=== PATIENT | female | born 1945 | race Two or more races ===

== ENCOUNTER 2020-06-19 13:45 | Outpatient (REF) | payer MEDICARE, SELFPAY | END 2020-06-19 13:46 | disposition home or self-care (01) | LOC: HO.LAB 13:45 | PROVIDERS: Visit Provider Internal Medicine | DX: Z20.828 Contact with and (suspected) exposure to other viral communicable diseases (principal) | CPT/HCPCS: 87635 ==

== ENCOUNTER → 2020-07-15 11:20 | Outpatient (BNVA) | payer MEDICARE, SELFPAY | PROVIDERS: PCP Internal Medicine; Visit Provider Internal Medicine Pulmonary Disease | DX: J45.991 Cough variant asthma (principal); R94.2 Abnormal results of pulmonary function studies; K21.9 Gastro-esophageal reflux disease without esophagitis; G47.33 Obstructive sleep apnea (adult) (pediatric); Z79.899 Other long term (current) drug therapy; Z99.89 Dependence on other enabling machines and devices | CPT/HCPCS: 99212 ==

== ENCOUNTER → 2020-08-07 12:52 | Outpatient (REF) | payer MEDICARE, SELFPAY ==
--- NOTE | 2020-08-07 13:00 | CA_ITS ---
Transthoracic Echocardiogram Patient (Last, First, Middle): Juany James M Gender: Female Date of : 1945 Age: 74 Procedure Date: 08/07/2020 Procedure Type: Transthoracic Echocardiogram Location: OP Height: 157.48 cm Weight: 68.04 kg BSA: 1.69 m2 Heart Rate: bpm BP: 132 / 58 mmHg Pricing Director: [facility] MD: José Miguel Hernandez MD Symptoms: I38 VALVULAR I27.20 PULMONARY HTN Study Quality: Good ECG Rhythm: Sinus Conclusions: - The visually estimated ejection fraction is between 60-65%. There is no evidence of regional wall motion abnormalities. - There is mild mitral valve regurgitation. - There is mild to moderate tricuspid valve regurgitation. - Mild to moderate pulmonary hypertension is present. Findings Left Ventricle Normal left ventricular cavity size. The left ventricular systolic function is normal. The visually estimated ejection fraction is between 60-65%. There is no evidence of regional wall motion abnormalities. E/E prime ratio is >15, consistent with elevated filling pressures. Evidence suggests grade I (mild) diastolic dysfunction. There is mild septal asymmetric hypertrophy. Right Ventricle Normal right ventricular cavity size and systolic function. Atria The left atrium is mildly dilated. The right atrium is normal in size. Aortic Valve There is a normal trileaflet aortic valve. There is no aortic valve stenosis. There is no aortic valve regurgitation. Mitral Valve There is mild anterior and posterior mitral leaflet thickening. There is mild mitral valve regurgitation. There is no mitral valve stenosis. Pulmonic Valve The pulmonic valve was not well visualized. Tricuspid Valve Normal tricuspid valve structure. There is mild to moderate tricuspid valve regurgitation. The right ventricular systolic pressure is 47 mmHg. Mild to moderate pulmonary hypertension is present. Great Vessels The asc aorta is normal in size. Venous The inferior vena cava is normal in size and collapses greater than 50% with inspiration. Pericardium/Pleural There is no evidence of pericardial effusion. Prior Study Comparison No significant change compared to prior study dated: 04/15/2019. Measurements 2D Linear Measurements RVIDd: 2.47 RVIDd Index: 1.46 IVSd: 1.19 0.6-0.9/0.6-1.0 cm LVIDd: 4.15 3.9-5.3/4.2-5.9 cm LVIDd Index: 2.46 2.4-3.2/2.2-3.1 cm/m2 LVIDs: 2.67 2.0-3.6 cm LVPWd: 1.05 0.7-1.1 cm Ao Root: 2.40 2.1-3.5 cm LA Diam: 4.20 2.7-3.8/3.0-4.0 cm LAIDs Index: 2.49 1.5-2.3 cm/m2 LV Mass: 197.02 67-162/88-224 g LV Mass Index: 116.58 43-95/49-115 g/m2 LVOT Diam: 1.70 3.0+(-)1.3 cm 2D Systolic Function EF 4C: 72.80 >55% EF 2C: 60.40 >55% EF BiP: 66.40 >55% Mitral Valve MV Pk E: 1.14 MV PK A: 1.41 MV Decel Time: 280.00 E/A: 0.80 E'Lateral: 6.20 E'Medial: 5.22 E/E' Med: 21.80 E/E' Lat: 18.40 MR Alias Sadi: 0.35 MR RAD: 0.70 Aortic Valve AoV Pk Sadi: 1.75 AoV Mn Sadi: 1.20 AoV VTI: 0.37 AoV Pk Grad: 12.00 Aov Mn Grad: 7.00 KENNY Cont.VTI: 2.17 LVOT LVOT Pk Sadi: 1.42 LVOT Mn Sadi: 0.99 LVOT VTI: 0.35 LVOT Pk Grad: 8.00 LVOT Mn Grad: 4.00 LVOT Diam: 1.70 LVOT Area: 2.27 Diastolic Function MV Pk E: 1.14 MV Pk A: 1.41 E/A: 0.80 E'Medial: 5.22 E/E' Med: 21.80 E' Laterial: 6.20 E/E' Lat: 18.40 Tricuspid Valve TR Pk Sadi: 3.31 TR Pk Grad: 44.00 RA Press: 3.00 RVSP: 47.00 Great Vessels Aorta Ao Root-2D: 2.40 2.0-3.7 cm Ao Asc: 2.50 2.1-3.4 cm Updated in Other Vendor System with Status of Final José Miguel Hernandez MD electronically signed on 08/09/2020 2:27:44 PM with status of Final
== END ==
LOC: HO.CARD 12:52
PROVIDERS: Visit Provider Internal Medicine
DX: I38 Endocarditis, valve unspecified (principal); I27.20 Pulmonary hypertension, unspecified; I10 Essential (primary) hypertension
CPT/HCPCS: 93306

== ENCOUNTER → 2020-08-17 12:51 | Outpatient (BNVA) | payer MEDICARE, SELFPAY | PROVIDERS: Visit Provider Internal Medicine | DX: I38 Endocarditis, valve unspecified (principal); I27.20 Pulmonary hypertension, unspecified; R06.02 Shortness of breath | CPT/HCPCS: 93005; 99212 ==

== ENCOUNTER 2020-08-19 09:12 | Outpatient (REF) | payer MEDICARE, SELFPAY ==
[2020-08-19 10:19] LABS: Anion Gap 12 (12-20); Blood Urea Nitrogen 17 mg/dL (9-16); Calcium 9.5 mg/dL (8.4-10.2); Carbon Dioxide 32 mmol/L (22-29); Chloride 100 mmol/L (96-108); Estimated Glomerular Filt Rate > 60; Glucose Random 185 mg/dL (60-115); Potassium 4.5 mmol/l (3.3-5.1); Sodium 139 mmol/L (135-145)
== END 2020-08-19 09:13 | disposition home or self-care (01) ==
LOC: HO.LAB 09:12
PROVIDERS: PCP Internal Medicine; Visit Provider Internal Medicine Pulmonary Disease
DX: R94.2 Abnormal results of pulmonary function studies (principal); E78.00 Pure hypercholesterolemia, unspecified
CPT/HCPCS: 80048

== ENCOUNTER 2020-08-24 11:09 | Outpatient (REF) | payer MEDICARE, SELFPAY ==
--- NOTE | 2020-08-24 11:11 | CT_ITS ---
EXAMINATION: CT CHEST WITH CONTRAST CLINICAL INFORMATION: Abnormal pulmonary function tests. COMPARISON: None. TECHNIQUE: Multidetector volumetric CT imaging of the chest was obtained after the administration of 50 mL of Omnipaque 350 intravenous contrast without immediate adverse reactions. Axial MIP volume rendering provided. Sagittal and coronal reformatted images were obtained. This CT examination was performed using dose optimization techniques as appropriate, variously including the following: *Automated exposure control *Adjustment of mA and/or kV according to patient size (this includes techniques or standardized protocols for targeted exams where dose is matched to indication/reason for exam; i.e. extremities or head) *Use of iterative reconstruction technique DLP: 106 mGy-cm FINDINGS: PARTS BACK COUNTER MAN: Unremarkable. LUNGS: The lungs are well expanded with plate-like atelectasis left lung base and minimal dependent atelectasis right upper lobe adjacent to the major fissure. There is a 2 mm calcified nodule right lower lobe subpleural location, adjacent to the major fissure axial image 79/9, focal atelectasis in the subpleural location right middle lobe axial image 66/9 and a 1 mm calcified nodule left lower lobe posterior segment image 139/9. MEDIASTINUM: The thyroid lobes asymmetrical but not enlarged. Central trachea and bronchi are normal caliber. Heart size and the great vessels are normal caliber. There is no pericardial effusion seen. There are coronary artery calcifications present. PLEURA: There is no pleural effusion. No pleural mass or thickening. AXILLA: There are small shotty lymph nodes seen in the axilla. The chest wall appears unremarkable. UPPER ABDOMEN: The liver is diffusely attenuated. Visualized spleen, pancreas and bilateral adrenal glands are unremarkable. The gallbladder has been removed surgically. OSSEOUS STRUCTURES: No lytic or sclerotic process seen. CT/CT chest w con IMPRESSION: Calcified small pulmonary nodules, likely granulomas. There are focal atelectatic changes. No pulmonary mass, consolidation or ground-glass density seen. No abnormal mediastinal or axillary lymph nodes.
[2020-08-24] MEDS: iohexoL 350 MG/ML 100 ML INFUS..BTL 65 ML IV (11:58)
== END 2020-08-24 11:10 | disposition home or self-care (01) ==
LOC: HO.CT 11:09
PROVIDERS: PCP Internal Medicine; Visit Provider Internal Medicine Pulmonary Disease
DX: R94.2 Abnormal results of pulmonary function studies (principal)
CPT/HCPCS: 71260; Q9967

== ENCOUNTER 2020-09-14 16:12 | Emergency (ER) | payer MEDICARE, SELFPAY ==
[2020-09-14 17:31] VITALS: BP 140/86; PULSE 55; RESP 18; TEMP 36.9; O2SAT 97
[2020-09-14 17:47] VITALS: BP 140/87; PULSE 55; RESP 18; TEMP 36.6; O2SAT 97; BMI 24.0
--- NOTE | 2020-09-14 17:50 | XR_ITS ---
EXAMINATION: PORTABLE CHEST 1 VIEW CLINICAL INFORMATION: SOB . COMPARISON: 04/28/2020. TECHNIQUE: Portable frontal view of the chest was obtained. FINDINGS: The lungs are well expanded. Mild chronic appearing reticular markings but no superimposed focal infiltrate, effusion, edema, or pneumothorax. Cardiac and mediastinal silhouettes are within normal limits for technique. No acute bony abnormality seen. XR/XR chest 1V IMPRESSION: No evidence of acute disease.
[2020-09-14 21:04] LABS: Influenza A PCR NEGATIVE (Negative); Influenza B PCR NEGATIVE (Negative); Resp Syncy Virus RNA Qual PCR NEGATIVE (Negative); SARS COV2 PCR INHOUSE NEGATIVE (Negative)
--- NOTE | 2020-09-14 21:14 | ED.URI ---
HPI - URI/Sore Throat General Chief Complaint: Upper Respiratory Symptoms Stated Complaint: Difficulty breathing Time Seen by Provider: 09/14/20 17:49 History of Present Illness HPI Narrative: Patient presents to ED for dry cough for the past 3 days. Denies any swelling of lower extremities, chest pain, calf pain, shortness of breath. He states body aches and chills. She states subjective fever Related Data Home Medications Medication Instructions Recorded Confirmed acetaminophen 500 mg tablet 500 mg PO Q6H PRN 06/05/20 08/17/20 albuterol sulfate 2.5 mg INHALATION Q4-6H PRN 06/05/20 08/17/20 aspirin 81 mg tablet,delayed 81 mg PO DAILY 06/05/20 08/17/20 release benazepril 10 mg tablet 10 mg PO DAILY 06/05/20 08/17/20 fluticasone 250 mcg-salmeterol 50 1 inh INHALATION BID 06/05/20 08/17/20 mcg/dose blistr powdr for inhalation ibuprofen 600 mg tablet 600 mg PO TID 06/05/20 08/17/20 lidocaine 5 % topical ointment 1 applic TOPICAL TID 06/05/20 08/17/20 metformin 1,000 mg tablet 1,000 mg PO BID 06/05/20 08/17/20 metoprolol succinate 25 mg 25 mg PO DAILY 06/05/20 08/17/20 tablet,extended release 24 hr montelukast 10 mg tablet 10 mg PO DAILY 06/05/20 08/17/20 multivitamin 1 tab PO DAILY 06/05/20 08/17/20 oxycodone-acetaminophen 5 mg-325 1 tab PO Q8H PRN 06/05/20 08/17/20 mg tablet sitagliptin 100 mg tablet 100 mg PO DAILY 06/05/20 08/17/20 sumatriptan succinate 50 mg tablet 50 mg PO Q2-4H PRN 06/05/20 08/17/20 trazodone 50 mg tablet 50 mg PO BEDTIME PRN 06/05/20 08/17/20 Previous Rx's Medication Instructions Recorded atorvastatin 20 mg tablet 20 mg PO BEDTIME #90 tab 06/05/20 atorvastatin 10 mg tablet 10 mg PO BEDTIME 90 Days #90 tab 06/24/20 amlodipine 5 mg tablet 5 mg PO DAILY #90 tab 07/09/20 pantoprazole 40 mg tablet,delayed 40 mg PO BID #180 tab 07/10/20 release tizanidine 4 mg tablet 4 mg PO BID PRN #45 tab 08/17/20 albuterol sulfate 2 puff INHALATION QID PRN #18 g 09/14/20 azithromycin See Rx Instructions .ROUTE 09/14/20 .COMPLEX #6 tab benzonatate [Tessalon Perles] 100 mg PO TID PRN #15 cap 09/14/20 Allergies Allergy/AdvReac Type Severity Reaction Status Date / Time metformin Allergy Unknown 1000 mg Verified 09/14/20 17:47 cause diarrhea Review of Systems Review of Systems: Yes all other systems are reviewed and are negative Constitutional: Constitutional: Reports as per HPI, Reports no additional constitutional complaints, Reports body ache(s) and Reports chills Eyes: Eyes: Reports as per HPI and Reports no additional eye complaints ENT: Reports system reviewed and no additional complaints, except as documented and Reports as per HPI Cardiovascular: Cardiovascular: Reports as per HPI and Reports no additional cardiovascular complaints Respiratory: Respiratory: Reports cough Gastrointestinal: Gastrointestinal: Reports as per HPI and Reports no additional gastrointestinal complaints Musculoskeletal: Musculoskeletal: Reports no additional musculoskeletal complaints and Reports as per HPI Neurologic: Reports system reviewed and no additional complaints, except as documented and Reports as per HPI Psychiatric: Psychiatric: Reports no additional psychiatric complaints and Reports as per HPI [facility] Past Medical History Medical History Asthma Behcets syndrome Diverticulitis GERD (gastroesophageal reflux disease) Hypercholesterolemia Hypertension Mitral valve regurgitation Overweight (BMI 25.0-29.9) Pulmonary hypertension Tubular adenoma of colon Type 2 diabetes mellitus with hyperglycemia Valvular heart disease Surgical History Back pain with history of spinal surgery History of bilateral cataract extraction History of bladder surgery History of breast biopsy History of cholecystectomy History of hand surgery History of shoulder surgery History of total abdominal hysterectomy Family History Family History (Updated 09/03/20 @ 09:26 by DANAIL Nguyen) Father Medical history unknown Mother Diabetes CVD (cardiovascular disease) Daughter Colon cancer Social History Social History (Updated 08/17/20 @ 12:59 by DANIAL Fierro) Smoking Status: Never smoker Advance Directives: No Advance Directives Information Provided: No Physical Exam Vital Signs: Vital Signs: Last Vital Signs Temp 97.8 F 09/14/20 17:47 Pulse 55 09/14/20 17:47 Resp 18 09/14/20 17:47 BP 140/87 H 09/14/20 17:47 Pulse Ox 97 09/14/20 17:47 Body Mass Index 24.0 Const: General: cooperative, healthy appearing, comfortable, no acute distress, well developed, alert, awake and Physically active Orientation/consciousness: patient oriented x3 HENMT: Head: Yes normal to inspection, Yes No palpable skull fracture present, Yes normocephalic and Yes atraumatic Eyes: General: appearance normal, both eyes and all related structures Neck: Neck: Yes normal visual inspection, Yes full ROM, Yes no lymphadenopathy, Yes no meningeal signs, Yes trachea midline, Yes supple and No tender Chest: Chest palpation & inspection: normal inspection of the chest and normal palpation of entire chest wall Resp: Effort & Inspection: normal respiratory effort and able to speak in complete sentences Auscultation: clear to auscultation bilaterally Cardio: Jugular venous distension: no JVD Heart sounds: S1 normal heart sound present and S2 normal heart sound present GI: Inspection: Yes normal to inspection Palpation (GI): Soft to palpation, not firm, nontender, no guarding and not rigid : General: No CVA tenderness and Yes no CVA tenderness Back/Spine/Pelvis: Back: no CVA tenderness, No CVA tenderness and No back tenderness Skin: General skin exam: no rashes or lesions noted and elasticity normal Neuro: General: patient oriented x3, no meningeal signs and CN's II-XI intact bilaterally Cranial nerves: Yes CN's II-XII intact bilaterally Extrem: Other: Lower extremities negative for any swelling, pitting edema, or calf tenderness. General: Yes normal to inspection and Yes full ROM Psych: Appearance: grossly normal, well kempt and not disheveled Course Course Course Narrative: Patient will have chest x-ray and COVID swab sent. Reevaluation(s) Reevaluation #1: X-ray negative for any pneumonia. COVID swab came back negative. Patient informed although her COVID swab came back negative she only has had symptoms for the past 3 days and this could be a false negative. Patient informed to continue quarantine if symptoms worsen. Time: 21:20 MDM - URI/Sore Throat MDM Narrative Medical decision making narrative: Viral syndrome. Bronchitis Lab Data Labs: Lab Results 09/14/20 Range/Units 20:00 Coronavirus (PCR) NEGATIVE (Negative) Influenza Type A (PCR) NEGATIVE (Negative) Influenza Type B (PCR) NEGATIVE (Negative) RSV RNA Qual (PCR) NEGATIVE (Negative) Discharge Plan Discharge Clinical Impression: URI (upper respiratory infection), Bronchitis Patient Disposition: Home, Self-Care Instructions: Upper Respiratory Infection (ED), Acute Bronchitis (ED) Additional Instructions: Return to the ED for swelling of lower extremities, calf pain, coughing up blood, weakness, fever, chills, inability tolerate solid food/liquid, or any other concerning symptoms. A COVID swab came back negative, but if you continue to have symptoms or they worsen recommend quarantine. Prescriptions: New benzonatate [Tessalon Perles] 100 mg capsule 100 mg PO TID PRN (Reason: cough) Qty: 15 RF: 0 albuterol sulfate 90 mcg/actuation HFA aerosol inhaler 2 puff inhalation QID PRN (Reason: bronchitis) Qty: 18 RF: 0 azithromycin 250 mg tablet See Rx Instructions .ROUTE .COMPLEX Qty: 6 RF: 0 No Action atorvastatin 10 mg tablet 10 mg PO BEDTIME 90 Days Qty: 90 RF: 0 amlodipine 5 mg tablet 5 mg PO DAILY Qty: 90 RF: 3 pantoprazole 40 mg tablet,delayed release (DR/EC) 40 mg PO BID Qty: 180 RF: 1 tizanidine 4 mg tablet 4 mg PO BID PRN (Reason: muscle spasticity) Qty: 45 RF: 2 multivitamin Tablet 1 tab PO DAILY RF: 0 acetaminophen [Tylenol Extra Strength] 500 mg tablet 500 mg PO Q6H PRNRF: 0 ibuprofen [IBU] 600 mg tablet 600 mg PO TID RF: 0 lidocaine 5 % ointment 1 applic topical TID RF: 0 albuterol sulfate 2.5 mg /3 mL (0.083 %) solution for nebulization 2.5 mg inhalation Q4-6H PRNRF: 0 metformin 1,000 mg tablet 1,000 mg PO BID RF: 0 trazodone 50 mg tablet 50 mg PO BEDTIME PRNRF: 0 metoprolol succinate 25 mg tablet extended release 24 hr 25 mg PO DAILY RF: 0 benazepril 10 mg tablet 10 mg PO DAILY RF: 0 aspirin [Adult Aspirin Regimen] 81 mg tablet,delayed release (DR/EC) 81 mg PO DAILY RF: 0 oxycodone-acetaminophen [Percocet] 5-325 mg tablet 1 tab PO Q8H PRNRF: 0 fluticasone propion-salmeterol [Advair Diskus] 250-50 mcg/dose blister with device 1 inh inhalation BID RF: 0 Januvia 100 mg tablet 100 mg PO DAILY RF: 0 montelukast 10 mg tablet 10 mg PO DAILY RF: 0 sumatriptan succinate [Imitrex] 50 mg tablet 50 mg PO Q2-4H PRNRF: 0 atorvastatin 20 mg tablet 20 mg PO BEDTIME Qty: 90 RF: 2 Interventions: ED Discharge Assessment Last Done: 09/14/20 21:46 Discharge Date/Time: 09/14/20 21:48
== END 2020-09-14 21:48 | disposition home or self-care (01) ==
PROVIDERS: Physician Assistant; Emergency Provider Emergency Medicine
DX: J06.9 Acute upper respiratory infection, unspecified (principal); J20.9 Acute bronchitis, unspecified; Z20.822 Contact with and (suspected) exposure to COVID-19; I10 Essential (primary) hypertension; E11.9 Type 2 diabetes mellitus without complications
CPT/HCPCS: 0241U; 36415; 71045; 99283

== ENCOUNTER 2020-09-25 14:23 | Outpatient (REF) | payer MEDICARE, SELFPAY ==
--- NOTE | 2020-09-25 14:26 | XR_ITS ---
EXAMINATION: XR CHEST CLINICAL INFORMATION: Cough. COMPARISON: None TECHNIQUE: 2 views of the chest were obtained. FINDINGS: No significant abnormality is noted involving the heart, lungs, mediastinum, bony thorax or soft tissues. XR/XR chest 2V IMPRESSION: Unremarkable chest examination.
== END 2020-09-25 14:24 | disposition home or self-care (01) ==
LOC: HO.HMGCX 14:23
PROVIDERS: PCP Internal Medicine; Visit Provider Internal Medicine
DX: R05 Cough (principal); Z20.822 Contact with and (suspected) exposure to COVID-19
CPT/HCPCS: 71046

== ENCOUNTER 2020-10-22 14:16 | Outpatient (REF) | payer MEDICARE, SELFPAY ==
--- NOTE | ~2020-10-22 | MM_ITS ---
EXAMINATION: MM DIAGNOSTIC DIGITAL BREAST TOMOSYNTHESIS, BILATERAL US DIAGNOSTIC ULTRASOUND BREAST, BILATERAL CLINICAL INFORMATION: Due for yearly. Follow-up probable benign architectural change upper outer left breast. The lifetime risk of breast cancer based on the Tyrer-Cuzick Model is 4%. COMPARISON: Mammography: 04/20/2020, 10/21/2019, 10/15/2019 (BI-RADS 0), 10/08/2018, 09/11/2017, 09/02/2016; targeted left breast ultrasound 10/21/2019 TECHNIQUE: Digital breast tomosynthesis is performed in both the craniocaudal and mediolateral oblique views along with computer-aided detection (CAD). Synthesized 2D images are generated from the tomosynthesis. Additional views are obtained: Spot left MLO, left ML, spot right CC, spot right MLO. Ultrasound right breast is targeted to the posterior upper quadrant. Additional imaging right axilla performed. Grayscale imaging and color Doppler are performed without and with harmonics. Ultrasound left breast is targeted to the mid upper outer quadrant. Additional imaging left axilla performed. Grayscale imaging and color Doppler are performed without and with harmonics. FINDINGS: Mammography: The breasts are heterogeneously dense, which may obscure small masses (ACR BI-RADS breast composition Category c). The right breast is focal irregular asymmetric density posterior 12:00 position representing change from prior studies. The remainder of the right breast shows no mass or architectural abnormality. There are scattered calcifications again seen. The left breast has some radiating lines upper outer quadrant similar to prior studies. There is questionable nodularity on tomography near this area. The remainder of the left breast shows no significant changes. There are scattered benign round calcifications again noted. Ultrasound: Targeted ultrasound right breast demonstrates irregular hypoechoic mass 12:00 position 7 cm from nipple measuring approximately 0.7 x 0.6 cm. There is some scattered posterior shadowing. This corresponds to finding on mammography and is suspicious. Ultrasound-guided core biopsy is recommended. Additional imaging right axilla shows no lymphadenopathy. Targeted ultrasound left breast demonstrates a hypoechoic nodule 2:00 position 6 cm from nipple measuring approximately 0.6 x 0.5 x 0.4 cm. Margins appear subtle irregular. There is no increased or decreased through transmission of sound. Ultrasound-guided core sampling is recommended. Additional imaging left axilla shows no lymphadenopathy. Results are discussed with the patient at time of visit. [facility] to follow up with PCP in morning and assist with patient scheduling and management. MM/MM tomosynthesis diagnostic BI IMPRESSION: 1. Right: New irregular mass posterior 12:00 position under 1 cm. 2. Left: Architectural findings stable. New hypoechoic mass under 1 cm on ultrasound. ASSESSMENT: BI-RADS 4: Suspicious RECOMMENDATION: Bilateral ultrasound-guided breast biopsy. This patient's information was entered into a reminder system with a target due date for their next mammogram.
== END 2020-10-22 14:17 | disposition home or self-care (01) ==
LOC: HO.MAMMO 14:16
PROVIDERS: PCP Internal Medicine; Visit Provider Internal Medicine
DX: N63.21 Unspecified lump in the left breast, upper outer quadrant (principal); R92.8 Other abnormal and inconclusive findings on diagnostic imaging of breast
CPT/HCPCS: 76642; 77062; 77066

== ENCOUNTER → 2020-10-26 08:12 | Outpatient (BNVA) | payer MEDICARE, SELFPAY | PROVIDERS: PCP Internal Medicine; Visit Provider Surgery | DX: N63.0 Unspecified lump in unspecified breast (principal) | CPT/HCPCS: Q3014 ==

== ENCOUNTER 2020-10-28 07:52 | Outpatient (REF) | payer MEDICARE, SELFPAY ==
--- NOTE | ~2020-10-28 | US_ITS ---
EXAMINATION: ULTRASOUND GUIDED CORE BIOPSY BREAST (TWO SITES), BILATERAL POST PROCEDURE DIGITAL MAMMOGRAM, BILATERAL CLINICAL INFORMATION: New irregular mass posterior 12:00 right breast under 1 cm. Hypoechoic lesion under 1 cm upper outer left breast on ultrasound. COMPARISON: Bilateral mammography and targeted breast ultrasound 10/22/2020. FINDINGS: Hospital provided housing relocation assisted for consent and throughout the procedure. Proper informed consent is obtained from the patient after discussion of the procedure, potential risks and complications, and alternatives. Patient was given an opportunity for questions. The patient appeared to understand. The patient consented to the procedure and signed the consent form. RIGHT BREAST: LOCATION: Posterior 12:00. GUIDANCE: Ultrasound-guided; aseptic technique. LESION: Irregular hypoechoic mass with posterior shadowing under 1 cm. APPROACH: Medial lateral. ANESTHESIA: 15 mL 1% lidocaine. DERMATOTOMY: Single skin michael dermatotomy performed. NEEDLE: 14-gauge Achieve core biopsy device with 13.5-gauge co-axial guide needle. CORES: 5. CLIP: HydroMARK; shape: butterfly. LEFT BREAST: New anesthesia and biopsy supplies are used. LOCATION: Upper outer quadrant mid depth. GUIDANCE: Ultrasound-guided; aseptic technique. LESION: Vague hypoechoic lesion under 1 cm. APPROACH: Lateral medial. ANESTHESIA: 15 mL 1% lidocaine. DERMATOTOMY: A skin michael dermatotomy is performed to allow for the second site of biopsy. NEEDLE: 14-gauge Achieve core biopsy device with 13.5-gauge co-axial guide needle. CORES: 5. CLIP: HydroMARK; shape: open coil. POST PROCEDURE DIGITAL MAMMOGRAM: The post biopsy mammogram is performed in separate room using separate digital mammography equipment from the biopsy procedure. Bilateral CC and bilateral ML views are obtained. The breasts are heterogeneously dense, which may obscure small masses (breast composition category: c). The bilateral clip markers are in position. No gross hematoma. The patient tolerated the procedure well. No immediate complications. Home instructions reviewed with the patient. Final pathology results are pending. US/US breast ndl core biopsy RT IMPRESSION: 1. Status post ultrasound-guided core biopsy right breast with placement of HydroMARK clip (butterfly shape). 2. Status post ultrasound-guided core biopsy left breast with placement of HydroMARK clip (open coil shape). 3. Pathology pending. An addendum report will be issued.
--- NOTE | ~2020-10-28 | US_ITS ---
EXAMINATION: ULTRASOUND GUIDED CORE BIOPSY BREAST (TWO SITES), BILATERAL POST PROCEDURE DIGITAL MAMMOGRAM, BILATERAL CLINICAL INFORMATION: New irregular mass posterior 12:00 right breast under 1 cm. Hypoechoic lesion under 1 cm upper outer left breast on ultrasound. COMPARISON: Bilateral mammography and targeted breast ultrasound 10/22/2020. FINDINGS: Hospital provided marketing researcher assisted for consent and throughout the procedure. Proper informed consent is obtained from the patient after discussion of the procedure, potential risks and complications, and alternatives. Patient was given an opportunity for questions. The patient appeared to understand. The patient consented to the procedure and signed the consent form. RIGHT BREAST: LOCATION: Posterior 12:00. GUIDANCE: Ultrasound-guided; aseptic technique. LESION: Irregular hypoechoic mass with posterior shadowing under 1 cm. APPROACH: Medial lateral. ANESTHESIA: 15 mL 1% lidocaine. DERMATOTOMY: Single skin michael dermatotomy performed. NEEDLE: 14-gauge Achieve core biopsy device with 13.5-gauge co-axial guide needle. CORES: 5. CLIP: HydroMARK; shape: butterfly. LEFT BREAST: New anesthesia and biopsy supplies are used. LOCATION: Upper outer quadrant mid depth. GUIDANCE: Ultrasound-guided; aseptic technique. LESION: Vague hypoechoic lesion under 1 cm. APPROACH: Lateral medial. ANESTHESIA: 15 mL 1% lidocaine. DERMATOTOMY: A skin michael dermatotomy is performed to allow for the second site of biopsy. NEEDLE: 14-gauge Achieve core biopsy device with 13.5-gauge co-axial guide needle. CORES: 5. CLIP: HydroMARK; shape: open coil. POST PROCEDURE DIGITAL MAMMOGRAM: The post biopsy mammogram is performed in separate room using separate digital mammography equipment from the biopsy procedure. Bilateral CC and bilateral ML views are obtained. The breasts are heterogeneously dense, which may obscure small masses (breast composition category: c). The bilateral clip markers are in position. No gross hematoma. The patient tolerated the procedure well. No immediate complications. Home instructions reviewed with the patient. Final pathology results are pending. US/US breast ndl core biopsy LT IMPRESSION: 1. Status post ultrasound-guided core biopsy right breast with placement of HydroMARK clip (butterfly shape). 2. Status post ultrasound-guided core biopsy left breast with placement of HydroMARK clip (open coil shape). 3. Pathology pending. An addendum report will be issued.
== END 2020-10-28 07:53 | disposition home or self-care (01) ==
LOC: HO.MAMMO 07:52
PROVIDERS: Visit Provider Surgery
DX: C50.811 Malignant neoplasm of overlapping sites of right female breast (principal); Z17.0 Estrogen receptor positive status [ER+]; N63.21 Unspecified lump in the left breast, upper outer quadrant
CPT/HCPCS: 19083; 77066; 88305; 88341; 88342; 88360

== ENCOUNTER → 2020-11-02 10:57 | Outpatient (BNVA) | payer MEDICARE, SELFPAY | PROVIDERS: PCP Internal Medicine; Visit Provider Surgery | DX: C50.911 Malignant neoplasm of unspecified site of right female breast (principal) | CPT/HCPCS: 99212 ==

== ENCOUNTER 2020-11-10 08:22 | Day surgery (SDC) | payer MEDICARE, SELFPAY ==
--- NOTE | 2020-11-09 09:08 | P.CONAN_ITS ---
Documented by User: Jannette Layney 11/09/20 09:19 HPI - Anesthesia Eval Consult details Narrative: 74yo F for Right breast lumpectomy, needle loc, sentinal node PMFSH Active Problems Active Problems: All Active Problems (Updated 11/02/20 @ 11:22 by Randy Moise MD) Invasive ductal carcinoma of right breast (Acute) Breast mass (Acute) Migraine (Acute) Cough (Acute) Shortness of breath (Acute) Pulmonary hypertension (Acute) Valvular heart disease (Acute) Restrictive pattern present on pulmonary function testing (Acute) RUDDY on CPAP (Acute) Cough variant asthma (Acute) Hypercholesterolemia (Acute) Viral illness (Acute) GERD (gastroesophageal reflux disease) (Acute) Asthma (Acute) Hypertension (Acute) Type 2 diabetes mellitus with hyperglycemia (Acute) Overweight (BMI 25.0-29.9) (Acute) Past Medical History Medical History Asthma Behcets syndrome Diverticulitis GERD (gastroesophageal reflux disease) Hypercholesterolemia Hypertension Invasive ductal carcinoma of right breast Mitral valve regurgitation Overweight (BMI 25.0-29.9) Pulmonary hypertension Tubular adenoma of colon Type 2 diabetes mellitus with hyperglycemia Valvular heart disease Family History Family History Father Medical history unknown Mother Diabetes CVD (cardiovascular disease) Daughter Colon cancer Surgical History Surgical History Back pain with history of spinal surgery History of bilateral cataract extraction History of bladder surgery History of breast biopsy History of cholecystectomy History of hand surgery History of shoulder surgery History of total abdominal hysterectomy Social History Social History Smoking Status: Never smoker Use of substances other than those prescribed or required for medical reasons: No Have you been hit, kicked, punched, or otherwise hurt by someone within the past year? If so, by whom?: No Advance Directives: No Advance Directives Information Provided: No Meds Allergies Allergy/AdvReac Type Severity Reaction Status Date / Time metformin Allergy Unknown 1000 mg Verified 10/26/20 08:26 cause diarrhea Home Medications Medication Instructions Recorded Confirmed Last Taken Type acetaminophen 500 mg tablet 500 mg PO Q6H PRN 06/05/20 11/02/20 Unknown History albuterol sulfate 2.5 mg INHALATION Q4-6H PRN 06/05/20 11/02/20 Unknown History aspirin 81 mg tablet,delayed 81 mg PO DAILY 06/05/20 11/02/20 11/07/20 History release benazepril 10 mg tablet 10 mg PO DAILY 06/05/20 11/02/20 Unknown History fluticasone 250 mcg-salmeterol 50 1 inh INHALATION BID 06/05/20 11/02/20 Unknown History mcg/dose blistr powdr for inhalation ibuprofen 600 mg tablet 600 mg PO TID 06/05/20 11/02/20 Unknown History lidocaine 5 % topical ointment 1 applic TOPICAL TID 06/05/20 11/02/20 Unknown History metformin 1,000 mg tablet 1,000 mg PO BID 06/05/20 11/02/20 Unknown History multivitamin 1 tab PO DAILY 06/05/20 11/02/20 Unknown History oxycodone-acetaminophen 5 mg-325 1 tab PO Q8H PRN 06/05/20 11/02/20 Unknown History mg tablet sitagliptin 100 mg tablet 100 mg PO DAILY 06/05/20 11/02/20 Unknown History trazodone 50 mg tablet 50 mg PO BEDTIME PRN 06/05/20 11/02/20 Unknown History Exam Exam Date and Time: November 09, 2020 0908 Pertinent Lab Results Pertinent Lab Results: Laboratory Tests 05/27/20 08/19/20 10:10 09:30 WBC 5.3 Hgb 13.1 Hct 39.9 Plt Count 304 Sodium 139 Potassium 4.5 Chloride 100 Carbon Dioxide 32 H BUN 17 H Creatinine 0.84 Narrative Narrative: EKG 07/2020 sinus bradycardia, 58/Min, nonspecific ST-T changes, left atrial enlargement Echo 07/2020 Conclusions: - The visually estimated ejection fraction is between 60-65%. There is no evidence of regional wall motion abnormalities. - There is mild mitral valve regurgitation. - There is mild to moderate tricuspid valve regurgitation. - Mild to moderate pulmonary hypertension is present. Per cardiac note, no h/o ischemic heart disease. Assessment and Plan Assessment Anesthesia Assessment: Chart Reviewed Documented by User: Mai Cohen 11/10/20 12:13 [facility] Past Medical History Medical History Asthma Behcets syndrome Diverticulitis GERD (gastroesophageal reflux disease) Hypercholesterolemia Hypertension Invasive ductal carcinoma of right breast Mitral valve regurgitation Overweight (BMI 25.0-29.9) Pulmonary hypertension Tubular adenoma of colon Type 2 diabetes mellitus with hyperglycemia Valvular heart disease Family History Family History Father Medical history unknown Mother Diabetes CVD (cardiovascular disease) Daughter Colon cancer Surgical History Surgical History Back pain with history of spinal surgery History of bilateral cataract extraction History of bladder surgery History of breast biopsy History of cholecystectomy History of hand surgery History of shoulder surgery History of total abdominal hysterectomy Social History Social History Smoking Status: Never smoker Use of substances other than those prescribed or required for medical reasons: No Have you been hit, kicked, punched, or otherwise hurt by someone within the past year? If so, by whom?: No Advance Directives: No Advance Directives Information Provided: No Meds Allergies Allergy/AdvReac Type Severity Reaction Status Date / Time metformin Allergy Unknown 1000 mg Verified 10/26/20 08:26 cause diarrhea Home Medications Medication Instructions Recorded Confirmed Last Taken Type acetaminophen 500 mg tablet 500 mg PO Q6H PRN 06/05/20 11/02/20 Unknown History albuterol sulfate 2.5 mg INHALATION Q4-6H PRN 06/05/20 11/02/20 Unknown History aspirin 81 mg tablet,delayed 81 mg PO DAILY 06/05/20 11/02/20 11/07/20 History release benazepril 10 mg tablet 10 mg PO DAILY 06/05/20 11/02/20 Unknown History fluticasone 250 mcg-salmeterol 50 1 inh INHALATION BID 06/05/20 11/02/20 Unknown History mcg/dose blistr powdr for inhalation ibuprofen 600 mg tablet 600 mg PO TID 06/05/20 11/02/20 Unknown History lidocaine 5 % topical ointment 1 applic TOPICAL TID 10/09/20 03/08/21 Unknown History metformin 1,000 mg tablet 1,000 mg PO BID 06/05/20 11/02/20 Unknown History multivitamin 1 tab PO DAILY 06/05/20 11/02/20 Unknown History oxycodone-acetaminophen 5 mg-325 1 tab PO Q8H PRN 06/05/20 11/02/20 Unknown History mg tablet sitagliptin 100 mg tablet 100 mg PO DAILY 06/05/20 11/02/20 Unknown History trazodone 50 mg tablet 50 mg PO BEDTIME PRN 06/05/20 11/02/20 Unknown History Exam Airway Mallampati Class: II TM Dist: >3cm Neck ROM: Full Assessment and Plan Assessment Anesthesia Assessment: Anesthesia Plan Discussed and Chart Reviewed Final Anesthetic Review NPO: Yes ASA Class: III Final Preanesthetic Review: No Changes in Pt Med Stat, Meds/Allgs Chart Reviewed, Consent Obtained/Reviewed and Anes Risks/Benef Reviewed Patient Risk: Intermediate Procedure Risk: Low Assessment/Block/Sedation in SS: Assess/Block/Sedation-SS Anesthetic Plan Anesthetic Plan: GA Disposition: Standard PACU
[2020-11-10] VITALS (11 sets, daily range): BP systolic 133–169; BP diastolic 62–72; PULSE 52–68; RESP 16–18; TEMP 36.4–36.6; O2SAT 92–100; BMI 28.9
--- NOTE | ~2020-11-10 | NM_ITS ---
EXAMINATION: NM LYMPH SCINTIGRAPHY CLINICAL INFORMATION: Malignant neoplasm of right breast. COMPARISON: None TECHNIQUE: Following explaining right breast sentinel node procedure, benefits and risk, a written consent was obtained by Dr. Bello. 4% lidocaine cream was applied on the right breast 30 to 45 minutes prior to the procedure. The cream was then cleaned, the right breast areolar area and around was cleaned in an aseptic manner. 0.5 mCi of 99m-technetium divided in 4 equal doses was injected in 4 quadrants around the right breast areola and imaging obtained 30 minutes later. Patient tolerated procedure extremely well. FINDINGS: On right breast lymphoscintigraphy, there is isotope activity seen around the right breast areola. A solitary sentinel node is seen in anterior axilla. NM/NM sentinel node w imaging IMPRESSION: Solitary sentinel node visualized in the anterior axilla on right breast lymphoscintigraphy.
--- NOTE | ~2020-11-10 | MM_ITS ---
EXAMINATION: MM MAMMOGRAM GUIDED NEEDLE LOCALIZATION BREAST, RIGHT MM NEEDLE LOCALIZATION SPECIMEN FROM THE RIGHT BREAST CLINICAL INFORMATION: Recent diagnosis invasive ductal cancer with focal lobular features posterior 12:30 right breast. COMPARISON: Mammography 10/22/2020, 10/28/2020, ultrasound right breast 10/22/2020, ultrasound-guided right breast biopsy 10/28/2020. TECHNIQUE NEEDLE LOC: Proper informed consent is obtained from the patient after discussion of the procedure, potential risks and complications, and alternatives including declining the procedure today. Patient was given an opportunity for questions. The patient appeared to understand. The patient consented to the procedure and signed the consent form. GUIDANCE: Digital mammography. APPROACH: Cranio-caudal. TARGET: Biopsy clip marker posterior 12:30 o'clock right breast. ANESTHESIA: lidocaine 1%: 8 mL. LOCALIZATION MARKER: [place] [employer]. 7.5 cm length. The skin is prepped and local anesthesia administered. The needle is positioned and position assessed with mammography. The wire is hooked into position. [place] needle protector placed. The patient tolerated the procedure well and had no immediate complication. Following the procedure, 4% lidocaine ointment was administered to the right areola and covered with Tegaderm in anticipation of nuclear lymphoscintigraphy injection for sentinel lymph node mapping. Results discussed with Dr. Moise following the procedure. TECHNIQUE SPECIMEN RADIOGRAPH: The excised specimen is in 2 pieces. A total of 6 views are obtained. FINDINGS SPECIMEN RADIOGRAPH: The larger specimen contains the intact distal localization wire and needle, both extending beyond field of view. The index lesion is seen adjacent to the localization wire within the specimen. The clip marker is identified on the film outside and 3-4 cm away from the tissue. The smaller specimen is unremarkable. Results were called to Dr. Randy Moise in the operating room at the time of imaging. MM/MM needle loc RT IMPRESSION: 1. Status post right breast needle localization with wire hooked into position. 2. Post operative specimen radiograph obtained.
[2020-11-10 08:35] LABS: Glucose, Whole Blood 190 mg/dL (60-115)
[2020-11-10] MEDS: Lidocaine 4 % Cream KIT 1 APPL TOPICAL (08:51)
[2020-11-10] MEDS: Lactated Ringers 1,000 ML 50 ML IV (08:51)
--- NOTE | 2020-11-10 09:47 | PC.NURSE ---
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
--- NOTE | 2020-11-10 09:48 | PC.NURSE ---
[facility] here to apple picker pt nad voided prior
--- NOTE | 2020-11-10 11:30 | MHC.SHP ---
Pre-Procedural Eval Section B Chief Complaint: Invasive ductal carcinoma of right breast Allergies: Allergies Allergy/AdvReac Type Severity Reaction Status Date / Time metformin Allergy Unknown 1000 mg Verified 10/26/20 08:26 cause diarrhea Plan I have reviewed the history and physical and performed a pertinent physical examination on my patient. No changes have occurred unless specified.
--- NOTE | 2020-11-10 14:51 | PM.OP ---
Brief Operative Note Date of Service: 11/10/20 <Linda Crespo PA-C - Last Filed: 11/10/20 14:54> Pre-op diagnosis: invasive carcinoma of right breast <RAJ Kelsey Last Filed: 11/10/20 14:54> Post-op diagnosis: same <RAJ Kelsey Last Filed: 11/10/20 14:54> Procedure: right breast lumpectomy with needle localization, right axillary sentinely lymph node biopsy <RAJ Kelsey Last Filed: 11/10/20 14:54> Surgeon: MILLA FINN MD <RAJ Kelsey Last Filed: 11/10/20 14:54> Anesthesia: GLMA <RAJ Kelsey Last Filed: 11/10/20 14:54> Rewinder Operator Helper: Linda Crespo <RAJ Kelsey Last Filed: 11/10/20 14:54> Estimated blood loss (mL): 20 <RAJ Kelsey Last Filed: 11/10/20 14:54> Pathology: other (right breast lumpectomy, right axillary sentinel lymph node, axillary lymph nodes) <RAJ Kelsey Last Filed: 11/10/20 14:54> Condition: stable <RAJ Kelsey Last Filed: 11/10/20 14:54> Disposition: PACU <RAJ Kelsey Last Filed: 11/10/20 14:54>
[2020-11-10] MEDS: fentaNYL citrate/PF 100 MCG/2 ML VIAL 25 MCG IVPUSH ×2 (15:24→15:30)
[2020-11-10] MEDS: Acetaminophen 325 MG TABLET 650 MG PO (15:37)
--- NOTE | 2020-11-10 15:41 | P.OP_ITS ---
Operative Note Operative Note Date of Service: 11/10/20 Narrative: Preop diagnosis: Invasive ductal carcinoma, right breast Postop diagnosis: Invasive ductal carcinoma, right breast Procedure: Lumpectomy, with needle localization, right breast, with sentinel node biopsy Surgeon: Randy Moise MD supply chain assistant: PARDEEP Crespo The patient is a 74 year female recently diagnosed to have invasive ductal carcinoma right breast, ER/VA positive, HER2 negative. This was at the 12 o'clock position on the right breast. She is scheduled today for lumpectomy and needle localization. She underwent needle localization earlier this morning and I had discussed the images with Dr. Bello. She underwent scintigraphy for sentinel node biopsy as well after the needle localization. The patient and her family understood the technique of the planned procedure and aware of the risks, benefits and alternatives. After she had needle localization and sentinel node mapping, the patient was brought to the operating room and placed supine on table under general anesthesia via laryngeal mask airway. The right arm was abducted and positioned away from the axilla for optimal exposure. A surgical time-out was done. The patient received cefazolin 2 g IV preoperatively. The localizing needle was seen at the 12 o'clock position of the breast and was going into the pressed in an almost perpendicular direction. I infiltrated the planned line of incision using lidocaine 1%. I made an incision on the skin transversely tangential to the needle entry point using a blade 15. This carried down through the full- thickness skin and subcutaneous fat using electrocautery. We continued to dissect down until breast tissue was seen. I then proceeded to use the curved Hdz to divide this tissue surrounding the needle. We carefully followed the needle with periodic palpation and visualization to make sure that we were not getting too close to the periphery of the needle itself. I proceeded to continue dissection using Hdz scissors deep to the end of the localizing needl e. We periodically had to cauterize oozing areas as well as we continued to dissect around the circumference of the needle. I made sure that we were taking adequate tissue so that there would be good margins around the periphery of the non-visible lesion. We continued to dissect circumferentially all the way down to the deeper periphery of the wire until we were able to completely deliver this specimen. During delivery, I had noted that the clip was close to the lateral aspect of the specimen so I removed more of margins on the lateral and inferior aspect of the excision site. This was sent as a specimen as well. I then proceeded to observe and examined the excision site. I cauterized oozing areas. The copies irrigated this. I then placed a moist gauze and covered this with Tegaderm. We then proceeded to do the sentinel biopsy. I had changed gloves at this point and we used fresh instruments. Review of the scintigraphy images showed that there was 1 very small lymph node very close to the breast itself towards the tail. I used the Gamma probe and scanned this over the axilla especially towards the apex. The counts on the nipple area itself on the injection site was relatively low in the 40s. I did not not elicit any signal in the apex itself so we carefully scanned more towards the tail and this was where the higher counts on the probe was elicited. I therefore made a transverse incision on the skin in this area after infiltrating with lidocaine. This incision made using blade 15. I carried down this incision through the full-thickness of the skin and part of subcutaneous layer using electrocautery. I then proceeded to periodically use the probe to guide us as to the direction of the dissection. The higher counts appeared to be away from the axilla and was going more towards the tail of the breast. I proceeded to re-scan the entire axilla from the apex to the tail and I really did not appear to be any significant elevated counts towards the apex of the axilla itself. Most of the elevated counts where directed closer to the inferior part of the base of the axillary triangle I proceeded to therefore continue to bluntly dissect this area using Metzenbaum scissors. I was able to visualize small lymph nodes which were excised with the scissors. I removed 3 lymph nodes, likely level 1, that were within this area but this did not really show any significant counts on the Gamma probe. I therefore continued to scan the entire area where there was elevated signal with a probe. We continued to carefully dissect and examined the tissue in this area. We were already deep close to the chest wall itself but I did not really elicit any significant signal. There was only 1 point where we had of a count of 14 and on this area of the axilla and I was able to see 1 enlarged lymph node which I excised using Metzenbaum scissors. This area corresponded the visible lymph node on scintigraphy. I cauterized the excision area for hemostasis. I therefore sent this as the sentinel node. I continued to scan for any other elevated counts on the Gamma probe and we spent an extended period of time for any other additional lymph nodes that may have elevated counts. The only elevated counts that we could elicit were towards the nipple area where the injection site was. I therefore observed for hemostasis and cauterized oozing areas. Once hemostasis was ensured, I proceeded to then irrigate copiously. I had received a phone call during procedure about the re-ray and the radiologist stated that the clip as well as the lesion were within the specimen. Towards the end of the case, the pathologist had also called and informed me that the lesion appeared to be grossly within the specimen although the margins appeared close laterally. This was same area where I had removed more margins earlier as the clip was noted to be close laterally on examination. After the above discussions with both the pathologist as well as the radiol ogist, we proceeded to close both incisions. We reapposed the deep subcutaneous tissue with Dexon 3-0 interrupted sutures. Skin closure achieved in all incisions using Dexon 4-0 subcuticular sutures. Steri-Strips and dressings were applied. All incisions were infiltrated with Marcaine 0.5% for postop analgesia. The procedure was then completed. The patient tolerated well with no complication noted. Initial fine counts of sponges and instruments were correct. Estimated blood loss about 30 cc. The patient extubated without difficulty and transferred to recovery with stable vital signs. Please note as well that I had discussed the procedure with the patient's family after the patient was transferred to the recovery room. Breast [place] Node Biopsy Substrate(s) used for sentinel node biopsy in the non-neoadjuvant setting: Radiotracer All significantly radioactive nodes were removed, if radionuclide was used as the substrate for localization: Yes All palpably suspicious nodes were removed, if present: Yes If clips were placed in pathology-involved nodes, those nodes were identified and removed: N/A General Surg. - Synoptic Notes Breast [place] Node Biopsy Substrate(s) used for sentinel node biopsy in the non-neoadjuvant setting: Radiotracer All significantly radioactive nodes were removed, if radionuclide was used as the substrate for localization: Yes All palpably suspicious nodes were removed, if present: Yes If clips were placed in pathology-involved nodes, those nodes were identified and removed: N/A
[2020-11-10] MEDS: oxyCODONE HCl Immed Release 5 MG TABLET PO (15:57)
--- NOTE | 2020-11-10 16:09 | PC.NURSE ---
1600 MONITORS AND IVF DCD ASST OOB CH STEADY ASST W CLOTHING CHANGE, CIRCULAR COLD PACK TO R BREAST PT WEARING BRA, TO BE DISCH FROM PACU
--- NOTE | 2020-11-10 16:13 | HO.POSTANES ---
Post Anesthesia Evaluation Post Anesthesia Evaluation Vital Signs: Vital Signs Temp Pulse Resp BP Pulse Ox 11/10/20 15:52 61 16 166/69 H 97 11/10/20 15:40 53 16 164/72 H 100 11/10/20 15:30 64 16 155/64 H 92 11/10/20 15:25 16 168/66 H 97 11/10/20 15:24 16 11/10/20 15:20 59 16 169/65 H 97 11/10/20 15:10 65 16 150/62 H 100 11/10/20 15:05 60 16 144/65 H 100 11/10/20 15:00 68 16 154/68 H 100 11/10/20 14:55 97.5 F 59 16 152/71 H 100 11/10/20 08:33 98 F 52 18 133/63 99 Anesthesia: General Mental Status: Awake Pain Control: Satisfactory Nausea/Vomiting: None Hydration: Adequate Anesthesia-Related Issues: No Anes. Related Issues
== END 2020-11-10 16:16 | disposition home or self-care (01) ==
PROVIDERS: PCP Internal Medicine; Visit Provider Surgery
PROC: (CPT 19301; principal; 2020-11-10 12:30)
PROC: (CPT 19301; 2020-11-10 12:30)
PROC: (CPT 19301; 2020-11-10 12:30)
DX: C50.911 Malignant neoplasm of unspecified site of right female breast (principal); Z17.0 Estrogen receptor positive status [ER+]; J45.909 Unspecified asthma, uncomplicated; M35.2 Behcet's disease; I10 Essential (primary) hypertension; I05.9 Rheumatic mitral valve disease, unspecified; I27.20 Pulmonary hypertension, unspecified; E11.65 Type 2 diabetes mellitus with hyperglycemia; Z79.84 Long term (current) use of oral hypoglycemic drugs; Z79.51 Long term (current) use of inhaled steroids; Z79.899 Other long term (current) drug therapy
CPT/HCPCS: 19301; 38525; 19281; 78195; 82947; 88307; 88329; 88342; A4648; A9520; J0690; J1100; J2250; J2405; J3010

== ENCOUNTER → 2020-11-23 11:08 | Outpatient (BNVA) | payer MEDICARE, SELFPAY | PROVIDERS: PCP Internal Medicine; Visit Provider Surgery | DX: C50.911 Malignant neoplasm of unspecified site of right female breast (principal) | CPT/HCPCS: 99212 ==

== ENCOUNTER 2020-12-01 13:54 | Outpatient (REF) | payer MEDICARE, SELFPAY ==
--- NOTE | ~2020-12-01 | MM_ITS ---
EXAMINATION: BONE DENSITOMETRY CLINICAL INDICATION: Osteopenia. COMPARISON: Previous BD dated 03/30/2017 and baseline BD dated 12/18/2008. TECHNIQUE: Using a [employer] DXA System (software version: 13.1) manufactured by [employer], dual-energy x-ray absorptiometry was performed of the lumbar spine and left hip. The images are of good technical quality. Summary results are attached. FINDINGS: AP SPINE L1-L4: Current: BMD 1.202 g/cm2, Z-score 1.7, T-score 0.2, normal, 3.0% decrease from previous, 0.3% increase from baseline (<5% change is not significant). Prior: BMD 1.239 g/cm2. Baseline: BMD 1.199 g/cm2. LEFT FEMUR, NECK: Current: BMD 0.904 g/cm2, Z-score 0.8, T-score -1.0, normal. Prior: BMD 0.920 g/cm2. Baseline: BMD 0.933 g/cm2. LEFT FEMUR, TOTAL: Current: BMD 0.962 g/cm2, Z-score 1.2, T-score -0.4, normal, 1.5% increase from previous, 1.6% increase from baseline (<5% change is not significant). Prior: BMD 0.948 g/cm2. Baseline: BMD 0.947 g/cm2. IDENTIFIED RISK FACTORS: Early menopause, height loss, hysterectomy, secondary osteoporosis. HISTORY OF FRACTURE: None listed. MEDICATIONS: Multivitamin. MM/XR DEXA axial skeleton IMPRESSION: 1. DIAGNOSIS: Normal bone density based on the lowest T-score value of -1.0 in the femoral neck applying World Health Organization criteria. 2. 10-YEAR FRACTURE RISK PREDICTION, FRAX: Major osteoporotic fracture (clinical spine, forearm, hip or shoulder) 5.2%. Hip fracture 0.7%. 3. Treatment Recommendations: NOF guidelines recommend consideration for treatment in postmenopausal women and men age 50 and older presenting with the following: -A hip or vertebral (clinical or morphometric) fracture. -T-score less than or equal to -2.5 at the femoral neck or spine after appropriate evaluation to exclude secondary causes. -Low bone mass at the hip or spine and a 10-year fracture probability by FRAX of greater than or equal to 3% for hip fracture or greater than or equal to 20% for major osteoporotic fracture based on the [place] adapted WHO algorithm. 4. Other Recommendations: All treatment decisions require clinical judgment and consideration of individual patient factors, including patient preferences, comorbidities, previous drug use, risk factors not captured in the FRAX model (e.g. frailty, falls, vitamin D deficiency, increased bone turnover, interval significant decline in bone density) and possible under or overestimation of fracture risk by FRAX. FUTURE SCAN RECOMMENDATION: People with diagnosed cases of osteoporosis or at high risk for fracture should have regular bone mineral density tests. For patients eligible for Medicare, routine testing is allowed once every 2 years. The testing frequency can be increased to one year for patients who have rapidly progressing disease, those who are receiving or discontinuing medical therapy to restore bone mass, or have additional risk factors.
== END 2020-12-01 13:55 | disposition home or self-care (01) ==
LOC: HO.MAMMO 13:54
PROVIDERS: PCP Internal Medicine; Visit Provider Internal Medicine Medical Oncology
DX: Z13.820 Encounter for screening for osteoporosis (principal); M85.80 Other specified disorders of bone density and structure, unspecified site; Z78.0 Asymptomatic menopausal state; Z90.710 Acquired absence of both cervix and uterus
CPT/HCPCS: 77080

== ENCOUNTER → 2020-12-03 12:50 | Outpatient (BNVA) | payer MEDICARE, SELFPAY | PROVIDERS: PCP Internal Medicine; Visit Provider Internal Medicine Pulmonary Disease | DX: J45.909 Unspecified asthma, uncomplicated (principal); G47.33 Obstructive sleep apnea (adult) (pediatric); Z99.89 Dependence on other enabling machines and devices | CPT/HCPCS: 99212 ==

== ENCOUNTER → 2020-12-24 10:20 | Outpatient (BNVA) | payer MEDICARE, SELFPAY | PROVIDERS: PCP Internal Medicine; Visit Provider Surgery | DX: L76.32 Postprocedural hematoma of skin and subcutaneous tissue following other procedure (principal); Z85.3 Personal history of malignant neoplasm of breast | CPT/HCPCS: 99212 ==

== ENCOUNTER → 2021-02-16 12:50 | Outpatient (BNVA) | payer MEDICARE, SELFPAY | PROVIDERS: PCP Internal Medicine; Referring Provider Internal Medicine; Visit Provider Internal Medicine | DX: I38 Endocarditis, valve unspecified (principal); I27.20 Pulmonary hypertension, unspecified; R06.02 Shortness of breath | CPT/HCPCS: 99212 ==

== ENCOUNTER → 2021-03-25 10:17 | Outpatient (BNVA) | payer OTHER, SELFPAY | PROVIDERS: PCP Internal Medicine; Referring Provider Internal Medicine; Visit Provider Surgery | DX: Z48.3 Aftercare following surgery for neoplasm (principal); C50.911 Malignant neoplasm of unspecified site of right female breast | CPT/HCPCS: 99212 ==

== ENCOUNTER → 2021-04-07 11:03 | Outpatient (BNVA) | payer OTHER, SELFPAY | PROVIDERS: PCP Internal Medicine; Visit Provider Internal Medicine Pulmonary Disease | DX: J45.20 Mild intermittent asthma, uncomplicated (principal); G47.33 Obstructive sleep apnea (adult) (pediatric) | CPT/HCPCS: 99212 ==

== ENCOUNTER 2021-04-14 07:48 | Outpatient (REF) | payer MEDICARE, SELFPAY ==
[2021-04-14 08:27] LABS: MANUAL DIFF FLAG NO
[2021-04-14 08:43] LABS: Basophils Percent Auto 0.5 % (0-2); Eosinophils Absolute Auto 0.3 X10*3/uL (0.0-0.4); Hematocrit 40.8 % (37-47); Hemoglobin 13.2 g/dl (12.0-16.0); Imm Gran Abs Auto 0.02 X10*3/uL (0.00-0.03); Imm Gran Pct Auto 0.3 % (0.0-0.4); Lymphocytes Absolute Auto 2.7 X10*3/uL (1.2-4.9); Lymphocytes Percent Auto 40.8 % (20-40); Mean Corpuscular HGB Conc 32.4 g/dl (31.0-35.0); Mean Corpuscular Hemoglobin 28.7 pg (27.0-33.0); Mean Corpuscular Volume 88.7 fL (80-98); Mean Platelet Volume 9.8 fL (9.4-12.3); Monocytes Absolute Auto 0.6 X10*3/uL (0.1-1.2); Monocytes Percent Auto 9.5 % (2-11); Neutrophils Absolute Auto 2.9 X10*3/uL (2.0-8.3); Neutrophils Percent Auto 43.9 % (45-73); Platelet Count 312 X10*3/uL (160-400); Red Cell Distribution Width 13.9 % (11.0-16.0); White Blood Count 6.6 X10*3/uL (4.8-10.8)
[2021-04-14 08:55] LABS: Alanine Aminotransferase 23 U/L (0-31); Albumin Level 4.4 g/dL (3.5-5.0); Alkaline Phosphatase 96 U/L (39-117); Anion Gap 15 (12-20); Aspartate Amino Transferase 20 U/L (5-31); Bilirubin Total 0.3 mg/dL (0.0-1.0); Blood Urea Nitrogen 21 mg/dL (9-16); Carbon Dioxide 27 mmol/L (22-29); Chloride 104 mmol/L (96-108); Cholesterol 170 mg/dL; Estimated Glomerular Filt Rate 58; Glucose Random 170 mg/dL (60-115); HDL Cholesterol 34 mg/dL; LDL Cholesterol Calculated 87 mg/dl; Potassium 4.7 mmol/L (3.3-5.1); Sodium 141 mmol/L (135-145); Total Protein 7.3 g/dL (6.5-8.0); Triglycerides 247 mg/dL
[2021-04-14 09:18] LABS: Free T4 (Free Thyroxine) 1.06 ng/dL (0.71-1.85); Thyroid Stimulating Hormone 4.58 uIU/mL (0.32-4.0); Vitamin D 25-OH Total 43.9 ng/mL (>30)
[2021-04-14 09:48] LABS: Folate > 20.0 ng/mL (> or = 4.0); Vitamin B12 803 pg/mL (200-900)
[2021-04-14 13:56] LABS: Creatinine Urine 70.91 mg/dL; Microalbum/Creatinine Ratio Ur 12.6 ug/mg cr
== END 2021-04-14 07:49 | disposition home or self-care (01) ==
LOC: HO.LAB 07:48
PROVIDERS: PCP Internal Medicine; Visit Provider Internal Medicine
DX: E11.65 Type 2 diabetes mellitus with hyperglycemia (principal); E78.00 Pure hypercholesterolemia, unspecified
CPT/HCPCS: 36415; 80053; 80061; 82043; 82306; 82607; 82746; 84439; 84443; 85025

== ENCOUNTER 2021-06-18 07:18 | Outpatient (REF) | payer MEDICARE, SELFPAY ==
[2021-06-18 08:32] LABS: Alanine Aminotransferase 16 U/L (0-31); Albumin Level 4.4 g/dL (3.5-5.0); Alkaline Phosphatase 89 U/L (39-117); Anion Gap 12 (12-20); Aspartate Amino Transferase 17 U/L (5-31); Bilirubin Total 0.4 mg/dL (0.0-1.0); Blood Urea Nitrogen 20 mg/dL (9-16); Calcium 10.4 mg/dL (8.4-10.2); Carbon Dioxide 29 mmol/L (22-29); Chloride 105 mmol/L (96-108); Cholesterol 239 mg/dL; Estimated Glomerular Filt Rate > 60; Glucose Random 169 mg/dL (60-115); HDL Cholesterol 37 mg/dL; LDL Cholesterol Calculated 143 mg/dl; Sodium 141 mmol/L (135-145); Total Protein 7.3 g/dL (6.5-8.0); Triglycerides 295 mg/dL
[2021-06-18 09:31] LABS: SARS COV2 IgG Positive (Negative)
[2021-06-18 09:43] LABS: Free T4 (Free Thyroxine) 0.95 ng/dL (0.71-1.85)
[2021-06-18 16:00] LABS: Creatinine Urine 89.91 mg/dL
== END 2021-06-18 07:19 | disposition home or self-care (01) ==
LOC: HO.LAB 07:18
PROVIDERS: PCP Internal Medicine; Visit Provider Internal Medicine
DX: Z20.822 Contact with and (suspected) exposure to COVID-19 (principal); B34.9 Viral infection, unspecified; E78.00 Pure hypercholesterolemia, unspecified; R79.89 Other specified abnormal findings of blood chemistry; E11.65 Type 2 diabetes mellitus with hyperglycemia
CPT/HCPCS: 36415; 80053; 80061; 84439; 84443; 86769

== ENCOUNTER 2021-06-19 19:33 | Emergency (ER) | payer MEDICARE, SELFPAY ==
--- NOTE | ~2021-06-19 | XR_ITS ---
EXAMINATION: XR CHEST CLINICAL INFORMATION: Cough COMPARISON: 09/25/2020 TECHNIQUE: Frontal view of the chest was obtained. FINDINGS: Normal symmetric lung volumes. No parenchymal consolidation. No pleural effusion. No pneumothorax. Cardiomediastinal silhouette and pulmonary vascularity are within normal limits. Aorta is atherosclerotic. No acute osseous abnormalities. XR/XR chest 1V IMPRESSION: Unremarkable examination.
[2021-06-19 19:35] VITALS: BP 151/84; PULSE 56; RESP 20; TEMP 36.3; O2SAT 96; BMI 27.2
--- NOTE | 2021-06-19 19:53 | PC.NURSE ---
Covid and strep swabs obtained and sent.
[2021-06-19 20:01] LABS: IDNOW Serial# 08D9AD1C; Strep A Nucleic Acid Negative (Negative)
--- NOTE | 2021-06-19 20:03 | ED_ITS ---
HPI - General Adult General Chief complaint: Upper Respiratory Symptoms Stated complaint: Flu like Time Seen by Provider: 06/19/21 19:41 Source: patient Mode of arrival: ambulatory Limitations: no limitations History of Present Illness HPI narrative: 75-year-old female who presents emergency department for evaluation of sore throat, cough, shortness of breath and headache. Patient states her symptoms started this morning. She states that it started with a sore throat, described as a constant, sharp pain in the back of her throat which is [id number] in intensity which is worse with swallowing. She states she has had a cough which is occasionally productive. She has been feeling hot cold and she feels fatigued. She is also complaining of body aches. She states that 3:00 p.m. she developed shaking chills therefore she came to the emergency department for evaluation. The patient has not had any known COVID-19 exposures. She received the 2 shot [place] COVID 19 vaccination with her 2nd dose being in January of 2021. Related Data Home Medications Medication Instructions Recorded Confirmed acetaminophen 500 mg tablet 500 mg PO Q6H PRN 06/05/20 04/20/21 (Tylenol Extra Strength) albuterol sulfate 2.5 mg INHALATION Q4-6H PRN 06/05/20 04/20/21 aspirin 81 mg tablet,delayed 81 mg PO DAILY 06/05/20 04/20/21 release (Adult Aspirin Regimen) fluticasone 250 mcg-salmeterol 50 1 inh INHALATION BID 06/05/20 04/20/21 mcg/dose blistr powdr for inhalation (Advair Diskus) ibuprofen 600 mg tablet (IBU) 600 mg PO TID 06/05/20 04/20/21 multivitamin 1 tab PO DAILY 06/05/20 04/20/21 trazodone 50 mg tablet 50 mg PO BEDTIME PRN 06/05/20 04/20/21 anastrozole 1 mg tablet 1 mg PO DAILY 12/24/20 04/20/21 Previous Rx's Medication Instructions Recorded amlodipine 5 mg tablet 5 mg PO DAILY #90 tab 07/09/20 albuterol sulfate 90 mcg/actuation 2 puff INHALATION QID PRN #18 g 09/14/20 aerosol inhaler blood sugar diagnostic (FreeStyle 1 strip MISCELLANEOUS TID #300 12/20/20 Lite Strips) strip pantoprazole 40 mg tablet,delayed 40 mg PO BID #180 tab 01/11/21 release sitagliptin 100 mg tablet (Januvia) 100 mg PO DAILY 90 Days #90 tab 02/11/21 atorvastatin 20 mg tablet 20 mg PO BEDTIME #90 tab 02/25/21 clotrimazole-betamethasone 1 1 appl TOPICAL BID 14 Days #45 g 02/25/21 %-0.05 % topical cream tizanidine 4 mg tablet 4 mg PO BID PRN 10 Days #20 tab 03/12/21 lancets 28 gauge (FreeStyle #100 ea 03/25/21 Lancets) montelukast 10 mg tablet 10 mg PO DAILY #90 tab 04/01/21 empagliflozin 25 mg tablet 25 mg PO DAILY 90 Days #90 tab 04/20/21 metoprolol succinate 25 mg 25 mg PO DAILY #90 tab 04/21/21 tablet,extended release 24 hr sumatriptan succinate 50 mg tablet 50 mg PO .QD prn #10 tab 05/07/21 Allergies Allergy/AdvReac Type Severity Reaction Status Date / Time metformin Allergy Unknown 1000 mg Verified 06/19/21 19:39 cause diarrhea Review of Systems Review of Systems: Yes all other systems are reviewed and are negative PMFSH Past Medical History Medical History Asthma Behcets syndrome Diverticulitis GERD (gastroesophageal reflux disease) Hypercholesterolemia Hypertension Invasive ductal carcinoma of right breast Mitral valve regurgitation Overweight (BMI 25.0-29.9) Pulmonary hypertension Tubular adenoma of colon Type 2 diabetes mellitus with hyperglycemia Valvular heart disease Surgical History Back pain with history of spinal surgery History of bilateral cataract extraction History of bladder surgery History of breast biopsy History of cholecystectomy History of hand surgery History of shoulder surgery History of total abdominal hysterectomy Family History Family History Father Medical history unknown Mother Diabetes CVD (cardiovascular disease) Daughter Colon cancer Social History Social History Housing: Apartment Alcohol intake: former Patient Tobacco Use Status: Former Tobacco user e-Cigarette/Vaping Use: Never Used Second Hand Smoke Exposure: No Advance Directives: No Advance Directives Information Provided: No service: No Current occupational status: retired Physical Exam Vital Signs: Vital Signs: Last Vital Signs Temp 98.8 F 06/19/21 20:29 Pulse 70 06/19/21 20:29 Resp 16 06/19/21 20:29 BP 162/53 H 06/19/21 20:29 Pulse Ox 96 06/19/21 19:35 Body Mass Index 27.2 Const: General: cooperative and no acute distress Orientation/consciousness: oriented to person and oriented to place Limitations: no limitations HENMT: Head: Yes normal to inspection, Yes normocephalic and Yes atraumatic Ears: external ears normal General nose exam: Normal external nose present Face and sinus: Yes normal facial exam Mouth: Normal oral and palatal mucosa present Throat: Yes posterior oropharynx normal Eyes: General: appearance normal, both eyes and all related structures Pupils: Equal, round and reactive pupils present Neck: Neck: Yes normal visual inspection, Yes no lymphadenopathy, Yes trachea midline and Yes supple Chest: Chest palpation & inspection: normal inspection of the chest and normal palpation of entire chest wall Resp: Effort & Inspection: normal respiratory effort and able to speak in complete sentences Auscultation: clear to auscultation bilaterally Cardio: Rate: regular rate Rhythm: regular rhythm Heart sounds: S1 normal heart sound present, S2 normal heart sound present and no murmurs GI: Inspection: Yes normal to inspection Palpation (GI): Soft to palpation, nontender and no guarding Auscultation: normal bowel sounds : General: Yes no CVA tenderness Back/Spine/Pelvis: Back: no CVA tenderness Skin: General skin exam: no rashes or lesions noted Neuro: General: oriented to person and oriented to place Cranial nerves: Yes CN's II-XII intact bilaterally and Yes Equal, round and reactive pupils present Cognition (Neuro): normal cognition Motor exam (neuro): 5/5 motor strength present throughout Extrem: General: Yes normal to inspection Psych: Appearance: grossly normal Speech and movement: Normal speech and movement present Affect: normal affect Attitude: cooperative Thought process: Normal thought process present Thought content: Normal thought content present Course Course Course Narrative: 75-year-old female who presents emergency department for evaluation of viral-like illness which began today. She did have shaking chills at around 3:00 p.m. and has not developed headache and body aches. Patient has been vaccinated for COVID-19 with her 2nd vaccination received January of 2021. Vital signs revealed an elevated blood pressure of 151/84 otherwise was unremarkable. Physical examination was unremarkable. Given her age, COVID conditions and symptoms, I ordered a COVID-19 test and a chest x-ray 2142: The patient's chest x-ray was unremarkable. COVID-19 test is negative. The patient has only been sick for 1 day and this could possibly be a false negative, I did discuss this with the patient. Patient will be treated for viral syndrome with Tylenol and ibuprofen for fever and chills. She was given verbal and printed instructions. She was advised to get retested for COVID in 4 days. Medical Decision Making Lab Data Labs: Lab Results 06/19/21 06/19/21 Range/Units 19:41 19:41 COVID-19 (SUZIE) Negative (Negative) COVID-19 Clin Com See Note S. pyogenes GrpA NEETU Negative (Negative) Discharge Plan Discharge Clinical Impression: Viral illness Additional Instructions: Based on your symptoms and history, you were tested for COVID-19. Your RESULT IS NEGATIVE at this time. Sometimes, if we test due to early, a negative COVID test can be a falsely negative. Most people, if they have a COVID-19 infection, will have a positive test between did a for and 14. Therefore you should get retested in 4 days, if your negative then you most likely do not have COVID-19. Based on your evaluation today, it is okay to send you home. Please plan for self quarantine for up to 14 days. Do not expose yourself to others. You may not go to work. Please continue to wear a mask, follow cold instructions and wash your hands frequently. You may take Tylenol 325 mg pills, 2 pills every 4 hours as needed for pain or fever. You may also take ibuprofen(Motrin/Advil) 200 mg pills, 3 pills every 6 hours as needed for pain or fever. Patient seen in the emergency department should be excused from work for 10 days or 3 days without any symptoms have gone away completely OR at least 10 days have passed since symptoms first appeared or since last exposure to COVID-19 positive patient CDC Guidelines for home isolation: - Stay away from others - WEAR A MASK if you are sick AND STAY HOME - Cover your mouth and nose with a tissue when you cough or sneeze. Dispose of tissues in a lined trash can and wash your hands immediately with soap and water for at least 20 seconds. If soap and water are not available, clean hands with alcohol-based hand store receiving specialist that contains at least 60% alcohol. - Clean your hands often with soap and water for at least 20 seconds - Avoid touching your eyes, nose and mouth with unwashed hands - Do not share dishes, drinking glasses, cups, eating utensils, towels, or bedding with other people in your home. After using these items, wash them thoroughly with soap and water or put in the pipe organ installer. - Clean high-touch surfaces in your isolation area ( sick room and bathroom) every day; let a caregiver clean and disinfect high-touch surfaces in other are as of the home. Clean the area or item with soap and water or another detergent if it is dirty. Then, use a household disinfectant. - Limit contact with pets and animals: If you must care for a pet, wash your hands before and after interacting with them). Please return to the emergency department if he develops symptoms that are consistent with pneumonia. These include chest pain that is worse with breathing, shortness of breath at rest and severe shortness of breath with walking around. Also return to emergency department if you think your symptoms are getting worse in any way otherwise follow-up with your provider for re- evaluation. Prescriptions: No Action amlodipine 5 mg tablet 5 mg PO DAILY Qty: 90 RF: 3 blood sugar diagnostic [FreeStyle Lite Strips] Strip 1 strip miscellaneous TID Qty: 300 RF: 3 pantoprazole 40 mg tablet,delayed release (DR/EC) 40 mg PO BID Qty: 180 RF: 1 Januvia 100 mg tablet 100 mg PO DAILY 90 Days Qty: 90 RF: 2 atorvastatin 20 mg tablet 20 mg PO BEDTIME Qty: 90 RF: 3 tizanidine 4 mg tablet 4 mg PO BID PRN (Reason: muscle spasticity) 10 Days Qty: 20 RF: 0 (DME) lancets [FreeStyle Lancets] 28 gauge misc See Rx Instructions .Route Qty: 100 RF: 12 montelukast 10 mg tablet 10 mg PO DAILY Qty: 90 RF: 2 metoprolol succinate 25 mg tablet extended release 24 hr 25 mg PO DAILY Qty: 90 RF: 3 sumatriptan succinate 50 mg tablet 50 mg PO .QD prn Qty: 10 RF: 11 albuterol sulfate 90 mcg/actuation HFA aerosol inhaler 2 puff inhalation QID PRN (Reason: bronchitis) Qty: 18 RF: 0 clotrimazole-betamethasone 1-0.05 % cream 1 appl topical BID 14 Days Qty: 45 RF: 1 multivitamin Tablet 1 tab PO DAILY RF: 0 acetaminophen [Tylenol Extra Strength] 500 mg tablet 500 mg PO Q6H PRN (Reason: Pain) RF: 0 ibuprofen [IBU] 600 mg tablet 600 mg PO TID RF: 0 albuterol sulfate 2.5 mg /3 mL (0.083 %) solution for nebulization 2.5 mg inhalation Q4-6H PRN (Reason: Wheezing) RF: 0 trazodone 50 mg tablet 50 mg PO BEDTIME PRN (Reason: Sleep) RF: 0 aspirin [Adult Aspirin Regimen] 81 mg tablet,delayed release (DR/EC) 81 mg PO DAILY RF: 0 fluticasone propion-salmeterol [Advair Diskus] 250-50 mcg/dose blister with device 1 inh inhalation BID RF: 0 Jardiance 25 mg tablet 25 mg PO DAILY 90 Days Qty: 90 RF: 3 anastrozole 1 mg tablet 1 mg PO DAILY RF: 0
[2021-06-19 20:12] LABS: COVID-19 Test Negative (Negative); IDNOW Serial# 9DD0AD1C
[2021-06-19 20:29] VITALS: BP 162/53; PULSE 70; RESP 16; TEMP 37.1
== END 2021-06-19 22:00 | disposition home or self-care (01) ==
PROVIDERS: Emergency Provider Emergency Medicine Emergency Medical Services; PCP Internal Medicine
DX: B34.9 Viral infection, unspecified (principal); R06.02 Shortness of breath; R53.83 Other fatigue; Z20.822 Contact with and (suspected) exposure to COVID-19; Z79.899 Other long term (current) drug therapy; Z87.891 Personal history of nicotine dependence
CPT/HCPCS: 36415; 71045; 87635; 87651; 99283; 99284

== ENCOUNTER 2021-06-23 12:17 | Emergency (ER) | payer MEDICARE, SELFPAY ==
--- NOTE | ~2021-06-23 | CT_ITS ---
EXAMINATION: CT CHEST WITHOUT CONTRAST CLINICAL INFORMATION: Shortness of breath and cough. COMPARISON: CT of the chest done on 08/24/2020. TECHNIQUE: Multidetector volumetric CT imaging of the chest was done. Axial MIP volume rendering provided. Sagittal and coronal reformatted images were obtained. This CT examination was performed using dose optimization techniques as appropriate, variously including the following: *Automated exposure control *Adjustment of mA and/or kV according to patient size (this includes techniques or standardized protocols for targeted exams where dose is matched to indication/reason for exam; i.e. extremities or head) *Use of iterative reconstruction technique DLP: 191.0 mGy-cm FINDINGS: LEAD PRODUCER: Unremarkable. LUNGS: Stable biapical pleuroparenchymal opacities are noted, consistent with presumed pleuroparenchymal scar. Stable subpleural focal airspace disease including groundglass airspace opacity in within the right middle lobe immediately adjacent to the right minor fissure (35:6). Stable subpleural calcified nodules also noted within the right middle lobe (178:8). Another sub-5 mm noncalcified nodule is noted within the right middle lobe centrally (215:10), retrospectively was present and is unchanged. A tiny 1 mm [place]-fissural nodule is noted adjacent to the right minor fissure (254:10), unchanged. Pleural-based sub-5 mm nodule within the lingular segment anterolaterally (269:10) appear unchanged. Linear pleural parenchymal opacities at both lower lobes appears similar to prior study. There is evidence of underlying bronchiectatic changes seen predominantly at both lower lobes, unchanged. The tracheobronchial tree is patent. MEDIASTINUM: No evidence of any pathologically enlarged mediastinal or hilar lymphadenopathy present, unchanged. Atherosclerotic of the aorta and coronary artery calcifications are noted, unchanged. Overall no significant change. PLEURA: There is no pleural effusion. No pleural mass or thickening. AXILLA: No lymphadenopathy. UPPER ABDOMEN: Remarkable for surgically absent gallbladder and trace pneumobilia, unchanged. No evidence of any adrenal mass.. OSSEOUS STRUCTURES: Unremarkable. CT/CT chest wo con IMPRESSION: 1. No CT evidence of any acute intrathoracic pathology present on this nonenhanced study. 2. Compared to prior study dated 08/24/2020, overall, no significant interval change is present. Reidentified are multiple indeterminate bilateral pleural-based as well as lung parenchymal sub-5 mm nodule as well as presumed pleuroparenchymal scar at both lower lobes and bronchiectatic changes predominantly at both lower lobes. 3. Surgically absent gallbladder and trace pneumobilia within the visualized upper abdomen, unchanged.
--- NOTE | ~2021-06-23 | XR_ITS ---
EXAMINATION: XR CHEST CLINICAL INFORMATION: Cough and shortness of breath. COMPARISON: Chest done on 06/19/2021. TECHNIQUE: 2 views of the chest were obtained. FINDINGS: No significant abnormality is noted involving the heart, lungs, mediastinum, bony thorax or soft tissues. XR/XR chest 2V IMPRESSION: Unremarkable examination. No significant change since 06/19/2021.
[2021-06-23 12:38] VITALS: BP 147/75; PULSE 53; RESP 18; TEMP 36.8; O2SAT 96; BMI 27.2
--- NOTE | 2021-06-23 13:48 | ED.SOB ---
HPI - SOB/Dyspnea General Chief Complaint: Dyspnea Stated Complaint: diff breathing, cough Time Seen by Provider: 06/23/21 13:42 Source: patient Mode of arrival: ambulatory Limitations: no limitations History of Present Illness HPI Narrative: 75-year-old female with a past medical history of asthma, GERD, high cholesterol, hypertension, right-sided breast cancer status post lumpectomy, diabetes type 2 here with complaints of cough, body ache, shortness of breath for about 5-6 days. No fevers, chills, chest pain, leg swelling or pain. No abdominal pain, vomiting, diarrhea. Using albuterol MDI at home but ran out of nebulizer albuterol for machine. Seen here 06/19 and had chest X-ray and a COVID screen which were negative. She was recommended to retest for COVID in several days or persistent symptoms. The patient has not had any known COVID-19 exposures.? She received the 2 shot [employer] COVID 19 vaccination with her 2nd dose being in January of 2021. Related Data Home Medications Medication Instructions Recorded Confirmed acetaminophen 500 mg tablet 500 mg PO Q6H PRN 06/05/20 04/20/21 (Tylenol Extra Strength) albuterol sulfate 2.5 mg INHALATION Q4-6H PRN 06/05/20 04/20/21 aspirin 81 mg tablet,delayed 81 mg PO DAILY 06/05/20 04/20/21 release (Adult Aspirin Regimen) fluticasone 250 mcg-salmeterol 50 1 inh INHALATION BID 06/05/20 04/20/21 mcg/dose blistr powdr for inhalation (Advair Diskus) ibuprofen 600 mg tablet (IBU) 600 mg PO TID 06/05/20 04/20/21 multivitamin 1 tab PO DAILY 06/05/20 04/20/21 trazodone 50 mg tablet 50 mg PO BEDTIME PRN 06/05/20 04/20/21 anastrozole 1 mg tablet 1 mg PO DAILY 12/24/20 04/20/21 Previous Rx's Medication Instructions Recorded amlodipine 5 mg tablet 5 mg PO DAILY #90 tab 07/09/20 albuterol sulfate 90 mcg/actuation 2 puff INHALATION QID PRN #18 g 09/14/20 aerosol inhaler blood sugar diagnostic (FreeStyle 1 strip MISCELLANEOUS TID #300 04/25/21 Lite Strips) strip pantoprazole 40 mg tablet,delayed 40 mg PO BID #180 tab 01/11/21 release sitagliptin 100 mg tablet (Januvia) 100 mg PO DAILY 90 Days #90 tab 02/11/21 atorvastatin 20 mg tablet 20 mg PO BEDTIME #90 tab 02/25/21 clotrimazole-betamethasone 1 1 appl TOPICAL BID 14 Days #45 g 02/25/21 %-0.05 % topical cream tizanidine 4 mg tablet 4 mg PO BID PRN 10 Days #20 tab 03/12/21 lancets 28 gauge (FreeStyle #100 ea 03/25/21 Lancets) montelukast 10 mg tablet 10 mg PO DAILY #90 tab 04/01/21 empagliflozin 25 mg tablet 25 mg PO DAILY 90 Days #90 tab 04/20/21 metoprolol succinate 25 mg 25 mg PO DAILY #90 tab 04/21/21 tablet,extended release 24 hr sumatriptan succinate 50 mg tablet 50 mg PO .QD prn #10 tab 05/07/21 albuterol sulfate 2.5 mg INHALATION Q4H PRN #75 ml 06/23/21 azithromycin 250 mg tablet See Rx Instructions .ROUTE 06/23/21 .COMPLEX #6 tab prednisone 20 mg tablet 40 mg PO DAILY #8 tab 06/23/21 Allergies Allergy/AdvReac Type Severity Reaction Status Date / Time metformin Allergy Unknown 1000 mg Verified 06/23/21 12:38 cause diarrhea Review of Systems Review of Systems: Yes all other systems are reviewed and are negative Constitutional: Constitutional: Reports no additional constitutional complaints, Reports body ache(s), Denies chills, Denies fever(s), Denies headache(s) and Denies weakness Eyes: Eyes: Reports no additional eye complaints and Denies change in vision ENT: Reports system reviewed and no additional complaints, except as documented, Denies dizziness, Denies headache(s), Denies nasal congestion, Denies nasal discharge and Denies neck pain Cardiovascular: Cardiovascular: Reports no additional cardiovascular complaints, Denies chest pain, Denies leg edema and Reports dyspnea Respiratory: Respiratory: Reports no additional respiratory complaints, Reports cough and Reports dyspnea Gastrointestinal: Gastrointestinal: Reports no additional gastrointestinal complaints, Denies abdominal pain, Denies diarrhea, Denies nausea and Denies vomiting Genitourinary: Genitourinary: Reports no additional female genitourinary complaints and Denies urinary incontinence Musculoskeletal: Musculoskeletal: Reports no additional musculoskeletal complaints, Denies back pain, Denies arthralgias, Denies joint swelling, Denies neck pain, Denies numbness and Denies tingling Integumentary/Breasts: Skin/Breast: Reports system reviewed and no additional complaints, except as docu and Denies rash Neurologic: Reports system reviewed and no additional complaints, except as documented, Denies Abnormal speech present, Denies dizziness, Denies headache(s), Denies numbness, Denies tingling and Denies weakness [facility] Past Medical History Attestation statement: The following information was validated with the patient. Source: old records reviewed and nursing notes reviewed Medical History Asthma Behcets syndrome Diverticulitis GERD (gastroesophageal reflux disease) Hypercholesterolemia Hypertension Invasive ductal carcinoma of right breast Mitral valve regurgitation Overweight (BMI 25.0-29.9) Pulmonary hypertension Tubular adenoma of colon Type 2 diabetes mellitus with hyperglycemia Valvular heart disease Surgical History Back pain with history of spinal surgery History of bilateral cataract extraction History of bladder surgery History of breast biopsy History of cholecystectomy History of hand surgery History of shoulder surgery History of total abdominal hysterectomy Family History Family History Father Medical history unknown Mother Diabetes CVD (cardiovascular disease) Daughter Colon cancer Social History Social History Housing: Apartment Alcohol intake: former Patient Tobacco Use Status: Former Tobacco user e-Cigarette/Vaping Use: Never Used Second Hand Smoke Exposure: No Advance Directives: No service: No Current occupational status: retired Physical Exam Vital Signs: Vital Signs: Last Vital Signs Temp 97.2 F 06/23/21 16:00 Pulse 54 06/23/21 16:00 Resp 13 06/23/21 16:00 BP 165/65 H 06/23/21 16:00 Pulse Ox 93 06/23/21 16:00 Body Mass Index 27.2 Const: General: cooperative, healthy appearing, comfortable and no acute distress Orientation/consciousness: patient oriented x3 Limitations: no limitations HENMT: Head: Yes normal to inspection Ears: hearing grossly normal bilaterally General nose exam: Normal external nose present Face and sinus: Yes normal facial exam Mouth: Normal oral and palatal mucosa present Throat: Yes posterior oropharynx normal Eyes: General: appearance normal, both eyes and all related structures Pupils: Equal, round and reactive pupils present Neck: Neck: Yes normal visual inspection Chest: Chest palpation & inspection: normal inspection of the chest Resp: Other: +tachypnea with rate 22-24 Inspiratory and expiratory wheezing, coarse breath sounds bilaterally. Cardio: Rate: regular rate Rhythm: regular rhythm Peripheral pulses: Peripheral pulses 2+ throughout GI: Inspection: Yes normal to inspection Palpation (GI): Soft to palpation and nontender Auscultation: normal bowel sounds Back/Spine/Pelvis: Thoracic/Lumbar Spine: thoracic and lumbar spine normal to inspection Skin: General skin exam: no rashes or lesions noted Neuro: General: patient oriented x3, no focal motor deficits and normal sensation to monofilament Cranial nerves: Yes Equal, round and reactive pupils present Cognition (Neuro): normal cognition Speech: No Abnormal speech present Gait exam (Neuro): Normal gait present Motor exam (neuro): 5/5 motor strength present throughout Extrem: General: Yes normal to inspection, Yes no pedal edema and Yes no calf tenderness Course Course Course Narrative: 75-year-old female here with complaints of cough, shortness of breath and body aches for 5 days. On arrival the patient has inspiratory and expiratory wheezing throughout, coarse breath sounds, mild tachypnea. Will check CXR, labs, EKG, COVID screen. WIll give duoneb, solumedrol and IV magnesium. 1530-initial chest x-ray negative. With reports of body aches, shortness of breath and coarse breath sounds will check CT chest to rule out occult pneumonia 1640-CT chest shows no acute finding. Labs are unremarkable. COVID screen is negative. Patient is feeling improved. She was able to ambulate in the emergency department with oxygen saturation greater than 95% on room air. Will discharge home with course of antibiotics and prednisone. Will refill albuterol nebulizer solution. Reviewed worrisome signs and symptoms such as worsening shortness of breath, chest pain, fever and when to return to the emergency department. Comfortable discharge home. MDM - SOB/Dyspnea MDM Narrative Medical decision making narrative: Asthma exacerbation, viral syndrome, pneumonia Less likely PE with negative D-dimer, no clinical findings concerning for DVT Less likely pneumonia with negative chest x-ray and CT chest Medical Records Attestation: I reviewed the patient's medical records. Lab Data Attestation: I reviewed the patient's lab results. Result diagrams: 06/23/21 14:24 06/23/21 14:24 Labs: Lab Results 06/23/21 06/23/21 06/23/21 Range/Units 13:21 14:24 14:24 WBC 6.3 (4.8-10.8) X10*3/uL RBC 5.63 H D (4.20-5.50) X10*6/uL Hgb 15.9 D (12.0-16.0) g/dl Hct 48.6 H (37-47) % MCV 86.3 (80-98) fL MCH 28.2 (27.0-33.0) pg MCHC 32.7 (31.0-35.0) g/dl RDW 13.9 (11.0-16.0) % Plt Count 316 (160-400) X10*3/uL MPV 9.3 L (9.4-12.3) fL Immature Gran % (Auto) 0.6 H (0.0-0.4) % Neut % (Auto) 50.9 (45-73) % Lymph % (Auto) 31.4 (20-40) % [place] % (Auto) 9.5 (2-11) % Eos % (Auto) 7.3 H (0-4) % Baso % (Auto) 0.3 (0-2) % Lymph # (Auto) 2.0 (1.2-4.9) X10*3/uL [place] # (Auto) 0.6 (0.1-1.2) X10*3/uL Eos # (Auto) 0.5 H (0.0-0.4) X10*3/uL Baso # (Auto) 0.0 (0.0-0.2) X10*3/uL Abs Immat Gran (auto) 0.04 H (0.00-0.03) X10*3/uL Absolute Neuts (auto) 3.2 (2.0-8.3) X10*3/uL Absolute Nucleated RBC 0.000 (0.0-0.012) X10*3/uL Nucleated RBC % (auto) 0.0 (0.0-0.2) /100WBC PT (9.9-13.0) SEC INR (0.9-1.1) D-Dimer NG/ML Sodium 139 (135-145) mmol/L Potassium 4.5 (3.3-5.1) mmol/L Chloride 101 (96-108) mmol/L Carbon Dioxide 27 (22-29) mmol/L Anion Gap 16 (12-20) BUN 21 H (9-16) mg/dL Creatinine 0.91 (0.5-1.4) mg/dL Estim Creat Clear Calc 48.9 Estimated GFR > 60 Random Glucose 150 H (60-115) mg/dL Lactic Acid (0.5-2.0) mmol/L Calcium 10.6 H (8.4-10.2) mg/dL Magnesium 2.2 (1.6-2.6) mg/dL Total Bilirubin 0.5 (0.0-1.0) mg/dL Direct Bilirubin 0.2 (0.0-0.5) mg/dL AST 23 (5-31) U/L ALT 35 H (0-31) U/L Alkaline Phosphatase 129 H D (39-117) U/L B-Natriuretic Peptide (<100) pg/mL Total Protein 8.8 H D (6.5-8.0) g/dL Albumin 5.1 H (3.5-5.0) g/dL Coronavirus (PCR) NEGATIVE (Negative) Influenza Type A (PCR) NEGATIVE (Negative) Influenza Type B (PCR) NEGATIVE (Negative) RSV RNA Qual (PCR) NEGATIVE (Negative) 06/23/21 06/23/21 06/23/21 Range/Units 14:24 14:24 14:24 WBC (4.8-10.8) X10*3/uL RBC (4.20-5.50) X10*6/uL Hgb (12.0-16.0) g/dl Hct (37-47) % MCV (80-98) fL MCH (27.0-33.0) pg MCHC (31.0-35.0) g/dl RDW (11.0-16.0) % Plt Count (160-400) X10*3/uL MPV (9.4-12.3) fL Immature Gran % (Auto) (0.0-0.4) % Neut % (Auto) (45-73) % Lymph % (Auto) (20-40) % [place] % (Auto) (2-11) % Eos % (Auto) (0-4) % Baso % (Auto) (0-2) % Lymph # (Auto) (1.2-4.9) X10*3/uL [place] # (Auto) (0.1-1.2) X10*3/uL Eos # (Auto) (0.0-0.4) X10*3/uL Baso # (Auto) (0.0-0.2) X10*3/uL Abs Immat Gran (auto) (0.00-0.03) X10*3/uL Absolute Neuts (auto) (2.0-8.3) X10*3/uL Absolute Nucleated RBC (0.0-0.012) X10*3/uL Nucleated RBC % (auto) (0.0-0.2) /100WBC PT 11.7 (9.9-13.0) SEC INR 1.0 (0.9-1.1) D-Dimer 225 NG/ML Sodium (135-145) mmol/L Potassium (3.3-5.1) mmol/L Chloride (96-108) mmol/L Carbon Dioxide (22-29) mmol/L Anion Gap (12-20) BUN (9-16) mg/dL Creatinine (0.5-1.4) mg/dL Estim Creat Clear Calc Estimated GFR Random Glucose (60-115) mg/dL Lactic Acid 1.2 (0.5-2.0) mmol/L Calcium (8.4-10.2) mg/dL Magnesium (1.6-2.6) mg/dL Total Bilirubin (0.0-1.0) mg/dL Direct Bilirubin (0.0-0.5) mg/dL AST (5-31) U/L ALT (0-31) U/L Alkaline Phosphatase (39-117) U/L B-Natriuretic Peptide 43 (<100) pg/mL Total Protein (6.5-8.0) g/dL Albumin (3.5-5.0) g/dL Coronavirus (PCR) (Negative) Influenza Type A (PCR) (Negative) Influenza Type B (PCR) (Negative) RSV RNA Qual (PCR) (Negative) Imaging Data Chest x-ray: Attestation: I personally reviewed and interpreted this imaging study as follows: Radiologist's impression: [address] [address] XRay Report Signed Patient: Juany James MR#: [id number] : 1945 Acct:[id number] Age/Sex: 75 / F ADM Date: 06/23/21 Loc: .ED Attending Dr: Ordering Physician: Monica Malone NP Date of Service: 06/23/21 Procedure(s): XR chest 2V Accession Number(s): [id number] cc: Monica Malone NP~ EXAMINATION: XR CHEST CLINICAL INFORMATION: Cough and shortness of breath. COMPARISON: Chest done on 06/19/2021. TECHNIQUE: 2 views of the chest were obtained. FINDINGS: No significant abnormality is noted involving the heart, lungs, mediastinum, bony thorax or soft tissues. XR/XR chest 2V IMPRESSION: Unremarkable examination. No significant change since 06/19/2021. CT scan - chest: Attestation: I personally reviewed and interpreted this imaging study as follows: Radiologist's impression: 1. No CT evidence of any acute intrathoracic pathology present on this nonenhanced study. 2. Compared to prior study dated 08/24/2020, overall, no significant interval change is present. Reidentified are multiple indeterminate bilateral pleural-based as well as lung parenchymal sub-5 mm nodule as well as presumed pleuroparenchymal scar at both lower lobes and bronchiectatic changes predominantly at both lower lobes. 3. Surgically absent gallbladder and trace pneumobilia within the visualized upper abdomen, unchanged. ECG Data Attestation: I personally reviewed and interpreted this ECG as follows: ECG interpretation date: 06/23/21 ECG interpretation time: 14:31 Interpretation: Sinus bradycardia with a rate of 56, normal OR, normal QRS, normal QT Discharge Plan Discharge Clinical Impression: Asthma with exacerbation, Bronchitis Instructions: Asthma (ED), Acute Bronchitis (ED) Additional Instructions: Covid screen negative Increase fluids, rest Motrin or tylenol for pain or fever Prescriptions: New azithromycin 250 mg tablet See Rx Instructions .ROUTE .COMPLEX Qty: 6 RF: 0 prednisone 20 mg tablet 40 mg PO DAILY Qty: 8 RF: 0 albuterol sulfate 2.5 mg /3 mL (0.083 %) solution for nebulization 2.5 mg inhalation Q4H PRN (Reason: shortness of breath or wheezing) Qty: 75 RF: 0 No Action amlodipine 5 mg tablet 5 mg PO DAILY Qty: 90 RF: 3 blood sugar diagnostic [FreeStyle Lite Strips] Strip 1 strip miscellaneous TID Qty: 300 RF: 3 pantoprazole 40 mg tablet,delayed release (DR/EC) 40 mg PO BID Qty: 180 RF: 1 Januvia 100 mg tablet 100 mg PO DAILY 90 Days Qty: 90 RF: 2 atorvastatin 20 mg tablet 20 mg PO BEDTIME Qty: 90 RF: 3 tizanidine 4 mg tablet 4 mg PO BID PRN (Reason: muscle spasticity) 10 Days Qty: 20 RF: 0 (DME) lancets [FreeStyle Lancets] 28 gauge misc See Rx Instructions .Route Qty: 100 RF: 12 montelukast 10 mg tablet 10 mg PO DAILY Qty: 90 RF: 2 metoprolol succinate 25 mg tablet extended release 24 hr 25 mg PO DAILY Qty: 90 RF: 3 sumatriptan succinate 50 mg tablet 50 mg PO .QD prn Qty: 10 RF: 11 albuterol sulfate 90 mcg/actuation HFA aerosol inhaler 2 puff inhalation QID PRN (Reason: bronchitis) Qty: 18 RF: 0 clotrimazole-betamethasone 1-0.05 % cream 1 appl topical BID 14 Days Qty: 45 RF: 1 multivitamin Tablet 1 tab PO DAILY RF: 0 acetaminophen [Tylenol Extra Strength] 500 mg tablet 500 mg PO Q6H PRN (Reason: Pain) RF: 0 ibuprofen [IBU] 600 mg tablet 600 mg PO TID RF: 0 albuterol sulfate 2.5 mg /3 mL (0.083 %) solution for nebulization 2.5 mg inhalation Q4-6H PRN (Reason: Wheezing) RF: 0 trazodone 50 mg tablet 50 mg PO BEDTIME PRN (Reason: Sleep) RF: 0 aspirin [Adult Aspirin Regimen] 81 mg tablet,delayed release (DR/EC) 81 mg PO DAILY RF: 0 fluticasone propion-salmeterol [Advair Diskus] 250-50 mcg/dose blister with device 1 inh inhalation BID RF: 0 Jardiance 25 mg tablet 25 mg PO DAILY 90 Days Qty: 90 RF: 3 anastrozole 1 mg tablet 1 mg PO DAILY RF: 0 Referrals: Po,Aleksandr Kennedy MD [Primary Care Provider] - 2 days
--- NOTE | 2021-06-23 13:55 | ECG_ITS ---
Test Reason : DYSPENA Blood Pressure : / mmHG Vent. Rate : 056 BPM Atrial Rate : 056 BPM P-R Int : 148 ms QRS Dur : 086 ms QT Int : 424 ms P-R-T Axes : 047 -18 009 degrees QTc Int : 409 ms Sinus bradycardia Otherwise normal ECG No significant changes seen Referred By: Monica Malone Electronically Signed By:ERICH ORNELAS MD
[2021-06-23 14:17] VITALS: PULSE 53; O2SAT 96
[2021-06-23] MEDS: Albuterol/Iprat 2.5/0.5MG 3 ML AMPUL.NEB INHALE (14:17)
[2021-06-23 14:30] LABS: MANUAL DIFF FLAG NO
[2021-06-23 14:31] LABS: Basophils Percent Auto 0.3 % (0-2); Eosinophils Absolute Auto 0.5 X10*3/uL (0.0-0.4); Eosinophils Percent Auto 7.3 % (0-4); Hematocrit 48.6 % (37-47); Hemoglobin 15.9 g/dl (12.0-16.0); Imm Gran Abs Auto 0.04 X10*3/uL (0.00-0.03); Imm Gran Pct Auto 0.6 % (0.0-0.4); Lymphocytes Percent Auto 31.4 % (20-40); Mean Corpuscular HGB Conc 32.7 g/dl (31.0-35.0); Mean Corpuscular Hemoglobin 28.2 pg (27.0-33.0); Mean Corpuscular Volume 86.3 fL (80-98); Mean Platelet Volume 9.3 fL (9.4-12.3); Monocytes Absolute Auto 0.6 X10*3/uL (0.1-1.2); Monocytes Percent Auto 9.5 % (2-11); Neutrophils Absolute Auto 3.2 X10*3/uL (2.0-8.3); Neutrophils Percent Auto 50.9 % (45-73); Platelet Count 316 X10*3/uL (160-400); Red Blood Count 5.63 X10*6/uL (4.20-5.50); Red Cell Distribution Width 13.9 % (11.0-16.0); White Blood Count 6.3 X10*3/uL (4.8-10.8)
[2021-06-23 14:36] LABS: Prothrombin Time 11.7 SEC (9.9-13.0)
[2021-06-23 14:41] LABS: Influenza A PCR NEGATIVE (Negative); Influenza B PCR NEGATIVE (Negative); Resp Syncy Virus RNA Qual PCR NEGATIVE (Negative); SARS COV2 PCR INHOUSE NEGATIVE (Negative)
[2021-06-23] MEDS: methylPREDNISolone Sod Succ 125 MG/2 ML VIAL IVPUSH (14:53)
[2021-06-23 14:54] LABS: Lactic Acid 1.2 mmol/L (0.5-2.0)
[2021-06-23 14:57] LABS: B Type Natriuretic Peptide 43 pg/mL (<100)
[2021-06-23 15:00] LABS: Alanine Aminotransferase 35 U/L (0-31); Albumin Level 5.1 g/dL (3.5-5.0); Alkaline Phosphatase 129 U/L (39-117); Anion Gap 16 (12-20); Aspartate Amino Transferase 23 U/L (5-31); Bilirubin Direct 0.2 mg/dL (0.0-0.5); Bilirubin Total 0.5 mg/dL (0.0-1.0); Blood Urea Nitrogen 21 mg/dL (9-16); Calcium 10.6 mg/dL (8.4-10.2); Carbon Dioxide 27 mmol/L (22-29); Chloride 101 mmol/L (96-108); Creatinine Clr Calc Pharmacy 48.9; Estimated Glomerular Filt Rate > 60; Glucose Random 150 mg/dL (60-115); Magnesium 2.2 mg/dL (1.6-2.6); Potassium 4.5 mmol/L (3.3-5.1); Sodium 139 mmol/L (135-145); Total Protein 8.8 g/dL (6.5-8.0)
[2021-06-23] MEDS: Magnesium Sulfate/H2O 2 GM/50 ML PIGGYBACK IV (15:04)
[2021-06-23 15:21] LABS: D Dimer 225 NG/ML
[2021-06-23 16:00] VITALS: BP 165/65; PULSE 54; RESP 13; TEMP 36.2; O2SAT 93
== END 2021-06-23 17:09 | disposition home or self-care (01) ==
PROVIDERS: Nurse Practitioner Family; Emergency Provider Emergency Medicine; PCP Internal Medicine
DX: J45.901 Unspecified asthma with (acute) exacerbation (principal); I10 Essential (primary) hypertension; E11.9 Type 2 diabetes mellitus without complications; Z20.822 Contact with and (suspected) exposure to COVID-19
CPT/HCPCS: 0241U; 36415; 71046; 71250; 80048; 80076; 83605; 83735; 83880; 85025; 85379; 85610; 87040; 93005; 94640; 96365; 96366; 96375; 99284; J2930; J3475

== ENCOUNTER 2021-10-08 12:38 | Outpatient (REF) | payer MEDICARE, SELFPAY ==
--- NOTE | ~2021-10-08 | CT_ITS ---
EXAMINATION: CT HEAD WITHOUT CONTRAST CLINICAL INFORMATION: Visual examinations COMPARISON: Previous head CT May 2019 TECHNIQUE: Contiguous axial imaging was performed from the skull base to vertex without intravenous administration of contrast. This CT examination was performed using dose optimization techniques as appropriate, variously including the following: *Automated exposure control *Adjustment of mA and/or kV according to patient size (this includes techniques or standardized protocols for targeted exams where dose is matched to indication/reason for exam; i.e. extremities or head) *Use of iterative reconstruction technique DLP: 649 mGy-cm FINDINGS: There is no evidence of an extra-axial collection. There is no evidence of intra or extra-axial hemorrhage. There may be an old left basal ganglia lacunar infarct that appears unchanged. [place]-white matter differentiation is normal. No mass, mass effect or acute infarct is seen. Review of bone windows is normal. Visualized paranasal sinuses, mastoid air cells and middle ears are clear. CT/CT head/brain wo con IMPRESSION: No acute findings.
== END 2021-10-08 12:39 | disposition home or self-care (01) ==
LOC: HO.CT 12:38
PROVIDERS: Visit Provider Nurse Practitioner Family
DX: G47.00 Insomnia, unspecified (principal); R44.1 Visual hallucinations
CPT/HCPCS: 70450

== ENCOUNTER → 2021-11-08 10:48 | Outpatient (BNVA) | payer MEDICARE, SELFPAY | PROVIDERS: PCP Internal Medicine; Visit Provider Internal Medicine Pulmonary Disease | DX: J45.991 Cough variant asthma (principal); G47.33 Obstructive sleep apnea (adult) (pediatric) | CPT/HCPCS: 99212 ==

== ENCOUNTER 2021-12-08 13:50 | Outpatient (REF) | payer OTHER, SELFPAY ==
--- NOTE | ~2021-12-08 | MM_ITS ---
EXAMINATION: MM DIAGNOSTIC DIGITAL BREAST TOMOSYNTHESIS, BILATERAL CLINICAL INFORMATION: Right lumpectomy 11/10/2020 for invasive ductal cancer with focal lobular features. Benign left breast biopsy 10/28/2020 (benign breast tissue with adenosis and fibrocystic changes). COMPARISON: Mammography: 11/10/2020, 10/28/2020, 10/22/2020, 04/20/2020, 10/15/2019 TECHNIQUE: Digital breast tomosynthesis is performed in both the craniocaudal and mediolateral oblique views along with computer-aided detection (CAD). Synthesized 2D images are generated from the tomosynthesis. Additional views are provided: Right MLO, magnification right CC, magnification right ML x2. FINDINGS: The breasts are heterogeneously dense, which may obscure small masses (ACR BI-RADS breast composition Category c). There are post therapy changes posterior upper right breast with mild scarring. Left breast has biopsy clip marker mid upper outer quadrant. There is no significant mass or interval architectural changes or abnormal calcifications. Again, there are scattered bilateral benign round and coarse calcifications. Results are provided to the patient at time of visit by the technologist. MM/MM tomosynthesis diagnostic BI IMPRESSION: -No mammographic evidence of malignancy. -Post therapy changes right breast. ASSESSMENT: BI-RADS 2: Benign RECOMMENDATION: Annual bilateral mammography. This patient's information was entered into a reminder system with a target due date for their next mammogram.
== END 2021-12-08 13:51 | disposition home or self-care (01) ==
LOC: HO.MAMMO 13:50
PROVIDERS: PCP Internal Medicine; Visit Provider Internal Medicine Medical Oncology
DX: Z85.3 Personal history of malignant neoplasm of breast (principal)
CPT/HCPCS: 77062; 77066

== ENCOUNTER 2021-12-30 08:53 | Outpatient (REF) | payer OTHER, SELFPAY ==
[2021-12-30 11:12] LABS: Free T4 (Free Thyroxine) 0.98 ng/dL (0.71-1.85); Thyroid Stimulating Hormone 2.91 uIU/mL (0.32-4.0)
== END 2021-12-30 08:54 | disposition home or self-care (01) ==
LOC: HO.LAB 08:53
PROVIDERS: PCP Internal Medicine; Visit Provider Nurse Practitioner Family
DX: R79.89 Other specified abnormal findings of blood chemistry (principal)
CPT/HCPCS: 36415; 84439; 84443

== ENCOUNTER 2022-01-19 10:55 | Outpatient (REF) | payer OTHER, SELFPAY ==
--- NOTE | ~2022-01-19 | XR_ITS ---
EXAMINATION: XR KNEE, LEFT CLINICAL INFORMATION: Pain. COMPARISON: None TECHNIQUE: 2 views of of the left knee. FINDINGS: Spurring at the insertion of the quadriceps on the patella. There is also bony spurring at the insertion of the infrapatellar tendon on the tibia. The medial and lateral joint spaces are fairly well preserved. No acute bony erosion. No effusion. XR/XR knee LT 2V IMPRESSION: Mild degenerative change noted above.
== END 2022-01-19 10:56 | disposition home or self-care (01) ==
LOC: HO.XRAY 10:55
PROVIDERS: PCP Internal Medicine; Visit Provider Internal Medicine
DX: M25.562 Pain in left knee (principal)
CPT/HCPCS: 73560

== ENCOUNTER 2022-01-23 16:21 | Emergency (ER) | payer OTHER, SELFPAY ==
--- NOTE | ~2022-01-23 | XR_ITS ---
EXAMINATION: XR LUMBOSACRAL SPINE CLINICAL INFORMATION: Back pain COMPARISON: 10/22/2018 TECHNIQUE: AP and lateral views of the lumbar spine with an additional coned down lateral spot view of the lumbosacral junction. FINDINGS: 5 non-rib bearing lumbar type vertebral bodies are seen. Normal sagittal alignment. Mild loss of disc height at L5-S1. Vertebral body heights are maintained without evidence of fracture. Cholecystectomy clips. Mild convex right lumbar scoliosis. Lower lumbar facet arthropathy. XR/XR lumbar spine 2-3V IMPRESSION: Degenerative changes but no acute osseous abnormality.
[2022-01-23 16:57] VITALS: BP 178/60; PULSE 54; RESP 18; TEMP 36.7; O2SAT 98; BMI 27.1
--- NOTE | 2022-01-23 18:19 | ED.BACK ---
HPI - Back Pain/Injury General Chief Complaint: Back Pain/Injury Stated Complaint: Low Back Pain No Injury Time Seen by Provider: 01/23/22 16:43 Source: patient Mode of arrival: ambulatory Limitations: no limitations History of Present Illness HPI Narrative: 76 yo female with history of RUDDY, DM2, GERD, HLD, asthma, pulmonary HTN, chronic back pain s/p surgery several years ago who presents to the ER with acute on chronic right sided lower back pain that radiates to her right buttock, hip and down her right leg. No recent injury or trauma that she can recall. She states she is having trouble sleeping due to the pain. She denies any bowel or bladder incontinence. She has been taking Tylenol with minimal relief. She has no urinary symptoms, fever, chills or weakness. MD elicited complaint: back pain Pertinent past history: prior back pain and back surgery Onset (ago): day(s) (3-4) Timing: constant Severity: severe Similar Symptoms Previously: Yes Quality: sharp, aching and spasming Location: right lower back Radiation: buttocks and right upper leg Exacerbating factors: movement and walking Relieving factors: immobilization and sitting upright Context: unknown Associated symptoms: numbness and difficulty walking Treatments prior to arrival: acetaminophen Work related injury: No Related Data Home Medications Medication Instructions Recorded Confirmed acetaminophen 500 mg tablet 500 mg PO Q6H PRN 06/05/20 01/03/22 (Tylenol Extra Strength) albuterol sulfate 2.5 mg INHALATION Q4-6H PRN 06/05/20 01/03/22 aspirin 81 mg tablet,delayed 81 mg PO DAILY 06/05/20 01/03/22 release (Adult Aspirin Regimen) ibuprofen 600 mg tablet (IBU) 600 mg PO TID 06/05/20 01/03/22 multivitamin 1 tab PO DAILY 06/05/20 01/03/22 anastrozole 1 mg tablet 1 mg PO DAILY 12/24/20 01/03/22 sumatriptan succinate 50 mg tablet 50 mg PO .QD prn PRN 08/06/21 01/03/22 Previous Rx's Medication Instructions Recorded albuterol sulfate 90 mcg/actuation 2 puff INHALATION QID PRN #18 g 09/14/20 aerosol inhaler blood sugar diagnostic (FreeStyle 1 strip MISCELLANEOUS TID #300 12/20/20 Lite Strips) strip atorvastatin 20 mg tablet 20 mg PO BEDTIME #90 tab 02/25/21 lancets 28 gauge (FreeStyle #100 ea 03/25/21 Lancets) empagliflozin 25 mg tablet 25 mg PO DAILY 90 Days #90 tab 04/20/21 metoprolol succinate 25 mg 25 mg PO DAILY #90 tab 04/21/21 tablet,extended release 24 hr amlodipine 5 mg tablet 5 mg PO DAILY #90 tab 07/07/21 tizanidine 4 mg tablet 4 mg PO BID PRN 10 Days #20 tab 07/07/21 sitagliptin 100 mg tablet (Januvia) 100 mg PO DAILY 90 Days #90 tab 11/08/21 hydroxyzine HCl 10 mg tablet 10 mg PO BEDTIME PRN #180 tab 12/20/21 pantoprazole 40 mg tablet,delayed 40 mg PO BID 90 Days #180 tab 12/27/21 release diclofenac sodium 1 % topical gel 4 g TOPICAL QID #100 g 01/03/22 (Voltaren Arthritis Pain) oxycodone 5 mg tablet 5 mg PO Q8H PRN #6 tab 01/23/22 prednisone 20 mg tablet 40 mg PO DAILY #10 tab 01/23/22 Allergies Allergy/AdvReac Type Severity Reaction Status Date / Time metformin Allergy Unknown 1000 mg Verified 01/23/22 16:57 cause diarrhea Review of Systems Review of Systems: Constitutional: No Fever, No Chills Cardiovascular: No Chest Pain, No SOB, No Orthopnea, No Edema Respiratory: No Cough, No Sputum, No Wheezing, No dyspnea Gastrointestinal: No Nausea, No Vomiting, No Diarrhea, No abdominal Pain Genitourinary: No Dysuria, No Urinary Frequency, No Hematuria Musculoskeletal: No joint pain, + Myalgias, +Back pain Skin: No Skin Lesions, No rash Neuro: No Weakness, + Numbness, No Dizziness, No Headache Heme/Lymph: No Bruising, No Lymphadenopathy Endocrine: No Polyuria, No Polydipsia PMFSH Past Medical History Medical History (Updated 01/23/22 @ 18:34 by PARDEEP Bolton) Behcets syndrome Diverticulitis GERD (gastroesophageal reflux disease) Hypercholesterolemia Hypertension Invasive ductal carcinoma of right breast Mitral valve regurgitation RUDDY (obstructive sleep apnea) Overweight (BMI 25.0-29.9) Pulmonary hypertension TSH elevation Tubular adenoma of colon Type 2 diabetes mellitus with hyperglycemia Valvular heart disease Surgical History Back pain with history of spinal surgery History of bilateral cataract extraction History of bladder surgery History of breast biopsy History of cholecystectomy History of hand surgery History of shoulder surgery History of total abdominal hysterectomy Family History Family History Father Medical history unknown Mother Diabetes CVD (cardiovascular disease) Daughter Colon cancer Social History Social History Housing: Apartment Alcohol intake: former Patient Tobacco Use Status: Former Tobacco user e-Cigarette/Vaping Use: Never Used Second Hand Smoke Exposure: No Advance Directives: No Advance Directives Information Provided: No service: No Current occupational status: retired Cognitive needs: No Hearing needs: No Vision needs: Yes (reading glasses) Physical Exam Vital Signs: Vital Signs: Last Vital Signs Temp 98.1 F 01/23/22 16:57 Pulse 54 01/23/22 16:57 Resp 18 01/23/22 16:57 BP 178/60 H 01/23/22 16:57 Pulse Ox 98 01/23/22 16:57 BMI result Body Mass Index 27.1 Appearance: Alert. Oriented X3. No acute distress. HEENT: normal inspection CVS: Normal heart rate and rhythm. Pulses normal. Respiratory: No respiratory distress. Skin: Skin warm and dry. Normal skin color. Normal skin turgor. No rashes. Back: soft tissue tenderness of the upper, middle and lower lumbar areas on the right with +SI joint tenderness on the right. +Straight leg raise test at 45 degreess Extremities: normal inspection x4, no LE edema Neuro: Oriented X 3. No motor deficit. No sensory deficit. Steady gait Course Course Course Narrative: 76 y/o female presenting with acute on chronic LBP. No red flag symptoms of low back pain. XR with degenerative changes. UA without infection. Will plan to start 5 day course of prednisone for radiculopathy and short course of PRN oxycodone which she has taken before for this type of pain. Encouraged to follow up wtih her PCP this week. Patient agrees with plan and is stable for d/c home. MDM - Back Pain/Injury Lab Data Labs: Lab Results 01/23/22 Range/Units 18:24 Urine Color YELLOW Urine Appearance CLEAR Urine pH 5.5 (5.0-8.0) Ur Specific [place] 1.020 (1.005-1.025) Urine Protein NEG (NEG-TRACE) MG/DL Urine Glucose (UA) 500 H (NEG) MG/DL Urine Ketones NEG (NEG) MG/DL Urine Blood NEG (NEG) Urine Nitrite NEG (NEG) Ur Leukocyte Esterase NEG (NEG) Discharge Plan Discharge Clinical Impression: Lumbar radiculopathy Patient Disposition: Home, Self-Care Instructions: Lumbar Radiculopathy (ED), Lower Back Exercises (ED) Additional Instructions: Your x-ray today showed degenerative changes of the spine but no acute abnormality. No bending, lifting or twisting. Use ice several times per day for 20 minutes at a time for the next 48 hours and then change to heat. Take medications as prescribed to help with pain and discomfort. Follow up with your Primary Care Doctor this week. If your pain worsens, if you develop new numbness, tingling, weakness, loss of function or incontinence call 911 or come back to the ER right away for evaluation. Prescriptions: New prednisone 20 mg tablet 40 mg PO DAILY Qty: 10 0RF oxycodone 5 mg tablet 5 mg PO Q8H PRN (Reason: severe pain (scale score 7-10)) Qty: 6 0RF No Action blood sugar diagnostic [FreeStyle Lite Strips] Strip 1 strip miscellaneous TID Qty: 300 3RF atorvastatin 20 mg tablet 20 mg PO BEDTIME Qty: 90 3RF (DME) lancets [FreeStyle Lancets] 28 gauge misc See Rx Instructions .Route Qty: 100 12RF Rx Instructions: As directed three times daily metoprolol succinate 25 mg tablet extended release 24 hr 25 mg PO DAILY Qty: 90 3RF amlodipine 5 mg tablet 5 mg PO DAILY Qty: 90 3RF tizanidine 4 mg tablet 4 mg PO BID PRN (Reason: muscle spasticity) 10 Days Qty: 20 5RF Januvia 100 mg tablet 100 mg PO DAILY 90 Days Qty: 90 2RF hydroxyzine HCl 10 mg tablet 10 mg PO BEDTIME PRN (Reason: insomnia) Qty: 180 2RF Rx Instructions: please take 1-2 tablets at night for sleep as needed pantoprazole 40 mg tablet,delayed release (DR/EC) 40 mg PO BID 90 Days Qty: 180 2RF albuterol sulfate 90 mcg/actuation HFA aerosol inhaler 2 puff inhalation QID PRN (Reason: bronchitis) Qty: 18 0RF sumatriptan succinate 50 mg tablet 50 mg PO .QD prn PRN (Reason: Migraine Headache) 0RF multivitamin Tablet 1 tab PO DAILY 0RF acetaminophen [Tylenol Extra Strength] 500 mg tablet 500 mg PO Q6H PRN (Reason: Pain) 0RF ibuprofen [IBU] 600 mg tablet 600 mg PO TID 0RF albuterol sulfate 2.5 mg /3 mL (0.083 %) solution for nebulization 2.5 mg inhalation Q4-6H PRN (Reason: Wheezing) 0RF aspirin [Adult Aspirin Regimen] 81 mg tablet,delayed release (DR/EC) 81 mg PO DAILY 0RF Jardiance 25 mg tablet 25 mg PO DAILY 90 Days Qty: 90 3RF diclofenac sodium [Voltaren Arthritis Pain] 1 % gel 4 g topical QID Qty: 100 1RF Rx Instructions: apply to single knee, ankle, foot; for foot includes sole/toes/top of foot anastrozole 1 mg tablet 1 mg PO DAILY 0RF
[2022-01-23 18:37] LABS: Appearance Urine CLEAR; Color Urine YELLOW; Glucose Urine UA 500 MG/DL (NEG); Leukocyte Esterase Urine NEG (NEG); Nitrite Urine NEG (NEG); PH 5.5 (5.0-8.0); Urine Blood NEG (NEG); Urine Ketones NEG (NEG); Urine Protein NEG (NEG-TRACE)
[2022-01-23] MEDS: oxyCODONE HCl Immed Release 5 MG TABLET PO (18:39)
[2022-01-23] MEDS: predniSONE 10 MG TABLET 50 MG PO (18:39)
== END 2022-01-23 18:55 | disposition home or self-care (01) ==
PROVIDERS: Physician Assistant Medical; Emergency Provider Emergency Medicine Emergency Medical Services; PCP Internal Medicine
DX: M54.16 Radiculopathy, lumbar region (principal); M54.50 Low back pain, unspecified; M79.604 Pain in right leg; Z79.899 Other long term (current) drug therapy; Z87.891 Personal history of nicotine dependence
CPT/HCPCS: 72100; 81003; 99283

== ENCOUNTER 2022-02-01 12:22 | Outpatient (REF) | payer OTHER, SELFPAY ==
--- NOTE | ~2022-02-01 | XR_ITS ---
EXAMINATION: XR HIP, RIGHT CLINICAL INFORMATION: Right hip trochanteric bursitis COMPARISON: Previous x-ray June 2016 TECHNIQUE: Two views of the right hip. FINDINGS: Bones and soft tissues are normal. No fracture. Alignment is anatomic. Hip joint space is maintained. XR/XR hip RT min 2V IMPRESSION: Normal right hip.
== END 2022-02-01 12:23 | disposition home or self-care (01) ==
LOC: HO.XRAY 12:22
PROVIDERS: PCP Internal Medicine; Visit Provider Internal Medicine
DX: M70.61 Trochanteric bursitis, right hip (principal)
CPT/HCPCS: 73502

== ENCOUNTER → 2022-02-09 10:27 | Outpatient (REF) | payer OTHER, SELFPAY ==
--- NOTE | 2022-02-09 10:30 | CA_ITS ---
Transthoracic Echocardiogram Patient (Last, First, Middle): Juany James M Gender: Female Date of : 1945 Age: 76 Procedure Date: 02/09/2022 Procedure Type: Transthoracic Echocardiogram Location: OP Height: 157.48 cm Weight: 66.68 kg BSA: 1.68 m2 Heart Rate: bpm BP: 128 / 70 mmHg Leathersmith: Referring MD: José Miguel Hernandez MD Laborer Landscape: Quincy Hicks MD Symptoms: I27.20 - Pulmonary hypertension, unspecified Study Quality: Fair ECG Rhythm: Sinus Conclusions: - 1. Normal LV systolic function with impaired relaxation filling pattern 2. Normal cardiac valvular Doppler 3. Normal RV systolic pressure 4. small amount of pericardial effusion more prominent near the LV Findings Left Ventricle Normal left ventricular size, thickness, and systolic function. The visually estimated ejection fraction is between 60-65%. Spectral Doppler is indicative of an impaired relaxation filling pattern. E/E prime ratio is between 8 and 15 consistent with indeterminate filling pressures. Right Ventricle Normal right ventricular cavity size and systolic function. Atria Both atria are normal in size. There is no evidence of interatrial shunt. Aortic Valve Normal aortic valve structure and function. There is no aortic valve stenosis. There is no aortic valve regurgitation. Mitral Valve There is mild anterior and posterior mitral leaflet thickening. There is mild mitral annular calcification. There is trace mitral valve regurgitation. There is no mitral valve stenosis. Pulmonic Valve The pulmonic valve was not well visualized. Tricuspid Valve Likely normal tricuspid valve structure and function. There is mild tricuspid valve regurgitation. The right ventricular systolic pressure is normal. The right ventricular systolic pressure is 27 mmHg. Normal right atrial pressure. There is no evidence of pulmonary hypertension. Great Vessels All visible segments of the aorta are normal in size. The pulmonary artery was not well visualized. Venous The inferior vena cava is normal in size and collapses greater than 50% with inspiration. Pericardium/Pleural There is a small loculated pericardial effusion overlying the left ventricle. Prior Study Comparison Changes noted compared to prior study. RV systolic pressure is normal on this study Measurements 2D Linear Measurements IVSd: 1.23 0.6-0.9/0.6-1.0 cm LVIDd: 3.84 3.9-5.3/4.2-5.9 cm LVIDd Index: 2.29 2.4-3.2/2.2-3.1 cm/m2 LVIDs: 2.62 2.0-3.6 cm LVPWd: 1.29 0.7-1.1 cm Ao Root: 2.90 2.1-3.5 cm LA Diam: 3.80 2.7-3.8/3.0-4.0 cm LAIDs Index: 2.26 1.5-2.3 cm/m2 LV Mass: 208.66 67-162/88-224 g LV Mass Index: 124.20 43-95/49-115 g/m2 LVOT Diam: 2.00 3.0+(-)1.3 cm Mitral Valve MV VTI: 0.47 MV Pk Sadi: 1.21 MV Mn Sadi: 0.64 MV Pk Grad: 6.00 MV Mn Grad: 2.00 MV Pk E: 0.81 MV PK A: 1.16 MV Decel Time: 247.00 E/A: 0.70 E'Lateral: 6.64 E'Medial: 4.24 E/E' Med: 19.20 E/E' Lat: 12.30 PHT: 72.00 MVA PHT: 3.06 MVA Continuity: 1.99 Decel Coos: 3.30 Aortic Valve AoV Pk Sadi: 1.60 AoV Mn Sadi: 0.96 AoV VTI: 0.38 AoV Pk Grad: 10.00 Aov Mn Grad: 5.00 KENNY Cont.VTI: 2.50 LVOT LVOT Pk Sadi: 1.17 LVOT Mn Sadi: 0.84 LVOT VTI: 0.30 LVOT Pk Grad: 5.00 LVOT Mn Grad: 3.00 LVOT Diam: 2.00 LVOT Area: 3.14 Diastolic Function MV Pk E: 0.81 MV Pk A: 1.16 E/A: 0.70 E'Medial: 4.24 E/E' Med: 19.20 E' Laterial: 6.64 E/E' Lat: 12.30 Tricuspid Valve TR Pk Sadi: 2.46 TR Pk Grad: 24.00 RA Press: 3.00 RVSP: 27.00 Great Vessels Aorta Ao Root-2D: 2.90 2.0-3.7 cm Ao Asc: 3.10 2.1-3.4 cm Pulmonary Valve PV Pk Sadi: 0.95 Peak PV Grad: 4.00 Updated in Other Vendor System with Status of Final Quincy Hicks MD electronically signed on 02/10/2022 8:41:51 AM with status of Final
== END ==
LOC: HO.CARD 10:27
PROVIDERS: Visit Provider Internal Medicine
DX: I27.20 Pulmonary hypertension, unspecified (principal)
CPT/HCPCS: 93306

== ENCOUNTER → 2022-02-21 12:59 | Outpatient (BNVA) | payer OTHER, SELFPAY | PROVIDERS: PCP Internal Medicine; Referring Provider Internal Medicine; Visit Provider Internal Medicine | DX: I38 Endocarditis, valve unspecified (principal); I27.20 Pulmonary hypertension, unspecified; I10 Essential (primary) hypertension; E11.8 Type 2 diabetes mellitus with unspecified complications; E78.5 Hyperlipidemia, unspecified | CPT/HCPCS: 93005; 99212 ==

== ENCOUNTER 2022-04-21 09:21 | Outpatient (REF) | payer OTHER, SELFPAY ==
[2022-04-21 10:54] LABS: Alanine Aminotransferase 13 U/L (0-31); Albumin Level 4.2 g/dL (3.5-5.0); Alkaline Phosphatase 88 U/L (39-117); Anion Gap 16 (12-20); Aspartate Amino Transferase 16 U/L (5-31); Bilirubin Total 0.7 mg/dL (0.0-1.0); Blood Urea Nitrogen 17 mg/dL (9-16); Calcium 10.2 mg/dL (8.4-10.2); Carbon Dioxide 27 mmol/L (22-29); Chloride 102 mmol/L (96-108); Cholesterol 243 mg/dL; Estimated Glomerular Filt Rate > 60; Glucose Random 138 mg/dL (60-115); HDL Cholesterol 41 mg/dL; LDL Cholesterol Calculated 152 mg/dl; Potassium 4.8 mmol/L (3.3-5.1); Sodium 140 mmol/L (135-145); Total Protein 7.1 g/dL (6.5-8.0); Triglycerides 253 mg/dL
== END 2022-04-21 09:22 | disposition home or self-care (01) ==
LOC: HO.LAB 09:21
PROVIDERS: PCP Internal Medicine; Visit Provider Internal Medicine
DX: E78.00 Pure hypercholesterolemia, unspecified (principal)
CPT/HCPCS: 36415; 80053; 80061

== ENCOUNTER 2022-05-12 12:38 | Outpatient (REF) | payer OTHER, SELFPAY ==
--- NOTE | ~2022-05-12 | XR_ITS ---
EXAMINATION: XR PELVIS CLINICAL INFORMATION: Pain in hip. COMPARISON: X-ray of the right hip January 2022, x-ray of the sacroiliac joints October 2017. TECHNIQUE: AP view of the pelvis. FINDINGS: The bones, joints and soft tissues in the pelvis are normal. No fracture or bone lesion. Mild spondylosis of the partially visualized lumbosacral spine with degenerative disc changes present at the L3-4 level. XR/XR pelvis 1-2V IMPRESSION: Normal pelvis.
== END 2022-05-12 12:39 | disposition home or self-care (01) ==
LOC: HO.HOSX 12:38
PROVIDERS: Visit Provider Physician Assistant
DX: M70.61 Trochanteric bursitis, right hip (principal)
CPT/HCPCS: 72170; 99202

== ENCOUNTER → 2022-05-18 10:54 | Outpatient (BNVA) | payer OTHER, SELFPAY | PROVIDERS: PCP Internal Medicine; Visit Provider Internal Medicine Pulmonary Disease | DX: J45.991 Cough variant asthma (principal); G47.33 Obstructive sleep apnea (adult) (pediatric); Z79.899 Other long term (current) drug therapy | CPT/HCPCS: 99212 ==

== ENCOUNTER → 2022-09-23 15:18 | Outpatient (BNVA) | payer OTHER, SELFPAY | PROVIDERS: PCP Internal Medicine; Visit Provider Internal Medicine | DX: K52.9 Noninfective gastroenteritis and colitis, unspecified (principal); K57.30 Diverticulosis of large intestine without perforation or abscess without bleeding; Z86.010 Personal history of colon polyps | CPT/HCPCS: 99202 ==

== ENCOUNTER 2022-10-09 11:54 | Emergency (ER) | payer OTHER, SELFPAY ==
[2022-10-09 11:57] VITALS: BP 154/94; PULSE 64; RESP 18; TEMP 36.8; O2SAT 98; BMI 26.6
[2022-10-09 12:18] LABS: IDNOW Serial# 6674DD1D; Strep A Nucleic Acid Negative (Negative)
[2022-10-09 12:50] LABS: Influenza A PCR NEGATIVE (Negative); Influenza B PCR NEGATIVE (Negative); Resp Syncy Virus RNA Qual PCR NEGATIVE (Negative); SARS COV2 PCR INHOUSE NEGATIVE (Negative)
[2022-10-09] MEDS: methylPREDNISolone Sod Succ 125 MG/2 ML VIAL 60 MG IM (13:00)
--- NOTE | 2022-10-09 13:16 | ED.URI ---
HPI - URI/Sore Throat General Chief Complaint: General Medical Stated Complaint: Sore throat Time Seen by Provider: 10/09/22 12:06 Source: patient Mode of arrival: ambulatory Limitations: no limitations History of Present Illness HPI Narrative: 76-year-old female who is Guamanian-speaking presenting to the ER with complaints of a sore throat with her uvula that is swollen with a productive cough with subjective fevers and nausea for the past few days worse today. Denies any measured fevers, dizziness, headaches, neck pain/stiffness, trouble swallowing or breathing, chest pain or shortness of breath, dyspnea exertion, orthopnea, palpitations, paresthesias, vomiting, abdominal pain, back pain, dysuria, hematuria, recent travel or sick contacts or any other symptoms complaints or concerns at this time. MD elicited complaint: fever, cough, sore throat, rhinorrhea and nasal congestion Onset (ago): day(s) (2-3 days worse today) Consistency: constant and progressively worsening Severity: mild Description of mucous: clear, watery and yellow Able to tolerate fluids by mouth: Yes Exacerbating factors: swallowing Relieving factors: nothing Context: sick contacts Associated symptoms: fever, chills, myalgias, rhinorrhea, nasal congestion, sore throat and cough Treatments prior to arrival: none Related Data Home Medications Medication Instructions Recorded Confirmed acetaminophen 500 mg tablet 500 mg PO Q6H PRN Pain 06/05/20 09/12/22 (Tylenol Extra Strength) albuterol sulfate 2.5 mg/3 mL 2.5 mg inhalation Q4-6H PRN 06/05/20 09/12/22 (0.083 %) solution for nebulization Wheezing multivitamin 1 tab PO DAILY 06/05/20 09/12/22 anastrozole 1 mg tablet 1 mg PO DAILY 12/24/20 09/12/22 lancets 30 gauge (Pure Comfort #100 ea 09/23/22 Safety Lancets) Previous Rx's Medication Instructions Recorded lancets 28 gauge (FreeStyle #100 ea 03/25/21 Lancets) tizanidine 4 mg tablet 4 mg PO BID PRN muscle spasticity 07/07/21 10 days #20 tabs atorvastatin 20 mg tablet 20 mg PO BEDTIME #90 tabs 02/21/22 diclofenac sodium 1 % topical gel 4 g topical QID #100 grams 03/01/22 (Voltaren Arthritis Pain) blood sugar diagnostic (FreeStyle 1 strip miscellaneous TID for 03/08/22 Lite Strips) diabetes mellitus #300 strips metoprolol succinate 25 mg 25 mg PO DAILY #90 tabs 04/12/22 tablet,extended release 24 hr empagliflozin 25 mg tablet 25 mg PO DAILY #90 tabs 05/04/22 (Jardiance) amlodipine 5 mg tablet 5 mg PO DAILY #90 tabs 06/21/22 hydroxyzine HCl 10 mg tablet 10 mg PO BEDTIME PRN insomnia #180 07/24/22 tabs sitagliptin phosphate 100 mg 100 mg PO DAILY 90 days #90 tabs 08/02/22 tablet (Januvia) sumatriptan succinate 50 mg tablet 50 mg PO .QD prn PRN Migraine 09/04/22 Headache #10 tabs pantoprazole 40 mg tablet,delayed 40 mg PO BID 90 days #180 tabs 09/15/22 release peg 3350-electrolytes 236 240 ml PO Q10M PRN colonoscopy 09/23/22 gram-22.74 gram-6.74 gram-5.86 #4,000 mL gram solution (Golytely) albuterol sulfate 90 mcg/actuation 2 puff inhalation QID PRN 09/29/22 aerosol inhaler bronchitis #18 grams meloxicam 15 mg tablet 15 mg PO DAILY #90 tabs 10/03/22 acetaminophen 500 mg tablet 1,000 mg PO QID PRN fever or pain 10/09/22 (Tylenol Extra Strength) #14 tabs amoxicillin 875 mg-potassium 1 tab PO BID 7 days #14 tabs 10/09/22 clavulanate 125 mg tablet prednisone 10 mg tablet 10 mg PO DAILY 10/09/22 Inflammation/swelling uvula 3 days #3 tabs Allergies Allergy/AdvReac Type Severity Reaction Status Date / Time metformin Allergy Unknown 1000 mg Verified 09/23/22 15:40 cause diarrhea Review of Systems Review of Systems: Constitutional : No Weight loss, No Fever, No Chills, No Night Sweats, No Fatigue, No Malaise ENT/Mouth : + sore throat/rhinorrhea/nasal congestion, No Hearing loss, No Ear Pain, No Sinus Pain, No Hoarseness, No Swallowing Difficulty Eyes: No Eye Pain, No Swelling, No Redness, No Foreign Body, No Discharge, No Vision Changes Cardiovascular : No Chest Pain, No SOB, No Dyspnea on Exertion, No Orthopnea, No Edema, No Palpitations Respiratory : + Cough, + Sputum, No Wheezing, No Smoke Exposure, No Dyspnea Gastrointestinal : No Nausea, No Vomiting, No Diarrhea, No Constipation, No abdominal Pain, No Hematochezia, No Melena Genitourinary : no irregular bleeding, No Dysuria, No Urinary Frequency, No Hematuria, No Urinary Incontinence, No Urgency, No Flank Pain, No Urinary Flow Changes, No Hesitancy Musculoskeletal : No joint pain, + Myalgias, No Joint Swelling Skin : No Skin Lesions, No rash Neuro : No Weakness, No Numbness, No Paresthesias, No Loss of Consciousness, No Dizziness, No Headache Psych : No Anxiety/Panic, No Depression, No SI/HI/AH/VH, No Social Issues, Heme/Lymph: No Bruising, No Bleeding,No Lymphadenopathy Endocrine : No Polyuria, No Polydipsia, No Temperature Intolerance Yes all other systems are reviewed and are negative PMFSH Past Medical History Attestation statement: The following information was validated with the patient. Source: old records reviewed and nursing notes reviewed Medical History Behcets syndrome Diverticulitis GERD (gastroesophageal reflux disease) Hypercholesterolemia Hypertension Invasive ductal carcinoma of right breast Mitral valve regurgitation RUDDY (obstructive sleep apnea) Overweight (BMI 25.0-29.9) Pulmonary hypertension TSH elevation Tubular adenoma of colon Type 2 diabetes mellitus with hyperglycemia Valvular heart disease Surgical History Back pain with history of spinal surgery History of bilateral cataract extraction History of bladder surgery History of breast biopsy History of cholecystectomy History of hand surgery History of shoulder surgery History of total abdominal hysterectomy Hx of colonoscopy Family History Family History Father Medical history unknown Mother Diabetes CVD (cardiovascular disease) Daughter Colon cancer Social History Social History Household Members: Spouse Housing: Apartment Are you a primary women's health care nurse practitioner to a significant other at home: No Do you presently have visiting nurse or 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 home services: 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 Blood pressure 154/94. Pulse normal. Respiration normal. Oxygen normal. Temperature normal. Appearance: Alert. Oriented X3. No acute distress. Head: Normal external exam. Normocephalic. Atraumatic. Eyes: PERRLA. EOMI. Conjunctiva and sclera normal. Eyelids normal. ENT: EAC normal. TM's Normal. Pharynx erythematous along with uvula and uvula is edematous. Scattered exudate noted. Moist mucous membranes. No lesions/ulcerations or masses noted on the tongue. Normal voice. No trismus noted. No drooling noted. No muffled voice noted. Neck: Normal inspection. Neck supple. FROM. No adenopathy. Thyroid Normal. No meningeal signs. CVS: Normal heart rate and rhythm. Heart sound normal. Pulses normal throughout. No murmurs/rales/gallops. Respiratory: No respiratory distress. Painless inspiration. Breath sounds normal. No wheezes/rales/rhonchi noted. Chest nontender. No accessory muscle usage noted or decreased air movement noted. Abdomen: Soft and nontender. Back: Full range of motion noted. Nontender. Skin: Skin warm and dry. Normal skin color. Normal skin turgor. No rashes/lesions/lacerations noted. Extremities: Extremities exhibit normal range of motion and nontender. Neuro: Oriented X 3. No motor deficit. No sensory deficit. Reflexes normal. Normal steady gait. No focal neuro deficits noted. CN's II-XII intact bilaterally? Vascular: + radial pulses. Normal cap refill. No cyanosis noted to upper extremity nails Course Course Course Narrative: On exam patient has posterior erythema her pharynx and her uvula is edematous. There is scattered exudate noted. Patient tolerating secretions well. No trismus/drooling/stridor. Not consistent angioedema. Not consistent with peritonsillar/pharyngeal/dental abscess. Not c/w with ludwigs angina. Lungs clear to auscultation. She is negative for COVID/RSV/flu and strep. Although will treat for possible bacterial pharyngitis. Patient given 60 mg of IM Solu-Medrol while here in the ER reports she feels a little bit better. Will DC home antibiotics an of 3 days of additional prednisone along with Tylenol and instructions return if any new or worsening symptoms to follow up with primary care provider. Patient understands agrees with this plan. Medications Administered Discontinued Medications Generic Name Dose Route Start Last Admin Trade Name Freq PRN Reason Stop Dose Admin Methylprednisolone Sodium Succinate 60 mg 10/09/22 12:06 10/09/22 13:00 Methylprednisolone Sod Succ 125 Mg/2 Ml Vial IM 10/09/22 12:07 60 mg ONCE ONE Administration Medical Decision Making Lab Data MDM Lab Attestation statement: I reviewed the patient's lab results. Labs: Lab Results 10/09/22 10/09/22 Range/Units 12:05 12:05 Influenza Type A (PCR) NEGATIVE (Negative) Influenza Type B (PCR) NEGATIVE (Negative) RSV RNA Qual (PCR) NEGATIVE (Negative) SARS-CoV-2 RNA (RT-PCR) NEGATIVE (Negative) S. pyogenes GrpA NEETU Negative (Negative) Prescription Management I considered prescription management with: Antibiotic (And steroid) Discharge Plan Discharge Clinical Impression: Pharyngitis Patient Disposition: Home, Self-Care Instructions: Pharyngitis (ED) Prescriptions: New amoxicillin-pot clavulanate 875-125 mg tablet 1 tab PO BID 7 Days Qty: 14 0RF prednisone 10 mg tablet 10 mg PO DAILY 3 Days Qty: 3 0RF acetaminophen [Tylenol Extra Strength] 500 mg tablet 1,000 mg PO QID PRN (Reason: fever or pain) Qty: 14 0RF No Action (DME) lancets [FreeStyle Lancets] 28 gauge misc See Rx Instructions .Route Qty: 100 12RF Rx Instructions: As directed three times daily tizanidine 4 mg tablet 4 mg PO BID PRN (Reason: muscle spasticity) 10 Days Qty: 20 5RF atorvastatin 20 mg tablet 20 mg PO BEDTIME Qty: 90 3RF diclofenac sodium [Voltaren Arthritis Pain] 1 % gel 4 g topical QID Qty: 100 3RF Rx Instructions: apply to single knee, ankle, foot; for foot includes sole/toes/top of foot FreeStyle Lite Strips Strip 1 strip miscellaneous TID Qty: 300 3RF metoprolol succinate 25 mg tablet extended release 24 hr 25 mg PO DAILY Qty: 90 3RF Jardiance 25 mg tablet 25 mg PO DAILY Qty: 90 3RF amlodipine 5 mg tablet 5 mg PO DAILY Qty: 90 3RF hydroxyzine HCl 10 mg tablet 10 mg PO BEDTIME PRN (Reason: insomnia) Qty: 180 2RF Rx Instructions: please take 1-2 tablets at night for sleep as needed Januvia 100 mg tablet 100 mg PO DAILY 90 Days Qty: 90 2RF sumatriptan succinate 50 mg tablet 50 mg PO .QD prn PRN (Reason: Migraine Headache) Qty: 10 3RF pantoprazole 40 mg tablet,delayed release (DR/EC) 40 mg PO BID 90 Days Qty: 180 2RF albuterol sulfate 90 mcg/actuation HFA aerosol inhaler 2 puff inhalation QID PRN (Reason: bronchitis) Qty: 18 0RF meloxicam 15 mg tablet 15 mg PO DAILY Qty: 90 2RF multivitamin Tablet 1 tab PO DAILY acetaminophen [Tylenol Extra Strength] 500 mg tablet 500 mg PO Q6H PRN (Reason: Pain) albuterol sulfate 2.5 mg /3 mL (0.083 %) solution for nebulization 2.5 mg inhalation Q4-6H PRN (Reason: Wheezing) anastrozole 1 mg tablet 1 mg PO DAILY (DME) lancets [Pure Comfort Safety Lancets] 30 gauge misc See Rx Instructions .ROUTE .MEDSUPPLY Qty: 100 Rx Instructions: As directed peg 3350-electrolytes [Golytely] 236-22.74-6.74 -5.86 gram recon soln 240 ml PO Q10M PRN (Reason: colonoscopy) Qty: 4000 0RF Rx Instructions: as per split prep instructions, until fecal effluent is clear Referrals: Po,Aleksandr Kennedy MD [Primary Care Provider] - 2 days Print Language: Guamanian
== END 2022-10-09 13:40 | disposition home or self-care (01) ==
PROVIDERS: Physician Assistant Medical; Emergency Provider Emergency Medicine Emergency Medical Services; PCP Internal Medicine
DX: J02.9 Acute pharyngitis, unspecified (principal); R05.9 Cough, unspecified; M79.10 Myalgia, unspecified site; Z20.822 Contact with and (suspected) exposure to COVID-19; Z20.828 Contact with and (suspected) exposure to other viral communicable diseases; Z79.899 Other long term (current) drug therapy; Z87.891 Personal history of nicotine dependence
CPT/HCPCS: 0241U; 36415; 87651; 96372; 99283; 99284; J2930

== ENCOUNTER 2022-11-01 09:13 | Day surgery (SDC) | payer OTHER, SELFPAY ==
--- NOTE | 2022-10-31 13:46 | HO.ANESPROP2 ---
Documented by User: Jannette Dave NP 10/31/22 13:50 HPI - Anesthesia Eval Consult details Narrative: 76yo F for Colonoscopy PMFSH Active Problems Active Problems: All Active Problems (Updated 10/27/22 @ 14:48 by Alesha Kolb RN) Viral illness (Acute) Cough variant asthma (Acute) Restrictive pattern present on pulmonary function testing (Acute) Shortness of breath (Acute) Cough (Acute) Migraine (Acute) Breast mass (Acute) Fungal dermatitis (Acute) TSH elevation (Acute) Insomnia (Acute) Visual hallucinations (Acute) Obstructive sleep apnea (adult) (pediatric) (Acute) Left knee pain (Acute) Lumbar degenerative disc disease (Acute) Trochanteric bursitis of right hip (Acute) Type 2 diabetes mellitus with unspecified complications (Acute) Essential hypertension (Acute) Other and unspecified hyperlipidemia (Acute) Acute gastroenteritis (Acute) Colitis (Acute) Personal history of colonic polyps (Acute) Diverticulosis (Acute) Rash (Acute) Invasive ductal carcinoma of right breast (Acute) Pulmonary hypertension (Acute) Valvular heart disease (Acute) Hypercholesterolemia (Acute) GERD (gastroesophageal reflux disease) (Acute) Hypertension (Acute) Type 2 diabetes mellitus with hyperglycemia (Acute) Overweight (BMI 25.0-29.9) (Acute) Past Medical History Medical History Asthma Behcets syndrome Bursitis Diverticulitis GERD (gastroesophageal reflux disease) Hypercholesterolemia Hypertension Invasive ductal carcinoma of right breast Mitral valve regurgitation On beta jesus at home RUDDY (obstructive sleep apnea) Overweight (BMI 25.0-29.9) Pulmonary hypertension TSH elevation Tubular adenoma of colon Type 2 diabetes mellitus with hyperglycemia Valvular heart disease Family History Family History Father Medical history unknown Mother Diabetes CVD (cardiovascular disease) Daughter Colon cancer Surgical History Surgical History Back pain with history of spinal surgery History of bilateral cataract extraction History of bladder surgery History of breast biopsy History of cholecystectomy History of hand surgery History of lumpectomy of right breast History of shoulder surgery History of total abdominal hysterectomy Hx of colonoscopy Social History Social History Household Members: Spouse Housing: Apartment Are you a primary healthcare marketer to a significant other at home: No Do you presently have 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[employer]) Alcohol intake: former Patient Tobacco Use Status: Former Tobacco user Quit Date: >30 yrs ago e-Cigarette/Vaping Use: Never Used Second Hand Smoke Exposure: No Use of substances other than those prescribed or required for medical reasons: No Are you DNR?: No Advance Directives: No Advance Directives Information Provided: Yes service: No Current occupational status: retired Cognitive needs: No Hearing needs: No Vision needs: Yes (reading glasses) Meds Allergies Allergy/AdvReac Type Severity Reaction Status Date / Time metformin Allergy Unknown 1000 mg Verified 11/01/22 10:19 cause diarrhea Home Medications Medication Instructions Recorded Confirmed Last Taken Type acetaminophen 500 mg tablet 500 mg PO Q6H PRN Pain 06/05/20 11/01/22 Unknown History (Tylenol Extra Strength) albuterol sulfate 2.5 mg/3 mL 2.5 mg inhalation Q4-6H PRN 06/05/20 11/01/22 Unknown History (0.083 %) solution for nebulization Wheezing multivitamin 1 tab PO DAILY 06/05/20 11/01/22 Unknown History anastrozole 1 mg tablet 1 mg PO DAILY 12/24/20 11/01/22 Unknown History lancets 30 gauge (Pure Comfort #100 ea 09/23/22 11/01/22 Unknown History Safety Lancets) Exam Exam Date and Time: October 31, 2022 1346 Pertinent Lab Results Pertinent Lab Results: Laboratory Tests 08/08/22 08/08/22 10:55 10:55 WBC 6.6 Hgb 14.2 Hct 43.4 Plt Count 252 Sodium 138 Potassium 4.6 Chloride 101 Carbon Dioxide 29 BUN 20 H Creatinine 0.79 Narrative Narrative: ECHO 2021 Conclusions: - 1.? Normal LV systolic function with impaired relaxation ? ? ? filling pattern? 2.? Normal cardiac valvular Doppler? 3.? Normal RV systolic pressure? 4.? small amount of pericardial effusion more prominent near the LV ? EKG 2021 sinus rhythm at 62/Min; low-voltage complexes; nonspecific ST-T changes; normal [place]/QTc Assessment and Plan Assessment Anesthesia Assessment: Chart Reviewed Documented by User: Denise Wagner MD 11/01/22 10:54 [facility] Active Problems Active Problems: All Active Problems (Updated 10/27/22 @ 14:48 by Alesha Kolb RN) Viral illness (Acute) Cough variant asthma (Acute) Restrictive pattern present on pulmonary function testing (Acute) Shortness of breath (Acute) Cough (Acute) Migraine (Acute) Breast mass (Acute) Fungal dermatitis (Acute) TSH elevation (Acute) Insomnia (Acute) Visual hallucinations (Acute) Obstructive sleep apnea (adult) (pediatric) (Acute) Left knee pain (Acute) Lumbar degenerative disc disease (Acute) Trochanteric bursitis of right hip (Acute) Type 2 diabetes mellitus with unspecified complications (Acute) Essential hypertension (Acute) Other and unspecified hyperlipidemia (Acute) Acute gastroenteritis (Acute) Colitis (Acute) Personal history of colonic polyps (Acute) Diverticulosis (Acute)a Rash (Acute) Invasive ductal carcinoma of right breast (Acute) Pulmonary hypertension (Acute) Valvular heart disease (Acute) Hypercholesterolemia (Acute) GERD (gastroesophageal reflux disease) (Acute) Hypertension (Acute) Type 2 diabetes mellitus with hyperglycemia (Acute) Overweight (BMI 25.0-29.9) (Acute) Past Medical History Medical History Asthma Behcets syndrome Bursitis Diverticulitis GERD (gastroesophageal reflux disease) Hypercholesterolemia Hypertension Invasive ductal carcinoma of right breast Mitral valve regurgitation On beta jesus at home RUDDY (obstructive sleep apnea) Overweight (BMI 25.0-29.9) Pulmonary hypertension TSH elevation Tubular adenoma of colon Type 2 diabetes mellitus with hyperglycemia Valvular heart disease Family History Family History Father Medical history unknown Mother Diabetes CVD (cardiovascular disease) Daughter Colon cancer Surgical History Surgical History Back pain with history of spinal surgery History of bilateral cataract extraction History of bladder surgery History of breast biopsy History of cholecystectomy History of hand surgery History of lumpectomy of right breast History of shoulder surgery History of total abdominal hysterectomy Hx of colonoscopy History of Problems with Anesthesia: No Social History Social History Household Members: Spouse Housing: Apartment Are you a primary healthcare marketer to a significant other at home: No Do you presently have 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) Alcohol intake: former Patient Tobacco Use Status: Former Tobacco user Quit Date: >30 yrs ago e-Cigarette/Vaping Use: Never Used Second Hand Smoke Exposure: No Use of substances other than those prescribed or required for medical reasons: No Are you DNR?: No Advance Directives: No Advance Directives Information Provided: Yes service: No Current occupational status: retired Cognitive needs: No Hearing needs: No Vision needs: Yes (reading glasses) Meds Allergies Allergy/AdvReac Type Severity Reaction Status Date / Time metformin Allergy Unknown 1000 mg Verified 11/01/22 10:19 cause diarrhea Home Medications Medication Instructions Recorded Confirmed Last Taken Type acetaminophen 500 mg tablet 500 mg PO Q6H PRN Pain 06/05/20 11/01/22 Unknown History (Tylenol Extra Strength) albuterol sulfate 2.5 mg/3 mL 2.5 mg inhalation Q4-6H PRN 06/05/20 11/01/22 Unknown History (0.083 %) solution for nebulization Wheezing multivitamin 1 tab PO DAILY 06/05/20 11/01/22 Unknown History anastrozole 1 mg tablet 1 mg PO DAILY 12/24/20 11/01/22 Unknown History lancets 30 gauge (Pure Comfort #100 ea 09/23/22 11/01/22 Unknown History Safety Lancets) Exam Airway Mallampati Class: II TM Dist: >3cm Neck ROM: Full Partial: Upper Loose/Missing/Broken Teeth: Yes and Upper Heart: RRR Lungs: CTA Assessment and Plan Assessment Anesthesia Assessment: Anesthesia Plan Discussed Final Anesthetic Review History of Problems with Anesthesia: No NPO: Yes ASA Class: III Final Preanesthetic Review: Meds/Allgs Chart Reviewed, Consent Obtained/Reviewed and Anes Risks/Benef Reviewed Patient Risk: Intermediate Procedure Risk: Low Anesthetic Plan Anesthetic Plan: MAC: Disposition: Standard PACU
[2022-11-01 09:54] VITALS: BMI 26.3
[2022-11-01 10:09] LABS: Glucose, Whole Blood 155 mg/dL (60-115)
[2022-11-01 10:16] VITALS: BP 167/60; PULSE 61; RESP 16; TEMP 36.3; O2SAT 97
[2022-11-01] MEDS: Lactated Ringers 1,000 ML 100 ML IVCONT (10:17)
--- NOTE | 2022-11-01 10:42 | MHC.SHP ---
Pre-Procedural Eval Section A Date of Service: 11/01/22 Section B Chief Complaint: Hx of colitis Details of Present Illness: Medical History Behcets syndrome Diverticulitis GERD (gastroesophageal reflux disease) Hypercholesterolemia Hypertension Invasive ductal carcinoma of right breast Mitral valve regurgitation RUDDY (obstructive sleep apnea) Overweight (BMI 25.0-29.9) Pulmonary hypertension TSH elevation Tubular adenoma of colon Type 2 diabetes mellitus with hyperglycemia Valvular heart disease Surgical History Back pain with history of spinal surgery History of bilateral cataract extraction History of bladder surgery History of breast biopsy History of cholecystectomy History of hand surgery History of shoulder surgery History of total abdominal hysterectomy Hx of colonoscopy Relevant Family History (Specify if Yes): No Relevant Social History: None Present Medications: see Short Stay Collaborative assessment Allergies: Allergies Allergy/AdvReac Type Severity Reaction Status Date / Time metformin Allergy Unknown 1000 mg Verified 11/01/22 10:19 cause diarrhea Review of Systems Review of Systems Comment: Ten point ROS negative Exam Exam Comment: Gen appear: No acute distress HEENT: no icterus Chest: No overt resp distress Abd: soft, nontender, nondistended Psych: Stable affect, answering questions appropriately Neuro: A/Ox3 noted to move all extremities spontaneously Ext: no peripheral edema Plan Diagnosis/Plan: Unchanged I have reviewed the history and physical and performed a pertinent physical examination on my patient. No changes have occurred unless specified. Time Spent With Patient Time: Total time managing care of this patient today ____ minutes.
--- NOTE | 2022-11-01 11:36 | P.OP_ITS ---
Operative Note Operative Note Date of Service: 11/01/22 Narrative: Procedure: Colonoscopy Indication: Colitis Endoscopist: Harleen Kim MD Anesthesia Provider: Dr Denise Wagner Anesthesia type: MAC Instrument: Olympus [id number]-[id number] Consent: Indication, risks vs benefits, and alternatives were discussed with the patient who gave written informed consent to proceed. EKG, pulse, pulse oximetry and blood pressure were monitored throughout the procedure. Please see anesthesia flowsheet. Procedure: The patient was brought to the procedure room and placed in the left lateral decubitus position. IV medications were administered by the anesthesia provider in attendance. A digital rectal exam was performed which was abnormal due to finding of hemorrhoids. The colonoscope was then inserted through the anus and advanced through the colon to the cecum at 80 cm. Mucosa was carefully examined under high definition white light as the instrument was slowly withdrawn in a retrograde panoramic fashion. Retroflexion was performed in rectum. The procedure was somewhat difficult due to looping and required pressure and repositioning. Right after reaching cecum, there was equipment malfunction and the screen went black. We lost positioning and a diminutive cecal polyp during this time. There were no immediate obvious complications. The quality of the prep was BBPS: 2+2+3 = adequate Withdrawal time 15 minutes. Limitations: No limitations. Findings: Mucosa: Normal to cecum. Protruding lesions: * 1 sessile polyp of size 1-2 mm in cecum. Cold forceps polypectomy was attempted. The polyp could not be removed or retrieved as above. * 1 sessile polyp of size 4 mm in sigmoid colon. Cold snare polypectomy was performed. The polyp was completely removed and retrieved. * Medium internal hemorrhoids without stigmata of recent bleeding. Excavated lesions: * Moderate to severe diverticulosis of whole colon L>R. Impression: 1. Normal colon mucosa 2. Total of 1 polyp removed from sigmoid colon. 3. Internal hemorrhoids 4. Diverticulosis Recommendations: - Follow path results. - Repeat colonoscopy in 5-7 years if still in good health.
[2022-11-01 12:40] VITALS: BP 142/50; PULSE 69; RESP 20; TEMP 36.3; O2SAT 97
[2022-11-01 12:55] VITALS: BP 148/65; PULSE 69; RESP 16; O2SAT 97
[2022-11-01 13:10] VITALS: BP 169/68; PULSE 53; RESP 16; TEMP 36.3; O2SAT 98
== END 2022-11-01 13:58 | disposition home or self-care (01) ==
PROVIDERS: PCP Internal Medicine; Visit Provider Internal Medicine
PROC: 0DJD8ZZ Inspection of Lower Intestinal Tract, Via Natural or Artificial Opening Endoscopic (ICD-10-PCS; CPT 45378; principal; 2022-11-01 11:10)
DX: Z12.11 Encounter for screening for malignant neoplasm of colon (principal); K52.9 Noninfective gastroenteritis and colitis, unspecified; E11.9 Type 2 diabetes mellitus without complications; I10 Essential (primary) hypertension; K64.8 Other hemorrhoids
CPT/HCPCS: 45385; 82947; 88305

== ENCOUNTER → 2022-11-15 13:50 | Outpatient (BNVA) | payer OTHER, SELFPAY | PROVIDERS: PCP Internal Medicine; Visit Provider Internal Medicine | DX: K52.9 Noninfective gastroenteritis and colitis, unspecified (principal); K57.90 Diverticulosis of intestine, part unspecified, without perforation or abscess without bleeding; Z86.010 Personal history of colon polyps | CPT/HCPCS: 99212 ==

== ENCOUNTER → 2022-11-24 10:49 | Outpatient (BNVA) | payer OTHER, SELFPAY | PROVIDERS: PCP Internal Medicine; Visit Provider Internal Medicine Pulmonary Disease | DX: J45.991 Cough variant asthma (principal) | CPT/HCPCS: 99212 ==

== ENCOUNTER 2022-12-14 12:43 | Outpatient (REF) | payer OTHER, SELFPAY ==
--- NOTE | ~2022-12-14 | MM_ITS ---
EXAMINATION: BONE DENSITOMETRY CLINICAL INDICATION: Screening for osteoporosis. COMPARISON: Previous BD dated 12/01/2020 and baseline BD dated 12/18/2008. TECHNIQUE: Using a Bebo, dual-energy x-ray absorptiometry was performed of the lumbar spine and left hip. The images are of good technical quality. Summary results are attached. FINDINGS: AP SPINE L1-L4: Current: BMD 1.180 g/cm2, Z-score 1.6, T-score 0.0, normal, 1.8% decrease from previous, 1.6% decrease from baseline (<5% change is not significant). Prior: BMD 1.202 g/cm2. Baseline: BMD 1.199 g/cm2. LEFT FEMUR, NECK: Current: BMD 0.862 g/cm2, Z-score 0.6, T-score -1.3, osteopenia. Prior: BMD 0.904 g/cm2. Baseline: BMD 0.933 g/cm2. LEFT FEMUR, TOTAL: Current: BMD 0.929 g/cm2, Z-score 1.0, T-score -0.6, normal, 3.4% decrease from previous, 1.9% decrease from baseline (<5% change is not significant). Prior: BMD 0.962 g/cm2. Baseline: BMD 0.947 g/cm2. IDENTIFIED RISK FACTORS: Early menopause, height loss, secondary osteoporosis, hysterectomy. HISTORY OF FRACTURE: None listed. MEDICATIONS: Multivitamin. MM/XR DEXA axial skeleton IMPRESSION: 1. DIAGNOSIS: Osteopenia based on the lowest T-score value of -1.3 in the femoral neck applying World Health Organization criteria. 2. 10-YEAR FRACTURE RISK PREDICTION, FRAX: Major osteoporotic fracture (clinical spine, forearm, hip or shoulder) 6.1%. Hip fracture 1.1%. 3. Treatment Recommendations: NOF guidelines recommend consideration for treatment in postmenopausal women and men age 50 and older presenting with the following: -A hip or vertebral (clinical or morphometric) fracture. -T-score less than or equal to -2.5 at the femoral neck or spine after appropriate evaluation to exclude secondary causes. -Low bone mass at the hip or spine and a 10-year fracture probability by FRAX of greater than or equal to 3% for hip fracture or greater than or equal to 20% for major osteoporotic fracture based on the [place] adapted WHO algorithm. 4. Other Recommendations: All treatment decisions require clinical judgment and consideration of individual patient factors, including patient preferences, comorbidities, previous drug use, risk factors not captured in the FRAX model (e.g. frailty, falls, vitamin D deficiency, increased bone turnover, interval significant decline in bone density) and possible under or overestimation of fracture risk by FRAX. Additional medical evaluation for secondary cause of low bone mineral density may be appropriate. FUTURE SCAN RECOMMENDATION: People with diagnosed cases of osteoporosis or at high risk for fracture should have regular bone mineral density tests. For patients eligible for Medicare, routine testing is allowed once every 2 years. The testing frequency can be increased to one year for patients who have rapidly progressing disease, those who are receiving or discontinuing medical therapy to restore bone mass, or have additional risk factors.
--- NOTE | ~2022-12-14 | MM_ITS ---
EXAMINATION: MM DIAGNOSTIC DIGITAL BREAST TOMOSYNTHESIS, BILATERAL CLINICAL INFORMATION: Breast cancer with one year follow up right breast. Previous left breast surgery 10/28/2020 which was benign. COMPARISON: Mammography: 12/08/2021 and studies dating back to 05/26/2014. TECHNIQUE: Digital breast tomosynthesis is performed in both the craniocaudal and mediolateral oblique views along with computer-aided detection (CAD). Synthesized 2D images are generated from the tomosynthesis. Additional spot magnification views of the right breast in craniocaudal and 90 degree mediolateral views performed as well as spot compression views of the left breast in craniocaudal and mediolateral oblique projections as well as left breast 90 degree mediolateral view. FINDINGS: The breasts are heterogeneously dense, which may obscure small masses (ACR BI-RADS breast composition Category c). There is multiplicity and bilaterality of calcifications which are essentially stable. Calcifications adjacent to the biopsy site appear stable. No new abnormal dominant mass or more suspicious grouping of calcifications is identified within the right breast. Within the left breast anteriorly there is a region of density which may be post-surgical in nature and appears stable going back to study of 2020. Biopsy clip; however, is seen deeper in the upper outer aspect of the left breast. Spot compression views of the more anterior inferior region demonstrates this to efface to a large degree to have a similar appearance to previous studies. The 90 degree mediolateral view demonstrates region of distortion adjacent to the biopsy clip, likely post biopsy/surgery. 6 month follow up study is recommended. Results are provided to the patient at time of visit by the technologist. MM/MM tomosynthesis diagnostic BI IMPRESSION: 1. Stable appearance of the right breast. 2. Left breast findings as described above for which 6 month follow up study is recommended. ASSESSMENT: BI-RADS 3: Probably Benign RECOMMENDATION: Diagnostic mammography in 6 months. This patient's information was entered into a reminder system with a target due date for their next mammogram.
== END 2022-12-14 12:44 | disposition home or self-care (01) ==
LOC: HO.MAMMO 12:43
PROVIDERS: PCP Internal Medicine; Visit Provider Nurse Practitioner Family
DX: Z13.820 Encounter for screening for osteoporosis (principal); Z85.3 Personal history of malignant neoplasm of breast; Z78.0 Asymptomatic menopausal state
CPT/HCPCS: 77062; 77066; 77080

== ENCOUNTER 2022-12-22 11:48 | Outpatient (REF) | payer OTHER, SELFPAY ==
[2022-12-22 13:20] LABS: Alanine Aminotransferase 15 U/L (0-31); Albumin Level 4.4 g/dL (3.5-5.0); Alkaline Phosphatase 98 U/L (39-117); Anion Gap 15 (12-20); Aspartate Amino Transferase 18 U/L (5-31); Bilirubin Total 0.6 mg/dL (0.0-1.0); Blood Urea Nitrogen 21 mg/dL (9-16); Calcium 10.3 mg/dL (8.4-10.2); Carbon Dioxide 30 mmol/L (22-29); Chloride 101 mmol/L (96-108); Cholesterol 276 mg/dL; Estimated Glomerular Filt Rate > 60; Glucose Random 212 mg/dL (60-115); HDL Cholesterol 41 mg/dL; LDL Cholesterol Calculated 181 mg/dl; Sodium 141 mmol/L (135-145); Total Protein 7.4 g/dL (6.5-8.0); Triglycerides 270 mg/dL
== END 2022-12-22 11:49 | disposition home or self-care (01) ==
LOC: HO.LAB 11:48
PROVIDERS: PCP Internal Medicine; Visit Provider Internal Medicine
DX: E78.00 Pure hypercholesterolemia, unspecified (principal)
CPT/HCPCS: 36415; 80053; 80061

== ENCOUNTER 2023-01-17 14:43 | Emergency (ER) | payer OTHER, SELFPAY ==
--- NOTE | ~2023-01-17 | XR_ITS ---
EXAMINATION: XR KNEE, RIGHT CLINICAL INFORMATION: Pain and swelling COMPARISON: None available. TECHNIQUE: Four views of the right knee. FINDINGS: No evidence of acute fracture or dislocation. No effusion Alignment is anatomic. Joint spaces are well maintained. Quadriceps tendon insertional spurring. Tibial tubercle bony hypertrophy. No abnormal soft tissue calcification. XR/XR knee RT 3V IMPRESSION: No radiographic evidence of acute osseous abnormality.
[2023-01-17 15:26] VITALS: BP 152/86; PULSE 50; RESP 18; TEMP 36.8; O2SAT 97; BMI 27.1
--- NOTE | 2023-01-17 15:28 | ED_ITS ---
HPI - Extremity Injury (Lower) General Chief Complaint: Extremity Injury, Lower Stated Complaint: R leg pain Time Seen by Provider: 01/17/23 17:08 Source: patient Mode of arrival: ambulatory Limitations: no limitations History of Present Illness HPI Narrative: Patient comes to the emergency room complaining of right-sided knee pain. Patient denies any injury, states the bit swollen. Patient has been taking over -the-counter medications without relief. Patient denies fever or chills. Patient has been able to bear weight but hurts doing so. Related Data Home Medications Medication Instructions Recorded Confirmed albuterol sulfate 2.5 mg/3 mL 2.5 mg inhalation Q4-6H PRN 06/05/20 11/21/22 (0.083 %) solution for nebulization Wheezing multivitamin 1 tab PO DAILY 06/05/20 11/21/22 lancets 30 gauge (Pure Comfort #100 ea 09/23/22 11/21/22 Safety Lancets) Previous Rx's Medication Instructions Recorded lancets 28 gauge (FreeStyle #100 ea 03/25/21 Lancets) tizanidine 4 mg tablet 4 mg PO BID PRN muscle spasticity 07/07/21 10 days #20 tabs atorvastatin 20 mg tablet 20 mg PO BEDTIME #90 tabs 02/21/22 blood sugar diagnostic (FreeStyle 1 strip miscellaneous TID for 03/08/22 Lite Strips) diabetes mellitus #300 strips metoprolol succinate 25 mg 25 mg PO DAILY #90 tabs 04/12/22 tablet,extended release 24 hr empagliflozin 25 mg tablet 25 mg PO DAILY #90 tabs 05/04/22 (Jardiance) amlodipine 5 mg tablet 5 mg PO DAILY #90 tabs 06/21/22 hydroxyzine HCl 10 mg tablet 10 mg PO BEDTIME PRN insomnia #180 07/24/22 tabs sitagliptin phosphate 100 mg 100 mg PO DAILY 90 days #90 tabs 08/02/22 tablet (Januvia) pantoprazole 40 mg tablet,delayed 40 mg PO BID 90 days #180 tabs 09/15/22 release meloxicam 15 mg tablet 15 mg PO DAILY #90 tabs 10/03/22 acetaminophen 500 mg tablet 1,000 mg PO QID PRN fever or pain 10/09/22 (Tylenol Extra Strength) #14 tabs hydrocortisone 2.5 % topical cream 1 appl topical BID PRN skin 10/18/22 irritation #20 grams anastrozole 1 mg tablet 1 mg PO DAILY #90 tabs 11/09/22 clotrimazole 1 % topical cream 1 appl topical BID 4 weeks #45 11/21/22 grams miconazole nitrate 2 % topical 1 appl topical DAILY #85 grams 11/21/22 powder (Zeasorb AF) albuterol sulfate 90 mcg/actuation 2 puff PO QID PRN for wheezing #18 01/05/23 aerosol inhaler (Ventolin HFA) ea sumatriptan succinate 50 mg tablet 50 mg PO .QD prn PRN Migraine 01/09/23 Headache #10 tabs tramadol 50 mg tablet 50 mg PO BID PRN pain #7 tabs 01/17/23 Allergies Allergy/AdvReac Type Severity Reaction Status Date / Time metformin Allergy Unknown 1000 mg Verified 11/24/22 11:23 cause diarrhea Review of Systems Review of Systems: Constitutional : No Weight loss, No Fever, No Chills, No Night Sweats, No Fatigue, No Malaise ENT/Mouth : No Hearing loss, No Ear Pain, No Nasal Congestion, No Sinus Pain, No Hoarseness, No sore throat, No Rhinorrhea, No Swallowing Difficulty Eyes: No Eye Pain, No Swelling, No Redness, No Foreign Body, No Discharge, No Vision Changes Cardiovascular : No Chest Pain, No SOB, No Dyspnea on Exertion, No Orthopnea, No Edema, No Palpitations Respiratory : No Cough, No Sputum, No Wheezing, No Smoke Exposure, No Dyspnea Gastrointestinal : No Nausea, No Vomiting, No Diarrhea, No Constipation, No abdominal Pain, No Hematochezia, No Melena Genitourinary : no irregular bleeding, No Dysuria, No Urinary Frequency, No Hematuria, No Urinary Incontinence, No Urgency, No Flank Pain, No Urinary Flow Changes, No Hesitancy Musculoskeletal : Complaining of right knee pain, No Myalgias, No Joint Swelling Skin : No Skin Lesions, No rash Neuro : No Weakness, No Numbness, No Paresthesias, No Loss of Consciousness, No Dizziness, No Headache Psych : No Anxiety/Panic, No Depression, No SI/HI/AH/VH, No Social Issues, Heme/Lymph: No Bruising, No Bleeding,No Lymphadenopathy Endocrine : No Polyuria, No Polydipsia, No Temperature Intolerance [facility] Past Medical History Medical History Asthma Behcets syndrome Bursitis Diverticulitis GERD (gastroesophageal reflux disease) Hypercholesterolemia Hypertension Invasive ductal carcinoma of right breast Mitral valve regurgitation On beta jesus at home RUDDY (obstructive sleep apnea) Overweight (BMI 25.0-29.9) Pulmonary hypertension TSH elevation Tubular adenoma of colon Type 2 diabetes mellitus with hyperglycemia Valvular heart disease Surgical History Back pain with history of spinal surgery History of bilateral cataract extraction History of bladder surgery History of breast biopsy History of cholecystectomy History of hand surgery History of lumpectomy of right breast History of shoulder surgery History of total abdominal hysterectomy Hx of colonoscopy Family History Family History Father Medical history unknown Mother Diabetes CVD (cardiovascular disease) Daughter Colon cancer Social History Social History Household Members: Spouse Housing: Apartment Are you a primary director of medicare to a significant other at home: No 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) Alcohol intake: former Patient Tobacco Use Status: Former Tobacco user Quit Date: >30 yrs ago e-Cigarette/Vaping Use: Never Used Second Hand Smoke Exposure: No Advance Directives: No Advance Directives Information Provided: No service: No Current occupational status: retired Cognitive needs: No Hearing needs: No Vision needs: Yes (reading glasses) Physical Exam Vital Signs: Vital Signs: Last Vital Signs Temp 98.2 F 01/17/23 15:26 Pulse 50 01/17/23 15:26 Resp 18 01/17/23 15:26 BP 152/86 H 01/17/23 15:26 Pulse Ox 97 01/17/23 15:26 O2 Del Method Room Air 01/17/23 15:26 BMI result Body Mass Index 27.1 Const: Other: Appearance: Alert. Oriented X3. No acute distress. Eyes: Pupils equal, round and reactive to light. ENT: Pharynx normal. Neck: Normal inspection. Neck supple. No lymph nodes noted. No crepitus CVS: Normal heart rate and rhythm. Pulses normal. Normal S1 and S2 Respiratory: No respiratory distress. Breath sounds normal. No Wheezing. No rales Abdomen: Soft and nontender. No rigidity. No distention. Skin: Skin warm and dry. Normal skin color. Normal skin turgor. Extremities: No lower extremity edema. Right knee has very mild swelling on the lateral aspect of the knee, no erythema, no significant pain to palpation, patient noted to flex and extend the knee Neuro: Oriented X 3. No motor deficit. No sensory deficit. Moving all extremities. No slurred speech. CN 2 through 12 grossly intact Psych: calm, cooperative, normal affect Course Course Course Narrative: RME: 77 year female with a past medical history of asthma, GERD, HLD, HTN, RUDDY, diabetes, Behcets syndrome, c/o right knee pain and swelling x 3 days. Denies injury Right knee swollen/effusion diffusely tender, no erythema/warmth. Ambulating with limping gait with cane. Neurovascular intact distally X-ray ordered Full HPI, ROS and PE to be performed by primary ED provider. Medical Decision Making Medical Decision Making MDM Narrative: -septic joint of the right knee is not suspected. -my interpretation of knee x-ray: No fracture, no dislocation -patient likely has bursitis versus arthritis, patient states that she has had issues with other joints secondary to Behcet's syndrome -patient given 1 dose of tramadol in the emergency room. Patient instructed to follow up with the primary care physician, patient may need a rheumatology referral through her primary care physician Radiology Impression Discussion of test interpretation with radiology: I have reviewed the radiologist's reading. Radiologist Impression: FINDINGS: No evidence of acute fracture or dislocation. No effusion Alignment is anatomic. Joint spaces are well maintained. Quadriceps tendon insertional spurring. Tibial tubercle bony hypertrophy. No abnormal soft tissue calcification.? XR/XR knee RT 3V IMPRESSION: No radiographic evidence of acute osseous abnormality. ? Discharge Plan Discharge Clinical Impression: Arthralgia Patient Disposition: Home, Self-Care Instructions: Arthralgia (ED) Additional Instructions: Please follow-up with your primary care physician tomorrow. If you have any worsening or new symptoms, please return to the emergency room or call 911 Prescriptions: New tramadol 50 mg tablet 50 mg PO BID PRN (Reason: pain) Qty: 7 0RF No Action (DME) lancets [FreeStyle Lancets] 28 gauge misc See Rx Instructions .Route Qty: 100 12RF Rx Instructions: As directed three times daily tizanidine 4 mg tablet 4 mg PO BID PRN (Reason: muscle spasticity) 10 Days Qty: 20 5RF atorvastatin 20 mg tablet 20 mg PO BEDTIME Qty: 90 3RF FreeStyle Lite Strips Strip 1 strip miscellaneous TID Qty: 300 3RF metoprolol succinate 25 mg tablet extended release 24 hr 25 mg PO DAILY Qty: 90 3RF Jardiance 25 mg tablet 25 mg PO DAILY Qty: 90 3RF amlodipine 5 mg tablet 5 mg PO DAILY Qty: 90 3RF hydroxyzine HCl 10 mg tablet 10 mg PO BEDTIME PRN (Reason: insomnia) Qty: 180 2RF Rx Instructions: please take 1-2 tablets at night for sleep as needed Januvia 100 mg tablet 100 mg PO DAILY 90 Days Qty: 90 2RF pantoprazole 40 mg tablet,delayed release (DR/EC) 40 mg PO BID 90 Days Qty: 180 2RF meloxicam 15 mg tablet 15 mg PO DAILY Qty: 90 2RF anastrozole 1 mg tablet 1 mg PO DAILY Qty: 90 0RF albuterol sulfate [Ventolin HFA] 90 mcg/actuation HFA aerosol inhaler 2 puff PO QID PRN (Reason: for wheezing) Qty: 18 2RF sumatriptan succinate 50 mg tablet 50 mg PO .QD prn PRN (Reason: Migraine Headache) Qty: 10 3RF acetaminophen [Tylenol Extra Strength] 500 mg tablet 1,000 mg PO QID PRN (Reason: fever or pain) Qty: 14 0RF multivitamin Tablet 1 tab PO DAILY albuterol sulfate 2.5 mg /3 mL (0.083 %) solution for nebulization 2.5 mg inhalation Q4-6H PRN (Reason: Wheezing) hydrocortisone 2.5 % cream 1 appl topical BID PRN (Reason: skin irritation) Qty: 20 0RF clotrimazole 1 % cream 1 appl topical BID 28 Days Qty: 45 0RF miconazole nitrate [Zeasorb AF] 2 % powder 1 appl topical DAILY Qty: 85 0RF (DME) lancets [Pure Comfort Safety Lancets] 30 gauge misc See Rx Instructions .ROUTE .MEDSUPPLY Qty: 100 Rx Instructions: As directed
[2023-01-17] MEDS: traMADoL HCL 50 MG TABLET PO (18:05)
== END 2023-01-17 18:08 | disposition home or self-care (01) ==
PROVIDERS: Emergency Provider Emergency Medicine; PCP Internal Medicine
DX: M25.561 Pain in right knee (principal); M25.50 Pain in unspecified joint
CPT/HCPCS: 73562; 99283; 99284

== ENCOUNTER 2023-01-26 11:15 | Emergency (ER) | payer OTHER, SELFPAY ==
--- NOTE | ~2023-01-26 | XR_ITS ---
EXAMINATION: XR shoulder LT min 2V, XR elbow LT min 3V CLINICAL INFORMATION: Pain COMPARISON: None. TECHNIQUE: 3 views of the left shoulder. 3 views of the left elbow. FINDINGS: Left shoulder: No fracture or dislocation. The glenohumeral joint appears well aligned. The joint space is maintained. The acromioclavicular joint is intact. The visualized lung is clear. The visualized ribs are intact. Left elbow: No fracture or dislocation. Appropriate alignment with joint space is maintained. Enthesophyte formation at the medial and lateral humeral condyles. Osteophyte at the coronoid process. No elbow joint effusion. Small amount of calcification along the triceps tendon at the olecranon insertion. XR/XR shoulder LT min 2V IMPRESSION: No fracture or malalignment of the left shoulder or elbow. Mild degenerative changes. Possible calcific tendinosis of the triceps.
--- NOTE | ~2023-01-26 | XR_ITS ---
EXAMINATION: XR shoulder LT min 2V, XR elbow LT min 3V CLINICAL INFORMATION: Pain COMPARISON: None. TECHNIQUE: 3 views of the left shoulder. 3 views of the left elbow. FINDINGS: Left shoulder: No fracture or dislocation. The glenohumeral joint appears well aligned. The joint space is maintained. The acromioclavicular joint is intact. The visualized lung is clear. The visualized ribs are intact. Left elbow: No fracture or dislocation. Appropriate alignment with joint space is maintained. Enthesophyte formation at the medial and lateral humeral condyles. Osteophyte at the coronoid process. No elbow joint effusion. Small amount of calcification along the triceps tendon at the olecranon insertion. XR/XR elbow LT min 3V IMPRESSION: No fracture or malalignment of the left shoulder or elbow. Mild degenerative changes. Possible calcific tendinosis of the triceps.
[2023-01-26 12:02] VITALS: BP 188/57; PULSE 56; RESP 18; TEMP 36.2; O2SAT 98; BMI 26.9
--- NOTE | 2023-01-26 12:02 | ED.GENADULT ---
HPI - General Adult General Chief complaint: Extremity Problem Stated complaint: l shoulder pain Time Seen by Provider: 01/26/23 13:58 History of Present Illness HPI narrative: Patient complains of left shoulder and some left elbow pain worse with movement over the past week, denies any injury or fever denies any rash denies any redness or warmth she denies any loss of sensation no neck pain no muscle weakness Related Data Home Medications Medication Instructions Recorded Confirmed albuterol sulfate 2.5 mg/3 mL 2.5 mg inhalation Q4-6H PRN 06/05/20 02/02/23 (0.083 %) solution for nebulization Wheezing multivitamin 1 tab PO DAILY 06/05/20 02/02/23 Previous Rx's Medication Instructions Recorded lancets 28 gauge (FreeStyle #100 ea 03/25/21 Lancets) tizanidine 4 mg tablet 4 mg PO BID PRN muscle spasticity 07/07/21 10 days #20 tabs blood sugar diagnostic (FreeStyle 1 strip miscellaneous TID for 03/08/22 Lite Strips) diabetes mellitus #300 strips metoprolol succinate 25 mg 25 mg PO DAILY #90 tabs 04/12/22 tablet,extended release 24 hr empagliflozin 25 mg tablet 25 mg PO DAILY #90 tabs 05/04/22 (Jardiance) amlodipine 5 mg tablet 5 mg PO DAILY #90 tabs 06/21/22 hydroxyzine HCl 10 mg tablet 10 mg PO BEDTIME PRN insomnia #180 07/24/22 tabs sitagliptin phosphate 100 mg 100 mg PO DAILY 90 days #90 tabs 08/02/22 tablet (Januvia) pantoprazole 40 mg tablet,delayed 40 mg PO BID 90 days #180 tabs 09/15/22 release meloxicam 15 mg tablet 15 mg PO DAILY #90 tabs 10/03/22 hydrocortisone 2.5 % topical cream 1 appl topical BID PRN skin 10/18/22 irritation #20 grams clotrimazole 1 % topical cream 1 appl topical BID 4 weeks #45 11/21/22 grams miconazole nitrate 2 % topical 1 appl topical DAILY #85 grams 11/21/22 powder (Zeasorb AF) albuterol sulfate 90 mcg/actuation 2 puff PO QID PRN for wheezing #18 01/05/23 aerosol inhaler (Ventolin HFA) ea sumatriptan succinate 50 mg tablet 50 mg PO .QD prn PRN Migraine 01/09/23 Headache #10 tabs acetaminophen 500 mg tablet 1,000 mg PO QID PRN pain #30 tabs 01/26/23 tramadol 50 mg tablet 50 mg PO Q6H PRN pain #14 tabs 01/26/23 anastrozole 1 mg tablet 1 mg PO DAILY #90 tabs 01/30/23 atorvastatin 20 mg tablet 20 mg PO BEDTIME #90 tabs 02/04/23 Allergies Allergy/AdvReac Type Severity Reaction Status Date / Time metformin Allergy Unknown 1000 mg Verified 02/02/23 15:01 cause diarrhea PMF Past Medical History Source: nursing notes reviewed Medical History (Updated 02/06/23 @ 10:58 by Deandre Arce) Acute gastroenteritis Asthma Behcets syndrome Breast mass Bursitis Colitis Cough Cough variant asthma Diverticulitis Diverticulosis Essential hypertension Fungal dermatitis GERD (gastroesophageal reflux disease) Hypercholesterolemia Hypertension Invasive ductal carcinoma of right breast Left knee pain Mitral valve regurgitation On beta jesus at home RUDDY (obstructive sleep apnea) Other and unspecified hyperlipidemia Overweight (BMI 25.0-29.9) Personal history of colonic polyps Pulmonary hypertension Rash Restrictive pattern present on pulmonary function testing Shortness of breath TSH elevation TSH elevation Tubular adenoma of colon Type 2 diabetes mellitus with hyperglycemia Type 2 diabetes mellitus with unspecified complications Valvular heart disease Visual hallucinations Surgical History Back pain with history of spinal surgery History of bilateral cataract extraction History of bladder surgery History of breast biopsy History of cholecystectomy History of hand surgery History of lumpectomy of right breast History of shoulder surgery History of total abdominal hysterectomy Hx of colonoscopy Family History Family History (Updated 02/02/23 @ 15:00 by DANIAL [place]) Father Medical history unknown Mother Diabetes CVD (cardiovascular disease) Daughter Colon cancer Social History Social History Household Members: Spouse Housing: Apartment Are you a primary health care sanitary technician to a significant other at home: No Do you presently have visiting nurse or other home services: Yes (CAREER RESOURCE SPECIALIST) Alcohol intake: former Patient Tobacco Use Status: Former Tobacco user Quit Date: >30 yrs ago e-Cigarette/Vaping Use: Never Used Second Hand Smoke Exposure: No service: No Current occupational status: retired Cognitive needs: No Hearing needs: No Vision needs: Yes (reading glasses) Physical Exam ED Vital Signs: Vital Signs - 24 hr 01/26/23 12:02 Temperature 97.1 F Pulse Rate 56 Respiratory Rate 18 Blood Pressure 188/57 H Pulse Oximetry 98 Oxygen Delivery Method Room Air BMI result Body Mass Index 26.9 General appearance no acute distress Head is normocephalic atraumatic Neck is supple and nontender The chest wall is nontender, chest is clear to auscultation bilateral Extremities the left shoulder had good range of motion and was not tender but the left elbow area had painful rotation and full extension was painful, there is no redness or warmth to the joint there was no swelling, neurovascular intact distal, all tendon function distal was intact Other extremities normal Skin no rashes Neuro no focal motor sensory deficits Course Course Course Narrative: This is an RME: Additional HPI, ROS, PE not included below will be deferred to primary provider. This is a [id number], with a past medical history of asthma, bursitis, GERD, HLD, HTN, breast cancer, RUDDY, who presents to the emergency department with complaints of left shoulder and left elbow pain x 1 week. No trauma, injury, heavy lifting, falls or repitious movements. No neck pain. Reports some numbness, tingling down her left arm. Pt has TTP over the left shoulder and left elbow with decreased ROM secondary to pain. No chest pain or shortness of breath. BP 188/57, all other vital signs within normal limits. Plan: Xray left shoulder, left elbow X-ray of the elbow showed some calcification possibly tendinitis x-ray of the shoulder was nondiagnostic Physical exam showed some tenderness and pain with range of motion which was limited by pain but there was no redness no warmth no swelling, there was limited range of motion, no signs of septic joint Patient is discharged with analgesics and will follow with orthopedist Medications Administered Discontinued Medications Generic Name Dose Route Start Last Admin Trade Name Freq PRN Reason Stop Dose Admin Acetaminophen 975 mg 01/26/23 14:41 01/26/23 14:46 Acetaminophen 325 Mg Tablet PO 01/26/23 14:42 975 mg ONCE ONE Administration Discharge Plan Discharge Clinical Impression: Arthralgia of left shoulder region, Left elbow tendinitis Patient Disposition: Home, Self-Care Additional Instructions: Use Tylenol and/or tramadol for pain No sign of any infection or broken bone today Follow with orthopedist for further evaluation Return any time any worse condition or any concerns YOU GOT A SLING FOR COMFORT, BUT ONLY USE IT NO MORE THAN A FEW HOURS A DAY IT WILL VERY QUICKLY LOSE RANGE OF MOTION AND STIFFEN UP THE ARM AND SHOULDER, IT IS NOT NEEDED, ONLY IF IT MAKES MORE COMFORTABLE FOR SHORT PERIOD OF TIME Prescriptions: New tramadol 50 mg tablet 50 mg PO Q6H PRN (Reason: pain) Qty: 14 0RF acetaminophen 500 mg tablet 1,000 mg PO QID PRN (Reason: pain) Qty: 30 0RF No Action (DME) lancets [FreeStyle Lancets] 28 gauge misc See Rx Instructions .Route Qty: 100 12RF Rx Instructions: As directed three times daily tizanidine 4 mg tablet 4 mg PO BID PRN (Reason: muscle spasticity) 10 Days Qty: 20 5RF FreeStyle Lite Strips Strip 1 strip miscellaneous TID Qty: 300 3RF metoprolol succinate 25 mg tablet extended release 24 hr 25 mg PO DAILY Qty: 90 3RF Jardiance 25 mg tablet 25 mg PO DAILY Qty: 90 3RF amlodipine 5 mg tablet 5 mg PO DAILY Qty: 90 3RF hydroxyzine HCl 10 mg tablet 10 mg PO BEDTIME PRN (Reason: insomnia) Qty: 180 2RF Rx Instructions: please take 1-2 tablets at night for sleep as needed Januvia 100 mg tablet 100 mg PO DAILY 90 Days Qty: 90 2RF pantoprazole 40 mg tablet,delayed release (DR/EC) 40 mg PO BID 90 Days Qty: 180 2RF meloxicam 15 mg tablet 15 mg PO DAILY Qty: 90 2RF albuterol sulfate [Ventolin HFA] 90 mcg/actuation HFA aerosol inhaler 2 puff PO QID PRN (Reason: for wheezing) Qty: 18 2RF sumatriptan succinate 50 mg tablet 50 mg PO .QD prn PRN (Reason: Migraine Headache) Qty: 10 3RF anastrozole 1 mg tablet 1 mg PO DAILY Qty: 90 0RF atorvastatin 20 mg tablet 20 mg PO BEDTIME Qty: 90 3RF multivitamin Tablet 1 tab PO DAILY albuterol sulfate 2.5 mg /3 mL (0.083 %) solution for nebulization 2.5 mg inhalation Q4-6H PRN (Reason: Wheezing) hydrocortisone 2.5 % cream 1 appl topical BID PRN (Reason: skin irritation) Qty: 20 0RF clotrimazole 1 % cream 1 appl topical BID 28 Days Qty: 45 0RF miconazole nitrate [Zeasorb AF] 2 % powder 1 appl topical DAILY Qty: 85 0RF Referrals: Sascha Galvan MD [Physician] - (LEFT SHOULDER PAIN AND LEFT ELBOW TENDINITIS) Interventions: ED Discharge Assessment Last Done: 01/26/23 14:55 Discharge Date/Time: 01/26/23 14:56
[2023-01-26 14:27] VITALS: BP 170/70; PULSE 54; RESP 16; TEMP 36.6; O2SAT 100
[2023-01-26] MEDS: Acetaminophen 325 MG TABLET 975 MG PO (14:46)
== END 2023-01-26 14:56 | disposition home or self-care (01) ==
PROVIDERS: Emergency Provider Emergency Medicine Emergency Medical Services; PCP Internal Medicine
DX: M25.512 Pain in left shoulder (principal); M65.232 Calcific tendinitis, left forearm; Z87.891 Personal history of nicotine dependence; Z79.899 Other long term (current) drug therapy
CPT/HCPCS: 73030; 73080; 99283

== ENCOUNTER → 2023-02-06 10:23 | Outpatient (BNVA) | payer OTHER, SELFPAY | PROVIDERS: PCP Internal Medicine; Visit Provider Orthopaedic Surgery | DX: M75.02 Adhesive capsulitis of left shoulder (principal); E11.65 Type 2 diabetes mellitus with hyperglycemia | CPT/HCPCS: 20610; 99212; J1100 ==

== ENCOUNTER → 2023-02-22 14:14 | Outpatient (BNVA) | payer OTHER, SELFPAY | PROVIDERS: PCP Internal Medicine; Referring Provider Internal Medicine; Visit Provider Internal Medicine | DX: I27.20 Pulmonary hypertension, unspecified (principal); I38 Endocarditis, valve unspecified | CPT/HCPCS: 93005; 99212 ==

== ENCOUNTER 2023-03-03 13:00 | Outpatient (RCR) | payer OTHER, SELFPAY ==
[2023-02-15 12:56] VITALS: BP 128/60; PULSE 52
--- NOTE | 2023-02-15 14:29 | MHC.PT.EP ---
[facility] [place] Office [place] Office [place] Office [address] [phone] F: [phone] F: [phone] F: [phone] F: [phone] Physical Therapy Plan of Care Date of Evaluation: Date of Surgery: NA Diagnosis: Adhesive capsulitis of L shoulder Assessment: Juany is a 77 yo female referred to PT for L shoulder adhesive capsulitis. Signs and symptoms from PT examination suggestive of RTC/bicep tendinopathy and capsular tightness. Impairments include severely decreased gross L shoulder ROM with pain in all motions, decreased L shoulder strength (due to pain), L neck/shoulder pain with neck AROM, and increased tissue tension in upper shoulder/neck. Functional limitations include inability to reach over head, perform grooming independently, perform ADLs independently, inability/avoiding lifting objects, and pain during sleep d/t shoulder pain. Pt to benefit from skilled PT to address aforementioned impairments and functional limitations. PT to include shoulder ROM activities, L shoulder strengthening, STM, hot/cold pack, taping, pt education, and HEP. Frequency and Duration: The patient will be seen 2x week for 8 weeks Short Term Goals: In 4 weeks... 1. Pt will become I with HEP demonstrated by 100% return demonstration 2. Pt will improve gross L shoulder ROM in order to reach over head to comb hair Skilled Nursing Goals: In 8 weeks... 1. Pt will have 50% less pain in order to perform ADLs- like dressing upper body and showering and improve gross L shoulder functional mobility 2. Pt will increase gross L shoulder strength by 1 MMT without pain in order to carry weights Treatment Plan: Modalities to reduce pain, spasms and effusion. Manual therapy to restore motion and function. Therapeutic exercise to improve strength and flexibility. Neuromuscular re-education for posture and balance. Therapeutic activities to return to functional activities of daily living. Electronically signed by: Maria A Louis PT DPT Please sign and return to therapist. Thank you for your referral.
--- NOTE | 2023-03-28 09:28 | MHC.PT.DC ---
[facility] [place] Office [place] Office [place] Office [address] Marcus Gonzalez [address] [phone] F: [phone] F: [phone] F: [phone] F: [phone] Physical Therapy Discharge Report Diagnosis: Adhesive capsulitis of L shoulder Date of Surgery: NA Date of Evaluation: 02/15/23 Date of Discharge: 03/28/23 Treatments to Date: 5 Cancellations to Date: 3 No Shows to Date: 1 Discharge Status: Patient Elected to Stop Discharge Summary: Juany canceled her last 3 appointments and no showed for 1. She did not make any more appointments after. She has not been to PT in over 3 weeks. She is therefore being d/c from PT. Electronically signed by: Maria A Louis PT DPT Please sign and return to therapist. Thank you for your referral.
== END 2023-03-28 09:28 | disposition home or self-care (01) ==
LOC: HO.PT 13:00
PROVIDERS: PCP Internal Medicine; Visit Provider Orthopaedic Surgery
DX: M75.02 Adhesive capsulitis of left shoulder (principal); E11.65 Type 2 diabetes mellitus with hyperglycemia
CPT/HCPCS: 97110; 97140; 97161

== ENCOUNTER 2023-03-08 12:06 | Outpatient (AMB) | payer OTHER, SELFPAY ==
--- NOTE | 2023-03-08 12:06 | MHC.OFFWIV ---
Intake Vital Signs 03/08/23 12:07 Height 5 ft 2 in BP 126/70 Blood Pressure Location Lt brachial Position Sitting Pulse 54 Pulse Source Pulse Oximeter Temp 97.2 F Pulse Oximetry (%) 97 Oxygen Delivery Method Room Air Intake Visit Reasons: EST/vaginal irritation Intake Note: pt is here for c/o vaginal irritation, unable to give urine sample Patient Tobacco Use Status: Former Tobacco user Quit Date: >30 yrs ago Allergies metformin Allergy (Unknown, Verified 03/08/23 12:07) 1000 mg cause diarrhea Do you need a note to return to daycare/school/sports/work: No HPI HPI Comments History of Present Illness Details 1211 77-year-old female presents with irritation in her vaginal region, patient reports it feels dry, and it severino constantly this has been going on for weeks. She reports it is itchy as well. Reports constant irritation also notes irritation in groin skin folds . Denies any difficulties with urination such as urgency, frequency, dysuria, flank pain, fevers, chills, nausea, vomiting, abdominal pain, chest pain. Patient states that this has happened her before however it has resolved on its own. Patient has tried multiple OTC meds for genital complaints Physical exam with excoriations 2 genital region and scant white discharge concerning for yeast vs otc lotions patient has been applying . AMANDA Scott at bedside as shaperone Concerns for vaginal atrophy likely secondary to hormones/age, also some concerns for yeast/ intertrigo. Unlikely UTI. Unlikely fourniers, cellulitis, necrotizing infection, sepsis, STDS ( patient w/o concerns) Will discharge home with nystatin . Educated patient on diagnosis and treatment plan, answered all question, patient verbalizes understanding. At this time patient will be discharged home, advised to return with new or worsening symptoms. Educated on worrisome signs and symptoms and when to return. At this time I feel comfortable discharge home. [facility] Medical History Acute gastroenteritis Asthma Behcets syndrome Breast mass Bursitis Colitis Cough Cough variant asthma Diverticulitis Diverticulosis Essential hypertension Fungal dermatitis GERD (gastroesophageal reflux disease) Hypercholesterolemia Hypertension Invasive ductal carcinoma of right breast Left knee pain Mitral valve regurgitation On beta jesus at home RUDDY (obstructive sleep apnea) Other and unspecified hyperlipidemia Overweight (BMI 25.0-29.9) Personal history of colonic polyps Pulmonary hypertension Rash Restrictive pattern present on pulmonary function testing Shortness of breath TSH elevation TSH elevation Tubular adenoma of colon Type 2 diabetes mellitus with hyperglycemia Type 2 diabetes mellitus with unspecified complications Valvular heart disease Visual hallucinations Surgical History Back pain with history of spinal surgery History of bilateral cataract extraction History of bladder surgery History of breast biopsy History of cholecystectomy History of hand surgery History of lumpectomy of right breast History of shoulder surgery History of total abdominal hysterectomy Hx of colonoscopy Family History Father Medical history unknown Mother Diabetes CVD (cardiovascular disease) Daughter Colon cancer Social History Household Members: Spouse Housing: Apartment Are you a primary director of medicare to a significant other at home: No Do you presently have visiting nurse or other home services: Yes (GREEN MARKETING ANALYST) Alcohol intake: former Patient Tobacco Use Status: Former Tobacco user Quit Date: >30 yrs ago e-Cigarette/Vaping Use: Never Used Second Hand Smoke Exposure: No service: No Current occupational status: retired Cognitive needs: No Hearing needs: No Vision needs: Yes (reading glasses) Female Reproductive History Menstrual Age of Menarche: 10 Review of Systems Const Details: Constitutional : No Weight loss, No Fever, No Chills, No Fatigue, No Malaise ENT/Mouth : No sore throat, No Rhinorrhea Eyes: No Eye Pain, No Swelling, No Redness Cardiovascular : No Chest Pain, No SOB, No Dyspnea on Exertion, No Orthopnea, No Edema, No Palpitations Respiratory : No Cough, No Sputum, No Wheezing Gastrointestinal : No Nausea, No Vomiting, No Diarrhea, No Constipation, No abdominal Pain, No Hematochezia, No Melena Genitourinary : No Dysuria, No Urinary Frequency, No Hematuria, Musculoskeletal : No joint pain, No Myalgias, No Joint Swelling Skin : No Skin Lesions, No rash Neuro : No Weakness, No Numbness, No Dizziness, No Headache Psych : No Anxiety/Panic, No Depression All other systems reviewed and are negative All systems reviewed & are unremarkable except as noted in HPI and below Physical Exam Vital Signs: Last Vital Signs Temp 97.2 F 03/08/23 12:07 Pulse 54 07/12/23 12:07 BP 126/70 03/08/23 12:07 Pulse Ox 97 03/08/23 12:07 Oxygen Delivery Method Room Air 03/08/23 12:07 Vital signs stable Appearance: Alert.? Oriented X3.? No acute distress.? Head: Normocephalic, atraumatic, no step-offs or deformities Eyes: Pupils equal, round and reactive to light.? CVS: Normal heart rate and rhythm.? Pulses normal.? Respiratory: No respiratory distress.? Breath sounds normal.? Abdomen: Soft and nontender.? Skin: Skin warm and dry.? Normal skin color.? Normal skin turgor.? Extremities: No lower extremity edema.? No calf ttp. 5/5 strength to bilateral upper and lower extremities Back: No midline tenderness, no C-spine tenderness, full range of motion, no CVA tenderness bilaterally Neuro: Oriented X 3.? No motor deficit.? No sensory deficit. CN 2-12 intact Sensitive exam: Excoriations noted to genital region, normal external genitalia, there is a scant amount of white curd-like discharge noted. No signs of cellulitis, lesions lumps or masses. Intertrigo noted to b/l groin region skin folds. 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 If you were prescribed antibiotics today, it is important that you take your medication to their entirety, do not skip any doses, do not finish them early. Follow-up with your primary care provider this week. Return to the emergency department with new or worsening symptoms. Such as fevers, chills, chest pain, shortness of breath, nausea, vomiting, dizziness, headache, vision changes, lethargy In case of emergency call 911 Medications: New nystatin 1 appl topical DAILY 7 days 15 grams 0RF Coding Level of Care Code Est Pt Level 3 (87414) Diagnoses Vaginal atrophy N95.2 Yeast infection B37.9
[2023-03-08 12:07] VITALS: BP 126/70; PULSE 54; TEMP 36.2; O2SAT 97
== END 2023-03-08 12:47 | disposition home or self-care (01) ==
PROVIDERS: PCP Internal Medicine; Visit Provider Physician Assistant
DX: N95.2 Postmenopausal atrophic vaginitis (principal); B37.9 Candidiasis, unspecified
CPT/HCPCS: 99213

== ENCOUNTER 2023-05-03 10:53 | Outpatient (REF) | payer OTHER, SELFPAY ==
[2023-05-03 11:25] LABS: MANUAL DIFF FLAG NO
[2023-05-03 11:57] LABS: Basophils Absolute Auto 0.1 X10*3/uL (0.0-0.2); Basophils Percent Auto 0.7 % (0-2); Eosinophils Absolute Auto 0.3 X10*3/uL (0.0-0.4); Hemoglobin 14.5 g/dl (12.0-16.0); Imm Gran Abs Auto 0.03 X10*3/uL (0.00-0.03); Imm Gran Pct Auto 0.4 % (0.0-0.4); Lymphocytes Absolute Auto 2.3 X10*3/uL (1.2-4.9); Lymphocytes Percent Auto 35.1 % (20-40); Mean Corpuscular Hemoglobin 28.7 pg (27.0-33.0); Mean Platelet Volume 9.4 fL (9.4-12.3); Monocytes Absolute Auto 0.5 X10*3/uL (0.1-1.2); Monocytes Percent Auto 7.9 % (2-11); Neutrophils Absolute Auto 3.5 x10*3/uL (2.0-8.3); Neutrophils Percent Auto 51.9 % (45-73); Platelet Count 283 X10*3/uL (160-400); Red Blood Count 5.06 X10*6/uL (4.20-5.50); Red Cell Distribution Width 13.4 % (11.0-16.0); White Blood Count 6.7 X10*3/uL (4.8-10.8)
[2023-05-03 12:11] LABS: Estimated Average Glucose 169 mg/dL; Hemoglobin A1c % 7.5 % (<6.0)
[2023-05-03 12:56] LABS: Alanine Aminotransferase 14 U/L (0-31); Albumin Level 4.3 g/dL (3.5-5.0); Alkaline Phosphatase 91 U/L (39-117); Anion Gap 12 (12-20); Aspartate Amino Transferase 17 U/L (5-31); Bilirubin Total 0.5 mg/dL (0.0-1.0); Blood Urea Nitrogen 20 mg/dL (9-16); Calcium 10.2 mg/dL (8.4-10.2); Carbon Dioxide 29 mmol/L (22-29); Chloride 103 mmol/L (96-108); Cholesterol 276 mg/dL (<200); Estimated Glomerular Filt Rate > 60; Glucose Random 169 mg/dL (60-115); HDL Cholesterol 43 mg/dL (>40); LDL Cholesterol Calculated 165 mg/dL (<100); Potassium 4.4 mmol/L (3.3-5.1); Sodium 140 mmol/L (135-145); Total Protein 7.8 g/dL (6.5-8.0); Triglycerides 341 mg/dL (<150)
[2023-05-03 13:13] LABS: Free T4 (Free Thyroxine) 0.84 ng/dL (0.71-1.85); Thyroid Stimulating Hormone 2.03 uIU/mL (0.32-4.0); Vitamin D 25-OH Total 40.7 ng/mL (>30)
== END 2023-05-03 10:54 | disposition home or self-care (01) ==
LOC: HO.LAB 10:53
PROVIDERS: PCP Internal Medicine; Visit Provider Internal Medicine
DX: E11.65 Type 2 diabetes mellitus with hyperglycemia (principal); E78.00 Pure hypercholesterolemia, unspecified; E55.9 Vitamin D deficiency, unspecified
CPT/HCPCS: 36415; 80053; 80061; 82306; 83036; 84439; 84443; 85025

== ENCOUNTER 2023-05-04 13:52 | Outpatient (REF) | payer OTHER, SELFPAY ==
[2023-05-04 14:56] LABS: Creatinine Urine 76.45 mg/dL; Microalbumin Urine < 5.0 mg/L
[2023-05-04 23:45] LABS: Creatinine Urine 74.62 mg/dL
== END 2023-05-04 13:53 | disposition home or self-care (01) ==
LOC: HO.LNP 13:52
PROVIDERS: Visit Provider Internal Medicine
DX: E11.65 Type 2 diabetes mellitus with hyperglycemia (principal)
CPT/HCPCS: 82570

== ENCOUNTER 2023-05-17 12:51 | Outpatient (AMB) | payer OTHER, SELFPAY ==
[2023-05-17 13:33] VITALS: BP 108/52; PULSE 49; O2SAT 95; BMI 27.1
--- NOTE | 2023-05-17 13:33 | A.OFFPC_ITS ---
Vital Signs 05/17/23 13:33 Height 5 ft 2 in Weight 148 lb BMI 27.1 BP 108/52 L Blood Pressure Location Lt brachial Position Sitting Pulse 49 L Pulse Source Pulse Oximeter Pulse Oximetry (%) 95 Oxygen Delivery Method Room Air Intake Visit Reasons: DM Allergies metformin Allergy (Unknown, Verified 05/17/23 13:34) 1000 mg cause diarrhea Medication List - Last Reconciled 05/17/23 by Aleksandr Borrero MD acetaminophen 1,000 mg (2 x 500 mg) PO QID PRN albuterol sulfate 2.5 mg inhalation Q4-6H PRN albuterol sulfate 90 mcg/actuation (Ventolin HFA) 2 puffs PO QID PRN amlodipine 5 mg PO DAILY anastrozole 1 mg PO DAILY atorvastatin 80 mg PO DAILY blood sugar diagnostic (FreeStyle Lite Strips) 1 strip miscellaneous TID clotrimazole 1% 1 appl topical BID 4 weeks empagliflozin (Jardiance) 25 mg PO DAILY fluconazole 150 mg PO ONCE 1 day glipizide ER 5 mg PO DAILY hydrocortisone 2.5% 1 appl topical BID PRN hydroxyzine HCl 10 mg PO BEDTIME PRN lancets (FreeStyle Lancets) As directed three times daily meloxicam 15 mg PO DAILY metoprolol succinate ER 12.5 mg (1/2 x 25 mg) PO DAILY miconazole nitrate 2% (Zeasorb AF) 1 appl topical DAILY multivitamin 1 tab PO DAILY nystatin 1 appl topical DAILY 7 days pantoprazole 40 mg PO BID 90 days sitagliptin phosphate (Januvia) 100 mg PO DAILY 90 days sumatriptan succinate 50 mg PO .QD prn PRN tizanidine 4 mg PO BID PRN 10 days tramadol 50 mg PO Q6H PRN Tobacco use date assessed: 11/21/22 Fall risk assessment: No Falls in past year Last assessed Fall Risk: 05/17/23 Dental Screening Dental Screen Date: 05/17/23 Did you have a dental visit in the last 12 months?: Yes Did you have a dental problem in the last 6 months where you did not have access to dental care?: No Was dental information given to patient?: Patient has dentist HPI DM HPI Details 77-year-old overweight female with diabe coreen mellitus hypertension GERD hypercholesterol E history of breast cancer obstructive sleep apnea and osteoarthritis last seen in January 2023. Mammograms up-to-date colonoscopies up-to-date. Patient has followed up with Cardiology January 2023 prior cardiac workup has been negative. Patient has followed up with Hematology-Oncology also breast cancer biopsy of October 2002 on Arimidex blood work requested. Patient also had some problems with left shoulder seen orthopedics and had injection done diagnosis of adhesive capsulitis of left shoulder patient has been advised physical therapy [facility] Medical History (Updated 05/17/23 @ 14:27 by Aleksandr Borrero MD) Bursitis Asthma On beta jesus at home Rash Diverticulosis Personal history of colonic polyps Colitis Acute gastroenteritis Other and unspecified hyperlipidemia Essential hypertension Type 2 diabetes mellitus with unspecified complications Left knee pain Visual hallucinations TSH elevation TSH elevation RUDDY (obstructive sleep apnea) Fungal dermatitis Invasive ductal carcinoma of right breast Breast mass Cough Shortness of breath Pulmonary hypertension Valvular heart disease Restrictive pattern present on pulmonary function testing Cough variant asthma Hypercholesterolemia Diverticulitis Tubular adenoma of colon Mitral valve regurgitation GERD (gastroesophageal reflux disease) Behcets syndrome Hypertension Type 2 diabetes mellitus with hyperglycemia Overweight (BMI 25.0-29.9) Surgical History History of lumpectomy of right breast Hx of colonoscopy Back pain with history of spinal surgery History of bilateral cataract extraction History of shoulder surgery History of hand surgery History of breast biopsy History of bladder surgery History of cholecystectomy History of total abdominal hysterectomy Family History Father Medical history unknown Mother Diabetes CVD (cardiovascular disease) Daughter Colon cancer Social History Household Members: Spouse Housing: Apartment Are you a primary healthcare science specialist to a significant other at home: No Do you presently have visiting nurse or other home services: 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 1. Little interest or pleasure in doing things: not at all 2. Feeling down, depressed, or hopeless: not at all 3. Trouble falling or staying asleep, or sleeping too much: not at all 4. Feeling tired or having little energy: not at all 5. Poor appetite or overeating: not at all 6. Feeling bad about yourself - or that you are a failure or have let yourself or your family down: not at all 7. Trouble concentrating on things, such as reading the newspaper or watching television: not at all 8. Moving or speaking so slowly that other people could have noticed. Or the opposite - being so fidgety or restless that you have been moving around a lot more than usual: not at all 9. Thoughts that you would be better off or of hurting yourself in some way: not at all Total score: 0 Depression Screening Interpretation: Negative Source: Developed by Drs. Jean Paul River, Wendy Segura, Nick Matias and colleagues, with an educational shorty from [employer]. Thrive Questionnaire Date Thrive assessed: 09/12/22 AUDIT C Alcohol Use Questionnaire (AUDIT-C) 1. How often do you have a drink containing alcohol?: Never Total Score: 0 Score Reviewed/Action Taken: No JUAN FRANCISCO-7 AMB Questionnaire JUAN FRANCISCO-7 Date JUAN FRANCISCO - 7 assessed: 09/12/22 Source: Developed by Drs. Jean Paul River, Wendy Segura, Nick Matias and colleagues, with an educational shorty from [employer]. Physical exam (Primary Care) Vital Signs: Last Vital Signs Pulse 49 L 05/17/23 13:33 BP 108/52 L 05/17/23 13:33 Pulse Ox 95 05/17/23 13:33 Oxygen Delivery Method Room Air 05/17/23 13:33 BMI result Body Mass Index 27.1 Tobacco/Smoking Status: Tobacco use Status Tobacco use date assessed 11/21/22 05/17/23 13:37 Patient Tobacco Use Status Former Tobacco user 05/17/23 13:37 Tobacco use type Cigarette 05/17/23 13:37 e-Cigarette/Vaping Use Never Used 05/17/23 13:37 PHQ-9: PHQ-9 Score PHQ-9: Total score 0 05/17/23 13:37 Depression Screening Interpretation: Negative Thrive Assessment: Date of Thrive Assessment Date Thrive assessed 09/12/22 05/17/23 13:37 Const General: alert; No acute distress Eyes Conjunctivae: conjunctivae normal Resp Auscultation: clear to auscultation bilaterally Cardio Rate: regular rate Rhythm: regular rhythm GI Inspection: Yes normal to inspection Extrem General: Yes normal to inspection and No edema Assessment and Plan Assessment & Plan (1) Type 2 diabetes mellitus with hyperglycemia: Comment: [facility] Dr. Roth Code(s): E11.65 - Type 2 diabetes mellitus with hyperglycemia Qualifiers: Diabetes mellitus ferry terminal supervisor insulin use: without prison use Qualified Code(s): E11.65 - Type 2 diabetes mellitus with hyperglycemia Plan: Decrease the amount of carbohydrate intake, pasta, bread, rice and potatoes are all sugar and that is aside from all the sweet stuff, remember that fruits are good but they are Sweet also. Hemoglobin A1c goal of less than 7. Patient is on Januvia Jardiance (2) Overweight (BMI 25.0-29.9): Code(s): E66.3 - Overweight Plan: Diet and exercise (3) Hypertension: Code(s): I10 - Essential (primary) hypertension Qualifiers: Hypertension type: primary hypertension Qualified Code(s): I10 - Essential (primary) hypertension Plan: Continue with blood pressure medication. Decrease salt intake and exercise patient is on amlodipine 5 mg once a day metoprolol 25 mg once a day (4) GERD (gastroesophageal reflux disease): Code(s): K21.9 - Gastro-esophageal reflux disease without esophagitis Qualifiers: Esophagitis presence: without esophagitis Qualified Code(s): K21.9 - Gastro-esophageal reflux disease without esophagitis Plan: Avoid the foods that causes that usually spicy foods, tomato products, juices, coffee, soda and foods that your sensitive to. After eating do not lie down, allow 3-4 hours before in lie down. And keep the head of bed above 30 degrees to avoid the acid from going up. (5) Hypercholesterolemia: Code(s): E78.00 - Pure hypercholesterolemia, unspecified Plan: Avoid fried foods, chicken skin, eggs, butter margarine, pastries and meat. Be it pork or beef they have a lot of cholesterol LDL goal of less than 100 and triglyceride of less than 150 patient on atorvastatin 40 mg once a day (6) Valvular heart disease: Code(s): I38 - Endocarditis, valve unspecified Plan: Patient has been followed up by Cardiology (7) Invasive ductal carcinoma of right breast: Comment: Lumpectomy Dr. Moise October 2020 Code(s): C50.911 - Malignant neoplasm of unspecified site of right female breast Plan: Patient follows up with Hematology-Oncology and on anastrozole (8) Adhesive capsulitis of left shoulder: Code(s): M75.02 - Adhesive capsulitis of left shoulder Plan: Patient had injection done under Orthopedics Orders: Orders Lipid Panel 3 Months - Type 2 diabetes mellitus with hyperglycemia, E78.00 - Pure hypercholesterolemia, unspecified Hemoglobin A1c 3 Months - Type 2 diabetes mellitus with hyperglycemia Comprehensive Met. Panel 3 Months - Type 2 diabetes mellitus with hyperglycemia Medications: New glipizide ER 5 mg PO DAILY 30 tabs 5RF - Type 2 diabetes mellitus with hyperglycemia Changed From metoprolol succinate ER 25 mg PO DAILY 90 tabs 3RF I10 - Essential (primary) hypertension To metoprolol succinate ER 12.5 mg (1/2 x 25 mg) PO DAILY 90 tabs 3RF I10 - Essential (primary) hypertension From atorvastatin 40 mg PO DAILY 90 tabs 1RF E78.00 - Pure hypercholesterolemia, unspecified To atorvastatin 80 mg PO DAILY 30 tabs 2RF E78.00 - Pure hypercholesterolemia, unspecified Coding Level of Care Code Est Pt Level 4 (61172) Diagnoses Type 2 diabetes mellitus with hyperglycemia, without long-term current use of insulin Diabetes mellitus ferry terminal supervisor insulin use: without prison use Overweight (BMI 25.0-29.9) E66.3 Primary hypertension I10 Hypertension type: primary hypertension Gastroesophageal reflux disease without esophagitis K21.9 Esophagitis presence: without esophagitis Hypercholesterolemia E78.00 Valvular heart disease I38 Invasive ductal carcinoma of right breast C50.911 Adhesive capsulitis of left shoulder M75.02
== END 2023-05-17 14:32 | disposition home or self-care (01) ==
PROVIDERS: PCP Internal Medicine; Visit Provider Internal Medicine
DX: E11.65 Type 2 diabetes mellitus with hyperglycemia (principal); I10 Essential (primary) hypertension; K21.9 Gastro-esophageal reflux disease without esophagitis; C50.911 Malignant neoplasm of unspecified site of right female breast; E66.3 Overweight; E78.00 Pure hypercholesterolemia, unspecified; I38 Endocarditis, valve unspecified; M75.02 Adhesive capsulitis of left shoulder
CPT/HCPCS: 99214

== ENCOUNTER 2023-06-09 10:47 | Outpatient (REF) | payer OTHER, SELFPAY ==
--- NOTE | ~2023-06-09 | MM_ITS ---
EXAMINATION: MM DIAGNOSTIC DIGITAL BREAST TOMOSYNTHESIS, LEFT CLINICAL INFORMATION: 6 month follow-up inferior left breast asymmetry, and asymmetry immediately anterior to the biopsy clip on the mediolateral projection only. History of breast surgery on left and right breasts. History of right breast CA in 2020. History of left breast surgery 10/28/2020 which was benign. COMPARISON: Mammography: 12/14/2022, 12/08/2021, and studies dating back to 2013. TECHNIQUE: Digital breast tomosynthesis is performed in both the craniocaudal and mediolateral oblique views along with computer-aided detection (CAD). Synthesized 2D images are generated from the tomosynthesis. FINDINGS: The breasts are heterogeneously dense, which may obscure small masses (ACR BI-RADS breast composition Category c). Within the right breast, there is stable scarring just anterior to the coil biopsy clip, best seen on the left ML projection and spot left ML projection. This was seen previously and appears stable. In addition, there is stable mild scarring in the inferior aspect of the left breast with associated mild parenchymal distortion, as expected postoperative. There are no new or developing regions of architectural distortion, new masses, or new suspicious calcifications. There are several dystrophic calcifications, one abutting the biopsy clip, and several in the medial left breast. MM/MM tomosynthesis diagnostic LT IMPRESSION: There are no significant changes from prior study. Stable postoperative distortions left breast related to scarring and intervention. No findings suspicious for malignancy. Recommend six-month interval follow-up left breast diagnostic mammogram to include standard views and a left ML 3-D view, as well as standard right mammographic views. ASSESSMENT: BI-RADS BI-RADS 3 - Probably benign finding(s) - 6 month follow-up suggested RECOMMENDATION: 6 Month F/U Results were provided to the patient at time of visit by the technologist. This patient's information was entered into a reminder system with a target due date for their next mammogram.
== END 2023-06-09 10:48 | disposition home or self-care (01) ==
LOC: HO.MAMMO 10:47
PROVIDERS: PCP Internal Medicine; Visit Provider Internal Medicine
DX: N64.89 Other specified disorders of breast (principal)
CPT/HCPCS: 77061; 77065

== ENCOUNTER → 2023-06-09 11:00 | Outpatient (BNV) | payer OTHER, SELFPAY | PROVIDERS: PCP Internal Medicine; Visit Provider Radiology Diagnostic Radiology | DX: R92.332 Mammographic heterogeneous density, left breast (principal) | CPT/HCPCS: 77061; 77065 ==

== ENCOUNTER 2023-08-22 12:23 | Outpatient (REF) | payer OTHER, SELFPAY ==
[2023-08-22 13:49] LABS: Estimated Average Glucose 151 mg/dL; Hemoglobin A1c % 6.9 % (<6.0)
[2023-08-22 14:05] LABS: Alanine Aminotransferase 26 U/L (0-31); Albumin Level 4.3 g/dL (3.5-5.0); Alkaline Phosphatase 111 U/L (39-117); Anion Gap 12 (12-20); Aspartate Amino Transferase 22 U/L (5-31); Bilirubin Total 0.7 mg/dL (0.0-1.0); Blood Urea Nitrogen 22 mg/dL (9-16); Calcium 9.9 mg/dL (8.4-10.2); Carbon Dioxide 28 mmol/L (22-29); Chloride 105 mmol/L (96-108); Cholesterol 144 mg/dL (<200); Estimated Glomerular Filt Rate > 60; Glucose Random 152 mg/dL (60-115); HDL Cholesterol 38 mg/dL (>40); LDL Cholesterol Calculated 77 mg/dL (<100); Potassium 4.3 mmol/L (3.3-5.1); Sodium 141 mmol/L (135-145); Total Protein 7.6 g/dL (6.5-8.0); Triglycerides 148 mg/dL (<150)
== END 2023-08-22 12:24 | disposition home or self-care (01) ==
LOC: HO.LAB 12:23
PROVIDERS: PCP Internal Medicine; Visit Provider Internal Medicine
DX: E78.00 Pure hypercholesterolemia, unspecified (principal); E11.65 Type 2 diabetes mellitus with hyperglycemia
CPT/HCPCS: 36415; 80053; 80061; 83036

== ENCOUNTER 2023-08-25 14:13 | Outpatient (AMB) | payer OTHER, SELFPAY ==
--- NOTE | 2023-08-25 14:21 | A.OFFPC_ITS ---
Vital Signs 08/25/23 14:22 Height 5 ft 2 in Weight 149 lb 2 oz BMI 27.3 BP 120/68 Blood Pressure Location Lt brachial Position Sitting Pulse 58 Pulse Source Pulse Oximeter Pulse Oximetry (%) 96 Oxygen Delivery Method Room Air Intake Visit Reasons: 3 Months F/U -DM , HTN , Cholesterol Intake Note: Patient is here to follow up on DM, HTN, Cholesterol. Desk Assistant Required: No Project Management Advisor: Not Required per policy Accompanied by: Self / Same As Patient Allergies metformin Allergy (Unknown, Verified 08/25/23 14:22) 1000 mg cause diarrhea Tobacco use date assessed: 08/25/23 Fall risk assessment: No Falls in past year Last assessed Fall Risk: 08/25/23 Dental Screening Dental Screen Date: 08/25/23 Did you have a dental visit in the last 12 months?: No Did you have a dental problem in the last 6 months where you did not have access to dental care?: No Was dental information given to patient?: Patient has dentist HPI 3 Months F/U -DM , HTN , Cholesterol HPI Details 77-year-old overweight female with diabe coreen mellitus hypertension GERD hypercholesterolemia right breast cancer coming in for follow-up. Last seen in April 2023 mammograms up-to-date bone density is up-to-date colonoscopy is up-to-date.. Patient follows up with hematology oncology April 2023 breast cancer with anastrozole started November 2020 status post lumpectomy with elective omission of radiation. Mammogram May done in May right breast stable scarring anterior to the biopsy clip stable mild scarring inferior aspect left breast with some distortion as expected no new developing distortion several dystrophic calcifications PFSH Medical History (Updated 08/25/23 @ 14:50 by Aleksandr Borrero MD) Bursitis Asthma On beta jesus at home Rash Diverticulosis Personal history of colonic polyps Colitis Acute gastroenteritis Other and unspecified hyperlipidemia Essential hypertension Type 2 diabetes mellitus with unspecified complications Left knee pain Visual hallucinations TSH elevation TSH elevation RUDDY (obstructive sleep apnea) Fungal dermatitis Invasive ductal carcinoma of right breast Breast mass Cough Shortness of breath Pulmonary hypertension Valvular heart disease Restrictive pattern present on pulmonary function testing Cough variant asthma Hypercholesterolemia Diverticulitis Tubular adenoma of colon Mitral valve regurgitation GERD (gastroesophageal reflux disease) Behcets syndrome Hypertension Type 2 diabetes mellitus with hyperglycemia Overweight (BMI 25.0-29.9) Surgical History History of lumpectomy of right breast Hx of colonoscopy Back pain with history of spinal surgery History of bilateral cataract extraction History of shoulder surgery History of hand surgery History of breast biopsy History of bladder surgery History of cholecystectomy History of total abdominal hysterectomy Family History Father Medical history unknown Mother Diabetes CVD (cardiovascular disease) Daughter Colon cancer Social History Household Members: Spouse Housing: Apartment Are you a primary primary health care nurse to a significant other at home: No Do you presently have visiting nurse or other home services: 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 Jean Paul River, Wendy Segura, Nick Matias and colleagues, with an educational shorty from [employer]. Physical exam (Primary Care) Vital Signs: Last Vital Signs Pulse 58 08/25/23 14:22 BP 120/68 08/25/23 14:22 Pulse Ox 96 08/25/23 14:22 Oxygen Delivery Method Room Air 08/25/23 14:22 BMI result Body Mass Index 27.3 Tobacco/Smoking Status: Tobacco use Status Tobacco use date assessed 08/25/23 08/25/23 14:27 Patient Tobacco Use Status Former Tobacco user 08/25/23 14:27 Tobacco use type Cigarette 08/25/23 14:27 e-Cigarette/Vaping Use Never Used 08/25/23 14:27 Thrive Assessment: Date of Thrive Assessment Date Thrive assessed 09/12/22 08/25/23 14:27 Const General: alert; No acute distress Eyes Conjunctivae: conjunctivae normal Resp Auscultation: clear to auscultation bilaterally Cardio Rate: regular rate Rhythm: regular rhythm GI Inspection: Yes normal to inspection Extrem General: Yes normal to inspection and No edema Office Procedures Flu Questionnaire Does the patient have a severe egg allergy?: No Does the patient have severe life threatening allergies?: No Does the patient have a fever or illness today?: No Has the patient ever had Guillain-Plainfield Syndrome?: No Has the patient ever had any past reaction to a flu shot?: No Immunizations flu vacc [id number] 6mos up(PF) 60 mcg(15 mcgx4)/0.5 mL IM syringe Performing Provider: Aleksandr Borrero MD Performing Location: [facility] Administered by: DANIAL Karimi on 08/25/23 14:38 Dose Route Admin Location Dispensed Lot Number Expiration Date NDC [employer]rup [employer] 0.5 mL IM Left Deltoid 0.5 mL [id number] 02/25/24 [id number] [facility] VIS Given Date VIS Provided VIS Publication Date 08/25/23 Single Vaccine 21 Eligibility Eligibility Date Funding Source Not [facility] Eligible 08/25/23 Private Assessment and Plan Assessment & Plan (1) Invasive ductal carcinoma of right breast: Comment: Lumpectomy Dr. Moise October 2020 Code(s): C50.911 - Malignant neoplasm of unspecified site of right female breast Plan: Continue to follow-up with Hematology-Oncology and mammogram is up-to-date (2) Hypercholesterolemia: Code(s): E78.00 - Pure hypercholesterolemia, unspecified Plan: Avoid fried foods, chicken skin, eggs, butter margarine, pastries and meat. Be it pork or beef they have a lot of cholesterol LDL goal of less than 100 and triglyceride of less than 150 patient is on atorvastatin 80 mg once a day (3) GERD (gastroesophageal reflux disease): Code(s): K21.9 - Gastro-esophageal reflux disease without esophagitis Qualifiers: Esophagitis presence: without esophagitis Qualified Code(s): K21.9 - Gastro-esophageal reflux disease without esophagitis Plan: Avoid the foods that causes that usually spicy foods, tomato products, juices, coffee, soda and foods that your sensitive to. After eating do not lie down, allow 3-4 hours before in lie down. And keep the head of bed above 30 degrees to avoid the acid from going up. (4) Hypertension: Code(s): I10 - Essential (primary) hypertension Qualifiers: Hypertension type: primary hypertension Qualified Code(s): I10 - Essential (primary) hypertension Plan: Continue with blood pressure medication. Decrease salt intake and exercise takes metoprolol 12.5 mg once a day and amlodipine 5 mg once a day (5) Type 2 diabetes mellitus with hyperglycemia: Comment: EYE and las[facility] center Dr. Roth Code(s): E11.65 - Type 2 diabetes mellitus with hyperglycemia Qualifiers: Diabetes mellitus custodial insulin use: without assistant terminal manager use Qualified Code(s): E11.65 - Type 2 diabetes mellitus with hyperglycemia Plan: Decrease the amount of carbohydrate intake, pasta, bread, rice and potatoes are all sugar and that is aside from all the sweet stuff, remember that fruits are good but they are Sweet also. Hemoglobin A1c goal of less than 7.0 patient takes Januvia glipizide 5 mg once a day Jardiance 25 mg once a day (6) Overweight (BMI 25.0-29.9): Code(s): E66.3 - Overweight Plan: Diet and exercise (7) Obstructive sleep apnea (adult) (pediatric): Comment: cannot tolerate CPAP noise Code(s): G47.33 - Obstructive sleep apnea (adult) (pediatric) Plan: decline to use CPAP due to noise (8) Thumb tendonitis: Comment: R thumb Code(s): M77.8 - Other enthesopathies, not elsewhere classified Plan: discussed about conservative treamtment , heat helps and genter exercise Orders: Orders Influenza [id number] Immunization Today Z23 - Encounter for immunization Medications: Refilled nystatin 1 appl topical DAILY 7 days 15 grams 0RF Coding Level of Care Code Est Pt Level 4 (99800) Diagnoses Invasive ductal carcinoma of right breast C50.911 Hypercholesterolemia E78.00 Gastroesophageal reflux disease without esophagitis K21.9 Esophagitis presence: without esophagitis Primary hypertension I10 Hypertension type: primary hypertension Type 2 diabetes mellitus with hyperglycemia, without long-term current use of insulin E11.65 Diabetes mellitus assistant terminal manager insulin use: without assistant terminal manager use Overweight (BMI 25.0-29.9) E66.3 Obstructive sleep apnea (adult) (pediatric) G47.33 Thumb tendonitis M77.8
[2023-08-25 14:22] VITALS: BP 120/68; PULSE 58; O2SAT 96; BMI 27.3
== END 2023-08-25 14:54 | disposition home or self-care (01) ==
PROVIDERS: PCP Internal Medicine; Visit Provider Internal Medicine
DX: E11.65 Type 2 diabetes mellitus with hyperglycemia (principal); C50.911 Malignant neoplasm of unspecified site of right female breast; E78.00 Pure hypercholesterolemia, unspecified; Z23 Encounter for immunization; K21.9 Gastro-esophageal reflux disease without esophagitis; I10 Essential (primary) hypertension; E66.3 Overweight; G47.33 Obstructive sleep apnea (adult) (pediatric); M77.8 Other enthesopathies, not elsewhere classified
CPT/HCPCS: 90471; 90686; 99214

== ENCOUNTER 2023-10-04 16:40 | Outpatient (AMB) | payer OTHER, SELFPAY ==
--- NOTE | 2023-10-04 16:41 | A.OFFPC_ITS ---
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 Allergies metformin Allergy (Unknown, Verified 10/04/23 16:42) 1000 mg cause diarrhea Tobacco use date assessed: 10/04/23 Fall risk assessment: No Falls in past year Last assessed Fall Risk: 10/04/23 Dental Screening Dental Screen Date: 10/04/23 Did you have a dental visit in the last 12 months?: No Did you have a dental problem in the last 6 months where you did not have access to dental care?: No Was dental information given to patient?: Patient has dentist HPI Telephone visit covid positive HPI Details 77-year-old overweight female with right breast cancer, hyp ercholesterolemia GERD hypertension diabetes mellitus obstructive sleep apnea coming in through Telehealth for COVID positive infection. covid 19 infection chills, sore throat , coough, no tastes in mouth , myalgia PFSH Medical History (Updated 10/04/23 @ 16:52 by Aleksandr Borrero MD) Bursitis Asthma On beta jesus at home Rash Diverticulosis Personal history of colonic polyps Colitis Acute gastroenteritis Other and unspecified hyperlipidemia Essential hypertension Type 2 diabetes mellitus with unspecified complications Left knee pain Visual hallucinations TSH elevation TSH elevation RUDDY (obstructive sleep apnea) Fungal dermatitis Invasive ductal carcinoma of right breast Breast mass Cough Shortness of breath Pulmonary hypertension Valvular heart disease Restrictive pattern present on pulmonary function testing Cough variant asthma Hypercholesterolemia Diverticulitis Tubular adenoma of colon Mitral valve regurgitation GERD (gastroesophageal reflux disease) Behcets syndrome Hypertension Type 2 diabetes mellitus with hyperglycemia Overweight (BMI 25.0-29.9) Surgical History History of lumpectomy of right breast Hx of colonoscopy Back pain with history of spinal surgery History of bilateral cataract extraction History of shoulder surgery History of hand surgery History of breast biopsy History of bladder surgery History of cholecystectomy History of total abdominal hysterectomy Family History Father Medical history unknown Mother Diabetes CVD (cardiovascular disease) Daughter Colon cancer Social History Household Members: Spouse Housing: Apartment Are you a primary care information associate to a significant other at home: No Do you presently have visiting nurse or other home services: Yes ([employer]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 1. Little interest or pleasure in doing things: not at all 2. Feeling down, depressed, or hopeless: not at all 3. Trouble falling or staying asleep, or sleeping too much: not at all 4. Feeling tired or having little energy: not at all 5. Poor appetite or overeating: not at all 6. Feeling bad about yourself - or that you are a failure or have let yourself or your family down: not at all 7. Trouble concentrating on things, such as reading the newspaper or watching television: not at all 8. Moving or speaking so slowly that other people could have noticed. Or the opposite - being so fidgety or restless that you have been moving around a lot more than usual: not at all 9. Thoughts that you would be better off or of hurting yourself in some way: not at all Total score: 0 Source: Developed by Drs. Jean Paul River, Wendy Segura, Nick Matias and colleagues, with an educational shorty from [employer]. Thrive Questionnaire Date Thrive assessed: 10/04/23 I am a: Patient What is your living situation today?: I have a steady place to live Within the past 12 months, did the food you bought not last and you didn't have the money to get more?: Never true Within the past 12 months, did you worry whether your food would run out before you got money to buy more?: Never true Do you have trouble paying for medicines?: No Do you have trouble getting transportation to medical appointments?: No Do you have trouble paying your heating and electricity bill?: No Do you have trouble taking care of your child, family member or friend?: No Do you have trouble with day-to-day activities such as bathing, preparing meals, shopping, managing finances, etc.?: No Are you currently unemployed and looking for a job?: No Are you interested in more education?: No Please select the resources that you would like help with: None Currently or been in a relationship where the following occur: no concerns reported THRIVE Score: 0 AUDIT C Alcohol Use Questionnaire (AUDIT-C) 1. How often do you have a drink containing alcohol?: Never Total Score: 0 JUAN FRANCISCO-7 AMB Questionnaire JUAN FRANCISCO-7 Date JUAN FRANCISCO - 7 assessed: 10/04/23 Feeling nervous, anxious, or on edge: 0 = Not at all Not being able to stop or control worryin = Not at all Worrying too much about different things: 0 = Not at all Trouble relaxin = Not at all Being so restless that it is hard to sit still: 0 = Not at all Becoming easily annoyed or irritable: 0 = Not at all Feeling afraid as if something awful might happen: 0 = Not at all Total JUAN FRANCISCO-7 score (0-4 normal; 5-9 mild; 10-14 moderate; 15-21 severe): 0 Source: Developed by Drs. Jean Paul River, Wendy Segura, Nick Matias and colleagues, with an educational shorty from [employer]. Physical exam (Primary Care) Tobacco/Smoking Status: Tobacco use Status Tobacco use date assessed 10/04/23 10/04/23 16:45 Patient Tobacco Use Status Former Tobacco user 10/04/23 16:41 Tobacco use type Cigarette 10/04/23 16:41 e-Cigarette/Vaping Use Never Used 10/04/23 16:41 PHQ-9: PHQ-9 Score PHQ-9: Total score 0 10/04/23 16:48 Thrive Assessment: Date of Thrive Assessment Date Thrive assessed 10/04/23 10/04/23 16:45 Currently or been in a relationship where the following occur: no concerns re ported Telehealth Telehealth Location of provider rendering services: practice address Location of patient: address on file Patient Identification confirmed using: Name, : Yes Telehealth method: voice only Patient verbally consented to treatment: Yes Patient verbally consented to billing insurance company: Yes Patient informed of any privacy concerns related to visit: Yes Minutes spent on Phone/Video with Pt.: 15 Assessment and Plan Assessment & Plan (1) COVID-19 virus infection: Comment: 10/03/2023 Code(s): U07.1 - COVID-19 Plan: Antiviral sent in advised to hold cholesterol medication while taking this. For the sore throat can take Cepacol lozenges, discussed about Delsym to help with dry cough so she can rest and advised to increase oral fluids. Patient also can take Tylenol for chills and fever. Quarantine for the next 5 days and if needed to go out after need to wear mask for the next 5 days. Medications: New nirmatrelvir-ritonavir 300 mg (150 mg x 2)-100 mg (Paxlovid) take TWO 150 mg tablets of nirmatrelvir with ONE 100 mg tablet of ritonavir twice daily for 5 days PO 30 ea 0RF U07.1 - COVID-19 Coding Level of Care Code Tele Est Pt Level 3 (24092) Diagnoses COVID-19 virus infection U07.1
== END 2023-10-04 17:01 | disposition home or self-care (01) ==
LOC: HO.HMGH 16:40
PROVIDERS: PCP Internal Medicine; Visit Provider Internal Medicine
DX: U07.1 COVID-19 (principal)
CPT/HCPCS: 99442

== ENCOUNTER 2023-12-18 10:43 | Outpatient (REF) | payer OTHER, SELFPAY ==
--- NOTE | ~2023-12-18 | MM_ITS ---
EXAMINATION: MM DIAGNOSTIC DIGITAL BREAST TOMOSYNTHESIS, BILATERAL CLINICAL INFORMATION: 6 month follow-up inferior left breast asymmetry, and asymmetry immediately anterior to the biopsy clip on the mediolateral projection only. History of breast surgery on left and right breasts. History of right breast CA in 2020. History of left breast surgery 10/28/2020 which was benign. COMPARISON: Mammography: 06/09/2023, 12/14/2022, 12/08/2021, and studies dating back to 2013. TECHNIQUE: Digital breast tomosynthesis is performed in both the craniocaudal and mediolateral oblique views along with computer-aided detection (CAD). Synthesized 2D images are generated from the tomosynthesis. FINDINGS: The breasts are heterogeneously dense, which may obscure small masses (ACR BI-RADS breast composition Category c). Within the LEFT breast, there is stable scarring just anterior to the coil biopsy clip, present superior lateral left breast, mid depth, best seen on the left MLO projection. This was seen previously and appears stable. In addition, there is stable mild scarring in the inferior aspect of the left breast with associated mild parenchymal distortion, as expected postoperative. This appears stable as well. There are no new or developing regions of architectural distortion, new masses, or new suspicious calcifications. There are several dystrophic calcifications, one abutting the biopsy clip, and several in the medial left breast. Within the RIGHT breast, surgical scarring is seen in the approximate 12:00 axis with surgical scar marker. The appearance is unchanged with mild distortion at the posterior margin of the surgical site, just inferior and posterior to the scar marker. There are a few scattered dystrophic and vascular calcifications. No suspicious calcifications, developing new regions of architectural distortion, or developing masses noted. Parenchymal pattern is stable from prior exams. There are no skin or axillary abnormalities. MM/MM tomosynthesis diagnostic BI IMPRESSION: There are no significant changes from prior study. There are no findings suspicious for malignancy in either breast. Stable postoperative distortions in both breasts related to scarring and intervention. Recommend the patient return to routine annual screening to include both breasts. ASSESSMENT: BI-RADS BI-RADS 2 - Benign Findings RECOMMENDATION: 1 year F/U Results were provided to the patient at time of visit by the technologist. This patient's information was entered into a reminder system with a target due date for their next mammogram.
== END 2023-12-18 10:44 | disposition home or self-care (01) ==
LOC: HO.MAMMO 10:43
PROVIDERS: PCP Internal Medicine; Visit Provider Internal Medicine
DX: N64.89 Other specified disorders of breast (principal)
CPT/HCPCS: 77062; 77066

== ENCOUNTER → 2023-12-18 11:00 | Outpatient (BNV) | payer OTHER, SELFPAY | PROVIDERS: PCP Internal Medicine; Visit Provider Radiology Diagnostic Radiology | DX: R92.8 Other abnormal and inconclusive findings on diagnostic imaging of breast (principal) | CPT/HCPCS: 77066; G0279 ==

== ENCOUNTER 2024-02-26 13:57 | Outpatient (AMB) | payer OTHER, SELFPAY ==
[2024-02-26 14:06] VITALS: BP 128/62; PULSE 49; O2SAT 94; BMI 26.5
--- NOTE | 2024-02-26 14:06 | A.OFFPC_ITS ---
Vital Signs 02/26/24 14:06 Height 5 ft 2 in Weight 145 lb BMI 26.5 BP 128/62 Blood Pressure Location Lt brachial Position Sitting Pulse 49 L Pulse Source Pulse Oximeter Pulse Oximetry (%) 94 Oxygen Delivery Method Room Air Intake Visit Reasons: DM Allergies metformin Allergy (Unknown, Verified 02/26/24 14:06) 1000 mg cause diarrhea Tobacco use date assessed: 10/04/23 Fall risk assessment: No Falls in past year Last assessed Fall Risk: 02/26/24 Dental Screening Dental Screen Date: 02/26/24 Did you have a dental visit in the last 12 months?: No Did you have a dental problem in the last 6 months where you did not have access to dental care?: No Was dental information given to patient?: Patient has dentist HPI DM HPI Details 78-year-old female with diabetes mellitu s hypertension hypercholesterolemia GERD with a history of right breast cancer obstructive sleep apnea coming in for follow-up. Last seen in September having COVID-19 infection. Patient's mammogram is up-to-date 12/16/2023 bone density is up-to-date 12/15/2022. Colon test last done in 11/14/2022. [facility] Medical History (Updated 02/26/24 @ 14:37 by Aleksandr Borrero MD) Bursitis Asthma On beta jesus at home Rash Diverticulosis Personal history of colonic polyps Colitis Acute gastroenteritis Other and unspecified hyperlipidemia Essential hypertension Type 2 diabetes mellitus with unspecified complications Left knee pain Visual hallucinations TSH elevation TSH elevation RUDDY (obstructive sleep apnea) Fungal dermatitis Invasive ductal carcinoma of right breast Breast mass Cough Shortness of breath Pulmonary hypertension Valvular heart disease Restrictive pattern present on pulmonary function testing Cough variant asthma Hypercholesterolemia Diverticulitis Tubular adenoma of colon Mitral valve regurgitation GERD (gastroesophageal reflux disease) Behcets syndrome Hypertension Type 2 diabetes mellitus with hyperglycemia Overweight (BMI 25.0-29.9) Surgical History History of lumpectomy of right breast Hx of colonoscopy Back pain with history of spinal surgery History of bilateral cataract extraction History of shoulder surgery History of hand surgery History of breast biopsy History of bladder surgery History of cholecystectomy History of total abdominal hysterectomy Family History Father Medical history unknown Mother Diabetes CVD (cardiovascular disease) Daughter Colon cancer Social History Household Members: Spouse Housing: Apartment Are you a primary nurse wound care to a significant other at home: No Do you 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 1. Little interest or pleasure in doing things: not at all 2. Feeling down, depressed, or hopeless: not at all 3. Trouble falling or staying asleep, or sleeping too much: not at all 4. Feeling tired or having little energy: not at all 5. Poor appetite or overeating: not at all 6. Feeling bad about yourself - or that you are a failure or have let yourself or your family down: not at all 7. Trouble concentrating on things, such as reading the newspaper or watching television: not at all 8. Moving or speaking so slowly that other people could have noticed. Or the opposite - being so fidgety or restless that you have been moving around a lot more than usual: not at all 9. Thoughts that you would be better off or of hurting yourself in some way: not at all Total score: 0 Depression Screening Interpretation: Negative Depression Screening Done: Yes Source: Developed by Drs. Jean Paul Rievr, Nick Rodney and colleagues, with an educational shorty from [employer]. Thrive Questionnaire Date Thrive assessed: 10/04/23 AUDIT C Alcohol Use Questionnaire (AUDIT-C) 1. How often do you have a drink containing alcohol?: Never Total Score: 0 JUAN FRANCISCO-7 AMB Questionnaire JUAN FRANCISCO-7 Date JUAN FRANCISCO - 7 assessed: 10/04/23 Source: Developed by Drs. Jean Paul River, Nick Rodney and colleagues, with an educational shorty from [employer]. Physical exam (Primary Care) Vital Signs: Last Vital Signs Pulse 49 L 02/26/24 14:06 BP 128/62 02/26/24 14:06 Pulse Ox 94 02/26/24 14:06 Oxygen Delivery Method Room Air 02/26/24 14:06 BMI result Body Mass Index 26.5 Tobacco/Smoking Status: Tobacco use Status Tobacco use date assessed 10/04/23 02/26/24 14:14 Patient Tobacco Use Status Former Tobacco user 02/26/24 14:14 Tobacco use type Cigarette 02/26/24 14:14 e-Cigarette/Vaping Use Never Used 02/26/24 14:14 PHQ-9: PHQ-9 Score PHQ-9: Total score 0 02/26/24 14:21 Depression Screening Interpretation: Negative Thrive Assessment: Date of Thrive Assessment Date Thrive assessed 10/04/23 02/26/24 14:14 Const General: alert; No acute distress Eyes Conjunctivae: conjunctivae normal Resp Auscultation: clear to auscultation bilaterally Cardio Rate: regular rate Rhythm: regular rhythm GI Inspection: Yes normal to inspection Extrem General: Yes normal to inspection and No edema Results AMB Hemoglobin A1c AMB Hemoglobin A1c 7.6 % Last Edit by Lindsey Montilla CMA on 02/26/24 14 :22 Results Reviewed Results Reviewed: Laboratory Last Values Hgb A1c (Clinic) 7.6 % (4.0-6.0) H 02/26/24 14:22 Assessment and Plan Assessment & Plan (1) Type 2 diabetes mellitus with hyperglycemia: Comment: [facility] Dr. Roth Code(s): E11.65 - Type 2 diabetes mellitus with hyperglycemia Qualifiers: Diabetes mellitus group home insulin use: without case packer and sealer use Qualified Code(s): E11.65 - Type 2 diabetes mellitus with hyperglycemia Plan: Decrease the amount of carbohydrate intake, pasta, bread, rice and potatoes are all sugar and that is aside from all the sweet stuff, remember that fruits are good but they are Sweet also. Hemoglobin A1c goal of less than 7.0 patient on Jardiance 25 mg once a day glipizide 5 mg once a day and Januvia 100 mg once a day (2) Hypertension: Code(s): I10 - Essential (primary) hypertension Qualifiers: Hypertension type: primary hypertension Qualified Code(s): I10 - Essential (primary) hypertension Plan: Continue with blood pressure medication. Decrease salt intake and exercise on metoprolol 12.5 mg once a day amlodipine 5 mg once a day (3) GERD (gastroesophageal reflux disease): Code(s): K21.9 - Gastro-esophageal reflux disease without esophagitis Qualifiers: Esophagitis presence: without esophagitis Qualified Code(s): K21.9 - Gastro-esophageal reflux disease without esophagitis Plan: Avoid the foods that causes that usually spicy foods, tomato products, juices, coffee, soda and foods that your sensitive to. After eating do not lie down, allow 3-4 hours before in lie down. And keep the head of bed above 30 degrees to avoid the acid from going up. (4) Hypercholesterolemia: Code(s): E78.00 - Pure hypercholesterolemia, unspecified Plan: Avoid fried foods, chicken skin, eggs, butter margarine, pastries and meat. Be it pork or beef they have a lot of cholesterol on atorvastatin 80 mg once a day patient needs repeat blood work (5) Invasive ductal carcinoma of right breast: Comment: Lumpectomy Dr. Moise October 2020 Code(s): C50.911 - Malignant neoplasm of unspecified site of right female breast Plan: Mammograms up-to-date (6) Sinus bradycardia: Comment: MD 39 Code(s): R00.1 - Bradycardia, unspecified Plan: referral to cardiology. Concerned about the bradycardia running at about 38 but patient occasionally complains of some dizziness but no chest pains or palpitations. (7) Trigger finger of left thumb: Code(s): M65.312 - Trigger thumb, left thumb Plan: Patient was advised to splint that thumb left and orthopedic referral done also. Orders: Orders AMB Hemoglobin A1c Today Z13.9 - Encounter for screening, unspecified Microalbumin, Random (w Creat) 3 Months E11. - Type 2 diabetes mellitus with hyperglycemia Creatinine Urine 3 Months E11. - Type 2 diabetes mellitus with hyperglycemia Vitamin D 25-OH Total 3 Months E11.65 - Type 2 diabetes mellitus with hyperglycemia Complete Blood Count Auto Diff 3 Months E11. - Type 2 diabetes mellitus with hyperglycemia Comprehensive Met. Panel 3 Months E11.65 - Type 2 diabetes mellitus with hyperglycemia Free T4 (Free Thyroxine) 3 Months E11. - Type 2 diabetes mellitus with hyperglycemia Thyroid Stimulating Hormone 3 Months E11.65 - Type 2 diabetes mellitus with hyperglycemia Lipid Panel 3 Months E11.65 - Type 2 diabetes mellitus with hyperglycemia, E78.00 - Pure hypercholesterolemia, unspecified Vitamin B12 and Folate 3 Months E11.65 - Type 2 diabetes mellitus with hyperglycemia Hemoglobin A1c 3 Months E11.65 - Type 2 diabetes mellitus with hyperglycemia Referrals Cardiology Referral R00.1 - Bradycardia, unspecified Orthopedics Referral M65.312 - Trigger thumb, left thumb Medications: Discontinued nirmatrelvir-ritonavir 300 mg (150 mg x 2)-100 mg (Paxlovid) Discontinued Reason: Doctor's Order take TWO 150 mg tablets of nirmatrelvir with ONE 100 mg tablet of ritonavir twice daily for 5 days PO 30 ea 0RF U07.1 - COVID-19 Coding Level of Care Code Est Pt Level 4 (36647) Complex EM visit Add On G2211 Diagnoses Type 2 diabetes mellitus with hyperglycemia, without long-term current use of insulin E11. Diabetes mellitus case packer and sealer insulin use: without case packer and sealer use Primary hypertension I10 Hypertension type: primary hypertension Gastroesophageal reflux disease without esophagitis K21.9 Esophagitis presence: without esophagitis Hypercholesterolemia E78.00 Invasive ductal carcinoma of right breast C50.911 Sinus bradycardia R00.1 Trigger finger of left thumb M65.312
== END 2024-02-26 14:43 | disposition home or self-care (01) ==
PROVIDERS: PCP Internal Medicine; Visit Provider Internal Medicine
DX: E11.65 Type 2 diabetes mellitus with hyperglycemia (principal); I10 Essential (primary) hypertension; K21.9 Gastro-esophageal reflux disease without esophagitis; C50.911 Malignant neoplasm of unspecified site of right female breast; R00.1 Bradycardia, unspecified; M65.312 Trigger thumb, left thumb
CPT/HCPCS: 83036; 99214; G2211

== ENCOUNTER 2024-04-09 12:42 | Outpatient (AMB) | payer OTHER, SELFPAY ==
--- NOTE | 2024-04-09 12:48 | MHC.OFFVIS ---
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 Patient reports locking and cathcing has been present for about 3 weeks. States pain at her IP with popping back into place. She uses a finger splint to keep her finger straight. Denies injury. No numbness or tingling. No previous tx. 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 She complains of painful locking & catching of the left thumb for ~3 weeks now. She has been wearing a thumb splint to keep her thumb extended. She denies any numbness or tingling She is a Diabetic, and says this is well-controlled. [facility] Medical History (Updated 02/26/24 @ 14:37 by Aleksandr Borrero MD) Bursitis Asthma On beta jesus at home Rash Diverticulosis Personal history of colonic polyps Colitis Acute gastroenteritis Other and unspecified hyperlipidemia Essential hypertension Type 2 diabetes mellitus with unspecified complications Left knee pain Visual hallucinations TSH elevation TSH elevation RUDDY (obstructive sleep apnea) Fungal dermatitis Invasive ductal carcinoma of right breast Breast mass Cough Shortness of breath Pulmonary hypertension Valvular heart disease Restrictive pattern present on pulmonary function testing Cough variant asthma Hypercholesterolemia Diverticulitis Tubular adenoma of colon Mitral valve regurgitation GERD (gastroesophageal reflux disease) Behcets syndrome Hypertension Type 2 diabetes mellitus with hyperglycemia Overweight (BMI 25.0-29.9) Surgical History History of lumpectomy of right breast Hx of colonoscopy Back pain with history of spinal surgery History of bilateral cataract extraction History of shoulder surgery History of hand surgery History of breast biopsy History of bladder surgery History of cholecystectomy History of total abdominal hysterectomy Family History Father Medical history unknown Mother Diabetes CVD (cardiovascular disease) Daughter Colon cancer Social History Household Members: Spouse Housing: Apartment Are you a primary care technician to a significant other at home: No Do you presently have visiting nurse or other home services: Yes (MEDICAL AUTHORIZATION SPECIALIST) Alcohol intake: former Patient Tobacco Use Status: Former Tobacco user Tobacco use type: Cigarette e-Cigarette/Vaping Use: Never Used Second Hand Smoke Exposure: No service: No Current occupational status: retired Cognitive needs: No Hearing needs: No Vision needs: Yes (reading glasses) Female Reproductive History Menstrual Age of Menarche: 10 Review of Systems Const All systems reviewed & are unremarkable except as noted in HPI and below Physical Exam Vital Signs: BMI result Body Mass Index 26.5 Const General: cooperative, healthy appearing and no acute distress Orientation/consciousness: patient oriented x3 HEENT Head: Yes normocephalic and Yes atraumatic Eyes EOM: EOMs intact bilaterally Resp Effort & Inspection: normal respiratory effort and able to speak in complete sentences Cardio Jugular venous distension: no JVD Skin General skin exam: turgor normal Rashes: no rashes Neuro General: patient oriented x3 Extrem Other: Evaluation of Left Upper Extremity: The patient is alert, oriented, and in no acute distress Neuro: Median, Ulnar, Radial nerves motor and sensory intact and sensation is normal to the tips of all digits Vascular: Cap refill brisk ROM: She can make a fist and extend all her digits Visible and palpable locking & catching of the thumb Tender over the a1 anshu of the thumb Skin: No lacerations or abrasions. General: No Ecchymosis. No Erythema or evidence of infection. Psych Appearance: grossly normal Affect: normal affect Attitude: cooperative Office Procedures Fracture Care Details: No fracture, injection Fracture Billing Code: Fracture Billing Code Assessment & Plan Assessment & Plan (1) Trigger finger of left thumb: Code(s): M65.312 - Trigger thumb, left thumb Category: Medical (2) Type 2 diabetes mellitus with hyperglycemia: Comment: [facility] Dr. Roth Code(s): E11.65 - Type 2 diabetes mellitus with hyperglycemia Category: Medical Qualifiers: Diabetes mellitus intermodal customer service insulin use: without intermodal customer service use Qualified Code(s): E11.65 - Type 2 diabetes mellitus with hyperglycemia Plan Assessment & Plan: 1. Left trigger thumb I educated her about this condition I discussed operative and non-operative treatment options The patient would like to proceed with an injection today I explained that she should discontinue her brace and move her thumb to minimize the risk of developing stiffness Injection #1: The risks and benefits of a steroid injection including but not limited to risk of damage to blood vessels, nerves, tendons, infection, skin bleaching, failure to improve symptoms, increased pain, and possible need for further injections or other intervention were discussed with the patient and the patient wishes to proceed with the steroid injection. Once consent was obtained, I sterilely prepped the area over the A1 anshu of the flexor tendon sheath of the Left thumb. I then injected the flexor tendon sheath with a combination of 1 mL of dexamethasone (4mg/ml), and 1% lidocaine. The patient tolerated the procedure well with no complications. If the patient continues to have locking and catching 4-6 weeks following this injection, they may call to schedule appointment to discuss alternative treatment options Follow-up prn Scribed for Nara Knight MD by Deandre Arce, medical language specialist, on 04/09/24 at 1:05 PM, EST. Coding Level of Care Code New Pt Level 3 (41564) Diagnoses Trigger finger of left thumb M65.312 Type 2 diabetes mellitus with hyperglycemia, without long-term current use of insulin E11.65 Diabetes mellitus intermodal customer service insulin use: without senior living use CPT Codes Fracture Care - Fracture Billing Code: Fracture Billing Code ([id number])
[2024-04-09 12:52] VITALS: BMI 26.5
== END 2024-04-09 13:20 | disposition home or self-care (01) ==
PROVIDERS: PCP Internal Medicine; Visit Provider Orthopaedic Surgery
DX: M65.312 Trigger thumb, left thumb (principal); E11.65 Type 2 diabetes mellitus with hyperglycemia
CPT/HCPCS: 20550; 99203

== ENCOUNTER → 2024-04-09 12:42 | Outpatient (BNVA) | payer OTHER, SELFPAY | PROVIDERS: PCP Internal Medicine; Visit Provider Orthopaedic Surgery | DX: M65.312 Trigger thumb, left thumb (principal); E11.65 Type 2 diabetes mellitus with hyperglycemia | CPT/HCPCS: 20550; 99202; J1100 ==

== ENCOUNTER 2024-04-10 13:59 | Outpatient (AMB) | payer OTHER, SELFPAY ==
[2024-04-10 14:02] VITALS: BP 130/60; PULSE 53; BMI 26.4
--- NOTE | 2024-04-10 14:02 | A.OFFVIS_ITS ---
Vital Signs 04/10/24 14:02 Height 5 ft 2 in Weight 144 lb 9.972 oz BMI 26.4 BP 130/60 Blood Pressure Location Lt brachial Position Sitting Pulse 53 Intake Visit Reasons: followup req by pcp dr moyer last seen 02/22/23 Agriculture Teacher Required: Yes Agriculture Teacher Services: Agriculture Teacher Present Agriculture Teacher Name: Sandra-daughter Accompanied by: Daughter Allergies metformin Allergy (Unknown, Verified 04/09/24 12:54) 1000 mg cause diarrhea Medication List - Last Reconciled 04/10/24 by José Miguel Hernandez MD acetaminophen 1,000 mg (2 x 500 mg) PO QID PRN albuterol sulfate 2.5 mg inhalation Q4-6H PRN albuterol sulfate 90 mcg/actuation (Ventolin HFA) 2 puffs PO QID PRN amlodipine 5 mg PO DAILY anastrozole 1 mg PO DAILY atorvastatin 80 mg PO DAILY blood sugar diagnostic (FreeStyle Lite Strips) 1 strip miscellaneous TID empagliflozin (Jardiance) 25 mg PO DAILY glipizide ER 5 mg PO DAILY hydroxyzine HCl 10 mg PO BEDTIME PRN lancets (FreeStyle Lancets) As directed three times daily meloxicam 15 mg PO DAILY multivitamin 1 tab PO DAILY pantoprazole 40 mg PO BID 90 days sitagliptin phosphate (Januvia) 100 mg PO DAILY 90 days sumatriptan succinate 50 mg PO .QD prn PRN tizanidine 4 mg PO BID PRN 10 days tramadol 50 mg PO Q6H PRN HPI Comments Details: Juany returns for follow-up. She has had different complaints at various times including sensations of heart fluttering, shortness of breath, chest discomfort among others. Prior cardiac workup had not shown any ischemic findings. Currently, she has been referred for evaluation of sinus bradycardia. She still gets a fluttering sensations in chest. Some shortness of breath off and on. No angina. She does get dizzy intermittently, seemingly orthostatic in nature. Could be related to blood pressure meds. [facility] Medical History (Updated 04/10/24 @ 14:56 by José Miguel Hernandez MD) Bursitis Asthma On beta jesus at home Rash Diverticulosis Personal history of colonic polyps Colitis Acute gastroenteritis Other and unspecified hyperlipidemia Essential hypertension Type 2 diabetes mellitus with unspecified complications Left knee pain Visual hallucinations TSH elevation TSH elevation RUDDY (obstructive sleep apnea) Fungal dermatitis Invasive ductal carcinoma of right breast Breast mass Cough Shortness of breath Pulmonary hypertension Valvular heart disease Restrictive pattern present on pulmonary function testing Cough variant asthma Hypercholesterolemia Diverticulitis Tubular adenoma of colon Mitral valve regurgitation GERD (gastroesophageal reflux disease) Behcets syndrome Hypertension Type 2 diabetes mellitus with hyperglycemia Overweight (BMI 25.0-29.9) Surgical History History of lumpectomy of right breast Hx of colonoscopy Back pain with history of spinal surgery History of bilateral cataract extraction History of shoulder surgery History of hand surgery History of breast biopsy History of bladder surgery History of cholecystectomy History of total abdominal hysterectomy Family History Father Medical history unknown Mother Diabetes CVD (cardiovascular disease) Daughter Colon cancer Social History Household Members: Spouse Housing: Apartment Are you a primary congregational care pastor to a significant other at home: No Do you presently have visiting nurse or other home services: Yes (BATT PACKER) Alcohol intake: former Patient Tobacco Use Status: Former Tobacco user Tobacco use type: Cigarette e-Cigarette/Vaping Use: Never Used Second Hand Smoke Exposure: No service: No Current occupational status: retired Cognitive needs: No Hearing needs: No Vision needs: Yes (reading glasses) Female Reproductive History Menstrual Age of Menarche: 10 Review of Systems Const Denies chills, Denies fatigue, Denies fever(s), Denies weight gain and Denies weight loss ENT Denies dizziness Card Denies chest pain, Denies leg edema, Denies lightheadedness, Denies palpitations, Denies dyspnea on exertion, Denies orthopnea and Denies other Resp Denies cough and Denies dyspnea on exertion GI Denies hematochezia and Denies change in stool character Musc Denies abnormal gait, Denies muscle weakness, Denies numbness, Denies radiating pain into limb and Denies tingling Neuro Denies abnormal gait, Denies dizziness, Denies numbness and Denies tingling Endo Denies fatigue and Denies palpitations Physical Exam Vital Signs: Last Vital Signs Pulse 53 04/10/24 14:02 BP 130/60 04/10/24 14:02 BMI result Body Mass Index 26.4 Const General: comfortable and no acute distress Orientation/consciousness: patient oriented x3 HEENT Other: Unremarkable Head: Yes normal to inspection Neck Neck: Yes normal visual inspection Chest Chest palpation & inspection: normal inspection of the chest Resp Auscultation: clear to auscultation bilaterally Cardio Palpation: normal PMI Heart sounds: S1 normal heart sound present, S2 normal heart sound present, no gallops, Murmur heart sound present systolic II/ and no rubs GI Palpation (GI): Soft to palpation Back/Spine/Pelvis Other: unremarkable Skin General skin exam: no rashes or lesions noted Neuro General: patient oriented x3 Extrem General: Yes normal to inspection Psych Mental Status: mental status grossly normal Office Procedures EKG Details: EKG with sinus bradycardia at 53/Min; minimal criteria for LVH; nonspecific ST-[place] changes; [place] [id number], Complete Assessment & Plan Assessment & Plan (1) Sinus bradycardia: Comment: [place] 38 Code(s): R00.1 - Bradycardia, unspecified Category: Medical (2) Heart palpitations: Code(s): R00.2 - Palpitations Category: Medical (3) Dizziness: Code(s): R42 - Dizziness and giddiness Category: Medical Plan The sinus bradycardia is chronic and it has been this way for many years. Also it seems that PCP has stopped the beta-blockers that seems appropriate. With regard to the palpitations, unclear what it is. We will check Holter monitor to look for any supraventricular or ventricular ectopy or other arr hythmias like atrial fibrillation. With regard to the postural dizziness, could be related to the blood pressure meds like amlodipine. We discussed about changing to something else but for now, she can divide the dose between morning and evenings and see if there is a difference. If not, try probably different agent like ARB. Discussed with daughter who came for appointment. Orders: Orders CA echo transthoracic complete Today I38 - Endocarditis, valve unspecified ECG 7 day holter monitor Today R00.2 - Palpitations Coding Level of Care Code Est Pt Level 3 (21470) Diagnoses Sinus bradycardia R00.1 Heart palpitations R00.2 Dizziness R42 CPT Codes EKG - CPT: 18613-[id number], Complete ([id number])
== END 2024-04-10 14:39 | disposition home or self-care (01) ==
PROVIDERS: PCP Internal Medicine; Visit Provider Internal Medicine
DX: R00.1 Bradycardia, unspecified (principal); R00.2 Palpitations; R42 Dizziness and giddiness
CPT/HCPCS: 93010; 99213

== ENCOUNTER → 2024-04-10 13:59 | Outpatient (BNVA) | payer OTHER, SELFPAY | PROVIDERS: PCP Internal Medicine; Visit Provider Internal Medicine | DX: I38 Endocarditis, valve unspecified (principal); R42 Dizziness and giddiness; R06.02 Shortness of breath; R00.1 Bradycardia, unspecified; R00.2 Palpitations; Z87.891 Personal history of nicotine dependence | CPT/HCPCS: 93005; 99212 ==

== ENCOUNTER → 2024-05-14 13:38 | Outpatient (REF) | payer OTHER, SELFPAY ==
--- NOTE | 2024-05-14 13:42 | HM_ITS ---
Conclusion: 1. Patient was monitored for total period of 5 days 2. Baseline was atrial fibrillation with average heart of 85 beats per minute with adequate rate control 3. No significant pauses noted 4. Patient marked the counter 3 times with symptoms of chest pressure as well as fast heart rate consistent with underlying atrial fibrillation without significant rapid ventricular response MTDD
--- NOTE | 2024-05-14 13:42 | HM_ITS ---
Conclusion: 1. Patient baseline was normal sinus rhythm with average heart of 57 beats per minute 2. Frequent sinus bradycardia noted with 70% of time heart rate below 60 beats per minute without significant pauses 3. Frequent PACs noted with total burden of 2.8% without any sustained arrhythmias 4. No patient reported events MTDD
--- NOTE | 2024-05-14 13:42 | CA_ITS ---
Transthoracic Echocardiogram Patient (Last, First, Middle): Juany James M Gender: Female Date of : 1945 Age: 78 Procedure Date: 05/14/2024 Procedure Type: Transthoracic Echocardiogram Location: OP Height: 162.56 cm Weight: 65.32 kg BSA: 1.70 m2 Heart Rate: 54 bpm BP: 128 / 60 mmHg Policy Intern: VIVIANE Referring MD: José Miguel Hernandez MD Cyber Threat Analyst: Quincy Hicks MD Symptoms: I38 - Endocarditis valve unspecified, Bradycardia R00.1, Palpitations R00.2 Study Quality: Adequate ECG Rhythm: Bradycardia Conclusions: - 1. Hyperdynamic LV ejection fraction of greater than 70% 2. Mild aortic regurgitation 3. Normal measured RV systolic pressure 4. Small pericardial effusion Findings Left Ventricle Normal left ventricular cavity size. There is normal left ventricular wall thickness. The left ventricular systolic function is hyperdynamic. The visually estimated ejection fraction is >70%. Spectral Doppler is indicative of an impaired relaxation filling pattern. There is moderate septal asymmetric hypertrophy. Right Ventricle The right ventricle was not well visualized. There is normal right ventricular systolic function. Atria The left atrium is likely dilated. Interatrial shunt cannot be excluded. The right atrium was not well visualized. Aortic Valve The aortic valve was not well visualized. There is no aortic valve stenosis. There is mild aortic valve regurgitation. Mitral Valve There is mild anterior and posterior mitral leaflet thickening. There is trace mitral valve regurgitation. There is no mitral valve stenosis. Pulmonic Valve The pulmonic valve was not well visualized. Tricuspid Valve The tricuspid valve was not well visualized. There is mild tricuspid valve regurgitation. The right ventricular systolic pressure is 30 mmHg. Normal right atrial pressure. There is no evidence of pulmonary hypertension. Great Vessels The aorta was not well visualized. The pulmonary artery was not well visualized. There is no dilatation of the ascending aorta measuring 2.90 cm. Venous The inferior vena cava is normal in size and collapses greater than 50% with inspiration. Pericardium/Pleural There is a small circumferential pericardial effusion. Prior Study Comparison Changes noted compared to prior study dated: 02/09/2022. mild aortic regurgitation noted Measurements 2D Linear Measurements IVSd: 1.41 0.6-0.9/0.6-1.0 cm LVIDd: 4.19 3.9-5.3/4.2-5.9 cm LVIDd Index: 2.46 2.4-3.2/2.2-3.1 cm/m2 LVIDs: 3.05 2.0-3.6 cm LVPWd: 0.94 0.7-1.1 cm LA Diam: 4.20 2.7-3.8/3.0-4.0 cm LAIDs Index: 2.47 1.5-2.3 cm/m2 LV Mass: 214.01 67-162/88-224 g LV Mass Index: 125.89 43-95/49-115 g/m2 LVOT Diam: 1.70 3.0+(-)1.3 cm 2D Systolic Function EF 4C: 83.00 >55% EF 2C: 75.10 >55% EF BiP: 79.10 >55% Mitral Valve MV VTI: 0.45 MV Pk Sadi: 1.30 MV Mn Sadi: 0.71 MV Pk Grad: 7.00 MV Mn Grad: 2.00 MV Pk E: 1.16 MV PK A: 1.21 MV Decel Time: 287.00 E/A: 1.00 E'Lateral: 3.81 E'Medial: 4.90 E/E' Med: 23.70 E/E' Lat: 30.40 PHT: 84.00 MVA PHT: 2.62 MVA Continuity: 1.71 Decel Dixie: 4.04 Aortic Valve AoV Pk Sadi: 1.66 AoV Mn Sadi: 1.04 AoV VTI: 0.33 AoV Pk Grad: 11.00 Aov Mn Grad: 5.00 KENNY Cont.VTI: 2.35 LVOT LVOT Pk Sadi: 1.48 LVOT Mn Sadi: 1.03 LVOT VTI: 0.34 LVOT Pk Grad: 9.00 LVOT Mn Grad: 5.00 LVOT Diam: 1.70 LVOT Area: 2.27 Diastolic Function MV Pk E: 1.16 MV Pk A: 1.21 E/A: 1.00 E'Medial: 4.90 E/E' Med: 23.70 E' Laterial: 3.81 E/E' Lat: 30.40 Right Ventricle TAPSE (mm): 21.20 TVS' Sadi: 13.50 Tricuspid Valve TR Pk Sadi: 2.61 TR Pk Grad: 27.00 RA Press: 3.00 RVSP: 30.00 Great Vessels Aorta Sinus of Valsalva: 2.50 2.0-3.5 cm Ao Asc: 2.90 2.1-3.4 cm Pulmonary Veins Pulm Vein S/D 1.40 Pulmonary Valve PV Pk Sadi: 0.74 Peak PV Grad: 2.00 Updated in Other Vendor System with Status of Final Quincy Hicks MD electronically signed on 05/15/2024 3:19:12 PM with status of Final
== END ==
LOC: HO.CARD 13:38
PROVIDERS: PCP Internal Medicine; Visit Provider Internal Medicine
DX: R00.2 Palpitations (principal); I38 Endocarditis, valve unspecified
CPT/HCPCS: 93242; 93306

== ENCOUNTER → 2024-05-14 13:42 | Outpatient (BNV) | payer OTHER, SELFPAY | PROVIDERS: PCP Internal Medicine; Visit Provider Internal Medicine Cardiovascular Disease | DX: I47.19 Other supraventricular tachycardia (principal) | CPT/HCPCS: 93244; 93306 ==

== ENCOUNTER 2024-06-18 14:19 | Outpatient (AMB) | payer OTHER, SELFPAY ==
--- NOTE | 2024-06-18 14:21 | A.OFFVIS_ITS ---
Vital Signs 06/18/24 14:22 Height 5 ft 2 in Weight 144 lb 9 oz BMI 26.4 Intake Visit Reasons: OV-LT trigger thumb-discuss other options Intake Note: Juany is a 78 year old right hand dominant female who presents today for evaluation of on going left thumb locking and catching s/p trigger injection administered 04/09/24. Patient would like to discuss trigger finger release today. Last A1C 7.6 02/26/24 Allergies metformin Allergy (Unknown, Verified 06/18/24 14:22) 1000 mg cause diarrhea HPI HPI OV-LT trigger thumb-discuss other options: Details: Juany is a 78 year old right hand dominant Diabetic woman who returns to discuss her left trigger thumb, S/P injection on 04/09/24. She says she continues to have painful locking and catching following her injection. She would like to discuss alternative treatment options She denies any numbness or tingling She is a Diabetic, and says this is well-controlled. [facility] Medical History (Updated 04/10/24 @ 14:56 by José Miguel Hernandez MD) Bursitis Asthma On beta jesus at home Rash Diverticulosis Personal history of colonic polyps Colitis Acute gastroenteritis Other and unspecified hyperlipidemia Essential hypertension Type 2 diabetes mellitus with unspecified complications Left knee pain Visual hallucinations TSH elevation TSH elevation RUDDY (obstructive sleep apnea) Fungal dermatitis Invasive ductal carcinoma of right breast Breast mass Cough Shortness of breath Pulmonary hypertension Valvular heart disease Restrictive pattern present on pulmonary function testing Cough variant asthma Hypercholesterolemia Diverticulitis Tubular adenoma of colon Mitral valve regurgitation GERD (gastroesophageal reflux disease) Behcets syndrome Hypertension Type 2 diabetes mellitus with hyperglycemia Overweight (BMI 25.0-29.9) Surgical History History of lumpectomy of right breast Hx of colonoscopy Back pain with history of spinal surgery History of bilateral cataract extraction History of shoulder surgery History of hand surgery History of breast biopsy History of bladder surgery History of cholecystectomy History of total abdominal hysterectomy Family History Father Medical history unknown Mother Diabetes CVD (cardiovascular disease) Daughter Colon cancer Social History Household Members: Spouse Housing: Apartment Are you a primary childcare provider to a significant other at home: No Do you presently have visiting nurse or other home services: Yes (CLIENT PROJECT COORDINATOR) Alcohol intake: former Patient Tobacco Use Status: Former Tobacco user Tobacco use type: Cigarette e-Cigarette/Vaping Use: Never Used Second Hand Smoke Exposure: No service: No Current occupational status: retired Cognitive needs: No Hearing needs: No Vision needs: Yes (reading glasses) Female Reproductive History Menstrual Age of Menarche: 10 Physical Exam Vital Signs: BMI result Body Mass Index 26.4 Extrem Other: Evaluation of Left Upper Extremity: The patient is alert, oriented, and in no acute distress Neuro: Median, Ulnar, Radial nerves motor and sensory intact and sensation is normal to the tips of all digits Vascular: Cap refill brisk ROM: She can make a fist and extend all her digits Limited ~20 degrees flexion of thumb IP joint, she says any farther will cause her thumb to lock and hurt her Visible and palpable locking & catching of the thumb Tender over the a1 anshu of the thumb Mass on ulnar aspect of small finger, at the palmar digital crease. She says this is a remnant of an extra digit that she had as a child. She has no intention of having this removed. Assessment & Plan Assessment & Plan (1) Trigger finger of left thumb: Code(s): M65.312 - Trigger thumb, left thumb Category: Medical (2) Type 2 diabetes mellitus with hyperglycemia: Comment: [facility] Dr. Roth Code(s): E11.65 - Type 2 diabetes mellitus with hyperglycemia Category: Medical Qualifiers: Diabetes mellitus penitentiary insulin use: without penitentiary use Qualified Code(s): E11.65 - Type 2 diabetes mellitus with hyperglycemia Plan Assessment & Plan: 1. Left trigger thumb, S/P injection Date of Injection: 04/09/24 I educated her about this condition I discussed operative and non-operative treatment options The patient would like to proceed with surgery, as she found no relief from her previous injection The risks and benefits of operative treatment were discussed with the patient and the patient wishes to proceed with surgery. These risks include, but are not limited to risk of damage to blood vessels, nerves, tendons, infection, recurrence, incomplete relief of preoperative symptoms, persistent pain, possible need for further surgery and the risks associated with regional blocks and anesthesia. The plan is to take the patient to the operating room sometime in the next few weeks for the following procedures: 1. Left trigger thumb release, under local All of the preoperative paperwork including the consent was reviewed today. All the patient's questions were answered. The patient understands that they will be contacted by our dental surgery doctor soon to schedule this procedure She denies blood thinners, asthma, heart, lung, kidney issues She is a Diabetic, her most recent HgA1c was 7.6% on 02/26/24 Scribed for Nara Knight MD by Deandre Arce, medical csr, on 06/18/24 at 2:45 PM, EST. Coding Level of Care Code Est Pt Level 4 (82316) Diagnoses Trigger finger of left thumb M65.312 Type 2 diabetes mellitus with hyperglycemia, without long-term current use of insulin E11.65 Diabetes mellitus parts counterman insulin use: without penitentiary use
[2024-06-18 14:22] VITALS: BMI 26.4
== END 2024-06-18 14:46 | disposition home or self-care (01) ==
PROVIDERS: PCP Internal Medicine; Visit Provider Orthopaedic Surgery
DX: M65.312 Trigger thumb, left thumb (principal); E11.65 Type 2 diabetes mellitus with hyperglycemia
CPT/HCPCS: 99214

== ENCOUNTER → 2024-06-18 14:19 | Outpatient (BNVA) | payer OTHER, SELFPAY | PROVIDERS: PCP Internal Medicine; Visit Provider Orthopaedic Surgery | DX: M65.312 Trigger thumb, left thumb (principal); E11.65 Type 2 diabetes mellitus with hyperglycemia | CPT/HCPCS: 99212 ==

== ENCOUNTER 2024-06-28 07:47 | Outpatient (REF) | payer OTHER, SELFPAY ==
[2024-06-28 08:06] LABS: MANUAL DIFF FLAG NO
[2024-06-28 08:08] LABS: Basophils Absolute Auto 0.1 X10*3/uL (0.0-0.2); Basophils Percent Auto 0.8 % (0-2); Eosinophils Absolute Auto 0.5 X10*3/uL (0.0-0.4); Eosinophils Percent Auto 7.1 % (0-4); Hematocrit 45.3 % (37.0-47.0); Hemoglobin 15.1 g/dl (12.0-16.0); Imm Gran Abs Auto 0.02 X10*3/uL (0.00-0.03); Imm Gran Pct Auto 0.3 % (0.0-0.4); Lymphocytes Absolute Auto 2.4 X10*3/uL (1.2-4.9); Lymphocytes Percent Auto 35.4 % (20-40); Mean Corpuscular HGB Conc 33.3 g/dl (31.0-35.0); Mean Corpuscular Hemoglobin 29.7 pg (27.0-33.0); Mean Corpuscular Volume 89.2 fL (80.0-98.0); Mean Platelet Volume 9.3 fL (9.4-12.3); Monocytes Absolute Auto 0.8 X10*3/uL (0.1-1.2); Monocytes Percent Auto 11.3 % (2-11); Neutrophils Percent Auto 45.1 % (45-73); Platelet Count 222 X10*3/uL (160-400); Red Blood Count 5.08 X10*6/uL (4.20-5.50); Red Cell Distribution Width 14.9 % (11.0-16.0); White Blood Count 6.6 X10*3/uL (4.8-10.8)
[2024-06-28 08:17] LABS: Estimated Average Glucose 174 mg/dL; Hemoglobin A1c % 7.7 % (<6.0)
[2024-06-28 08:30] LABS: Alanine Aminotransferase 174 U/L (0-31); Albumin Level 3.8 g/dL (3.5-5.0); Alkaline Phosphatase 355 U/L (39-117); Anion Gap 12 (12-20); Aspartate Amino Transferase 177 U/L (5-31); Blood Urea Nitrogen 20 mg/dL (9-16); Calcium 10.9 mg/dL (8.4-10.2); Carbon Dioxide 28 mmol/L (22-29); Chloride 104 mmol/L (96-108); Cholesterol 164 mg/dL (<200); Estimated Glomerular Filt Rate > 60; Glucose Random 123 mg/dL (60-115); HDL Cholesterol 45 mg/dL (>40); LDL Cholesterol Calculated 89 mg/dL (<100); Potassium 4.4 mmol/L (3.3-5.1); Sodium 140 mmol/L (135-145); Total Protein 8.9 g/dL (6.5-8.0); Triglycerides 150 mg/dL (<150)
[2024-06-28 08:48] LABS: Free T4 (Free Thyroxine) 0.83 ng/dL (0.71-1.85); Thyroid Stimulating Hormone 6.81 uIU/mL (0.32-4.0)
[2024-06-28 09:04] LABS: Vitamin B12 1716 pg/mL (200-900)
[2024-06-28 09:23] LABS: Creatinine Urine 174.12 mg/dL; Microalbum/Creatinine Ratio Ur 77.5 ug/mg cr (<30)
== END 2024-06-28 07:48 | disposition home or self-care (01) ==
LOC: HO.LAB 07:47
PROVIDERS: PCP Internal Medicine; Visit Provider Internal Medicine
DX: Z13.89 Encounter for screening for other disorder (principal)
CPT/HCPCS: 36415; 80053; 80061; 82043; 82306; 82570; 82607; 82746; 83036; 84439; 84443; 85025

== ENCOUNTER 2024-06-28 08:16 | Emergency (ER) | payer OTHER, SELFPAY ==
--- NOTE | ~2024-06-28 | XR_ITS ---
EXAMINATION: XR CHEST CLINICAL INFORMATION: cough COMPARISON: X-ray dated June 23, 2021. TECHNIQUE: Frontal view of the chest was obtained. FINDINGS: Pulmonary reticular pattern. No gross consolidation, pleural effusion or pneumothorax. Cardiomediastinal silhouette is normal in size. Calcified plaque aortic arch. Osseous structures are intact. Limited evaluation of the axial skeleton. XR/XR chest 1V IMPRESSION: No acute airspace disease. Electronically signed by: Davi Jackson MD 06/28/2024 09:03 AM EDT
[2024-06-28 08:17] VITALS: BP 131/57; PULSE 71; RESP 20; TEMP 36.9; O2SAT 96; BMI 24.6
[2024-06-28 08:54] LABS: COVID-19 Test Negative (Negative); IDNOW Serial# 08D9AD1C; IDNOW Serial# 152EDE1D; Influenza A Negative (Negative); Influenza B2 Negative (Negative)
--- NOTE | 2024-06-28 09:50 | ED.GENADULT ---
HPI - General Adult General Chief complaint: General Medical Stated complaint: asthma, headache Time Seen by Provider: 06/28/24 09:11 Source: patient Mode of arrival: ambulatory Limitations: no limitations History of Present Illness ED Provider: Yakov Bansal PA-C HPI narrative: 78-year-old female history of asthma migraine, sleep apnea, lumbar degenerative disc disease presents to the ED coughing, headache, night sweats, body aches, and chills for 1 week. Patient states dry cough. Patient denies any chest pain, shortness of breath, leg swelling, calf pain, pitting edema, pleurisy, recent long travel, or recent surgery. Related Data Home Medications ?Medication ?Instructions ?Recorded ?Confirmed multivitamin 1 tab PO DAILY 06/05/20 04/10/24 Previous Rx's ?Medication ?Instructions ?Recorded lancets 28 gauge (FreeStyle #100 ea 03/25/21 Lancets) tizanidine 4 mg tablet 4 mg PO BID PRN muscle spasticity 07/07/21 10 days #20 tabs pantoprazole 40 mg tablet,delayed 40 mg PO BID 90 days #180 tabs 09/15/22 release sumatriptan succinate 50 mg tablet 50 mg PO .QD prn PRN Migraine 01/09/23 Headache #10 tabs acetaminophen 500 mg tablet 1,000 mg (2 x 500 mg) PO QID PRN 01/26/23 pain #30 tabs tramadol 50 mg tablet 50 mg PO Q6H PRN pain #14 tabs 01/26/23 empagliflozin 25 mg tablet 25 mg PO DAILY #90 tabs 04/24/23 (Jardiance) amlodipine 5 mg tablet 5 mg PO DAILY #90 tabs 06/18/23 albuterol sulfate 90 mcg/actuation 2 puff PO QID PRN for wheezing #18 08/26/23 aerosol inhaler (Ventolin HFA) ea hydroxyzine HCl 10 mg tablet 10 mg PO BEDTIME PRN insomnia #180 11/23/23 tabs sitagliptin phosphate 100 mg 100 mg PO DAILY 90 days #90 tabs 01/13/24 tablet (Januvia) atorvastatin 80 mg tablet 80 mg PO DAILY #30 tabs 02/08/24 meloxicam 15 mg tablet 15 mg PO DAILY #90 tabs 03/30/24 anastrozole 1 mg tablet 1 mg PO DAILY #90 tabs 04/05/24 blood sugar diagnostic (FreeStyle 1 strip miscellaneous TID for 04/28/24 Lite Strips) diabetes mellitus #300 strips glipizide 5 mg tablet, extended 5 mg PO DAILY #90 tabs 05/03/24 release 24 hr albuterol sulfate 2.5 mg/3 mL 2.5 mg (3 mL) inhalation Q4-6H PRN 06/27/24 (0.083 %) solution for nebulization Wheezing #180 mL azithromycin 250 mg tablet See Rx Instructions PO .COMPLEX #6 06/28/24 tabs benzonatate 200 mg capsule 200 mg PO TID PRN cough 5 days #15 06/28/24 caps prednisone 20 mg tablet 40 mg (2 x 20 mg) PO DAILY 5 days 06/28/24 #10 tabs Allergies Allergy/AdvReac Type Severity Reaction Status Date / Time metformin Allergy Unknown 1000 mg Verified 06/28/24 08:20 cause diarrhea Review of Systems Review of Systems: COughing, bodyaches, chills, Yes all other systems are reviewed and are negative [facility] Past Medical History Medical History (Updated 06/29/24 @ 00:01 by Dasia Pacheco) Bursitis Asthma On beta jesus at home Rash Diverticulosis Personal history of colonic polyps Colitis Acute gastroenteritis Other and unspecified hyperlipidemia Essential hypertension Type 2 diabetes mellitus with unspecified complications Left knee pain Visual hallucinations TSH elevation TSH elevation RUDDY (obstructive sleep apnea) Fungal dermatitis Invasive ductal carcinoma of right breast Breast mass Cough Shortness of breath Pulmonary hypertension Valvular heart disease Restrictive pattern present on pulmonary function testing Cough variant asthma Hypercholesterolemia Diverticulitis Tubular adenoma of colon Mitral valve regurgitation GERD (gastroesophageal reflux disease) Behcets syndrome Hypertension Type 2 diabetes mellitus with hyperglycemia Overweight (BMI 25.0-29.9) Surgical History History of lumpectomy of right breast Hx of colonoscopy Back pain with history of spinal surgery History of bilateral cataract extraction History of shoulder surgery History of hand surgery History of breast biopsy History of bladder surgery History of cholecystectomy History of total abdominal hysterectomy Family History Family History Father Medical history unknown Mother Diabetes CVD (cardiovascular disease) Daughter Colon cancer Social History Social History Household Members: Spouse Housing: Apartment Are you a primary home health care physician to a significant other at home: No Do you presently have 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) Alcohol intake: former Patient Tobacco Use Status: Former Tobacco user Tobacco use type: Cigarette e-Cigarette/Vaping Use: Never Used Second Hand Smoke Exposure: No service: No Current occupational status: retired Cognitive needs: No Hearing needs: No Vision needs: Yes (reading glasses) Physical Exam ED Vital Signs: Vital Signs - 24 hr 06/28/24 08:17 Temperature 98.4 F Pulse Rate 71 Respiratory Rate 20 Blood Pressure 131/57 L Pulse Oximetry 96 Oxygen Delivery Method Room Air BMI result Body Mass Index 24.6 Const General: cooperative, healthy appearing, comfortable, no acute distress, well developed, alert, awake and Physically active Orientation/consciousness: patient oriented x3 HENMT Head: Yes normal to inspection, Yes No palpable skull fracture present, Yes normocephalic and Yes atraumatic Ears: hearing grossly normal bilaterally, external ears normal, TM's normal bilaterally, TM normal on the right, TM normal on the left, EAC's normal, mastoids normal and no periauricular adenopathy Throat: Yes posterior oropharynx normal, Yes tonsils normal and Yes uvula midline Eyes General: appearance normal, both eyes and all related structures Neck Neck: Yes normal visual inspection, Yes full ROM, Yes no lymphadenopathy, Yes no meningeal signs, Yes trachea midline, Yes supple, No anterior neck swelling and No tender Chest Chest palpation & inspection: normal inspection of the chest and normal palpation of entire chest wall Resp Other: transmitted coughing sounds Effort & Inspection: normal respiratory effort and able to speak in complete sentences Auscultation: clear to auscultation bilaterally Cardio Jugular venous distension: no JVD Heart sounds: S1 normal heart sound present and S2 normal heart sound present GI Inspection: Yes normal to inspection Palpation (GI): Soft to palpation, not firm, nontender, no guarding and not rigid General: No CVA tenderness and Yes no CVA tenderness Back/Spine/Pelvis Back: no CVA tenderness, No CVA tenderness and No back tenderness Skin General skin exam: no rashes or lesions noted, elasticity normal and turgor normal Neuro General: patient oriented x3, gait normal, tone normal, moves all extremities, Normal light touch and pain sensation, no meningeal signs, no focal motor deficits, CN's II-XI intact bilaterally and normal sensation to monofilament Extrem Other: Bilateral lower extremity negative for swelling, pitting edema, or calf tenderness General: Yes normal to inspection, Yes full ROM and Yes capillary refill normal Psych Appearance: grossly normal, well kempt and not disheveled Medical Decision Making Medical Decision Making [facility] Narrative: 78-year-old female with history of asthma presents to ED for dry cough, headache, body aches, chills, night sweats for 1 week. Patient denies any chest pain, shortness of breath, leg swelling, calf pain, pitting edema. SARs test negative. Chest x-ray normal. Not suspecting myocarditis, heart failure, WI, hemothorax, pneumothorax, TB, respiratory failure, PE, aortic dissection or any life threatening etiology. Patient will be treated as bronchitis. Patient explained worrisome signs and informed to return to the ED immediately Differential Diagnosis Differential Diagnoses: The differential diagnosis associated with the presentation includes (Bronchitis, URI, asthma) Admission/Observation Consideration of admission/observation: Escalation of care including admission/observation considered Lab Data [facility] Lab Attestation statement: I reviewed the patient's lab results. Labs: Lab Results 06/28/24 Range/Units 08:32 COVID-19 (SUZIE) Negative (Negative) COVID-19 Clin Com See Note Influenza Type A (NEETU) Negative (Negative) Influenza Type B (NEETU) Negative (Negative) Influenza A & B Note See Note Independent Interpretation I performed an independent interpretation of an: Plain X-Ray Radiology Impression Discussion of test interpretation with radiology: I have reviewed the radiologist's reading. Independent Historian Clinical information obtained from an independent historian. History obtained from or confirmed by: Other (patient) External Record Review External record reviewed: Other (prior visits) Discharge Plan Discharge Clinical Impression: Bronchitis Patient Disposition: Home, Self-Care Instructions: Acute Bronchitis (ED) Additional Instructions: Continue using your albuterol inhaler at home as needed. You will be treated as asthma bronchitis exacerbation. Return to the ED immediately for any leg swelling, calf pain, chest pain, shortness of breath, coughing up blood, weakness, dizziness, intractable fever, or any other concerning symptoms. Recommend follow up with primary care provider Prescriptions: New prednisone 20 mg tablet 40 mg PO DAILY 5 Days Qty: 10 0RF azithromycin 250 mg tablet See Rx Instructions .ROUTE .COMPLEX Qty: 6 0RF Rx Instructions: For 250 mg dose pack: take 500 mg today (day 1), then 250 mg for 4 days (days 2-5) benzonatate 200 mg capsule 200 mg PO TID PRN (Reason: cough) 5 Days Qty: 15 0RF No Action (DME) lancets [FreeStyle Lancets] 28 gauge misc See Rx Instructions .Route Qty: 100 12RF Rx Instructions: As directed three times daily tizanidine 4 mg tablet 4 mg PO BID PRN (Reason: muscle spasticity) 10 Days Qty: 20 5RF pantoprazole 40 mg tablet,delayed release (DR/EC) 40 mg PO BID 90 Days Qty: 180 2RF sumatriptan succinate 50 mg tablet 50 mg PO .QD prn PRN (Reason: Migraine Headache) Qty: 10 3RF Jardiance 25 mg tablet 25 mg PO DAILY Qty: 90 3RF amlodipine 5 mg tablet 5 mg PO DAILY Qty: 90 3RF albuterol sulfate [Ventolin HFA] 90 mcg/actuation HFA aerosol inhaler 2 puff PO QID PRN (Reason: for wheezing) Qty: 18 2RF hydroxyzine HCl 10 mg tablet 10 mg PO BEDTIME PRN (Reason: insomnia) Qty: 180 2RF Rx Instructions: please take 1-2 tablets at night for sleep as needed Januvia 100 mg tablet 100 mg PO DAILY 90 Days Qty: 90 2RF atorvastatin 80 mg tablet 80 mg PO DAILY Qty: 30 2RF meloxicam 15 mg tablet 15 mg PO DAILY Qty: 90 2RF anastrozole 1 mg tablet 1 mg PO DAILY Qty: 90 0RF FreeStyle Lite Strips Strip 1 strip miscellaneous TID Qty: 300 3RF glipizide 5 mg tablet extended release 24hr 5 mg PO DAILY Qty: 90 1RF albuterol sulfate 2.5 mg /3 mL (0.083 %) solution for nebulization 2.5 mg inhalation Q4-6H PRN (Reason: Wheezing) Qty: 180 0RF tramadol 50 mg tablet 50 mg PO Q6H PRN (Reason: pain) Qty: 14 0RF acetaminophen 500 mg tablet 1,000 mg PO QID PRN (Reason: pain) Qty: 30 0RF multivitamin Tablet 1 tab PO DAILY Interventions: ED Discharge Assessment Last Done: 06/28/24 10:10 Discharge Date/Time: 06/28/24 10:11 Print Language: Slovenian
[2024-06-28 10:10] VITALS: BP 131/57; PULSE 71; RESP 20; TEMP 36.9; O2SAT 96
== END 2024-06-28 10:11 | disposition home or self-care (01) ==
PROVIDERS: Emergency Provider Emergency Medicine Emergency Medical Services; PCP Internal Medicine
DX: J40 Bronchitis, not specified as acute or chronic (principal); R05.9 Cough, unspecified; Z11.52 Encounter for screening for COVID-19; Z79.899 Other long term (current) drug therapy
CPT/HCPCS: 36415; 71045; 80053; 80061; 82043; 82306; 82570; 82607; 82746; 83036; 84439; 84443; 85025; 87502; 87635; 99282; 99283

== ENCOUNTER → 2024-06-28 08:40 | Outpatient (BNV) | payer OTHER, SELFPAY | PROVIDERS: Emergency Provider Emergency Medicine Emergency Medical Services; PCP Internal Medicine; Visit Provider Radiology Diagnostic Radiology | DX: R05.9 Cough, unspecified (principal) | CPT/HCPCS: 71045 ==

== ENCOUNTER 2024-07-01 14:42 | Outpatient (AMB) | payer OTHER, SELFPAY ==
--- NOTE | 2024-07-01 15:00 | A.OFFPC_ITS ---
Vital Signs 07/01/24 15:01 Height 5 ft 4 in Weight 145 lb BMI 24.9 BP 130/72 Blood Pressure Location Lt brachial Position Sitting Pulse 71 Pulse Source Pulse Oximeter Pulse Oximetry (%) 96 Oxygen Delivery Method Room Air Intake Visit Reasons: DM Follow Up Allergies metformin Allergy (Unknown, Verified 06/28/24 08:20) 1000 mg cause diarrhea Tobacco use date assessed: 10/04/23 Dental Screening Dental Screen Date: 02/26/24 HPI DM Follow Up HPI Details 78-year-old female with uncontrolled jeremiah betes mellitus hypertension GERD hypercholesterolemia patient has history of breast cancer right coming in for follow-up. Noted ER visit in June 28 for coughing with night sweats and body aches for 1 week diagnosis of bronchitis and patient was prescribed Zithromax and prednisone.. Patient was recently seen also by the ortho in June 18 for left trigger thumb injections done with chief and would like to have surgery done.. Noted echocardiogram May 15Hyperdynamic LV ejection fraction of greater than 70% 2. Mild aortic regurgitation 3. Normal measured RV systolic pressure 4. Small pericardial effusion . Ho lter done May 14 Patient baseline was normal sinus rhythm with average heart of 57 beats per minute 2. Frequent sinus bradycardia noted with 70% of time heart rate below 60 beats per minute without significant pauses 3. Frequent PACs noted with total burden of 2.8% without any sustained arrhythmias 4. No patient reported events. As for t he breast cancer follows up with Hematology-Oncology elective omission of radiation therapy on anastrozole 1 mg once a day advised brain MRI due to headaches results showing essentially normal MRI large nasal septal defect which can be seen due to granulomatous disease this should be correlated., L thumb 07/2024 surgery. for the nasal defect this has a a problem from before since had fall and fracture- this has not chnaged potts ving a lot of headache still and has been prescribed a a neurologist amitriptyline but patient has not taken this. Advised patient to take this medication. Meanwhile as far as the cough still on the antibiotics right now discussed that prednisone increases the blood sugar. Will hold off from additional medication for now. As for diabetes changed Januvia to GLP 1 injections once a week. [facility] Medical History (Updated 07/01/24 @ 15:19 by Aleksandr Borrero MD) Bursitis Asthma On beta jesus at home Rash Diverticulosis Personal history of colonic polyps Colitis Acute gastroenteritis Other and unspecified hyperlipidemia Essential hypertension Type 2 diabetes mellitus with unspecified complications Left knee pain Visual hallucinations TSH elevation TSH elevation RUDDY (obstructive sleep apnea) Fungal dermatitis Invasive ductal carcinoma of right breast Breast mass Cough Shortness of breath Pulmonary hypertension Valvular heart disease Restrictive pattern present on pulmonary function testing Cough variant asthma Hypercholesterolemia Diverticulitis Tubular adenoma of colon Mitral valve regurgitation GERD (gastroesophageal reflux disease) Behcets syndrome Hypertension Type 2 diabetes mellitus with hyperglycemia Overweight (BMI 25.0-29.9) Surgical History History of lumpectomy of right breast Hx of colonoscopy Back pain with history of spinal surgery History of bilateral cataract extraction History of shoulder surgery History of hand surgery History of breast biopsy History of bladder surgery History of cholecystectomy History of total abdominal hysterectomy Family History Father Medical history unknown Mother Diabetes CVD (cardiovascular disease) Daughter Colon cancer Social History Household Members: Spouse Housing: Apartment Are you a primary healthcare project manager to a significant other at home: No Do you 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 have 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 Jean Paul River, Wendy Segura, Nick Matias and colleagues, with an educational shorty from [employer]. Physical exam (Primary Care) Vital Signs: Last Vital Signs Pulse 71 07/01/24 15:01 BP 130/72 07/01/24 15:01 Pulse Ox 96 07/01/24 15:01 Oxygen Delivery Method Room Air 07/01/24 15:01 BMI result Body Mass Index 24.9 Tobacco/Smoking Status: Tobacco use Status Tobacco use date assessed 10/04/23 07/01/24 15:02 Patient Tobacco Use Status Former Tobacco user 11/04/24 15:02 Tobacco use type Cigarette 07/01/24 15:02 e-Cigarette/Vaping Use Never Used 07/01/24 15:02 Thrive Assessment: Date of Thrive Assessment Date Thrive assessed 10/04/23 07/01/24 15:02 Const General: alert; No acute distress Eyes Conjunctivae: conjunctivae normal Resp Auscultation: clear to auscultation bilaterally Cardio Rate: regular rate Rhythm: regular rhythm GI Inspection: Yes normal to inspection Extrem General: Yes normal to inspection and No edema Coding Level of Care Code Est Pt Level 4 (26884) Complex EM visit Add On G2211 Diagnoses Type 2 diabetes mellitus with hyperglycemia, without long-term current use of insulin E11.65 Diabetes mellitus mcfp insulin use: without long term care phlebotomist use Primary hypertension I10 Hypertension type: primary hypertension Gastroesophageal reflux disease without esophagitis K21.9 Esophagitis presence: without esophagitis Hypercholesterolemia E78.00 Invasive ductal carcinoma of right breast C50.911 LFT elevation R79.89 Hypercalcemia E83.52 Nasal septal defect J34.89 Assessment & Plan Assessment & Plan (1) Type 2 diabetes mellitus with hyperglycemia: Comment: EYE and [facility] Dr. Roth Code(s): E11.65 - Type 2 diabetes mellitus with hyperglycemia Category: Medical Qualifiers: Diabetes mellitus long term care phlebotomist insulin use: without mcfp use Qualified Code(s): E11.65 - Type 2 diabetes mellitus with hyperglycemia Plan: Decrease the amount of carbohydrate intake, pasta, bread, rice and potatoes are all sugar and that is aside from all the sweet stuff, remember that fruits are good but they are Sweet also. Hemoglobin A1c goal of less than 6.5. Patient is on Jardiance 25 mg once a day glipizide 5 mg once a day Januvia 100 mg once a day had bronchitis and was placed on prednisone recently. (2) Hypertension: Code(s): I10 - Essential (primary) hypertension Category: Medical Qualifiers: Hypertension type: primary hypertension Qualified Code(s): I10 - Essential (primary) hypertension Plan: Continue with blood pressure medication. Decrease salt intake and exercise takes amlodipine 5 mg once a day (3) GERD (gastroesophageal reflux disease): Code(s): K21.9 - Gastro-esophageal reflux disease without esophagitis Category: Medical Qualifiers: Esophagitis presence: without esophagitis Qualified Code(s): K21.9 - Gastro-esophageal reflux disease without esophagitis Plan: Avoid the foods that causes that usually spicy foods, tomato products, juices, coffee, soda and foods that your sensitive to. After eating do not lie down, allow 3-4 hours before in lie down. And keep the head of bed above 30 degrees to avoid the acid from going up. (4) Hypercholesterolemia: Code(s): E78.00 - Pure hypercholesterolemia, unspecified Category: Medical Plan: Avoid fried foods, chicken skin, eggs, butter margarine, pastries and meat. Be it pork or beef they have a lot of cholesterol takes atorvastatin 80 mg once a day (5) Invasive ductal carcinoma of right breast: Comment: Lumpectomy Dr. Moise October 2020 Code(s): C50.911 - Malignant neoplasm of unspecified site of right female breast Category: Medical Plan: Up-to-date with mammogram and had a recent MRI. (6) LFT elevation: Code(s): R79.89 - Other specified abnormal findings of blood chemistry Category: Medical Plan: Request for repeat blood work as well as ultrasound of the liver. (7) Hypercalcemia: Code(s): E83.52 - Hypercalcemia Category: Medical Plan: Repeat testing and (8) Nasal septal defect: Code(s): J34.89 - Other specified disorders of nose and nasal sinuses Category: Medical Plan: Will refer to ENT Orders: Orders B Type Natriuretic Peptide Today E11.65 - Type 2 diabetes mellitus with hyperglycemia Medications: New dulaglutide (Trulicity) 0.75 mg (0.5 mL) subcut QWEEK 2 mL 3RF E11.65 - Type 2 diabetes mellitus with hyperglycemia amitriptyline 10 mg PO BEDTIME 30 tabs 0RF E11.65 - Type 2 diabetes mellitus with hyperglycemia Discontinued 2 sitagliptin phosphate (Januvia) Discontinued Reason: Doctor's Order 100 mg PO DAILY 90 days 90 tabs 2RF E11.65 - Type 2 diabetes mellitus with hyperglycemia
[2024-07-01 15:01] VITALS: BP 130/72; PULSE 71; O2SAT 96; BMI 24.9
== END 2024-07-01 15:38 | disposition home or self-care (01) ==
LOC: HO.HMCH 14:43
PROVIDERS: PCP Internal Medicine; Visit Provider Internal Medicine
DX: E11.65 Type 2 diabetes mellitus with hyperglycemia (principal); C50.911 Malignant neoplasm of unspecified site of right female breast; I10 Essential (primary) hypertension; K21.9 Gastro-esophageal reflux disease without esophagitis; E78.00 Pure hypercholesterolemia, unspecified; E83.52 Hypercalcemia; J34.89 Other specified disorders of nose and nasal sinuses

== ENCOUNTER → 2024-07-01 14:42 | Outpatient (BNVA) | payer OTHER, SELFPAY | PROVIDERS: PCP Internal Medicine; Visit Provider Internal Medicine | DX: E11.65 Type 2 diabetes mellitus with hyperglycemia (principal); I10 Essential (primary) hypertension; K21.9 Gastro-esophageal reflux disease without esophagitis; E78.00 Pure hypercholesterolemia, unspecified; C50.911 Malignant neoplasm of unspecified site of right female breast; R79.89 Other specified abnormal findings of blood chemistry; E83.52 Hypercalcemia; J34.89 Other specified disorders of nose and nasal sinuses | CPT/HCPCS: 99212 ==

== ENCOUNTER 2024-07-10 08:06 | Outpatient (REF) | payer OTHER, SELFPAY ==
--- NOTE | ~2024-07-10 | US_ITS ---
EXAMINATION: US ABDOMEN COMPLETE CLINICAL INFORMATION: Other specified abnormal findings of blood chemistry. COMPARISON: CT abdomen and pelvis 04/05/2019. X-ray KUB 07/30/2015. TECHNIQUE: Real-time imaging of the abdominal viscera. FINDINGS: PANCREAS: The visualized portion of the pancreas head and body are normal, portion of the pancreatic body and tail, not visualized are obscured by bowel gas. ABDOMINAL AORTA: The proximal, mid, and distal segments are normal in caliber. INFERIOR VENA CAVA: Visualized portions are normal. LIVER: The liver is normal in size. The liver contour is normal. Slightly prominent periportal lymph node found measured 2 x 0.9 x 1.3 cm. No focal hepatic lesion. There is no intrahepatic biliary duct dilatation seen. Increased echogenicity of the liver parenchyma, this can be seen in the setting of hepatic steatosis or liver parenchymal disease. GALLBLADDER: Surgically absent. COMMON BILE DUCT: Normal in caliber measuring 0.35 cm in diameter. RIGHT KIDNEY: Normal. No hydronephrosis. No renal calculi or focal parenchymal lesions. The kidney measures 10.1 cm in maximum dimension. LEFT KIDNEY: Normal. No hydronephrosis. No renal calculi or focal parenchymal lesions. The kidney measures 12.0 cm in maximum dimension. SPLEEN: Normal. The spleen measures 11.9 cm in maximum dimension. FREE FLUID: None. US/US abdomen complete IMPRESSION: 1. No ultrasound evidence of intra or extrahepatic biliary dilatation. 2. Mildly prominent periportal lymph node 2 x 0.9 x 1.3 cm. 3. Gallbladder has been removed. 4. Increased echogenicity of the liver parenchyma, this can be seen in the setting of hepatic steatosis or liver parenchymal disease. Electronically signed by: Drea Ash MD 07/14/2024 07:14 PM [facility]
[2024-07-10 09:31] LABS: Alanine Aminotransferase 125 U/L (0-31); Albumin Level 3.9 g/dL (3.5-5.0); Alkaline Phosphatase 302 U/L (39-117); Anion Gap 11 (12-20); Aspartate Amino Transferase 85 U/L (5-31); B Type Natriuretic Peptide 24 pg/mL (<100); Bilirubin Total 0.5 mg/dL (0.0-1.0); Blood Urea Nitrogen 14 mg/dL (9-16); Calcium 9.8 mg/dL (8.4-10.2); Carbon Dioxide 32 mmol/L (22-29); Chloride 103 mmol/L (96-108); Estimated Glomerular Filt Rate > 60; Glucose Random 148 mg/dL (60-115); Potassium 5.1 mmol/L (3.3-5.1); Sodium 141 mmol/L (135-145)
[2024-07-10 09:40] LABS: Parathyroid Hormone Intact 59.4 pg/mL (8.7-77.1)
[2024-07-10 09:57] LABS: HBsAGNum1 0.23 S/CO (0.00-0.99); Hepatitis B Core Antibody Nonreactive (Nonreactive); Hepatitis B Surface Antigen Negative (Negative); ~HepC Num1 0.12 S/CO (0.00-0.79); ~Hepatitis B Surface Antibody NONREACTIVE (Nonreactive); ~Hepatitis C Antibody Nonreactive (Nonreactive)
[2024-07-10 13:52] LABS: Creatinine Urine 80.02 mg/dL
[2024-07-12 12:44] LABS: Calcium, Ionized 5.3 mg/dL (4.7-5.5)
== END 2024-07-10 08:07 | disposition home or self-care (01) ==
LOC: HO.US 08:06
PROVIDERS: PCP Internal Medicine; Visit Provider Internal Medicine
DX: R79.89 Other specified abnormal findings of blood chemistry (principal); E11.65 Type 2 diabetes mellitus with hyperglycemia; E83.52 Hypercalcemia
CPT/HCPCS: 36415; 76700; 80053; 82330; 82570; 83880; 83970; 86704; 86706; 86803; 87340

== ENCOUNTER 2024-07-11 14:15 | Outpatient (AMB) | payer OTHER, SELFPAY ==
--- NOTE | 2024-07-11 14:35 | A.OFFVIS_ITS ---
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: Yes [employer] Client Solutions Consultant Language: Box Loader Name: voice domitila rizvi [id number] Allergies metformin Allergy (Unknown, Verified 07/11/24 14:39) 1000 mg cause diarrhea Medication List - Last Reconciled 07/11/24 by Rosanna Sequeira, TALENT AC[employer]ISITION OPERATIONS MANAGER-C acetaminophen 1,000 mg (2 x 500 mg) PO QID PRN albuterol sulfate 90 mcg/actuation (Ventolin HFA) 2 puffs PO QID PRN albuterol sulfate 2.5 mg (3 mL) inhalation Q4-6H PRN amitriptyline 10 mg PO BEDTIME amlodipine 5 mg PO DAILY anastrozole 1 mg PO DAILY atorvastatin 80 mg PO DAILY blood sugar diagnostic (FreeStyle Lite Strips) 1 strip miscellaneous TID dulaglutide (Trulicity) 0.75 mg (0.5 mL) subcut QWEEK glipizide ER 5 mg PO DAILY hydroxyzine HCl 10 mg PO BEDTIME PRN lancets (FreeStyle Lancets) As directed three times daily meloxicam 15 mg PO DAILY pantoprazole 40 mg PO BID 90 days sumatriptan succinate 50 mg PO .QD prn PRN tizanidine 4 mg PO BID PRN 10 days tramadol 50 mg PO Q6H PRN HPI HPI 3m follow up: Details: Juany is a 78-year-old female with past medical history of hypertension, hyperlipidemia, diabetes, sleep apnea who reported heart palpitations and was noted to have sinus bradycardia. On last visit a Holter monitor was ordered and she now presents for follow-up. Today she reports she has been feeling well overall. She continues to feel episodes of rapid heartbeat that can go on for several minutes. She does not recall if she felt heart palpitations when she wore the heart monitor. She says her episodes can occur randomly without clear trigger. No chest discomfort at rest or with activity. No shortness of breath, PND, orthopnea or edema. No presyncope, syncope, falls. She reports tolerating normal ADLs without difficulty. Taking meds as directed. [facility] Medical History Bursitis Asthma On beta jesus at home Rash Diverticulosis Personal history of colonic polyps Colitis Acute gastroenteritis Other and unspecified hyperlipidemia Essential hypertension Type 2 diabetes mellitus with unspecified complications Left knee pain Visual hallucinations TSH elevation TSH elevation RUDDY (obstructive sleep apnea) Fungal dermatitis Invasive ductal carcinoma of right breast Breast mass Cough Shortness of breath Pulmonary hypertension Valvular heart disease Restrictive pattern present on pulmonary function testing Cough variant asthma Hypercholesterolemia Diverticulitis Tubular adenoma of colon Mitral valve regurgitation GERD (gastroesophageal reflux disease) Behcets syndrome Hypertension Type 2 diabetes mellitus with hyperglycemia Overweight (BMI 25.0-29.9) Surgical History History of lumpectomy of right breast Hx of colonoscopy Back pain with history of spinal surgery History of bilateral cataract extraction History of shoulder surgery History of hand surgery History of breast biopsy History of bladder surgery History of cholecystectomy History of total abdominal hysterectomy Family History Father Medical history unknown Mother Diabetes CVD (cardiovascular disease) Daughter Colon cancer Social History Household Members: Spouse Housing: Apartment Are you a primary home health caregiver to a significant other at home: No Do you presently have visiting nurse or other home services: Yes ([employer]) Alcohol intake: former Patient Tobacco Use Status: Former Tobacco user Tobacco use type: Cigarette e-Cigarette/Vaping Use: Never Used Second Hand Smoke Exposure: No service: No Current occupational status: retired Cognitive needs: No Hearing needs: No Vision needs: Yes (reading glasses) Female Reproductive History Menstrual Age of Menarche: 10 Review of Systems Const All systems reviewed & are unremarkable except as noted in HPI and below ENT Denies dizziness Card Denies chest pain, Denies chest pain at rest, Denies chest pain with activity, Reports rapid heart rate, Denies pedal edema, Denies edema, Denies leg edema, Denies lightheadedness, Denies palpitations, Denies dyspnea, Denies dyspnea on exertion and Denies orthopnea Resp Denies cough, Denies dyspnea and Denies dyspnea on exertion GI Denies hematochezia and Denies change in stool character Musc Denies abnormal gait, Denies limited range of motion, Denies muscle cramps, Denies muscle weakness, Denies numbness, Denies radiating pain into limb, Denies stiffness and Denies tingling Neuro Denies abnormal gait, Denies dizziness, Denies numbness and Denies tingling Endo Denies palpitations Physical Exam Vital Signs: Last Vital Signs Pulse 55 07/11/24 14:36 BP 130/62 07/11/24 14:36 BMI result Body Mass Index 24.9 Const General: cooperative, healthy appearing, comfortable and no acute distress Orientation/consciousness: patient oriented x3 Neck Neck: Yes normal visual inspection and Yes no JVD Resp Effort & Inspection: normal respiratory effort Auscultation: clear to auscultation bilaterally, no crackles, no rales, no rhonchi and no wheezes Cardio Rate: regular rate Rhythm: regular rhythm Heart sounds: S1 normal heart sound present, S2 normal heart sound present, no murmurs and no rubs Neuro General: patient oriented x3 Extrem General: Yes normal to inspection, No no pedal edema and No calf tenderness Psych Appearance: grossly normal Mental Status: mental status grossly normal Speech and movement: Normal speech and movement present Assessment & Plan Assessment & Plan (1) Heart palpitations: Code(s): R00.2 - Palpitations Category: Medical Plan: Reports of heart palpitations like her heart is beating fast at times. She previously had reported lightheadedness but tells me this symptom has resolved. She has no presyncope, syncope, falls. EKG done last visit showed sinus b radycardia with heart rate 53. A Holter monitor was done on 05/14/2024 for 7 days showing sinus rhythm with sinus bradycardia, average heart rate 57, 70% of the time heart rate less than 60, frequent PACs, 2.8% of time. Echocardiogram done 05/14/2024 showed EF greater than 70%, mild AR. Today she reports ongoing episodes of brief rapid heartbeats. She could be having episodes of brief atrial tachycardia or having symptomatic PACs. Will avoid the use of rate slowing medications as she has underlying sinus bradycardia. She admits to having 1 caffeinated beverage daily. Discussed caffeine use and instructed to limit her use to once daily. Maintain good hydration. Continue physical activity as tolerated. Offered reassurance that palpitations do not seem to be anything significant. Will clinically re-evaluate in a few months, sooner if needed. (2) Sinus bradycardia: Comment: [place] 38 Code(s): R00.1 - Bradycardia, unspecified Category: Medical Plan: As above (3) Hypertension: Code(s): I10 - Essential (primary) hypertension Category: Medical Qualifiers: Hypertension type: primary hypertension Qualified Code(s): I10 - Essential (primary) hypertension Plan: Blood pressure normal range at this time. Continue amlodipine. Plan Time spent on chart review, documentation, interview and assessment Coding Level of Care Code Est Pt Level 4 (78072) Complex EM visit Add On G2211 Diagnoses Heart palpitations R00.2 Sinus bradycardia R00.1 Primary hypertension I10 Hypertension type: primary hypertension Time Spent (min) 28
[2024-07-11 14:36] VITALS: BP 130/62; PULSE 55; BMI 24.9
== END 2024-07-11 15:19 | disposition home or self-care (01) ==
PROVIDERS: PCP Internal Medicine; Visit Provider Nurse Practitioner Family
DX: R00.2 Palpitations (principal); R00.1 Bradycardia, unspecified; I10 Essential (primary) hypertension
CPT/HCPCS: 99214; G2211

== ENCOUNTER → 2024-07-11 14:15 | Outpatient (BNVA) | payer OTHER, SELFPAY | PROVIDERS: PCP Internal Medicine; Visit Provider Nurse Practitioner Family | DX: R00.2 Palpitations (principal); R00.1 Bradycardia, unspecified; I10 Essential (primary) hypertension | CPT/HCPCS: 99212 ==

== ENCOUNTER 2024-08-01 07:24 | Day surgery (SDC) | payer OTHER, SELFPAY ==
[2024-08-01 07:44] VITALS: BP 144/53; PULSE 66; RESP 16; TEMP 36.2; O2SAT 96; BMI 26.5
--- NOTE | 2024-08-01 08:07 | MHC.SHP ---
Pre-Procedural Eval Section A - 24 Hr Update-Section A only Date of Service: 08/01/24 The patient is an INPATIENT: No The patient has been examined within 24 hours of the surgical procedure. The History & Physical has been completed within 30 days and I have reviewed it.: Yes Section B - Complete if H&P > 30 days Chief Complaint: Trigger thumb, left thumb Allergies: Allergies Allergy/AdvReac Type Severity Reaction Status Date / Time metformin Allergy Severe 1000 mg Verified 08/01/24 07:50 cause diarrhea Plan Diagnosis/Plan: Unchanged I have reviewed the history and physical and performed a pertinent physical examination on my patient. No changes have occurred unless specified. Time Spent With Patient Time: Total time managing care of this patient today ____ minutes.
--- NOTE | 2024-08-01 08:08 | W.PM.OPN ---
Operative Note Operative Note Date of Service: 08/01/24 Narrative: Operative Note Preop diagnosis: 1. Left thumb Trigger f abdon Postop diagnosis: 1. Left thumb Trigger finger Procedure: 1. Left thumb A1 anshu release Surgeon: Nara Knight MD Solid Waste Technician: Mac ROBERTO Anesthesia: local block using 1% lidocaine with epinephrine Findings: No locking or catching after A1 anshu release EBL: Less than 5 mL Tourniquet time: None Specimens: None Complications: None Disposition: Brought to recovery room in stable condition Plan: Follow-up for 10-14 days for wound check and suture removal Indications: The patient is 78 years old, with a left trigger thumb that has been unresponsive to nonoperative management. The risks and benefits of operative treatment including but not limited to risk of damage to blood vessels, nerves, tendons, infection, persistent pain, persistent symptoms, recurrence or possible need for additional surgery were discussed with the patient and the patient wishes to proceed with surgery. Procedure: Once consent was obtained a local block was performed in the preop area using a combination of 1% lidocaine with epinephrine. The patient was then brought back to the operating suite and placed on the operative table in supine position. The left upper extremity was prepped and draped in a standard surgical fashion. Once assured that we had a good block, a 1.5 cm oblique incision was made centered over the A1 anshu of the left thumb . The incision was made through the skin to the subcutaneous tissues using a #15 blade. Careful dissection was made down to the level of the A1 anshu using tenotomy scissors, with care being taken to protect the nearby neurovascular structures. A longitudinal incision was made in the A1 anshu 1st using a #15 blade, then using tenotomy scissors under direct visualization. The A1 anshu was noted to be thickened. Following our A1 anshu release, we no longer saw any locking or catching of the digit with flexion and extension. Once satisfied with our A1 anshu release the wound was copiously irrigated with normal saline and hemostasis was obtained with a brief period of local pressure. The skin edges were reapproximated with some 5.0 nylon suture material and a sterile dressing was applied. The patient appears to have tolerated the procedure well and with no complications. All digits were well vascularized at the conclusion of the case.
[2024-08-01 10:12] VITALS: BP 159/60; PULSE 78; RESP 16; O2SAT 98
== END 2024-08-01 10:14 | disposition home or self-care (01) ==
PROVIDERS: PCP Internal Medicine; Visit Provider Orthopaedic Surgery
PROC: (CPT 26055; principal; 2024-08-01 08:50)
DX: M65.312 Trigger thumb, left thumb (principal); E11.65 Type 2 diabetes mellitus with hyperglycemia; E78.00 Pure hypercholesterolemia, unspecified; I10 Essential (primary) hypertension; C50.911 Malignant neoplasm of unspecified site of right female breast; G47.33 Obstructive sleep apnea (adult) (pediatric); J45.909 Unspecified asthma, uncomplicated; M35.2 Behcet's disease; Z79.85 Long-term (current) use of injectable non-insulin antidiabetic drugs; Z79.84 Long term (current) use of oral hypoglycemic drugs; Z79.811 Long term (current) use of aromatase inhibitors; Z79.899 Other long term (current) drug therapy; Z88.8 Allergy status to other drugs, medicaments and biological substances; Z98.890 Other specified postprocedural states; Z87.891 Personal history of nicotine dependence
CPT/HCPCS: 26055; J0171; J2003

== ENCOUNTER → 2024-08-01 07:24 | Outpatient (BNV) | payer OTHER, SELFPAY | PROVIDERS: PCP Internal Medicine; Visit Provider Orthopaedic Surgery | DX: M65.312 Trigger thumb, left thumb (principal) | CPT/HCPCS: 26055 ==

== ENCOUNTER 2024-08-14 14:16 | Outpatient (AMB) | payer OTHER, SELFPAY ==
--- NOTE | 2024-08-14 14:29 | MHC.OFFVIS ---
Vital Signs 08/14/24 14:32 Height 5 ft 2 in Weight 145 lb BMI 26.5 Handedness Right Intake Visit Reasons: PO LT Trigger thumb 08/01/24 AR Intake Note: Iris is a 78 year old right hand dominant female who presents today for a post operative s/p Left thumb A1 anshu release DOS: 08/01/24 w/ Dr Knight. Patient reports mynor thumb no longer is catching, denies pain. States she has no concerns today. Sutures removed and steri strips applied. Allergies metformin Allergy (Severe, Verified 08/14/24 14:33) 1000 mg cause diarrhea HPI HPI PO LT Trigger thumb 08/01/24 AR: Details: Patient is a 78-year-old female who presents for postoperative evaluation status post left trigger thumb release, DOS 08/01/2024. Today, the patient reports that she is feeling very well, and experiences no ongoing locking or catching of the left thumb. Patient reports no pain about the incision site. Denies any redness, swelling, or discharge from the incision site. Denies any numbness or tingling of the left hand. No other acute complaints or concerns at this time. COUNTS INCLUDE 234 BEDS AT THE [facility] Medical History LFT elevation Bursitis Asthma On beta jesus at home Rash Diverticulosis Personal history of colonic polyps Colitis Acute gastroenteritis Other and unspecified hyperlipidemia Essential hypertension Type 2 diabetes mellitus with unspecified complications Left knee pain Visual hallucinations TSH elevation TSH elevation RUDDY (obstructive sleep apnea) Fungal dermatitis Invasive ductal carcinoma of right breast Breast mass Cough Shortness of breath Pulmonary hypertension Valvular heart disease Restrictive pattern present on pulmonary function testing Cough variant asthma Hypercholesterolemia Diverticulitis Tubular adenoma of colon Mitral valve regurgitation GERD (gastroesophageal reflux disease) Behcets syndrome Hypertension Type 2 diabetes mellitus with hyperglycemia Overweight (BMI 25.0-29.9) Surgical History History of lumpectomy of right breast Hx of colonoscopy Back pain with history of spinal surgery History of bilateral cataract extraction History of shoulder surgery History of hand surgery History of breast biopsy History of bladder surgery History of cholecystectomy History of total abdominal hysterectomy Family History Father Medical history unknown Mother Diabetes CVD (cardiovascular disease) Daughter Colon cancer Social History Household Members: Spouse Housing: Apartment Are you a primary special needs child caregiver to a significant other at home: No Do you presently have visiting nurse or other home services: 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 Neuro: Normal sensation of the tips of all digits of the left hand at this time Vascular: Cap refill brisk Pain: No tenderness to palpation at or about the incision site on the left thumb No pain with range of motion of the left hand ROM: Patient is able to make a closed fist and extend all digits of the left hand fully No visible or palpable locking and catching of the left hand Skin: No lacerations or abrasions. General: No ecchymosis, erythema, or evidence of infection. Psych: Appears grossly normal Affect normal Attitude cooperative Assessment & Plan Assessment & Plan (1) Trigger finger of left thumb: Code(s): M65.312 - Trigger thumb, left thumb Category: Medical Plan 1. Left trigger thumb status post trigger release DOS 08/01/2024 Patient appears to be recovering well postoperatively Patient is educated about the typical recovery course At this time, patient is informed that she will not require any acute follow-up with us, as she appears to be recovering very well However, patient is informed that if she does have any concerns for worrisome signs or symptoms, she should call us for repeat evaluation Patient is amenable to this plan Patient will follow-up as needed with any acute concerns Coding Level of Care Code Global (63449) Diagnoses Trigger finger of left thumb M65.312
[2024-08-14 14:32] VITALS: BMI 26.5
== END 2024-08-14 14:50 | disposition home or self-care (01) ==
PROVIDERS: PCP Internal Medicine
DX: M65.312 Trigger thumb, left thumb (principal)
CPT/HCPCS: 99024

== ENCOUNTER → 2024-08-14 14:16 | Outpatient (BNVA) | payer OTHER, SELFPAY | PROVIDERS: PCP Internal Medicine | DX: Z47.89 Encounter for other orthopedic aftercare (principal); Z98.890 Other specified postprocedural states | CPT/HCPCS: 99212 ==

== ENCOUNTER 2024-09-02 13:06 | Outpatient (AMB) | payer OTHER, SELFPAY ==
[2024-09-02 13:16] VITALS: BP 134/80; PULSE 74; O2SAT 95; BMI 26.9
--- NOTE | 2024-09-02 13:16 | A.OFFPC_ITS ---
Vital Signs 09/02/24 13:16 Height 5 ft 2 in Weight 147 lb BMI 26.9 BP 134/80 Blood Pressure Location Lt brachial Position Sitting Pulse 74 Pulse Source Pulse Oximeter Pulse Oximetry (%) 95 Oxygen Delivery Method Room Air Intake Visit Reasons: LFT high, Intake Note: Bad cough, symptoms started on Jody. She has be nauseous and headaches, shortness of breath. Allergies metformin Allergy (Severe, Verified 09/02/24 13:17) 1000 mg cause diarrhea Medication List - Last Reconciled 09/02/24 by Aleksandr Borrero MD acetaminophen 1,000 mg (2 x 500 mg) PO QID PRN albuterol sulfate 90 mcg/actuation (Ventolin HFA) 2 puffs PO QID PRN albuterol sulfate 2.5 mg (3 mL) inhalation Q4-6H PRN amitriptyline 10 mg PO BEDTIME amlodipine 5 mg PO DAILY anastrozole 1 mg PO DAILY atorvastatin 80 mg PO DAILY blood sugar diagnostic (FreeStyle Lite Strips) 1 strip miscellaneous TID doxycycline hyclate 100 mg PO BID dulaglutide (Trulicity) 0.75 mg (0.5 mL) subcut QWEEK glipizide ER 5 mg PO DAILY hydroxyzine HCl 10 mg PO BEDTIME PRN lancets (FreeStyle Lancets) As directed three times daily meloxicam 15 mg PO DAILY oxycodone-acetaminophen 5-325 mg 1 tab PO Q6H PRN pantoprazole 40 mg PO BID 90 days prednisone 4 tabs QD x 2 days then 3 tabs QD x 2 days then 2 tabs Qd x 2 days then 1 tab QD x 2 days PO daily; sumatriptan succinate 50 mg PO .QD prn PRN tizanidine 4 mg PO BID PRN 10 days tramadol 50 mg PO Q6H PRN Tobacco use date assessed: 09/02/24 Fall risk assessment: No Falls in past year Last assessed Fall Risk: 09/02/24 Dental Screening Dental Screen Date: 09/02/24 Did you have a dental visit in the last 12 months?: Yes Did you have a dental problem in the last 6 months where you did not have access to dental care?: No Was dental information given to patient?: Patient has dentist HPI LFT high, HPI Details The patient is a 78-year-old female presenting with a two-week history of systemic illness characterized by persistent cough, chest pain, headaches, nausea, and dizziness. The cough has been noted to be dry, coupled with a sensation of chest tightness and wheezing, suggestive of reactive airway involvement. Upon inquiry, the patient reported experiencing congestion in both nasal passages but denied any accompanying ear pain. The patient had previously undergone a COVID-19 test, which resulted negative. She has been utilizing an albuterol inhaler with limited relief. The symptoms have persisted without significant improvement, prompting further evaluation at this visit. The patient also reports a lack of appetite and incidental fluctuations in blood glucose levels, managed on hydroxyzine. Historical data indicates an A1c of 7.7% recorded in June, reflecting suboptimal glycemic control. The discussion suggests the recent respiratory illness may have exacerbated her wheezing, underlying asthmatic condition, further complicated by suspected pneumonia, leading to the current presentation. [facility], LAT[facility] Medical History LFT elevation Bursitis Asthma On beta jesus at home Rash Diverticulosis Personal history of colonic polyps Colitis Acute gastroenteritis Other and unspecified hyperlipidemia Essential hypertension Type 2 diabetes mellitus with unspecified complications Left knee pain Visual hallucinations TSH elevation TSH elevation RUDDY (obstructive sleep apnea) Fungal dermatitis Invasive ductal carcinoma of right breast Breast mass Cough Shortness of breath Pulmonary hypertension Valvular heart disease Restrictive pattern present on pulmonary function testing Cough variant asthma Hypercholesterolemia Diverticulitis Tubular adenoma of colon Mitral valve regurgitation GERD (gastroesophageal reflux disease) Behcets syndrome Hypertension Type 2 diabetes mellitus with hyperglycemia Overweight (BMI 25.0-29.9) Surgical History History of lumpectomy of right breast Hx of colonoscopy Back pain with history of spinal surgery History of bilateral cataract extraction History of shoulder surgery History of hand surgery History of breast biopsy History of bladder surgery History of cholecystectomy History of total abdominal hysterectomy Family History Father Medical history unknown Mother Diabetes CVD (cardiovascular disease) Daughter Colon cancer Social History Household Members: Spouse Housing: Apartment Are you a primary critical care physician assistant to a significant other at home: No Do you presently have 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 1. Little interest or pleasure in doing things: not at all 2. Feeling down, depressed, or hopeless: not at all 3. Trouble falling or staying asleep, or sleeping too much: not at all 4. Feeling tired or having little energy: not at all 5. Poor appetite or overeating: not at all 6. Feeling bad about yourself - or that you are a failure or have let yourself or your family down: not at all 7. Trouble concentrating on things, such as reading the newspaper or watching television: not at all 8. Moving or speaking so slowly that other people could have noticed. Or the opposite - being so fidgety or restless that you have been moving around a lot more than usual: not at all 9. Thoughts that you would be better off or of hurting yourself in some way: not at all Total score: 0 Depression Screening Interpretation: Negative Depression Screening Done: Yes Source: Developed by Drs. Jean Paul River, Wendy Segura, Nick Matias and colleagues, with an educational shorty from [employer]. Thrive Questionnaire Date Thrive assessed: 09/02/24 I am a: Patient What is your living situation today?: I have a steady place to live Within the past 12 months, did the food you bought not last and you didn't have the money to get more?: Never true Within the past 12 months, did you worry whether your food would run out before you got money to buy more?: Never true Do you have trouble paying for medicines?: No Do you have trouble getting transportation to medical appointments?: No Do you have trouble paying your heating and electricity bill?: No Do you have trouble taking care of your child, family member or friend?: No Do you have trouble with day-to-day activities such as bathing, preparing meals, shopping, managing finances, etc.?: No Are you currently unemployed and looking for a job?: No Are you interested in more education?: No Currently or been in a relationship where the following occur: No concerns reported THRIVE Score: 0 AUDIT C Alcohol Use Questionnaire (AUDIT-C) 1. How often do you have a drink containing alcohol?: Never Total Score: 0 JUAN FRANCISCO-7 AMB Questionnaire JUAN FRANCISCO-7 Date JUAN FRANCISCO - 7 assessed: 09/02/24 Feeling nervous, anxious, or on edge: 0 = Not at all Not being able to stop or control worryin = Not at all Worrying too much about different things: 0 = Not at all Trouble relaxin = Not at all Being so restless that it is hard to sit still: 0 = Not at all Becoming easily annoyed or irritable: 0 = Not at all Feeling afraid as if something awful might happen: 0 = Not at all Total JUAN FRANCISCO-7 score (0-4 normal; 5-9 mild; 10-14 moderate; 15-21 severe): 0 Source: Developed by Drs. Jean Paul River, Wendy Segura, Nick Matias and colleagues, with an educational shorty from [employer]. JUAN FRANCISCO-7 Assessment Billing JUAN FRANCISCO-7 Assessment Tool: JUAN FRANCISCO-7 Assessment [id number] Physical exam (Primary Care) Vital Signs: Last Vital Signs Pulse 74 09/02/24 13:16 BP 134/80 09/02/24 13:16 Pulse Ox 95 09/02/24 13:16 Oxygen Delivery Method Room Air 09/02/24 13:16 BMI result Body Mass Index 26.9 Tobacco/Smoking Status: Tobacco use Status Tobacco use date assessed 09/02/24 09/02/24 13:23 Patient Tobacco Use Status Former Tobacco user 09/02/24 13:23 Tobacco use type Cigarette 09/02/24 13:23 e-Cigarette/Vaping Use Never Used 09/02/24 13:23 PHQ-9: PHQ-9 Score PHQ-9: Total score 0 09/02/24 13:23 Depression Screening Interpretation: Negative Thrive Assessment: Date of Thrive Assessment Date Thrive assessed 09/02/24 09/02/24 13:23 Currently or been in a relationship where the following occur: No concerns reported Coding Level of Care Code Est Pt Level 4 (25311) Diagnoses Type 2 diabetes mellitus with hyperglycemia, without long-term current use of insulin E11.65 Diabetes mellitus custodial insulin use: without buttermilk drier operator use Primary hypertension I10 Hypertension type: primary hypertension Hypercholesterolemia E78.00 Asthma J45.909 Asthmatic bronchitis J45.909 Additional Codes JUAN FRANCISCO-7 Assessment Billing - JUAN FRANCISCO-7 Assessment Tool: JUAN FRANCISCO-7 Assessment [id number] ([id number]) Assessment & Plan Assessment & Plan (1) Type 2 diabetes mellitus with hyperglycemia: Comment: [facility] Dr. Roth Code(s): E11.65 - Type 2 diabetes mellitus with hyperglycemia Category: Medical Qualifiers: Diabetes mellitus custodial insulin use: without custodial use Qualified Code(s): E11.65 - Type 2 diabetes mellitus with hyperglycemia (2) Hypertension: Code(s): I10 - Essential (primary) hypertension Category: Medical Qualifiers: Hypertension type: primary hypertension Qualified Code(s): I10 - Essential (primary) hypertension (3) Hypercholesterolemia: Code(s): E78.00 - Pure hypercholesterolemia, unspecified Category: Medical (4) Asthma: Code(s): J45.909 - Unspecified asthma, uncomplicated Category: Medical (5) Asthmatic bronchitis: Code(s): J45.909 - Unspecified asthma, uncomplicated Category: Medical Plan - Initiate treatment with Doxycycline, 100 mg twice daily for 7 days for suspected bacterial pneumonia. - Administer a tapering dose of Prednisone to manage inflammatory airway processes, enhancing bronchodilation and reducing wheezing. - Continue usage of albuterol inhaler as prescribed for symptomatic relief of bronchospasm. - Educate patient on monitoring for signs of hyperglycemia due to steroid therapy, noting potential for elevated blood glucose levels. - Advise increased hydration, specifically recommending six to eight glasses of water daily to assist with mucus mobilization and systemic hydration. - Consider [id number] Mucinex for mucus expectoration if productive cough symptoms develop, with Delsym as an alternative to manage dry cough episodes. - Re-evaluate if symptoms do not improve, particularly considering a follow-up chest x-ray if no resolution in cough or respiratory distress is apparent after antibiotic therapy. - Reinforce lifestyle modifications with regards to dietary management of diabetes, emphasizing low carbohydrate intake and increased consumption of v egetables to aid glycemic control. Medications: New prednisone 4 tabs QD x 2 days then 3 tabs QD x 2 days then 2 tabs Qd x 2 days then 1 tab QD x 2 days PO daily; 20 tabs 0RF J45.909 - Unspecified asthma, uncomplicated doxycycline hyclate 100 mg PO BID 14 caps 0RF J45.909 - Unspecified asthma, uncomplicated
== END 2024-09-02 13:52 | disposition home or self-care (01) ==
PROVIDERS: PCP Internal Medicine; Visit Provider Internal Medicine
DX: E11.65 Type 2 diabetes mellitus with hyperglycemia (principal); I10 Essential (primary) hypertension; E78.00 Pure hypercholesterolemia, unspecified; J45.909 Unspecified asthma, uncomplicated

== ENCOUNTER → 2024-09-02 13:06 | Outpatient (BNVA) | payer OTHER, SELFPAY | PROVIDERS: PCP Internal Medicine; Visit Provider Internal Medicine | DX: E11.65 Type 2 diabetes mellitus with hyperglycemia (principal); E78.00 Pure hypercholesterolemia, unspecified; I10 Essential (primary) hypertension; J45.909 Unspecified asthma, uncomplicated | CPT/HCPCS: 96127; 99212 ==

== ENCOUNTER 2024-11-11 14:44 | Outpatient (AMB) | payer OTHER, SELFPAY ==
[2024-11-11 14:47] VITALS: BP 134/60; PULSE 56; BMI 27.4
--- NOTE | 2024-11-11 14:47 | A.OFFVIS_ITS ---
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 Required: No Allergies metformin Allergy (Severe, Verified 11/11/24 14:49) 1000 mg cause diarrhea Medication List - Last Reconciled 11/11/24 by Rosanna Sequeira, HIGHWAY TRAFFIC CONTROL TECHNICIAN-C acetaminophen 1,000 mg (2 x 500 mg) PO QID PRN albuterol sulfate 90 mcg/actuation (Ventolin HFA) 2 puffs PO QID PRN albuterol sulfate 2.5 mg (3 mL) inhalation Q4-6H PRN amitriptyline 10 mg PO BEDTIME amlodipine 5 mg PO DAILY anastrozole 1 mg PO DAILY atorvastatin 80 mg PO DAILY blood sugar diagnostic (FreeStyle Lite Strips) 1 strip miscellaneous TID dulaglutide (Trulicity) 0.75 mg (0.5 mL) subcut QWEEK glipizide ER 5 mg PO DAILY hydroxyzine HCl 10 mg PO BEDTIME PRN lancets (FreeStyle Lancets) As directed three times daily meloxicam 15 mg PO DAILY oxycodone-acetaminophen 5-325 mg 1 tab PO Q6H PRN pantoprazole 40 mg PO BID 90 days sumatriptan succinate 50 mg PO .QD prn PRN tizanidine 4 mg PO BID PRN 10 days tramadol 50 mg PO Q6H PRN HPI HPI 4m follow up: Details: Juany is a 78-year-old female with past medical history of hypertension, hyperlipidemia, diabetes, sleep apnea, sinus bradycardia, PACs who presents for follow-up. Today she reports that she still has brief rapid heartbeats, lasting seconds and resolving. It makes her feel like she has to catch her breath. It does not happen daily. No new symptoms. She denies chest discomfort, shortness of breath, lightheadedness. She has good activity tolerance. Taking all meds as directed. [facility] Medical History LFT elevation Bursitis Asthma On beta jesus at home Rash Diverticulosis Personal history of colonic polyps Colitis Acute gastroenteritis Other and unspecified hyperlipidemia Essential hypertension Type 2 diabetes mellitus with unspecified complications Left knee pain Visual hallucinations TSH elevation TSH elevation RUDDY (obstructive sleep apnea) Fungal dermatitis Invasive ductal carcinoma of right breast Breast mass Cough Shortness of breath Pulmonary hypertension Valvular heart disease Restrictive pattern present on pulmonary function testing Cough variant asthma Hypercholesterolemia Diverticulitis Tubular adenoma of colon Mitral valve regurgitation GERD (gastroesophageal reflux disease) Behcets syndrome Hypertension Type 2 diabetes mellitus with hyperglycemia Overweight (BMI 25.0-29.9) Surgical History History of lumpectomy of right breast Hx of colonoscopy Back pain with history of spinal surgery History of bilateral cataract extraction History of shoulder surgery History of hand surgery History of breast biopsy History of bladder surgery History of cholecystectomy History of total abdominal hysterectomy Family History Father Medical history unknown Mother Diabetes CVD (cardiovascular disease) Daughter Colon cancer Social History Household Members: Spouse Housing: Apartment Are you a primary youth career specialist to a significant other at home: No Do you presently have 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) Alcohol intake: former Patient Tobacco Use Status: Former Tobacco user Tobacco use type: Cigarette e-Cigarette/Vaping Use: Never Used Second Hand Smoke Exposure: No service: No Current occupational status: retired Cognitive needs: No Hearing needs: No Vision needs: Yes (reading glasses) Female Reproductive History Menstrual Age of Menarche: 10 Review of Systems Const All systems reviewed & are unremarkable except as noted in HPI and below ENT Denies dizziness Card Denies chest pain, Denies chest pain at rest, Denies chest pain with activity, Denies rapid heart rate, Denies pedal edema, Denies edema, Denies leg edema, Denies lightheadedness, Denies palpitations, Denies dyspnea, Denies dyspnea on exertion and Denies orthopnea Resp Denies cough, Denies dyspnea and Denies dyspnea on exertion GI Denies hematochezia and Denies change in stool character Musc Denies abnormal gait, Denies limited range of motion, Denies muscle cramps, Denies muscle weakness, Denies numbness, Denies radiating pain into limb, Denies stiffness and Denies tingling Neuro Denies abnormal gait, Denies dizziness, Denies numbness and Denies tingling Endo Denies palpitations Physical Exam Vital Signs: Last Vital Signs Pulse 56 11/11/24 14:47 BP 134/60 11/11/24 14:47 BMI result Body Mass Index 27.4 Const General: cooperative, healthy appearing, comfortable and no acute distress Orientation/consciousness: patient oriented x3 Neck Neck: Yes normal visual inspection and Yes no JVD Resp Effort & Inspection: normal respiratory effort Auscultation: clear to auscultation bilaterally, no crackles, no rales, no rhonchi and no wheezes Cardio Rate: regular rate Rhythm: regular rhythm Heart sounds: S1 normal heart sound present, S2 normal heart sound present, no murmurs and no rubs Neuro General: patient oriented x3 Extrem General: Yes normal to inspection, No no pedal edema and No calf tenderness Psych Appearance: grossly normal Mental Status: mental status grossly normal Speech and movement: Normal speech and movement present Assessment & Plan Assessment & Plan (1) Heart palpitations: Code(s): R00.2 - Palpitations Category: Medical Plan: Report of brief rapid heart palpitations lasting seconds. Last EKG shows sinus bradycardia with heart rate 53. A Holter monitor was done on 05/14/2024 for 7 days showing sinus rhythm with sinus bradycardia, average heart rate 57, 70% of the time heart rate less than 60, frequent PACs, 2.8% of time. Echocardiogram done 05/14/2024 showed EF greater than 70%, mild AR. She has symptomatic PACs and short atrial runs. But did not start her on rate slowing medications as she has underlying sinus bradycardia. Spent time reviewing this with her. The frequency of her palpitations has not increased. Reviewed conservative measures such as caffeine reduction, maintaining good hydration, getting adequate rest and exercise. Cardiology follow-up 6 months, sooner if needed for increasing palpitations. (2) Sinus bradycardia: Comment: [place] 38 Code(s): R00.1 - Bradycardia, unspecified Category: Medical Plan: Asymptomatic (3) Hypertension: Code(s): I10 - Essential (primary) hypertension Category: Medical Qualifiers: Hypertension type: primary hypertension Qualified Code(s): I10 - Essential (primary) hypertension Plan: Blood pressure normal range at this time. Continue amlodipine. Plan Time spent on chart review, documentation, interview and assessment Coding Level of Care Code Est Pt Level 3 (02479) Complex EM visit Add On G2211 Diagnoses Heart palpitations R00.2 Sinus bradycardia R00.1 Primary hypertension I10 Hypertension type: primary hypertension Time Spent (min) 24
--- OUTSIDE RECORDS SUMMARY | 2024-11-11 17:19 | XMS_ITS | Clinical Summary ---
Author Organization [email or web address] Address [address] [place] [address] Care Team Providers Care Child Care Center Administrator Name Role Phone Unavailable Primary Care Provider Unavailabl e Social History Tobacco Use Types Packs/Day Years Used Date Smoking Tobacco: Never Assessed Comments Unknown Sex and Gender Information Value Date Recorded Sex Assigned at Not on file Legal Sex Female 5:06 AM EST Gender Identity Not on file Sexual Orientation Not on file Plan of Treatment Health Maintenance Due Date Last Done Comments DTaP,Tdap,and Td Vaccines (1 - Tdap) 1965 Pneumococcal Vaccine: 50+ Ye ars (1 of 1 - PCV) 1996 Zoster Vaccines (1 of 2) 1996 RSV Immunization Patients 60 + Years Old (1 - 1-dose 75+ series) 2021 COVID-19 Vaccine (1 - 2023-2 5 season) 2024 Influenza Vaccine (#1) 2024 HIB Vaccines Aged Out No longer eligi ble based on patient's age to complete this topic HPV Vaccines Aged Out No longer eligi ble based on patient's age to complete this topic Hepatitis A Vaccines Aged Out No long er eligible based on patient's age to complete this topic Hepatitis B Vaccines Aged Out No long er eligible based on patient's age to complete this topic IPV Vaccines Aged Out No longer eligi ble based on patient's age to complete this topic MMR Vaccines Aged Out No longer eligi ble based on patient's age to complete this topic Meningococcal ACWY Vaccine Aged Out N o longer eligible based on patient's age to complete this topic Meningococcal B Vacine Aged Out No lo nger eligible based on patient's age to complete this topic RSV Immunization Patients Un jennifer 20 months Aged Out No longer eligible b ased on patient's age to complete this topic Varicella Vaccines Aged Out No longer eligible based on patient's age to complete this topic
--- OUTSIDE RECORDS SUMMARY | 2024-11-11 17:19 | XMS_ITS | Patient Health Record ---
Author Organization [facility] Address [address] [place] [address] Care Team Providers Care Strain Technician Name Role Phone Aleksandr Borrero MD Primary Care Provider Olaf Gonzalez Jr Unavailable Reason For Referral No Information Medications Medication SIG (Take, Route, Frequency, Duration) Notes Start Date End Date Status traMADol HCl Active metFORMIN HCl Active Multi Vitamin/Minerals Active Colyte with Flavor Packs 240 GM As directed Orally Over the specified time. for 1 day(s) 10/11/2018 Active Zantac 150 Maximum Strength Active Pantoprazole Sodium Active Lisinopril Active amLODIPine Besylate Active traZODone HCl Active Metoprolol Succinate ER Active tiZANidine HCl Activ e Immunizations Vaccine Route Administration Date Status Comme nts Influenza Unknown 10/11/2018 Refused Social History Tobacco Use: Social History Observation Description Date Details (start date - stop date) Former Smoker NA - NA Tobacco Use/Smoking Question Answer Notes Patient is a former smoker How long has it been since you last smoked? > 10 years Problems Problem Type SNOMED Code ICD Code Onset Dates Problem Status W/U Status Risk Notes Problem [id number] Colon cancer screening (Z12.11) Active confirmed Problem [id number] Abnormal upper gastrointestinal barium series (R93.3) Active confirmed Plan Of Treatment Future Test Test Name Order Date COLONOSCOPY 01/27/2012 UPPER GI ENDOSCOPY 10/11/2018 COLONOSCOPY 10/11/2018 Insurance Providers Payer Name Payer Address Payer Phone Subscriber Number Group Number Insured Name Patient Relationship to Insured Coverage Start Date Coverage End Date [facility] [address] [place] [phone] [id number] TALIA NAIK Self - patient is the insured MEDICAID OF [facility] [address] [place] [address] [id number] TALIA NAIK Self - patient is the insured Medical (General) History Medical History History ICD Code gerd degenerative joint disease asthma diabetes mellitus, benign bladder lesion hypertension Arthritis hx of diverticulitis migraine headaches urinary incontinence Bechets disease Surgical History Surgery Date(Month/Year) cholecystectomy bladder suspension hysterectomy right shoulder surgery benign breast biopsies cystoscopy
== END 2024-11-11 15:35 | disposition home or self-care (01) ==
LOC: HO.HCS 14:45
PROVIDERS: PCP Internal Medicine; Visit Provider Nurse Practitioner Family
DX: R00.2 Palpitations (principal); R00.1 Bradycardia, unspecified; I10 Essential (primary) hypertension
CPT/HCPCS: 99213; G2211

== ENCOUNTER → 2024-11-11 14:44 | Outpatient (BNVA) | payer OTHER, SELFPAY | PROVIDERS: PCP Internal Medicine; Visit Provider Nurse Practitioner Family | DX: I10 Essential (primary) hypertension (principal); E78.5 Hyperlipidemia, unspecified; E11.9 Type 2 diabetes mellitus without complications; G47.30 Sleep apnea, unspecified; R00.2 Palpitations; R00.1 Bradycardia, unspecified; Z87.891 Personal history of nicotine dependence | CPT/HCPCS: 99212 ==

== ENCOUNTER 2024-12-03 13:33 | Outpatient (AMB) | payer OTHER, SELFPAY ==
[2024-12-03 13:38] VITALS: BP 114/62; PULSE 42; RESP 20; TEMP 36.1; O2SAT 97; BMI 27.9
--- NOTE | 2024-12-03 13:38 | A.OFFPC_ITS ---
Vital Signs 12/03/24 13:38 Height 5 ft 2 in Weight 152 lb 6.4 oz BMI 27.9 BP 114/62 Blood Pressure Location Lt brachial Position Sitting Respiration 20 Pulse 42 L Pulse Source Pulse Oximeter Temp 96.9 F Temp Source Temporal Artery Scan Pulse Oximetry (%) 97 Oxygen Delivery Method Room Air Intake Visit Reasons: 3mth f/u Cooling Room Attendant Required: No Accompanied by: Self / Same As Patient Allergies metformin Allergy (Severe, Verified 12/03/24 13:46) 1000 mg cause diarrhea Tobacco use date assessed: 12/03/24 Fall risk assessment: No Falls in past year Last assessed Fall Risk: 12/03/24 Dental Screening Dental Screen Date: 12/03/24 Did you have a dental visit in the last 12 months?: No Did you have a dental problem in the last 6 months where you did not have access to dental care?: No Was dental information given to patient?: Patient has dentist [facility] Medical History LFT elevation Bursitis Asthma On beta jesus at home Rash Diverticulosis Personal history of colonic polyps Colitis Acute gastroenteritis Other and unspecified hyperlipidemia Essential hypertension Type 2 diabetes mellitus with unspecified complications Left knee pain Visual hallucinations TSH elevation TSH elevation RUDDY (obstructive sleep apnea) Fungal dermatitis Invasive ductal carcinoma of right breast Breast mass Cough Shortness of breath Pulmonary hypertension Valvular heart disease Restrictive pattern present on pulmonary function testing Cough variant asthma Hypercholesterolemia Diverticulitis Tubular adenoma of colon Mitral valve regurgitation GERD (gastroesophageal reflux disease) Behcets syndrome Hypertension Type 2 diabetes mellitus with hyperglycemia Overweight (BMI 25.0-29.9) Surgical History History of lumpectomy of right breast Hx of colonoscopy Back pain with history of spinal surgery History of bilateral cataract extraction History of shoulder surgery History of hand surgery History of breast biopsy History of bladder surgery History of cholecystectomy History of total abdominal hysterectomy Family History Father Medical history unknown Mother Diabetes CVD (cardiovascular disease) Daughter Colon cancer Social History Household Members: Spouse Housing: Apartment Are you a primary medicare coordinator to a significant other at home: No Do you presently have visiting nurse or other home services: Yes (ASSET PROTECTION AGENT) Alcohol intake: former Patient Tobacco Use Status: Former Tobacco user Tobacco use type: Cigarette e-Cigarette/Vaping Use: Never Used Second Hand Smoke Exposure: No service: No Current occupational status: retired Cognitive needs: No Hearing needs: No Vision needs: Yes (reading glasses) Female Reproductive History Menstrual Age of Menarche: 10 Questionnaire PHQ-9 Over the last 2 weeks, how often have you been bothered by any of the following problems? 1. Little interest or pleasure in doing things: not at all 2. Feeling down, depressed, or hopeless: not at all 3. Trouble falling or staying asleep, or sleeping too much: not at all 4. Feeling tired or having little energy: not at all 5. Poor appetite or overeating: not at all 6. Feeling bad about yourself - or that you are a failure or have let yourself or your family down: not at all 7. Trouble concentrating on things, such as reading the newspaper or watching television: not at all 8. Moving or speaking so slowly that other people could have noticed. Or the opposite - being so fidgety or restless that you have been moving around a lot more than usual: not at all 9. Thoughts that you would be better off or of hurting yourself in some way: not at all Total score: 0 Depression Screening Interpretation: Negative Depression Screening Done: Yes 51085 - PHQ-9 Billing: Yes Source: Developed by Drs. Jean Paul River, Wendy Segura, Nick Matias and colleagues, with an educational shorty from [employer]. Thrive Questionnaire Date Thrive assessed: 12/03/24 I am a: Patient What is your living situation today?: I have a steady place to live Within the past 12 months, did the food you bought not last and you didn't have the money to get more?: Never true Within the past 12 months, did you worry whether your food would run out before you got money to buy more?: Never true Do you have trouble paying for medicines?: No Do you have trouble getting transportation to medical appointments?: No Do you have trouble paying your heating and electricity bill?: No Do you have trouble taking care of your child, family member or friend?: No Do you have trouble with day-to-day activities such as bathing, preparing meals, shopping, managing finances, etc.?: No Are you currently unemployed and looking for a job?: No Are you interested in more education?: No Please select the resources that you would like help with: None Currently or been in a relationship where the following occur: No concerns reported THRIVE Score: 0 AUDIT C Alcohol Use Questionnaire (AUDIT-C) 1. How often do you have a drink containing alcohol?: Never 3. How often do you have six or more drinks on one occasion?: Never Total Score: 0 JUAN FRANCIS[place]-7 AMB Questionnaire JUAN FRANCISCO-7 Date JUAN FRANCISCO - 7 assessed: 12/03/24 Feeling nervous, anxious, or on edge: 0 = Not at all Not being able to stop or control worryin = Not at all Worrying too much about different things: 0 = Not at all Trouble relaxin = Not at all Being so restless that it is hard to sit still: 0 = Not at all Becoming easily annoyed or irritable: 0 = Not at all Feeling afraid as if something awful might happen: 0 = Not at all Total JUAN [place]ANCIS[place]-7 score (0-4 normal; 5-9 mild; 10-14 moderate; 15-21 severe): 0 Source: Developed by Drs. Jean Paul River, Wendy Segura, Nick Matias and colleagues, with an educational shorty from [employer]. JUAN FRANCISCO-7 Assessment Billing JUAN FRANCISCO-7 Assessment Tool: JUAN FRANCISCO-7 Assessment 67799 Physical exam (Primary Care) Vital Signs: Last Vital Signs Temp 96.9 F 12/03/24 13:38 Pulse 42 L 12/03/24 13:38 Resp 20 12/03/24 13:38 BP 114/62 12/03/24 13:38 Pulse Ox 97 12/03/24 13:38 Oxygen Delivery Method Room Air 12/03/24 13:38 BMI result Body Mass Index 27.9 Tobacco/Smoking Status: Tobacco use Status Tobacco use date assessed 12/03/24 12/03/24 13:51 Patient Tobacco Use Status Former Tobacco user 12/03/24 13:39 Tobacco use type Cigarette 12/03/24 13:39 e-Cigarette/Vaping Use Never Used 12/03/24 13:39 PHQ-9: PHQ-9 Score PHQ-9: Total score 0 12/03/24 13:52 Depression Screening Interpretation: Negative Thrive Assessment: Date of Thrive Assessment Date Thrive assessed 12/03/24 12/03/24 13:51 Currently or been in a relationship where the following occur: No concerns reported Const General: alert; No acute distress Eyes Conjunctivae: conjunctivae normal Resp Auscultation: clear to auscultation bilaterally Cardio Rate: regular rate Rhythm: regular rhythm GI Inspection: Yes normal to inspection Extrem General: Yes normal to inspection and No edema Results AMB Hemoglobin A1c AMB Hemoglobin A1c 7.1 % Last Edit by Grace Francisco CMA on 12/03/24 13:53 Results Reviewed Results Reviewed: Laboratory Last Values Hgb A1c (Clinic) 7.1 % (4.0-6.0) H 12/03/24 13:52 Coding Level of Care Code Est Pt Level 4 (09044) Complex EM visit Add On G2211 Diagnoses Type 2 diabetes mellitus with hyperglycemia, without long-term current use of insulin E11.65 Diabetes mellitus longterm insulin use: without 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 use Overweight (BMI 25.0-29.9) E66.3 Primary hypertension I10 Hypertension type: primary hypertension Gastroesophageal reflux disease without esophagitis K21.9 Esophagitis presence: without esophagitis Hypercholesterolemia E78.00 Invasive ductal carcinoma of right breast C50.911 Hepatic steatosis K76.0 Asthma J45.909 Osteopenia M85.80 Additional Codes JUAN FRANCISCO-7 Assessment Billing - JUAN FRANCISCO-7 Assessment Tool: JUAN FRANCISCO-7 Assessment 81665 ([id number]) PHQ-9 - 52333 - PHQ-9 Billing: Yes ([id number]) Assessment & Plan Assessment & Plan (1) Type 2 diabetes mellitus with hyperglycemia: Comment: [facility] Dr. 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 Hemoglobin A1c goal of less than 7.0. Patient is taking the Trulicity 0.75 once a week glipizide 5 mg once a day. (2) Overweight (BMI 25.0-29.9): Code(s): E66.3 - Overweight Category: Medical Plan: Diet and exercise (3) Hypertension: Code(s): I10 - Essential (primary) hypertension Category: Medical Qualifiers: Hypertension type: primary hypertension Qualified Code(s): I10 - Essential (primary) hypertension Plan: Continue with blood pressure medication. Decrease salt intake and exercise continue with amlodipine 5 mg once a day (4) GERD (gastroesophageal reflux disease): Code(s): K21.9 - Gastro-esophageal reflux disease without esophagitis Category: Medical Qualifiers: Esophagitis presence: without esophagitis Qualified Code(s): K21.9 - Gastro-esophageal reflux disease without esophagitis Plan: Avoid the foods that causes that usually spicy foods, tomato products, juices, coffee, soda and foods that your sensitive to. After eating do not lie down, allow 3-4 hours before in lie down. And keep the head of bed above 30 degrees to avoid the acid from going up. (5) Hypercholesterolemia: Code(s): E78.00 - Pure hypercholesterolemia, unspecified Category: Medical Plan: Avoid fried foods, chicken skin, eggs, butter margarine, pastries and meat. Be it pork or beef they have a lot of cholesterol LDL goal of less than 100 and triglyceride of less than 150 June 2024 last blood work (6) Invasive ductal carcinoma of right breast: Comment: Lumpectomy Dr. Moise October 2020 Code(s): C50.911 - Malignant neoplasm of unspecified site of right female breast Category: Medical Plan: Continue to follow-up with Hematology-Oncology/the surgeon and up-to-date with mammogram (7) Hepatic steatosis: Comment: June 2024 Code(s): K76.0 - Fatty (change of) liver, not elsewhere classified Category: Medical Plan: Low-fat diet and exercise (8) Asthma: Code(s): J45.909 - Unspecified asthma, uncomplicated Category: Medical Plan: Prescribed albuterol as needed. (9) Osteopenia: Comment: 11/2023 Code(s): M85.80 - Other specified disorders of bone density and structure, unspecified site Category: Medical Plan History of Present Illness The patient is a 79-year-old female presenting with diabetes management concerns and cardiac symptoms including episodes of tachycardia and palpitations. She has a complex medical history featuring chronic conditions like diabetes mellitus, managed with medications including Trulicity and previous use of glipizide, which has been discontinued due to hypoglycemic episodes. Recent adjustments included increasing Trulicity dosage from 0.75 mg to 1.5 mg weekly. She has a documented history of sinus bradycardia and is under cardiology care, with a previous echocardiogram showing a normal ejection fraction. The patient?s recent health evaluations suggest stable conditions with continuous monitoring requirements for her diabetes, liver function due to hepatic steatosis, and potential cardiovascular issues. Health Maintenance - Mammogram scheduled for October 2024. - Last bone density test in November 2022, indicating osteopenia; repeat recommended. - Colonoscopy last performed in 2022. - Eye examination in October 2024 revealed no retinopathy or glaucoma findings. - Abdominal ultrasound in June 2024 showing hepatic steatosis. - Advised on dietary adjustments focusing on low sugar and fat intake. Social History - The patient follows a diet with decreased pasta and carbohydrate intake, acknowledging difficulty due to cultural preferences from [place] that include rice-heavy meals. - Reports adherence to recommended exercise and healthy lifestyle routines. Review of Systems - Cardiovascular: Reports episodes of tachycardia and palpitations. - Respiratory: Denies significant respiratory distress or wheezing. - Endocrine: Reports improved blood glucose levels; denies hypoglycemic unawareness. - Genitourinary: Reports frequent nocturia, waking up twice at night to urinate. Physical Exam Results - Labs in June 2024: Normal blood count, renal function, electrolytes; HbA1c at 7.7; LDL of 89. - Echocardiogram in April 2024: EF of 70%, mild ER. - Comprehensive metabolic panel: Elevated liver enzymes (85-125). - Chest X-ray: Negative findings. - Abdominal ultrasound: Hepatic steatosis. - Eye exam October 2024: No retinopathy or glaucoma suspect. Plan The current management plan for the patient's diabetes involves discontinuing glipizide and increasing Trulicity to control blood sugar levels. Continuous glucose monitoring is crucial in preventing hypoglycemic events. Cardiovascular evaluation and management of sinus bradycardia focus on lifestyle interventions and avoiding medications that could worsen the bradycardia. Essential follow-ups include blood pressure management with amlodipine. Dietary guidance aims to achieve cholesterol goals, with periodic reviews to assess if further pharmacological intervention is required. Regular screenings and monitoring of hepatic function are recommended due to elevated liver enzymes related to hepatic steatosis, while ensuring compliance with screening protocols such as mammograms and eye examinations. Patient was informed and verbally consented to the use of an ambient scribe for clinic note documentation during this visit. Discussion Notes I discussed with the patient her current diabetes management, emphasizing the importance of achieving more stable glucose levels. After evaluating her reports of hypoglycemia, we agreed to discontinue glipizide and increase Trulicity to 1.5 mg per week. We reviewed the implications of elevated liver enzymes associated with hepatic steatosis, and stressed the importance of her dietary modifications. The patient was informed about the potential risks associated with caffeine consumption and the importance of staying hydrated, which may alleviate her reported palpitations. I indicated the importance of regular cardiology follow- ups given her sinus bradycardia and excluded certain medications that could decline her heart rate further. Instructions on preventive care were provided, including scheduling a mammogram, maintaining a low-sugar and low-fat diet, and following up on the progression of osteopenia, undergoing scheduled bone density exams as indicated. The patient voiced understanding and agreement with the outlined plan, and we discussed upcoming appointments to continue comprehensive chronic disease management. Patient Instructions - Continue taking Trulicity as prescribed, with the increased dosage beginning next Monday. - Discontinue glipizide, monitor blood glucose levels daily. - Maintain dietary changes focusing on low sugar and low-fat intake. - Schedule and attend a mammogram, follow through with eye appointments. - Ensure adequate hydration to manage palpitations, limit caffeine intake. - Follow up with cardiology as scheduled to monitor heart rhythms. - Engage in regular physical activity as tolerated, mindful of any recommendations provided for bone health. - Should symptoms worsen or any new symptoms develop, contact the office for further evaluation. Orders: Orders XR DEXA axial skeleton Today M81.0 - Age-related osteoporosis without current pathological fracture, M85.80 - Other specified disorders of bone density and structure, unspecified site AMB Hemoglobin A1c Today E11.65 - Type 2 diabetes mellitus with hyperglycemia Medications: Changed From dulaglutide (Trulicity) 0.75 mg (0.5 mL) subcut QWEEK 2 mL 3RF E11.65 - Type 2 diabetes mellitus with hyperglycemia To dulaglutide 1.5 mg (0.5 mL) subcut QWEEK 2 mL 3RF E11.65 - Type 2 diabetes mellitus with hyperglycemia Refilled empagliflozin (Jardiance) 25 mg PO DAILY 90 tabs 3RF E11.65 - Type 2 diabetes mellitus with hyperglycemia Discontinued glipizide ER Discontinued Reason: Doctor's Order 5 mg PO DAILY 90 tabs 1RF E11.65 - Type 2 diabetes mellitus with hyperglycemia
--- OUTSIDE RECORDS SUMMARY | 2024-12-03 16:31 | XMS_ITS | Patient Health Record ---
Author Organization [facility] Address [address] [place] [address] Care Team Providers Care Executive Vice President And Chief Financial Officer Name Role Phone Aleksandr Borrero MD Primary [...] Problem Status W/U Status Risk Notes Problem [id number] Colon cancer screening (Z12.11) Active confirmed Problem [id number] Abnormal upper gastrointestinal barium series (R93.3) Active confirmed Plan Of Treatment Future Test Test Name Order Date COLONOSCOPY 01/27/2012 UPPER GI ENDOSCOPY 10/11/2018 COLONOSCOPY 10/11/2018 Insurance Providers Payer Name Payer Address Payer Phone Subscriber Number Group Number Insured Name Patient Relationship to Insured Coverage Start Date Coverage End Date [facility] [address] [place] [phone] [id number] TALIA NAIK Self - patient is the insured MEDICAID OF [facility] [address] [place] [address] [id number] TALIA NAIK Self - patient is the insured Medical (General) History Medical History History ICD Code gerd degenerative joint disease asthma diabetes mellitus, benign bladder lesion hypertension Arthritis hx of diverticulitis migraine headaches urinary incontinence Bechets disease Surgical History Surgery Date(Month/Year) cholecystectomy bladder suspension hysterectomy right shoulder surgery benign breast biopsies cystoscopy
--- OUTSIDE RECORDS SUMMARY | 2024-12-03 16:31 | XMS_ITS | Clinical Summary ---
Author Organization [employer] [facility] Address [address] [place] [address] Care Team Providers Care Senior Windows Systems Engineer Name Role Phone Unavailable Primary Care Provider [...] Vaccines (1 of 2) 1996 RSV Immunization Adult Patie nts (1 - 1-dose 75+ series) 2021 COVID-19 Vaccine ( - 2023-2 5 season) 2024 Influenza Vaccine [...] age to complete this topic Meningococcal B Vaccine Aged Out No l onger eligible based on patient's age to complete this topic RSV Immunization Patients Un jennifer 20 months Aged Out No longer eligible b ased on patient's age to complete this topic Varicella Vaccines Aged Out No longer eligible based on patient's age to complete this topic
== END 2024-12-03 14:10 | disposition home or self-care (01) ==
LOC: HO.HMCH 13:34
PROVIDERS: PCP Internal Medicine; Visit Provider Internal Medicine
DX: E11.65 Type 2 diabetes mellitus with hyperglycemia (principal); C50.911 Malignant neoplasm of unspecified site of right female breast; E66.3 Overweight; I10 Essential (primary) hypertension; K21.9 Gastro-esophageal reflux disease without esophagitis; E78.00 Pure hypercholesterolemia, unspecified; K76.0 Fatty (change of) liver, not elsewhere classified; J45.909 Unspecified asthma, uncomplicated; M85.80 Other specified disorders of bone density and structure, unspecified site

== ENCOUNTER → 2024-12-03 13:33 | Outpatient (BNVA) | payer OTHER, SELFPAY | PROVIDERS: PCP Internal Medicine; Visit Provider Internal Medicine | DX: E11.65 Type 2 diabetes mellitus with hyperglycemia (principal); E66.3 Overweight; I10 Essential (primary) hypertension; K21.9 Gastro-esophageal reflux disease without esophagitis; E78.00 Pure hypercholesterolemia, unspecified; C50.911 Malignant neoplasm of unspecified site of right female breast; K76.0 Fatty (change of) liver, not elsewhere classified; J45.909 Unspecified asthma, uncomplicated; M85.80 Other specified disorders of bone density and structure, unspecified site; R00.0 Tachycardia, unspecified; R00.2 Palpitations; Z68.27 Body mass index [BMI] 27.0-27.9, adult; Z79.899 Other long term (current) drug therapy | CPT/HCPCS: 83036; 96127; 99212 ==

== ENCOUNTER 2025-01-08 13:08 | Outpatient (REF) | payer OTHER, SELFPAY ==
--- NOTE | ~2025-01-08 | MM_ITS ---
EXAMINATION: MM DIAGNOSTIC DIGITAL BREAST TOMOSYNTHESIS, BILATERAL CLINICAL INFORMATION: Physician felt palpable lump in the upper left breast from 12-2 o'clock. History of right breast cancer status post lumpectomy. COMPARISON: Mammography: Comparison is made with relevant prior exams. TECHNIQUE: Digital breast mammography with tomosynthesis is performed in both the craniocaudal and mediolateral oblique views along with computer-aided detection (CAD). FINDINGS: The breasts are heterogeneously dense, which may obscure small masses (ACR BI-RADS breast composition Category c). Right: Postoperative changes are stable. No suspicious masses calcifications or other abnormal findings. Left: There are no significant masses, abnormal calcifications, or other abnormalities. Targeted color Doppler ultrasound scanning in the left breast area of the physician felt palpable lump from 11-3 o'clock demonstrates normal fibronodular breast tissue. There is no sonographic abnormality. Results are provided to the patient at time of visit by the technologist. MM/MM tomosynthesis diagnostic BI IMPRESSION: Right: Benign. Left: No mammographic or sonographic abnormality to account for the physician felt palpable lump from 12-2 o'clock recommend clinical evaluation follow-up. ASSESSMENT: BI-RADS BI-RADS 2 - Benign Findings RECOMMENDATION: 1 year F/U This patient's information was entered into a reminder system with a target due date for their next mammogram. Electronically signed by: Jelly Cutler DO 01/08/2025 02:23 PM EDT
--- OUTSIDE RECORDS SUMMARY | 2025-01-08 13:25 | XMS_ITS | Clinical Summary ---
Author Organization [facility] ity Address [address] [place] [address] Care Team Providers Care Quality Control Inspector Name Role Phone Unavailable Primary Care Provider [...] - 2023-2 5 season) 2024 Influenza Vaccine (Season Ended) 2025 HIB Vaccines Aged Out No longer eligi [...]
--- OUTSIDE RECORDS SUMMARY | 2025-01-08 13:25 | XMS_ITS | Patient Health Record ---
Author Organization [facility] Address [address] [place] [address] Care Team Providers Care Special Equipment Technician Name Role Phone Aleksandr Borrero MD [...] Problem Status W/U Status Risk Notes Problem [id number] Colon cancer screening (Z12.11) Active confirmed Problem [id number] Abnormal upper gastrointestinal barium series (R93.3) Active confirmed Plan Of Treatment Future Test Test Name Order Date COLONOSCOPY 01/27/2012 UPPER GI ENDOSCOPY 10/11/2018 COLONOSCOPY 10/11/2018 Insurance Providers Payer Name Payer Address Payer Phone Subscriber Number Group Number Insured Name Patient Relationship to Insured Coverage Start Date Coverage End Date [facility] [address] [place] [phone] [id number] TALIA NAIK Self - patient is the insured MEDICAID OF [facility] [address] [place] [address] [id number] TALIA NAIK Self - patient is the insured Medical (General) History Medical History History ICD Code gerd degenerative joint disease asthma diabetes mellitus, benign bladder lesion hypertension Arthritis hx of diverticulitis migraine headaches urinary incontinence Bechets disease Surgical History Surgery Date(Month/Year) cholecystectomy bladder suspension hysterectomy right shoulder surgery benign breast biopsies cystoscopy
== END 2025-01-08 13:09 | disposition home or self-care (01) ==
LOC: HO.MAMMO 13:08
PROVIDERS: PCP Internal Medicine; Visit Provider Internal Medicine
DX: R92.332 Mammographic heterogeneous density, left breast (principal)
CPT/HCPCS: 76642; 77062; 77066

== ENCOUNTER → 2025-01-08 13:30 | Outpatient (BNV) | payer OTHER, SELFPAY | PROVIDERS: PCP Internal Medicine; Visit Provider Internal Medicine | DX: N63.21 Unspecified lump in the left breast, upper outer quadrant (principal); Z85.3 Personal history of malignant neoplasm of breast | CPT/HCPCS: 76642; 77066; G0279 ==

== ENCOUNTER 2025-01-21 13:47 | Outpatient (REF) | payer OTHER, SELFPAY ==
--- NOTE | ~2025-01-21 | MM_ITS ---
EXAMINATION: DXA BONE DENSITY AXIAL HISTORY: M81.0 - Age-related osteoporosis without current pathological fracture TECHNIQUE: PeopleGoal Dual energy absorptiometry (DEXA) of the lumbar spine, total left hip, and femoral neck was performed. COMPARISON: Comparison is made with the prior examination dated 12/14/2022. FINDINGS: The bone mineral density of the lumbar spine is 1.126, corresponding to a T-score of -0.6, and a Z-score of 1.1. This is indicative of normal bone mineral density. This represents a BMD change of -3.7% compared to the prior exam. This is statistically significant. The bone mineral density of the left total hip is 0.893, corresponding to a T-score of -0.9, and a Z-score of 0.9. This is indicative of normal bone mineral density. This represents a BMD change of -3.9% compared to the prior exam. This is statistically significant. The bone mineral density of the left femoral neck is 0.849, corresponding to a T-score of -1.4, and a Z-score of 0.7. This is indicative of osteopenia. This represents a BMD change of -1.5% compared to the prior exam. FRACTURE RISK: The FRAX index suggests a ten year probability of major osteoporotic fracture of 7.1%, and of hip fracture 1.5%. MM/XR DEXA axial skeleton IMPRESSION: Based on bone mineral density, and according to World Health Organization (WHO) criteria, the diagnosis is consistent with osteopenia. All bone density values are in grams per centimeter squared (g/cm2). Statistically, 68% of repeat scans fall within 1 SD (+/- 0.010 g/cm2 for AP spine L1-L4) and 1 SD (+/- 0.012 g/cm2 for femur total) FRAX is a trademark of the [employer]'s [facility] Metabolic Bone Disease, a World Health Organization (WHO) Collaborating Center. Electronically signed by: Jean Paul Corbin MD 01/22/2025 09:09 AM EDT
--- OUTSIDE RECORDS SUMMARY | 2025-01-21 14:04 | XMS_ITS | Clinical Summary ---
Author Organization [employer] [facility] ity Address [address] [place] [address] Care Team Providers Care Flue Gas Analyst Name Role Phone Unavailable Primary Care Provider [...]
== END 2025-01-21 13:48 | disposition home or self-care (01) ==
LOC: HO.MAMMO 13:47
PROVIDERS: PCP Internal Medicine; Visit Provider Internal Medicine
DX: M81.0 Age-related osteoporosis without current pathological fracture (principal); M85.80 Other specified disorders of bone density and structure, unspecified site
CPT/HCPCS: 77080

== ENCOUNTER → 2025-01-21 14:00 | Outpatient (BNV) | payer OTHER, SELFPAY | PROVIDERS: PCP Internal Medicine; Visit Provider Radiology Diagnostic Radiology | DX: E28.39 Other primary ovarian failure (principal) | CPT/HCPCS: 77080 ==

== ENCOUNTER 2025-03-13 09:18 | Outpatient (REF) | payer OTHER, SELFPAY ==
[2025-03-13 09:34] LABS: MANUAL DIFF FLAG NO
--- OUTSIDE RECORDS SUMMARY | 2025-03-13 09:35 | XMS_ITS | Clinical Summary ---
Author Organization [facility] ity Address [address] [place] [address] Care Team Providers Care Instrumentation Fitter Name Role Phone Unavailable Primary Care Provider [...] 2023-2 5 season) 2024 Influenza Vaccine (#1) 2025 HIB Vaccines Aged Out No longer [...]
--- OUTSIDE RECORDS SUMMARY | 2025-03-13 09:35 | XMS_ITS | Patient Health Record ---
Author Organization [facility] Address [address] [place] [address] Care Team Providers Care Waist Pleater Name Role Phone Aleksandr Borrero MD Primary Care Provider Olaf Gonzalez Jr Unavailable [phone] Reason For Referral No Information Medications Medication [...] Problem Status W/U Status Risk Notes Problem [id number] Colon cancer screening (Z12.11) Active confirmed Problem [id number] Abnormal upper gastrointestinal barium series (R93.3) Active confirmed Plan Of Treatment Future Test Test Name Order Date COLONOSCOPY 01/27/2012 UPPER GI ENDOSCOPY 10/11/2018 COLONOSCOPY 10/11/2018 Insurance Providers Payer Name Payer Address Payer Phone Subscriber Number Group Number Insured Name Patient Relationship to Insured Coverage Start Date Coverage End Date [facility] [address] [place] [address] [id number] TALIA NAIK Self - patient is the insured MEDICAID OF [facility] [address] [place] [address] [id number] TALIA NAIK Self - patient is the insured Medical (General) History Medical History History ICD Code gerd degenerative joint disease asthma diabetes mellitus, benign bladder lesion hypertension Arthritis hx of diverticulitis migraine headaches urinary incontinence Bechets disease Surgical History Surgery Date(Month/Year) cholecystectomy bladder suspension hysterectomy right shoulder surgery benign breast biopsies cystoscopy
[2025-03-13 09:48] LABS: Hematocrit 40.7 % (37.0-47.0); Hemoglobin 13.6 g/dl (12.0-16.0); Imm Gran Abs Auto 0.02 X10*3/uL (0.00-0.03); Imm Gran Pct Auto 0.3 % (0.0-0.4); Lymphocytes Absolute Auto 2.1 X10*3/uL (1.2-4.9); Mean Corpuscular HGB Conc 33.4 g/dl (31.0-35.0); Mean Corpuscular Hemoglobin 28.9 pg (27.0-33.0); Mean Corpuscular Volume 86.6 fL (80.0-98.0); NRBC Abs Auto 0.000 X10*3/uL (0.0-0.012); NRBC Pct Auto 0.0 /100WBC (0.0-0.2); Platelet Count 189 X10*3/uL (160-400); Red Blood Count 4.70 X10*6/uL (4.20-5.50); White Blood Count 5.9 X10*3/uL (4.8-10.8)
[2025-03-13 09:57] LABS: Hemoglobin A1C 165.6401 umol/L; Total Hemoglobin (HGBA1C) 3549.7620 umol/L
[2025-03-13 11:27] LABS: Alanine Aminotransferase 47 U/L (0-31); Albumin Level 3.9 g/dL (3.5-5.0); Alkaline Phosphatase 168 U/L (39-117); Anion Gap 10 (12-20); Aspartate Amino Transferase 55 U/L (5-31); Blood Urea Nitrogen 13 mg/dL (9-16); Calcium 9.6 mg/dL (8.4-10.2); Carbon Dioxide 29 mmol/L (22-29); Chloride 106 mmol/L (96-108); Cholesterol 108 mg/dL (<200); Estimated Glomerular Filt Rate > 60; HDL Cholesterol 36 mg/dL (>40); Potassium 4.5 mmol/L (3.3-5.1); Sodium 140 mmol/L (135-145); Total Protein 7.3 g/dL (6.5-8.0); Triglycerides 87 mg/dL (<150)
[2025-03-13 11:28] LABS: Folate 11.0 ng/mL (> or = 4.0); Vitamin B12 509 pg/mL (200-900)
[2025-03-13 11:33] LABS: Free T4 (Free Thyroxine) 0.98 ng/dL (0.71-1.85); Thyroid Stimulating Hormone 3.06 uIU/mL (0.32-4.0)
[2025-03-13 15:20] LABS: Appearance Urine Clear; Glucose Urine UA >=1000 mg/dL (Negative); PH 6.0 (5.0-9.0); Specific Gravity - Urine >= 1.030 (1.005-1.025); UMIC TRIGGER UACC YES
== END 2025-03-13 09:19 | disposition home or self-care (01) ==
LOC: HO.LAB 09:18
PROVIDERS: Visit Provider Internal Medicine
DX: E11.65 Type 2 diabetes mellitus with hyperglycemia (principal); E78.00 Pure hypercholesterolemia, unspecified; R30.0 Dysuria
CPT/HCPCS: 36415; 80053; 80061; 81001; 82043; 82306; 82570; 82607; 82746; 83036; 84439; 84443; 85025

== ENCOUNTER 2025-03-14 12:49 | Outpatient (AMB) | payer OTHER, SELFPAY ==
--- OUTSIDE RECORDS SUMMARY | 2025-03-14 12:52 | XMS_ITS | Patient Health Record ---
Author Organization [facility] Address [address] [place] [address] Care Team Providers Care Strategic Partnership Manager Name Role Phone Aleksandr Borrero MD Primary [...] Problem Status W/U Status Risk Notes Problem [id number] Colon cancer screening (Z12.11) Active confirmed Problem [id number] Abnormal upper gastrointestinal barium series (R93.3) Active confirmed Plan Of Treatment Future Test Test Name Order Date COLONOSCOPY 01/27/2012 UPPER GI ENDOSCOPY 10/11/2018 COLONOSCOPY 10/11/2018 Insurance Providers Payer Name Payer Address Payer Phone Subscriber Number Group Number Insured Name Patient Relationship to Insured Coverage Start Date Coverage End Date [facility] [address] [place] [address] [id number] TALIA NAIK Self - patient is the insured MEDICAID OF [facility] [address] [place] [address] [id number] TALIA NAIK Self - patient is the insured Medical (General) History Medical History History ICD Code gerd degenerative joint disease asthma diabetes mellitus, benign bladder lesion hypertension Arthritis hx of diverticulitis migraine headaches urinary incontinence Bechets disease Surgical History Surgery Date(Month/Year) cholecystectomy bladder suspension hysterectomy right shoulder surgery benign breast biopsies cystoscopy
--- OUTSIDE RECORDS SUMMARY | 2025-03-14 12:52 | XMS_ITS | Encounter Summary ---
Author Organization [facility] Address [address] [place] [address] Phone Care Team Providers Care Electric Motor Rebuilder Name Role Phone Aleksandr Borrero MD Primary Care Provider Encounter Details Date Type Department Care Team (Late st Contact Info) Description 11/24/2020 Ancillary Orders [facility],Outside Imaging [address] [place] [address] System, Provider Not In, [place] [address] Social History Tobacco Use Types Packs/Day Years Used Date Smoking Tobacco: Never Assessed Comments Unknown Sex and Gender Information Value Date Recorded Sex Assigned at Not on file Legal Sex Female 1:02 PM EDT Gender Identity Not on file Sexual Orientation Not on file documented as of this encounter Plan of Treatment Not on file documented as of this encounter Results * US Breast Outside (No Interpretation) (10/28/2020 12:00 AM EST) Narrative SYSTEMGENERATED, DOCUMENTATION - 11/24/2020 12:43 PM EDT This study is for PACS storage only and not for interpretation. us Provider Not In System PhD IMG OUTSIDE IMAGING W /OUT INTERPRETATION Final Result documented in this encounter Visit Diagnoses Not on filedocumented in this encounter Care Teams Electric Motor Rebuilder Relationship Specialty Start Date End Date Aleksandr Borrero MD [address] [place] [address] PCP - General Internal Medicine 11/20/20 documented as of this encounter Additional Source Comments The information contained in this document represents components of the legal health record. It is not the complete legal health record.[facility]
--- OUTSIDE RECORDS SUMMARY | 2025-03-14 12:52 | XMS_ITS | Clinical Summary ---
Author Organization [facility] ity Address [address] [place] [address] Care Team Providers Care Performance Tester Name Role Phone Unavailable Primary Care Provider [...]
--- NOTE | 2025-03-14 13:07 | A.OFFPC_ITS ---
Vital Signs 03/14/25 13:08 Height 5 ft 2 in Weight 146 lb 4 oz BMI 26.7 BP 110/62 Blood Pressure Location Lt brachial Position Sitting Pulse 52 Pulse Source Pulse Oximeter Pulse Oximetry (%) 96 Oxygen Delivery Method Room Air Intake Visit Reasons: DM Allergies metformin Allergy (Severe, Verified 03/14/25 13:10) 1000 mg cause diarrhea Tobacco use date assessed: 03/14/25 Fall risk assessment: No Falls in past year Last assessed Fall Risk: 03/14/25 Dental Screening Dental Screen Date: 12/03/24 Did you have a dental visit in the last 12 months?: No Did you have a dental problem in the last 6 months where you did not have access to dental care?: No Was dental information given to patient?: Patient has dentist [facility] Medical History LFT elevation Bursitis Asthma On beta jesus at home Rash Diverticulosis Personal history of colonic polyps Colitis Acute gastroenteritis Other and unspecified hyperlipidemia Essential hypertension Type 2 diabetes mellitus with unspecified complications Left knee pain Visual hallucinations TSH elevation TSH elevation RUDDY (obstructive sleep apnea) Fungal dermatitis Invasive ductal carcinoma of right breast Breast mass Cough Shortness of breath Pulmonary hypertension Valvular heart disease Restrictive pattern present on pulmonary function testing Cough variant asthma Hypercholesterolemia Diverticulitis Tubular adenoma of colon Mitral valve regurgitation GERD (gastroesophageal reflux disease) Behcets syndrome Hypertension Type 2 diabetes mellitus with hyperglycemia Overweight (BMI 25.0-29.9) Surgical History History of lumpectomy of right breast Hx of colonoscopy Back pain with history of spinal surgery History of bilateral cataract extraction History of shoulder surgery History of hand surgery History of breast biopsy History of bladder surgery History of cholecystectomy History of total abdominal hysterectomy Family History Father Medical history unknown Mother Diabetes CVD (cardiovascular disease) Daughter Colon cancer Social History Household Members: Spouse Housing: Apartment Are you a primary hiv/aids care nurse to a significant other at home: No Do you presently have visiting nurse or other home services: Yes (FIRST PRESS OPERATOR) Alcohol intake: former Patient Tobacco Use Status: Former Tobacco user Tobacco use type: Cigarette e-Cigarette/Vaping Use: Never Used Second Hand Smoke Exposure: No service: No Current occupational status: retired Cognitive needs: No Hearing needs: No Vision needs: Yes (reading glasses) Female Reproductive History Menstrual Age of Menarche: 10 Questionnaire PHQ-9 Over the last 2 weeks, how often have you been bothered by any of the following problems? 1. Little interest or pleasure in doing things: not at all 2. Feeling down, depressed, or hopeless: not at all 3. Trouble falling or staying asleep, or sleeping too much: not at all 4. Feeling tired or having little energy: not at all 5. Poor appetite or overeating: not at all 6. Feeling bad about yourself - or that you are a failure or have let yourself or your family down: not at all 7. Trouble concentrating on things, such as reading the newspaper or watching television: not at all 8. Moving or speaking so slowly that other people could have noticed. Or the opposite - being so fidgety or restless that you have been moving around a lot more than usual: not at all 9. Thoughts that you would be better off or of hurting yourself in some way: not at all Total score: 0 Depression Screening Interpretation: Negative Depression Screening Done: Yes Source: Developed by Drs. Jean Paul River, Wendy Segura, Nick Matias and colleagues, with an educational shorty from [employer]. Thrive Questionnaire Date Thrive assessed: 12/03/24 I am a: Patient What is your living situation today?: I have a steady place to live Within the past 12 months, did the food you bought not last and you didn't have the money to get more?: Never true Within the past 12 months, did you worry whether your food would run out before you got money to buy more?: Never true Do you have trouble paying for medicines?: No Do you have trouble getting transportation to medical appointments?: No Do you have trouble paying your heating and electricity bill?: No Do you have trouble taking care of your child, family member or friend?: No Do you have trouble with day-to-day activities such as bathing, preparing meals, shopping, managing finances, etc.?: No Are you currently unemployed and looking for a job?: No Are you interested in more education?: No Please select the resources that you would like help with: None Currently or been in a relationship where the following occur: No concerns reported THRIVE Score: 0 AUDIT C Alcohol Use Questionnaire (AUDIT-C) 1. How often do you have a drink containing alcohol?: Never 3. How often do you have six or more drinks on one occasion?: Never Total Score: 0 JUAN FRANCISCO-7 AMB Questionnaire JUAN FRANCISCO-7 Date JUAN FRANCISCO - 7 assessed: 12/03/24 Feeling nervous, anxious, or on edge: 0 = Not at all Not being able to stop or control worryin = Not at all Worrying too much about different things: 0 = Not at all Trouble relaxin = Not at all Being so restless that it is hard to sit still: 0 = Not at all Becoming easily annoyed or irritable: 0 = Not at all Feeling afraid as if something awful might happen: 0 = Not at all Total JUAN FRANCISCO-7 score (0-4 normal; 5-9 mild; 10-14 moderate; 15-21 severe): 0 Source: Developed by Drs. Jean Paul River, Wendy Segura, Nick Matias and colleagues, with an educational shorty from [employer]. Physical exam (Primary Care) Vital Signs: Last Vital Signs Pulse 52 03/14/25 13:08 BP 110/62 03/14/25 13:08 Pulse Ox 96 03/14/25 13:08 Oxygen Delivery Method Room Air 03/14/25 13:08 BMI result Body Mass Index 26.7 Tobacco/Smoking Status: Tobacco use Status Tobacco use date assessed 03/14/25 03/14/25 13:11 Patient Tobacco Use Status Former Tobacco user 03/14/25 13:11 Tobacco use type Cigarette 03/14/25 13:11 e-Cigarette/Vaping Use Never Used 03/14/25 13:11 PHQ-9: PHQ-9 Score PHQ-9: Total score 0 03/14/25 13:17 Depression Screening Interpretation: Negative Thrive Assessment: Date of Thrive Assessment Date Thrive assessed 12/03/24 03/14/25 13:11 Currently or been in a relationship where the following occur: No concerns reported Const General: alert; No acute distress Eyes Conjunctivae: conjunctivae normal Resp Auscultation: clear to auscultation bilaterally Cardio Rate: regular rate Rhythm: regular rhythm GI Inspection: Yes normal to inspection Extrem General: Yes normal to inspection and No edema Coding Level of Care Code Est Pt Level 4 (41156) Complex EM visit Add On G2211 Diagnoses Type 2 diabetes mellitus with hyperglycemia, without long-term current use of insulin E11.65 Diabetes mellitus private branch exchange service advisor insulin use: without long-term use Overweight (BMI 25.0-29.9) E66.3 Hypercholesterolemia E78.00 Primary hypertension I10 Hypertension type: primary hypertension Gastroesophageal reflux disease without esophagitis K21.9 Esophagitis presence: without esophagitis Hepatic steatosis K76.0 Asthma J45.909 Assessment & Plan Assessment & Plan (1) Type 2 diabetes mellitus with hyperglycemia: Comment: [facility] Dr. Roth Code(s): E11.65 - Type 2 diabetes mellitus with hyperglycemia Category: Medical Qualifiers: Diabetes mellitus long-term insulin use: without private branch exchange service advisor use Qualified Code(s): E11.65 - Type 2 diabetes mellitus with hyperglycemia Plan: Decrease the amount of carbohydrate intake, pasta, bread, rice and potatoes are all sugar and that is aside from all the sweet stuff, remember that fruits are good but they are Sweet also. Hemoglobin A1c goal of less than 7.0. Patient on Trulicity at 1.5 mg once a week Jardiance 25 mg once a day (2) Overweight (BMI 25.0-29.9): Code(s): E66.3 - Overweight Category: Medical Plan: Diet and exercise (3) Hypercholesterolemia: Code(s): E78.00 - Pure hypercholesterolemia, unspecified Category: Medical Plan: Avoid fried foods, chicken skin, eggs, butter margarine, pastries and meat. Be it pork or beef they have a lot of cholesterol LDL goal of less than 100 and triglyceride of less than 150 on atorvastatin 80 mg once a day (4) Hypertension: Code(s): I10 - Essential (primary) hypertension Category: Medical Qualifiers: Hypertension type: primary hypertension Qualified Code(s): I10 - Essential (primary) hypertension Plan: Continue with blood pressure medication. Decrease salt intake and exercise on amlodipine 5 mg once a day (5) GERD (gastroesophageal reflux disease): Code(s): K21.9 - Gastro-esophageal reflux disease without esophagitis Category: Medical Qualifiers: Esophagitis presence: without esophagitis Qualified Code(s): K21.9 - Gastro-esophageal reflux disease without esophagitis Plan: Avoid the foods that causes that usually spicy foods, tomato products, juices, coffee, soda and foods that your sensitive to. After eating do not lie down, allow 3-4 hours before in lie down. And keep the head of bed above 30 degrees to avoid the acid from going up. (6) Hepatic steatosis: Comment: June 2024 Code(s): K76.0 - Fatty (change of) liver, not elsewhere classified Category: Medical Plan: Low-fat diet and exercise (7) Asthma: Code(s): J45.909 - Unspecified asthma, uncomplicated Category: Medical Plan: Continue with albuterol inhaler as needed Plan History of Present Illness The patient is a 79-year-old female presenting for a follow-up visit. She has a history of diabetes mellitus, hypertension, gastroesophageal reflux disease, hypercholesterolemia, right breast cancer diagnosed in 2020, obstructive sleep apnea, hepatic steatosis, asthma, and proteinuria. The patient was last seen in November 2024 and is currently overweight, although she has noted a 6-pound weight loss. Her blood work from March 13 showed normal blood count, normal sodium and potassium levels, normal kidney function, and a h emoglobin A1c of 6.4, indicating good control of her diabetes. However, her liver enzymes were elevated, consistent with her history of hepatic steatosis, and her vitamin D level was low at 22. The patient's cholesterol management is effective, with an LDL of 55 and triglycerides of 87. She is currently on atorvastatin 80 mg daily for hypercholesterolemia and has a goal of maintaining LDL below 100 and triglycerides below 150. For diabetes management, the patient is on Trulicity 1.5 mg weekly and Jardiance 25 mg daily, with a target hemoglobin A1c of less than 7.0. She is advised to maintain her diet and exercise regimen to support her diabetes and overall health. The patient has obstructive sleep apnea but is unable to tolerate CPAP therapy. She continues to use an albuterol inhaler as needed for asthma management. Preventative care measures include being up to date with bone density and colon cancer screenings, with the last tests conducted in October 2022. She is due for a mammogram. Health Maintenance - Mammogram due - Up to date with bone density and colon cancer screenings, last done in October 2022 Social History - Exercise: Patient is advised to maintain a regular exercise regimen. Review of Systems Physical Exam Results - Labs: Blood count normal, sodium and potassium levels normal, kidney function normal, hemoglobin A1c 6.4, elevated liver enzymes, vitamin D level 22, LDL 55, triglycerides 87 Plan The patient's diabetes management includes maintaining a hemoglobin A1c goal of less than 7.0, supported by medications such as Trulicity and Jardiance, mega gside diet and exercise. For hypercholesterolemia, the patient is on atorvastatin with a goal of keeping LDL below 100 and triglycerides below 150. The patient is advised to continue her current regimen for hypertension and gastroesophageal reflux disease, including medications and lifestyle modifications. She is unable to tolerate CPAP for obstructive sleep apnea and continues to use an albuterol inhaler as needed for asthma. Preventative care includes scheduling a mammogram and maintaining up-to-date screenings for bone density and colon cancer. Patient was informed and verbally consented to the use of an ambient scribe for clinic note documentation during this visit. Discussion Notes Patient Instructions - Continue taking Trulicity and Jardiance as prescribed. - Maintain a healthy diet and regular exercise routine. - Schedule a mammogram. - Continue atorvastatin for cholesterol management. - Use albuterol inhaler as needed for asthma. Medications: Refilled hydroxyzine HCl please take 1-2 tablets at night for sleep as needed 10 mg PO BEDTIME PRN 180 tabs 2RF insomnia G47.00 - Insomnia, unspecified
[2025-03-14 13:08] VITALS: BP 110/62; PULSE 52; O2SAT 96; BMI 26.7
== END 2025-03-14 13:25 | disposition home or self-care (01) ==
LOC: HO.HMCH 12:50
PROVIDERS: PCP Internal Medicine; Visit Provider Internal Medicine
DX: E11.65 Type 2 diabetes mellitus with hyperglycemia (principal); E66.3 Overweight; E78.00 Pure hypercholesterolemia, unspecified; I10 Essential (primary) hypertension; K21.9 Gastro-esophageal reflux disease without esophagitis; K76.0 Fatty (change of) liver, not elsewhere classified; J45.909 Unspecified asthma, uncomplicated

== ENCOUNTER → 2025-03-14 12:49 | Outpatient (BNVA) | payer OTHER, SELFPAY | PROVIDERS: PCP Internal Medicine; Visit Provider Internal Medicine | DX: E11.65 Type 2 diabetes mellitus with hyperglycemia (principal); E66.3 Overweight; Z68.26 Body mass index [BMI] 26.0-26.9, adult; E78.00 Pure hypercholesterolemia, unspecified; I10 Essential (primary) hypertension; K21.9 Gastro-esophageal reflux disease without esophagitis; K76.0 Fatty (change of) liver, not elsewhere classified; J45.909 Unspecified asthma, uncomplicated; Z79.899 Other long term (current) drug therapy; Z13.31 Encounter for screening for depression | CPT/HCPCS: 96127; 99212 ==

== ENCOUNTER 2025-05-15 13:33 | Outpatient (AMB) | payer OTHER, SELFPAY ==
[2025-05-15 14:11] VITALS: BP 100/62; PULSE 53; BMI 26.9
--- NOTE | 2025-05-15 14:11 | MHC.OFFVIS ---
Vital Signs 05/15/25 14:11 Height 5 ft 2 in Weight 146 lb 13.246 oz BMI 26.9 BP 100/62 Blood Pressure Location Lt brachial Position Sitting Pulse 53 Pulse Source Monitor Intake Visit Reasons: 6 mth f/up Customer Experience Leader Required: No Allergies metformin Allergy (Severe, Verified 05/15/25 14:14) 1000 mg cause diarrhea Medication List - Last Reconciled 05/15/25 by Rosanna Sequeira, COMBER SETTER-C acetaminophen 1,000 mg (2 x 500 mg) PO QID PRN albuterol sulfate 90 mcg/actuation (Ventolin HFA) 2 puffs PO QID PRN albuterol sulfate 2.5 mg (3 mL) inhalation Q4-6H PRN amitriptyline 10 mg PO BEDTIME amlodipine 5 mg PO DAILY anastrozole 1 mg PO DAILY atorvastatin 80 mg PO DAILY blood sugar diagnostic (FreeStyle Lite Strips) 1 strip miscellaneous TID dulaglutide 1.5 mg (0.5 mL) subcut QWEEK empagliflozin (Jardiance) 25 mg PO DAILY lancets (FreeStyle Lancets) As directed three times daily meloxicam 15 mg PO DAILY pantoprazole 40 mg PO BID 90 days sumatriptan succinate 50 mg PO .QD prn PRN tramadol 50 mg PO Q6H PRN HPI HPI 6 mth f/up: Details: Juany is a 79-year-old female with past medical history of hypertension, hyperlipidemia, diabetes, sleep apnea, sinus bradycardia, PACs who presents for follow-up. Today she reports that she has not been bothered much by her brief rapid heart palpitations. She has not had episodes lasting longer than a few seconds. No new symptoms. She denies chest discomfort, shortness of breath, lightheadedness. She has good activity tolerance. Overall pleased with how she is feeling. Taking all meds as directed. [facility] Medical History LFT elevation Bursitis Asthma On beta jesus at home Rash Diverticulosis Personal history of colonic polyps Colitis Acute gastroenteritis Other and unspecified hyperlipidemia Essential hypertension Type 2 diabetes mellitus with unspecified complications Left knee pain Visual hallucinations TSH elevation TSH elevation RUDDY (obstructive sleep apnea) Fungal dermatitis Invasive ductal carcinoma of right breast Breast mass Cough Shortness of breath Pulmonary hypertension Valvular heart disease Restrictive pattern present on pulmonary function testing Cough variant asthma Hypercholesterolemia Diverticulitis Tubular adenoma of colon Mitral valve regurgitation GERD (gastroesophageal reflux disease) Behcets syndrome Hypertension Type 2 diabetes mellitus with hyperglycemia Overweight (BMI 25.0-29.9) Surgical History History of lumpectomy of right breast Hx of colonoscopy Back pain with history of spinal surgery History of bilateral cataract extraction History of shoulder surgery History of hand surgery History of breast biopsy History of bladder surgery History of cholecystectomy History of total abdominal hysterectomy Family History Father Medical history unknown Mother Diabetes CVD (cardiovascular disease) Daughter Colon cancer Social History Household Members: Spouse Housing: Apartment Are you a primary wound care nurse to a significant other at home: No Do you presently have visiting nurse or other home services: Yes (WOMEN'S MINISTRY DIRECTOR) Alcohol intake: former Patient Tobacco Use Status: Former Tobacco user Tobacco use type: Cigarette e-Cigarette/Vaping Use: Never Used Second Hand Smoke Exposure: No service: No Current occupational status: retired Cognitive needs: No Hearing needs: No Vision needs: Yes (reading glasses) Female Reproductive History Menstrual Age of Menarche: 10 Review of Systems Const All systems reviewed & are unremarkable except as noted in HPI and below ENT Denies dizziness Card Denies chest pain, Denies chest pain at rest, Denies chest pain with activity, Denies rapid heart rate, Denies pedal edema, Denies edema, Denies leg edema, Denies lightheadedness, Denies palpitations, Denies dyspnea, Denies dyspnea on exertion and Denies orthopnea Resp Denies cough, Denies dyspnea and Denies dyspnea on exertion GI Denies hematochezia and Denies change in stool character Musc Denies abnormal gait, Denies limited range of motion, Denies muscle cramps, Denies muscle weakness, Denies numbness, Denies radiating pain into limb, Denies stiffness and Denies tingling Neuro Denies abnormal gait, Denies dizziness, Denies numbness and Denies tingling Endo Denies palpitations Physical Exam Vital Signs: Last Vital Signs Pulse 53 05/15/25 14:11 BP 100/62 05/15/25 14:11 BMI result Body Mass Index 26.9 Const General: cooperative, healthy appearing, comfortable and no acute distress Orientation/consciousness: patient oriented x3 Neck Neck: Yes normal visual inspection Resp Effort & Inspection: normal respiratory effort Auscultation: clear to auscultation bilaterally, no rales, no rhonchi and no wheezes Cardio Rate: regular rate Rhythm: regular rhythm Heart sounds: S1 normal heart sound present, S2 normal heart sound present, no murmurs and no rubs Neuro General: patient oriented x3 Extrem General: Yes normal to inspection, No no pedal edema and No calf tenderness Psych Appearance: grossly normal Mental Status: mental status grossly normal Speech and movement: Normal speech and movement present Office Procedures EKG Details: Today, read by me, sinus bradycardia, left axis, minimal voltage criteria for LVH, can not exclude prior anterior infarct, rate 53, QTC 401 milliseconds, no significant change in appearance from prior EKG [id number], Complete Assessment & Plan Assessment & Plan (1) Heart palpitations: Code(s): R00.2 - Palpitations Category: Medical Plan: Report of brief rapid heart palpitations lasting seconds, found to be PACs and brief SVT runs. Last Holter monitor was done on 05/14/2024 for 7 days showing sinus rhythm with sinus bradycardia, average heart rate 57, 70% of the time heart rate less than 60, frequent PACs, 2.8% of time. Echocardiogram done 05/14/2024 showed EF greater than 70%, mild AR. She was managed conservatively with caffeine reduction, maintaining good hydration and getting adequate rest. She was not put on beta-jesus due to sinus bradycardia at baseline. Currently doing well without significant symptoms. Continue current treatment plan. Cardiology follow-up 1 year, sooner if needed. (2) Sinus bradycardia: Comment: IA 38 Code(s): R00.1 - Bradycardia, unspecified Category: Medical Plan: Asymptomatic. EKG today showing sinus bradycardia, rate 53. Unchanged from prior (3) Hypertension: Code(s): I10 - Essential (primary) hypertension Category: Medical Qualifiers: Hypertension type: primary hypertension Qualified Code(s): I10 - Essential (primary) hypertension Plan: Blood pressure goal less than 130/80. Blood pressure normal at present. Continue amlodipine. Plan We discussed the patient'sHeart palpitations, noting that no immediate changes are necessary unless symptoms worsen. The patient was advised to avoid caffeine, stay hydrated and get adequate rest to prevent exacerbation of palpitations. Follow-up for the heart is scheduled in one year, with instructions to seek care sooner if symptoms change. Patient Instructions: - Avoid caffeine to prevent palpitations. - Exercise as tolerated, stay well hydrated and get adequate rest. - Follow up in one year for heart evaluation, sooner if symptoms worsen. Patient was informed and verbally consented to the use of an ambient scribe for clinic note documentation during this visit. Visit time spent on chart review, interview, assessment, orders, documentation. Coding Level of Care Code Est Pt Level 3 (96990) Complex EM visit Add On G2211 Diagnoses Heart palpitations R00.2 Sinus bradycardia R00.1 Primary hypertension I10 Hypertension type: primary hypertension CPT Codes EKG - CPT: 72536-[id number], Complete ([id number]) Time Spent (min) 24
--- OUTSIDE RECORDS SUMMARY | 2025-05-15 15:37 | XMS_ITS | Clinical Summary ---
Author Organization [facility] Address [address] [place] [address] Phone Care Team Providers Care Small Arms Artillery Repairer Name Role Phone Aleksandr Borrero MD Primary Care Provider [phone] Allergies Active Allergy Reactions Criticality Noted Date Comments Metformin 11/23/2020 Diarrhea Medications acetaminophen (TYLENOL) 500 MG tablet Take 500 mg by mouth every 6 (six) hours as needed for pain (specific location in comments). Active albuterol 2.5 mg/0.5 mL nebulizer solutionIndicati ons:q 4 to 6 hours prn Take 2.5 mg by nebulization 4 (four) times a day as needed for wheezing. Indications: q 4 to 6 hours prn Active aspirin 81 MG EC tablet Take 81 mg by mouth daily. Active fluticasone propion-salmeter oL (ADVAIR DISKUS) 250-50 mcg/dose DISKUS Inhale 250 mcg/actuation of fluticasone into the lungs 2 (two) times a day. Active ibuprofen (ADVIL,MOTRIN) 600 MG tablet Take 600 mg by mouth 3 (three) times a day. Active therapeutic multivitamin tablet Take 1 tablet by mouth daily. Active SITagliptin (JANUVIA) 100 MG tablet Take 100 mg by mouth daily. Active traZODone (DESYREL) 50 MG tabletIndication s:prn Take 50 mg by mouth nightly at bedtime. Indications: prn Active Family History Medical History Relation Comments Cancer Daughter Diabetes Mother Vascular disease Mother Cancer Sister Relation Status Comments Daughter Other colon Mother Sister Other Breast Social History Tobacco Use Types Packs/Day Years Used Date Smoking Tobacco: Never Assessed Education Answer Date Recorded Are you interested in more education? Not on desi e 12/23/2022 Are you concerned about learning? Not on file 12/23/2022 No 12/23/2022 No 12/23/2022 Digital Access Answer Date Recorded No 01/21/2023 No 01/21/2023 Reliable internet access at home? Not on file 01/21/2023 Device with a working camera? Not on file Comments Unknown Sex and Gender Information Value Date Recorded Sex Assigned at Not on file Legal Sex Female 1:02 PM EDT Gender Identity Not on file Sexual Orientation Not on file Plan of Treatment Health Maintenance Due Date Last Done Comments LIPID PANEL 1946 DEPRESSION SCREENING 1958 SMOKING Hx and SMOKELESS TOBACCO SCREENING 11/20/1959 HEPATITIS C SCREENING 1964 ZOSTER VACCINES (1 of 2) 1996 OSTEOPOROSIS SCREENING INITI AL (ONE-TIME) 11/20/2011 PNEUMOCOCCAL VACCINES (50+ years) (2 of 2 - PCV) 09/19/2018 09/19/2017 RSV VACCINE (1 - 1-dose 75+ series) 2021 INFLUENZA VACCINE (#1) 2025 0, 05/23/2017, 10/29/2015 COVID-19 VACCINE (2 - 2024-2 6 season) 2025 01/15/2021 Adult Td,Tdap Booster 05/26/2026 05/26/2016 HEPATITIS A VACCINES Aged Out No long er eligible based on patient's age to complete this topic HIB VACCINES Aged Out No longer eligi ble based on patient's age to complete this topic MENINGOCOCCAL VACCINES (ACWY) Aged Out No longer eligible based on patient's age to complete this topic MENINGOCOCCAL VACCINES (B) Aged Out N o longer eligible based on patient's age to complete this topic Medical Devices Not on file Insurance [facility] [employer] MEDICARE REPLACEMENT MEDICARE REPLACEMENT MEDICARE REPLACEMENT nut [address] [place] [address] [place] [address] [place] [address] [place] [address] MEDICARE REPLACEMENT [facility] MEDICARE REPLACEMENT [facility] MEDICARE REPLACEMENT Care Teams Small Arms Artillery Repairer Relationship Specialty Start Date End Date Aleksandr Borrero MD [address] [place] [id number] PCP - General Internal Medicine 11/20/20 Additional Source Comments The information contained in this document represents components of the legal health record. It is not the complete legal health record.[facility]
--- OUTSIDE RECORDS SUMMARY | 2025-05-15 15:37 | XMS_ITS | Encounter Summary ---
Author Organization [facility] Address [address] [place] [address] Phone Care Team Providers Care Porcelain Enamel Sprayer Name Role Phone Aleksandr Borrero MD Primary Care Provider [phone] Encounter Details Date Type Department Care Team (Late st Contact Info) Description 11/24/2020 Ancillary Orders [facility],Outside Imaging [address] [place] [address] System, Provider [place] In, [place] [address] Social History Tobacco Use Types Packs/Day Years Used Date Smoking Tobacco: Never Assessed Comments Unknown Sex and Gender Information Value Date Recorded Sex Assigned at Not on file Legal Sex Female 1:02 PM EDT Gender Identity Not on file Sexual Orientation Not on file documented as of this encounter Plan of Treatment Not on file documented as of this encounter Results * Mammogram Outside (No Interpretation) (10/28/2020 12:10 AM EST) Narrative SYSTEMGENERATED, DOCUMENTATION - 11/24/2020 12:45 PM EDT This study is for PACS storage only and not for interpretation. us Provider Not In System PhD IMG OUTSIDE IMAGING W /OUT INTERPRETATION Final Result documented in this encounter Visit Diagnoses Not on filedocumented in this encounter Care Teams Porcelain Enamel Sprayer Relationship Specialty Start Date End Date Aleksandr Borrero MD [address] [place] [address] PCP - General Internal Medicine 11/20/20 documented as of this encounter Additional Source Comments The information contained in this document represents components of the legal health record. It is not the complete legal health record.[facility]
--- OUTSIDE RECORDS SUMMARY | 2025-05-15 15:37 | XMS_ITS | Encounter Summary ---
Author Organization [facility] Address [address] [place] [address] Phone Care Team Providers Care Health Psychologist Name Role Phone Aleksandr Borrero MD Primary Care Provider [phone] Encounter Details Date Type Department Care Team (Late st Contact Info) Description 11/24/2020 Ancillary Orders [facility],Outside Imaging [address] [place] [address] System, Provider [place] In, [place] [address] Social History Tobacco Use Types Packs/Day Years [...] on filedocumented in this encounter Care Teams Health Psychologist Relationship Specialty Start Date End Date Aleksandr Borrero MD [address] [place] [address] PCP - General Internal Medicine 11/20/20 documented as of this encounter Additional Source Comments The information contained in this document represents components of the legal health record. It is not the complete legal health record.[facility]
--- OUTSIDE RECORDS SUMMARY | 2025-05-15 15:37 | XMS_ITS | Clinical Summary ---
Author Organization [facility] Address [address] [place] [address] Care Team Providers Care Telemarketing Manager Name Role Phone Unavailable Primary Care Provider [...] nts (1 - 1-dose 75+ series) 2021 Depression Screening 08/28/2024 COVID-19 Vaccine (1 - 2023-2 5 season) 2025 Influenza Vaccine (#1) 2025 HIB Vaccines Aged [...]
--- OUTSIDE RECORDS SUMMARY | 2025-05-15 15:37 | XMS_ITS | Encounter Summary ---
Author Organization [facility] Address [address] [place] [address] Phone Care Team Providers Care Vice Chair Name Role Phone Aleksandr Borrero MD Primary Care Provider [phone] Encounter Details Date Type Department Care Team (Late st Contact Info) Description 11/24/2020 Ancillary Orders [facility],Outside Imaging [address] [place] [address] System, Provider Not In, [place] [address] Social History Tobacco Use Types Packs/Day Years [...] encounter Results * Mammogram Outside (No Interpretation) (10/22/2020 12:00 AM EST) Narrative SYSTEMGENERATED, DOCUMENTATION - 11/24/2020 12:46 PM EDT This study is for PACS storage only and not for interpretation. us Provider Not In System PhD IMG OUTSIDE IMAGING W /OUT INTERPRETATION Final Result documented in this encounter Visit Diagnoses Not on filedocumented in this encounter Care Teams Vice Chair Relationship Specialty Start Date End Date Aleksandr Borrero MD [address] [place] [address] PCP - General Internal Medicine 11/20/20 documented as of this encounter Additional Source Comments The information contained in this document represents components of the legal health record. It is not the complete legal health record.[facility]
--- OUTSIDE RECORDS SUMMARY | 2025-05-15 15:37 | XMS_ITS | Encounter Summary ---
Author Organization [facility] [place] [facility] Address [address] [place] [address] Phone Care Team Providers Care Book Canvasser Name Role Phone Aleksandr Borrero MD Primary Care Provider [phone] Encounter Details Date Type Department Care Team (Late st Contact Info) Description 11/24/2020 Ancillary Orders [facility],Outside Imaging [address] [place] [address] System, Provider [place] In, [place] [address] Social History Tobacco Use Types Packs/Day Years [...] Results * US Breast Outside (No Interpretation) (10/22/2020 12:05 AM EST) Narrative SYSTEMGENERATED, DOCUMENTATION - 11/24/2020 12:47 PM EDT This study is for PACS storage only and not for interpretation. us Provider Not In System PhD IMG OUTSIDE IMAGING W /OUT INTERPRETATION Final Result documented in this encounter Visit Diagnoses Not on filedocumented in this encounter Care Teams Book Canvasser Relationship Specialty Start Date End Date Aleksandr Borrero MD [address] [place] [address] PCP - General Internal Medicine 11/20/20 documented as of this encounter Additional Source Comments The information contained in this document represents components of the legal health record. It is not the complete legal health record.[facility] [place] [facility]
--- OUTSIDE RECORDS SUMMARY | 2025-05-15 15:37 | XMS_ITS | Encounter Summary ---
Author Organization [facility] Address [address] [place] [address] Phone Care Team Providers Care Toaster Element Repairer Name Role Phone Aleksandr Borrero MD Primary Care Provider [phone] Encounter Details Date Type Department Care Team (Late st Contact Info) Description 11/24/2020 Ancillary Orders [facility],Outside Imaging [address] [place] [address] System, Provider [place] In, [place] [address] Social History Tobacco Use Types Packs/Day Years Used Date Smoking Tobacco: Never Assessed Comments Unknown Sex and Gender Information Value Date Recorded Sex Assigned at Not on file Legal Sex Female 1:02 PM EDT Gender Identity Not on file Sexual Orientation Not on file documented as of this encounter Plan of Treatment Not on file documented as of this encounter Results * NM Other Outside (No Interpretation) (11/10/2020 12:05 AM EDT) Narrative SYSTEMGENERATED, DOCUMENTATION - 11/24/2020 12:42 PM EDT This study is for PACS storage only and not for interpretation. us Provider Not In System PhD IMG OUTSIDE IMAGING W /OUT INTERPRETATION Final Result documented in this encounter Visit Diagnoses Not on filedocumented in this encounter Care Teams Toaster Element Repairer Relationship Specialty Start Date End Date Aleksandr Borrero MD [address] [place] [phone] PCP - General Internal Medicine 11/20/20 documented as of this encounter Additional Source Comments The information contained in this document represents components of the legal health record. It is not the complete legal health record.[facility]
--- OUTSIDE RECORDS SUMMARY | 2025-05-15 15:37 | XMS_ITS | Encounter Summary ---
Author Organization [facility] Address [address] [place] [address] Phone Care Team Providers Care Bsa/Aml Compliance Officer Name Role Phone Aleksandr Borrero MD Primary Care Provider [phone] Encounter Details Date Type Department Care Team (Late st Contact Info) Description 11/24/2020 Ancillary Orders [facility],Outside Imaging [address] [place] [address] System, Provider [place] In, [place] [address] Social History Tobacco Use Types Packs/Day Years [...] encounter Results * Mammogram Outside (No Interpretation) (11/10/2020 12:00 AM EDT) Narrative SYSTEMGENERATED, DOCUMENTATION - 11/24/2020 12:40 PM EDT This study is for PACS storage only and not for interpretation. us Provider Not In System PhD IMG OUTSIDE IMAGING W /OUT INTERPRETATION Final Result documented in this encounter Visit Diagnoses Not on filedocumented in this encounter Care Teams Bsa/Aml Compliance Officer Relationship Specialty Start Date End Date Aleksandr Borrero MD [address] [place] [address] PCP - General Internal Medicine 11/20/20 documented as of this encounter Additional Source Comments The information contained in this document represents components of the legal health record. It is not the complete legal health record.[facility]
--- OUTSIDE RECORDS SUMMARY | 2025-05-15 15:37 | XMS_ITS | Encounter Summary ---
Author Organization [facility] Address [address] [place] [address] Phone Care Team Providers Care Grain Blender Name Role Phone Aleksandr Borrero MD Primary Care Provider Encounter Details Date Type Department Care Team (Late st Contact Info) Description 11/24/2020 Ancillary Orders [facility],Outside Imaging [address] [place] [address] System, Provider Not In, [place] [address] Social History Tobacco Use Types Packs/Day Years [...] * US Breast Outside (No Interpretation) (10/22/2020 12:10 AM EST) Narrative SYSTEMGENERATED, DOCUMENTATION - 11/24/2020 12:48 PM EDT This study is for PACS storage only and not for interpretation. us Provider Not In System PhD IMG OUTSIDE IMAGING W /OUT INTERPRETATION Final Result documented in this encounter Visit Diagnoses Not on filedocumented in this encounter Care Teams Grain Blender Relationship Specialty Start Date End Date Aleksandr Borrero MD [address] [place] [address] PCP - General Internal Medicine 11/20/20 documented as of this encounter Additional Source Comments The information contained in this document represents components of the legal health record. It is not the complete legal health record.[facility]
--- OUTSIDE RECORDS SUMMARY | 2025-05-15 15:37 | XMS_ITS | Encounter Summary ---
Author Organization [facility] Address [address] [place] [address] Phone Care Team Providers Care Bridges And Buildings Supervisor Name Role Phone Aleksandr Borrero MD Primary Care Provider [phone] Encounter Details Date Type Department Care Team (Late st Contact Info) Description 11/24/2020 Ancillary Orders [facility],Outside Imaging [address] [place] [address] System, Provider Not In, [place] [address] Social History Tobacco Use Types Packs/Day Years [...] * US Breast Outside (No Interpretation) (10/28/2020 12:05 AM EST) Narrative SYSTEMGENERATED, DOCUMENTATION - 11/24/2020 12:44 PM EDT This study is for PACS storage only and not for interpretation. us Provider Not In System PhD IMG OUTSIDE IMAGING W /OUT INTERPRETATION Final Result documented in this encounter Visit Diagnoses Not on filedocumented in this encounter Care Teams Bridges And Buildings Supervisor Relationship Specialty Start Date End Date Aleksandr Borrero MD [address] [place] [address] PCP - General Internal Medicine 11/20/20 documented as of this encounter Additional Source Comments The information contained in this document represents components of the legal health record. It is not the complete legal health record.[facility]
== END 2025-05-15 14:41 | disposition home or self-care (01) ==
LOC: HO.HCS 13:34
PROVIDERS: PCP Internal Medicine; Visit Provider Nurse Practitioner Family
DX: R00.2 Palpitations (principal); R00.1 Bradycardia, unspecified; I10 Essential (primary) hypertension
CPT/HCPCS: 93010; 99213; G2211

== ENCOUNTER → 2025-05-15 13:33 | Outpatient (BNVA) | payer OTHER, SELFPAY | PROVIDERS: PCP Internal Medicine; Visit Provider Nurse Practitioner Family | DX: R00.1 Bradycardia, unspecified (principal); R00.2 Palpitations; I10 Essential (primary) hypertension; I49.1 Atrial premature depolarization; E78.5 Hyperlipidemia, unspecified | CPT/HCPCS: 93005; 99212 ==

== ENCOUNTER 2025-06-30 14:17 | Outpatient (AMB) | payer OTHER, SELFPAY ==
--- NOTE | 2025-06-30 14:49 | MHC.PC.OV ---
Vital Signs 06/30/25 14:51 Height 5 ft 2 in Weight 145 lb 8 oz BMI 26.6 BP 120/66 Blood Pressure Location Lt brachial Position Sitting Pulse 55 Pulse Source Pulse Oximeter Temp 97.0 F Temp Source Temporal Artery Scan Pulse Oximetry (%) 97 Oxygen Delivery Method Room Air Intake Visit Reasons: DM Allergies metformin Allergy (Severe, Verified 06/30/25 14:54) 1000 mg cause diarrhea Tobacco use date assessed: 06/30/25 Fall risk assessment: No Falls in past year Last assessed Fall Risk: 06/30/25 Dental Screening Dental Screen Date: 06/30/25 Did you have a dental visit in the last 12 months?: Yes Did you have a dental problem in the last 6 months where you did not have access to dental care?: No Was dental information given to patient?: Patient has dentist [facility] Medical History LFT elevation Bursitis Asthma On beta jesus at home Rash Diverticulosis Personal history of colonic polyps Colitis Acute gastroenteritis Other and unspecified hyperlipidemia Essential hypertension Type 2 diabetes mellitus with unspecified complications Left knee pain Visual hallucinations TSH elevation TSH elevation RUDDY (obstructive sleep apnea) Fungal dermatitis Invasive ductal carcinoma of right breast Breast mass Cough Shortness of breath Pulmonary hypertension Valvular heart disease Restrictive pattern present on pulmonary function testing Cough variant asthma Hypercholesterolemia Diverticulitis Tubular adenoma of colon Mitral valve regurgitation GERD (gastroesophageal reflux disease) Behcets syndrome Hypertension Type 2 diabetes mellitus with hyperglycemia Overweight (BMI 25.0-29.9) Surgical History History of lumpectomy of right breast Hx of colonoscopy Back pain with history of spinal surgery History of bilateral cataract extraction History of shoulder surgery History of hand surgery History of breast biopsy History of bladder surgery History of cholecystectomy History of total abdominal hysterectomy Family History Father Medical history unknown Mother Diabetes CVD (cardiovascular disease) Daughter Colon cancer Social History Household Members: Spouse Housing: Apartment Are you a primary caregiver assisted living to a significant other at home: No Do you presently have visiting nurse or other home services: Yes (HOSIERY BAGGER) Alcohol intake: former Patient Tobacco Use Status: Former Tobacco user Tobacco use type: Cigarette e-Cigarette/Vaping Use: Never Used Second Hand Smoke Exposure: No service: No Current occupational status: retired Cognitive needs: No Hearing needs: No Vision needs: Yes (reading glasses) Female Reproductive History Menstrual Age of Menarche: 10 Questionnaire PHQ-9 Over the last 2 weeks, how often have you been bothered by any of the following problems? 1. Little interest or pleasure in doing things: several days 2. Feeling down, depressed, or hopeless: not at all 3. Trouble falling or staying asleep, or sleeping too much: several days 4. Feeling tired or having little energy: several days 5. Poor appetite or overeating: not at all 6. Feeling bad about yourself - or that you are a failure or have let yourself or your family down: not at all 7. Trouble concentrating on things, such as reading the newspaper or watching television: not at all 8. Moving or speaking so slowly that other people could have noticed. Or the opposite - being so fidgety or restless that you have been moving around a lot more than usual: not at all 9. Thoughts that you would be better off or of hurting yourself in some way: not at all Total score: 3 Source: Developed by Drs. Jean Paul River, Wendy Segura, Nick Matias and colleagues, with an educational shorty from [employer]. Thrive Questionnaire Date Thrive assessed: 06/30/25 I am a: Patient What is your living situation today?: I choose not to answer this question Within the past 12 months, did the food you bought not last and you didn't have the money to get more?: I choose not to answer this question Within the past 12 months, did you worry whether your food would run out before you got money to buy more?: I choose not to answer this question Do you have trouble paying for medicines?: No Do you have trouble getting transportation to medical appointments?: No Do you have trouble paying your heating and electricity bill?: No Do you have trouble taking care of your child, family member or friend?: No THRIVE Score: 0 AUDIT C Alcohol Use Questionnaire (AUDIT-C) 1. How often do you have a drink containing alcohol?: Never 3. How often do you have six or more drinks on one occasion?: Never Total Score: 0 JUAN FRANCISCO-7 AMB Questionnaire JUAN FRANCISCO-7 Date JUAN FRANCISCO - 7 assessed: 12/03/24 Feeling nervous, anxious, or on edge: 0 = Not at all Not being able to stop or control worryin = Not at all Worrying too much about different things: 0 = Not at all Trouble relaxin = Not at all Being so restless that it is hard to sit still: 0 = Not at all Becoming easily annoyed or irritable: 0 = Not at all Feeling afraid as if something awful might happen: 0 = Not at all Total JUAN FRANCISCO-7 score (0-4 normal; 5-9 mild; 10-14 moderate; 15-21 severe): 0 Source: Developed by Drs. Jean Paul River, Wendy Segura, Nick Matias and colleagues, with an educational shorty from [employer]. Physical exam (Primary Care) Vital Signs: Last Vital Signs Temp 97.0 F 06/30/25 14:51 Pulse 55 06/30/25 14:51 BP 120/66 06/30/25 14:51 Pulse Ox 97 06/30/25 14:51 Oxygen Delivery Method Room Air 06/30/25 14:51 BMI result Body Mass Index 26.6 Tobacco/Smoking Status: Tobacco use Status Tobacco use date assessed 06/30/25 06/30/25 14:55 Patient Tobacco Use Status Former Tobacco user 06/30/25 14:49 Tobacco use type Cigarette 06/30/25 14:49 e-Cigarette/Vaping Use Never Used 06/30/25 14:49 PHQ-9: PHQ-9 Score PHQ-9: Total score 3 06/30/25 15:04 Thrive Assessment: Date of Thrive Assessment Date Thrive assessed 06/30/25 06/30/25 14:49 Const General: alert; No acute distress Eyes Conjunctivae: conjunctivae normal Resp Auscultation: clear to auscultation bilaterally Cardio Rate: regular rate Rhythm: regular rhythm GI Inspection: Yes normal to inspection Extrem General: Yes normal to inspection and No edema Office Procedures Flu Questionnaire Does the patient have a severe egg allergy?: No Does the patient have severe life threatening allergies?: No Does the patient have a fever or illness today?: No Has the patient ever had Guillain-[place] Syndrome?: No Has the patient ever had any past reaction to a flu shot?: No Results AMB Hemoglobin A1c AMB Hemoglobin A1c 6.6 % Last Edit by Madison Frances CMA on 06/30/25 15:00 Immunizations Fluarix [id number] (PF) 45 mcg (15 mcg x 3)/0.5 mL IM syringe Performing Provider: Aleksandr Borrero MD [place] [facility] Administered by: Madison Frances CMA on 06/30/25 15:00 Dose Route Admin Location Dispensed Lot Number Expiration Date NDC Photography Coordinator 0.5 mL IM Left Deltoid 0.5 mL [id number] 02/24/26 [id number] Mobile Authentication VIS Given Date VIS Provided VIS Publication Date 06/30/25 Single Vaccine 24 Eligibility Eligibility Date Funding Source Not [facility] Eligible 06/30/25 Private Results Reviewed Results Reviewed: Laboratory Last Values Hgb A1c (Clinic) 6.6 % (4.0-6.0) H 06/30/25 14:56 Coding Level of Care Code Est Pt Level 4 (80385) Complex EM visit Add On G2211 Diagnoses Type 2 diabetes mellitus with hyperglycemia, without long-term current use of insulin E11.65 Diabetes mellitus fdc insulin use: without termite treater use Primary hypertension I10 Hypertension type: primary hypertension Hypercholesterolemia E78.00 Heart palpitations R00.2 Gastroesophageal reflux disease without esophagitis K21.9 Esophagitis presence: without esophagitis Hepatic steatosis K76.0 Invasive ductal carcinoma of right breast C50.911 Assessment & Plan Assessment & Plan (1) Type 2 diabetes mellitus with hyperglycemia: Comment: E[facility] Dr. Roth Code(s): E11.65 - Type 2 diabetes mellitus with hyperglycemia Category: Medical Qualifiers: Diabetes mellitus termite treater insulin use: without fdc use Qualified Code(s): E11.65 - Type 2 diabetes mellitus with hyperglycemia Plan: Hemoglobin A1c goal of less than 7.0. Decrease the amount of carbohydrate intake, pasta, bread, rice and potatoes are all sugar and that is aside from all the sweet stuff, remember that fruits are good but they are Sweet also. On Trulicity at 1.5 mg once a week Jardiance 25 mg once a day (2) Hypertension: Code(s): I10 - Essential (primary) hypertension Category: Medical Qualifiers: Hypertension type: primary hypertension Qualified Code(s): I10 - Essential (primary) hypertension Plan: Continue with blood pressure medication. Decrease salt intake and exercise patient on amlodipine 5 mg once a day (3) Hypercholesterolemia: Code(s): E78.00 - Pure hypercholesterolemia, unspecified Category: Medical Plan: Avoid fried foods, chicken skin, eggs, butter margarine, pastries and meat. Be it pork or beef they have a lot of cholesterol LDL goal of less than 100 and triglyceride of less than 150 on atorvastatin 80 mg once a day (4) Heart palpitations: Code(s): R00.2 - Palpitations Category: Medical Plan: Stable conservative manage (5) GERD (gastroesophageal reflux disease): Code(s): K21.9 - Gastro-esophageal reflux disease without esophagitis Category: Medical Qualifiers: Esophagitis presence: without esophagitis Qualified Code(s): K21.9 - Gastro-esophageal reflux disease without esophagitis Plan: Avoid the foods that causes that usually spicy foods, tomato products, juices, coffee, soda and foods that your sensitive to. After eating do not lie down, allow 3-4 hours before in lie down. And keep the head of bed above 30 degrees to avoid the acid from going up. (6) Hepatic steatosis: Comment: June 2024 Code(s): K76.0 - Fatty (change of) liver, not elsewhere classified Category: Medical Plan: Low-fat diet and exercise (7) Invasive ductal carcinoma of right breast: Comment: Lumpectomy Dr. Moise October 2020 Code(s): C50.911 - Malignant neoplasm of unspecified site of right female breast Category: Medical Plan: Patient up-to-date with mammogram Plan History of Present Illness The patient is a 79-year-old overweight female presenting for a follow-up appointment. Her past medical history is significant for type 2 diabetes mellitus, hypertension, GERD, hypercholesterolemia, obstructive sleep apnea with CPAP intolerance, lumbar degenerative disc disease, hepatic steatosis, and asthma. She has a history of right breast cancer treated with a lumpectomy in 2020 and history of palpitations which are managed conservatively. Regarding health maintenance, her mammogram is up to date, and she completed a Cologuard test in 2022. A bone density scan in December 2024 revealed osteopenia, for which she sometimes experiences hip pain. Review of recent labs from March 13 shows a normal complete blood count, normal electrolytes, and good renal function. Her hemoglobin A1c was 6.6%, her LDL was 55, and her liver enzymes were noted to be elevated. Her vitamin D level in February was low at 22. Her chronic conditions are managed with Trulicity 1.5 mg weekly, Jardiance 25 mg daily, amlodipine 5 mg daily, and atorvastatin 80 mg daily. She reports trouble sleeping, which she manages with melatonin. Health Maintenance The patient received her influenza vaccine during the visit. She was advised to go to the pharmacy to receive her second shingles vaccine. A tetanus booster will be due next year. Patient was advised on a low-fat diet and exercise. Guidance was provided to remain cautious due to ongoing COVID-19 risk. Social History - Nutritional Intake: The patient has been advised to be careful with her food choices and follow a low-fat diet. - Weight Management: The patient has lost one pound since her last visit. - Sleep: Reports difficulty sleeping but manages it by taking melatonin daily at 11:00 PM. Review of Systems - Constitutional: Reports weight loss of one pound. - Musculoskeletal: Reports intermittent hip pain. - Neurological: Reports difficulty sleeping. Physical Exam - General: The patient is a 79-year-old female who appears overweight. - Respiratory: Lungs are clear to auscultation bilaterally. Results - Labs (from March 13): - Complete Blood Count: Normal - Electrolytes: Normal - Renal function: Good - Hemoglobin A1c: 6.6% - Liver function tests: Elevated - LDL Cholesterol: 55 mg/dL - Vitamin D: 22 ng/mL (low) - Tests and Diagnostics: - Bone Density Scan (December 2024): Results show osteopenia, particularly in the hip. - Cologuard: Completed in 2022. - Mammogram: Up to date. Plan Patient was informed and verbally consented to the use of an ambient scribe for clinic note documentation during this visit. 1. Diabetes Mellitus, Type 2 The patient's hemoglobin A1c is 6.6% as of February, which is an increase but remains within the target goal of less than 7.0%. She has also had a recent 1-pound weight loss. The plan is to continue her current regimen of Trulicity 1.5 mg weekly and Jardiance 25 mg daily. Glipizide will be discontinued due to the risk of hypoglycemia. There will be no increase in the Trulicity dose at this time, as she is currently losing weight. The patient was counseled to be careful with her diet. 2. Hypercholesterolemia The patient's LDL cholesterol was 55 mg/dL in February, which meets the goal of less than 100 mg/dL. She will continue taking atorvastatin 80 mg once a day. 3. Essential Hypertension The patient's hypertension is stable and will continue to be managed with amlodipine 5 mg once a day. 4. Osteopenia The patient has osteopenia, diagnosed via a bone density scan, and reports some associated hip pain. Her vitamin D level was low at 22 ng/mL in February. It was recommended that she take 1000 to 2000 units of vitamin D daily and ensure adequate calcium in her diet. A follow-up bone density scan will be done in two years. Discussion Notes I reviewed the patient's recent lab results with her, noting her HbA1c is 6.6%, which has risen slightly but remains below our goal of 7.0%. I praised her excellent LDL cholesterol of 55 and her 1-pound weight loss. We discussed discontinuing glipizide due to its risk of causing hypoglycemia, and she will continue on Trulicity and Jardiance. We decided to maintain the current Trulicity dose for now, with the option to increase it later if her weight loss plateaus. I explained that her bone density scan shows osteopenia and that her vitamin D level is low at 22. I recommended she start taking a vitamin D supplement of 6047-3163 units daily to support her bone health. We also reviewed her vaccination status, confirming she received her flu shot and needs her second shingles vaccine, which she will get at the pharmacy. I provided anticipatory guidance regarding the ongoing risk of COVID-19. Patient Instructions - Continue to be careful with your diet to help manage your blood sugar, which has risen slightly. - Stop taking glipizide. - Continue your other medications for diabetes, including Trulicity 1.5mg once a week and Jardiance 25mg once a day. - Continue taking atorvastatin 80mg daily for cholesterol and amlodipine 5mg daily for blood pressure. - Your vitamin D level is low. - Please start taking a vitamin D supplement with 1000 to 2000 units each day. - Go to the pharmacy to get your second shingles shot. - Continue to take your melatonin at the same time every night to help with sleep. - Remember that COVID-19 is still spreading, so please take precautions to stay safe. Orders: Orders AMB Hemoglobin A1c Today Z13.9 - Encounter for screening, unspecified Influenza [id number] Immunization Today Z23 - Encounter for immunization
[2025-06-30 14:51] VITALS: BP 120/66; PULSE 55; TEMP 36.1; O2SAT 97; BMI 26.6
== END 2025-06-30 15:13 | disposition home or self-care (01) ==
LOC: HO.HMCH 14:18
PROVIDERS: PCP Internal Medicine; Visit Provider Internal Medicine
DX: E11.65 Type 2 diabetes mellitus with hyperglycemia (principal); C50.911 Malignant neoplasm of unspecified site of right female breast; I10 Essential (primary) hypertension; E78.00 Pure hypercholesterolemia, unspecified; R00.2 Palpitations; K21.9 Gastro-esophageal reflux disease without esophagitis; K76.0 Fatty (change of) liver, not elsewhere classified; Z23 Encounter for immunization

== ENCOUNTER → 2025-06-30 14:17 | Outpatient (BNVA) | payer OTHER, SELFPAY | PROVIDERS: PCP Internal Medicine; Visit Provider Internal Medicine | DX: E11.65 Type 2 diabetes mellitus with hyperglycemia (principal); I10 Essential (primary) hypertension; E78.00 Pure hypercholesterolemia, unspecified; R00.2 Palpitations; K21.9 Gastro-esophageal reflux disease without esophagitis; K76.0 Fatty (change of) liver, not elsewhere classified; C50.911 Malignant neoplasm of unspecified site of right female breast; E55.9 Vitamin D deficiency, unspecified; M85.80 Other specified disorders of bone density and structure, unspecified site; Z23 Encounter for immunization | CPT/HCPCS: 83036; 90471; 90656; 96127; 99212 ==

== ENCOUNTER 2025-07-17 14:32 | Outpatient (AMB) | payer OTHER, SELFPAY ==
[2025-07-17 14:35] VITALS: BP 108/58; PULSE 55; TEMP 36.4; O2SAT 99; BMI 26.9
--- NOTE | 2025-07-17 14:35 | AM.OFFWIN_ITS ---
Intake Vital Signs 07/17/25 14:35 Height 5 ft 2 in Weight 147 lb BMI 26.9 BP 108/58 L Blood Pressure Location Rt brachial Position Sitting Pulse 55 Pulse Source Pulse Oximeter Temp 97.5 F Temp Source Oral Pulse Oximetry (%) 99 Oxygen Delivery Method Room Air Intake Visit Reasons: EP-lower back pain Intake Note: Patient presents c/o sharp bilateral low back pain since Monday. Patient Tobacco Use Status: Former Tobacco user Allergies metformin Allergy (Severe, Verified 07/17/25 14:38) 1000 mg cause diarrhea Medication List - Last Reconciled 07/17/25 by Carmel Robertson NP acetaminophen 1,000 mg (2 x 500 mg) PO Q6H albuterol sulfate 2.5 mg (3 mL) inhalation Q4-6H PRN albuterol sulfate 90 mcg/actuation (Ventolin HFA) 2 puffs PO QID PRN amitriptyline 10 mg PO BEDTIME amlodipine 5 mg PO DAILY anastrozole 1 mg PO DAILY atorvastatin 80 mg PO DAILY blood sugar diagnostic (FreeStyle Lite Strips) 1 strip miscellaneous TID cyclobenzaprine 5 mg PO BEDTIME dulaglutide 1.5 mg (0.5 mL) subcut QWEEK empagliflozin (Jardiance) 25 mg PO DAILY lancets (FreeStyle Lancets) As directed three times daily lidocaine 5% 1 patch topical DAILY meloxicam 15 mg PO DAILY 10 days pantoprazole 40 mg PO BID 90 days sumatriptan succinate 50 mg PO .QD prn PRN HPI HPI Comments History of Present Illness Details 79 y/o female [facility] with c/o lower midline back pain since Monday. Pain is described as persistent and worsens with walking and standing. Pt denies any recent trauma or injury. She does have a h/o low back surgery many years ago for vertebral disc slippage. Denies numbness, tingling, saddle anesthesia, or bladder/bowel dysfunction. No radiation of pain reported. [facility] Medical History LFT elevation Bursitis Asthma On beta jesus at home Rash Diverticulosis Personal history of colonic polyps Colitis Acute gastroenteritis Other and unspecified hyperlipidemia Essential hypertension Type 2 diabetes mellitus with unspecified complications Left knee pain Visual hallucinations TSH elevation TSH elevation RUDDY (obstructive sleep apnea) Fungal dermatitis Invasive ductal carcinoma of right breast Breast mass Cough Shortness of breath Pulmonary hypertension Valvular heart disease Restrictive pattern present on pulmonary function testing Cough variant asthma Hypercholesterolemia Diverticulitis Tubular adenoma of colon Mitral valve regurgitation GERD (gastroesophageal reflux disease) Behcets syndrome Hypertension Type 2 diabetes mellitus with hyperglycemia Overweight (BMI 25.0-29.9) Surgical History History of lumpectomy of right breast Hx of colonoscopy Back pain with history of spinal surgery History of bilateral cataract extraction History of shoulder surgery History of hand surgery History of breast biopsy History of bladder surgery History of cholecystectomy History of total abdominal hysterectomy Family History Father Medical history unknown Mother Diabetes CVD (cardiovascular disease) Daughter Colon cancer Social History Household Members: Spouse Housing: Apartment Are you a primary healthcare customer service to a significant other at home: No Do you presently have visiting nurse or other home services: Yes (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) Alcohol intake: former Patient Tobacco Use Status: Former Tobacco user Tobacco use type: Cigarette e-Cigarette/Vaping Use: Never Used Second Hand Smoke Exposure: No service: No Current occupational status: retired Cognitive needs: No Hearing needs: No Vision needs: Yes (reading glasses) Female Reproductive History Menstrual Age of Menarche: 10 Physical Exam Vital Signs: Last Vital Signs Temp 97.5 F 07/17/25 14:35 Pulse 55 07/17/25 14:35 BP 108/58 L 07/17/25 14:35 Pulse Ox 99 07/17/25 14:35 Oxygen Delivery Method Room Air 07/17/25 14:35 BMI result Body Mass Index 26.9 Const General: no acute distress Nutritional Appearance: overweight Orientation/consciousness: patient oriented x3 Back/Spine/Pelvis Back: back tenderness Thoracic/Lumbar Spine: pain with thoraco-lumbar ROM, thoraco-lumbar spasm, lumbar spinal tenderness and straight leg raise positive Neuro Other: Strength 5/5 in bilateral lower extremities. Sensation intact. Reflexes symmetrical. Normal gait but slow due to discomfort. General: patient oriented x3, gait normal and moves all extremities Psych Speech and movement: Normal speech and movement present Assessment & Plan Assessment & Plan (1) Lumbar degenerative disc disease: Code(s): M51.36 - Other intervertebral disc degeneration, lumbar region Plan: Acute exacerbation of chronic low back pain. Mechanical back pain likely aggravated by activity; no red flag symptoms reported or observed. NSAIDs and Acetaminophen for pain relief ICE/HEAT and rest. Ordered Flexeril and Lido Patches. Gentle stretching and activity modification; avoid heavy lifting. F/U with PCP. Medications: New cyclobenzaprine 5 mg PO BEDTIME 14 tabs 0RF M51.36 - Other intervertebral disc degeneration, lumbar region meloxicam 15 mg PO DAILY 20 tabs 0RF 10 days M51.36 - Other intervertebral disc degeneration, lumbar region lidocaine 5% leave on most painful area for up to 12 hrs 1 patch topical DAILY 30 ea 0RF M51.36 - Other intervertebral disc degeneration, lumbar region Changed From acetaminophen 1,000 mg (2 x 500 mg) PO QID PRN 30 tabs 0RF pain M51.36 - Other intervertebral disc degeneration, lumbar region To acetaminophen 1,000 mg (2 x 500 mg) PO Q6H 30 tabs 0RF pain M51.36 - Other intervertebral disc degeneration, lumbar region Discontinued tramadol Discontinued Reason: Patient no longer taking 50 mg PO Q6H PRN 14 tabs 0RF pain meloxicam Discontinued Reason: Patient no longer taking 15 mg PO DAILY 90 tabs 2RF M70.61 - Trochanteric bursitis, right hip Coding Level of Care Code Est Pt Level 4 (82373) Diagnoses Lumbar degenerative disc disease M51.36 Time Spent (min) 20
--- OUTSIDE RECORDS SUMMARY | 2025-07-17 19:55 | XMS_ITS | Encounter Summary ---
Author Organization [facility] Address [address] [place] [address] Phone Care Team Providers Care Supervisor Riveting Name Role Phone Aleksandr Borrero MD Primary Care Provider [phone] Encounter Details Date Type Department Care Team (Late st Contact Info) Description 11/24/2020 Ancillary Orders [facility],Outside Imaging [address] [place] [address] System, Provider Not In, [place] [address] Social History Tobacco Use Types Packs/Day Years [...] on filedocumented in this encounter Care Teams Supervisor Riveting Relationship Specialty Start Date End Date Aleksandr Borrero MD [address] [place] [address] PCP - General Internal Medicine 11/20/20 documented as of this encounter Additional Source Comments The information contained in this document represents components of the legal health record. It is not the complete legal health record.[facility]
--- OUTSIDE RECORDS SUMMARY | 2025-07-17 19:55 | XMS_ITS | Encounter Summary ---
Author Organization [facility] Address [address] [place] [address] Phone Care Team Providers Care Trench Pipe Layer Name Role Phone Aleksandr Borrero MD Primary Care Provider Encounter Details Date Type Department Care Team (Late st Contact Info) Description 11/24/2020 Ancillary Orders [facility],Outside Imaging [address] [place] [address] System, Provider Not In, [place] [address] Social History Tobacco Use Types Packs/Day Years [...] on filedocumented in this encounter Care Teams Trench Pipe Layer Relationship Specialty Start Date End Date Aleksandr Borrero MD [address] [place] [address] PCP - General Internal Medicine 11/20/20 documented as of this encounter Additional Source Comments The information contained in this document represents components of the legal health record. It is not the complete legal health record.[facility]
--- OUTSIDE RECORDS SUMMARY | 2025-07-17 19:56 | XMS_ITS | Encounter Summary ---
Author Organization [facility] Address [address] [place] [address] Phone Care Team Providers Care Packer Inspector Name Role Phone Aleksandr Borrero MD Primary Care Provider [phone] Encounter Details Date Type Department Care Team (Late st Contact Info) Description 11/24/2020 Ancillary Orders [facility],Outside Imaging [address] [place] [address] System, Provider [place] In, [place] [address] Social History Tobacco Use Types Packs/Day Years [...] on filedocumented in this encounter Care Teams Packer Inspector Relationship Specialty Start Date End Date Aleksandr Borrero MD [address] [place] [address] PCP - General Internal Medicine 11/20/20 documented as of this encounter Additional Source Comments The information contained in this document represents components of the legal health record. It is not the complete legal health record.[facility]
--- OUTSIDE RECORDS SUMMARY | 2025-07-17 19:56 | XMS_ITS | Clinical Summary ---
Author Organization [facility] Address [address] [place] [address] Phone Care Team Providers Care Pipe Fitter Marine Name Role Phone Aleksandr Borrero MD Primary Care Provider [phone] Allergies Active Allergy Reactions Criticality Noted Date [...] topic Medical Devices Not on file Insurance [facility] SCO MEDICARE REPLACEMENT MEDICARE REPLACEMENT MEDICARE REPLACEMENT nut [address] [place] [address] [place] [address] [place] [address] [place] [address] MEDICARE REPLACEMENT [facility] MEDICARE REPLACEMENT [facility] MEDICARE REPLACEMENT Care Teams Pipe Fitter Marine Relationship Specialty Start Date End Date Aleksandr Borrero MD [address] [place] [address] PCP - General Internal Medicine 11/20/20 Additional Source Comments The information contained in this document represents components of the legal health record. It is not the complete legal health record.[facility]
--- OUTSIDE RECORDS SUMMARY | 2025-07-17 19:56 | XMS_ITS | Encounter Summary ---
Author Organization [facility] Address [address] [place] [address] Phone Care Team Providers Care Song Lyricist Name Role Phone Aleksandr Borrero MD Primary Care Provider [phone] Encounter Details Date Type Department Care Team (Late st Contact Info) Description 11/24/2020 Ancillary Orders [facility],Outside Imaging [address] [place] [address] System, Provider [place] In, [place] [address] Social History Tobacco Use Types Packs/Day Years [...] on filedocumented in this encounter Care Teams Song Lyricist Relationship Specialty Start Date End Date Aleksandr Borrero MD [address] [place] [address] PCP - General Internal Medicine 11/20/20 documented as of this encounter Additional Source Comments The information contained in this document represents components of the legal health record. It is not the complete legal health record.[facility]
--- OUTSIDE RECORDS SUMMARY | 2025-07-17 19:56 | XMS_ITS | Encounter Summary ---
Author Organization [facility] Address [address] [place] [address] Phone Care Team Providers Care Burr Filer Name Role Phone Aleksandr Borrero MD Primary Care Provider [phone] Encounter Details Date Type Department Care Team (Late st Contact Info) Description 11/24/2020 Ancillary Orders [facility],Outside Imaging [address] [place] [address] System, Provider [place] In, [place] [address] Social History Tobacco Use Types Packs/Day Years [...] on filedocumented in this encounter Care Teams Burr Filer Relationship Specialty Start Date End Date Aleksandr Borrero MD [address] [place] [address] PCP - General Internal Medicine 11/20/20 documented as of this encounter Additional Source Comments The information contained in this document represents components of the legal health record. It is not the complete legal health record.[facility]
--- OUTSIDE RECORDS SUMMARY | 2025-07-17 19:56 | XMS_ITS | Clinical Summary ---
Author Organization [employer] [facility] ity Address [address] [place] [address] Care Team Providers Care Experimental Worker Name Role Phone Unavailable Primary Care Provider [...] Depression Screening 08/28/2024 COVID-19 Vaccine (1 - 2024-2 6 season) 2025 Influenza Vaccine (#1) 2025 HIB [...]
--- OUTSIDE RECORDS SUMMARY | 2025-07-17 19:56 | XMS_ITS | Encounter Summary ---
Author Organization [facility] Address [address] [place] [address] Phone Care Team Providers Care Permastone Mechanic Name Role Phone Aleksandr Borrero MD Primary Care Provider [phone] Encounter Details Date Type Department Care Team (Late st Contact Info) Description 11/24/2020 Ancillary Orders [facility],Outside Imaging [address] [place] [address] System, Provider [place] In, [place] [address] Social History Tobacco Use Types Packs/Day Years [...] on filedocumented in this encounter Care Teams Permastone Mechanic Relationship Specialty Start Date End Date Aleksandr Borrero MD [address] [place] [address] PCP - General Internal Medicine 11/20/20 documented as of this encounter Additional Source Comments The information contained in this document represents components of the legal health record. It is not the complete legal health record.[facility]
--- OUTSIDE RECORDS SUMMARY | 2025-07-17 19:56 | XMS_ITS | Encounter Summary ---
Author Organization [facility] Address [address] [place] [address] Phone Care Team Providers Care Charge Loader Name Role Phone Aleksandr Borrero MD Primary Care Provider Encounter Details Date Type Department Care Team (Late st Contact Info) Description 11/24/2020 Ancillary Orders [facility],Outside Imaging [address] [place] [address] System, Provider [place] In, [place] [address] Social History Tobacco Use Types Packs/Day Years [...] on filedocumented in this encounter Care Teams Charge Loader Relationship Specialty Start Date End Date Aleksandr Borrero MD [address] [place] [address] PCP - General Internal Medicine 11/20/20 documented as of this encounter Additional Source Comments The information contained in this document represents components of the legal health record. It is not the complete legal health record.[facility]
--- OUTSIDE RECORDS SUMMARY | 2025-07-17 19:56 | XMS_ITS | Encounter Summary ---
Author Organization [facility] Address [address] [place] [address] Phone Care Team Providers Care Radio Interference Expert Name Role Phone Aleksandr Borrero MD Primary Care Provider [phone] Encounter Details Date Type Department Care Team (Late st Contact Info) Description 11/24/2020 Ancillary Orders [facility],Outside Imaging [address] [place] [address] System, Provider [place] In, [place] [address] Social History Tobacco Use Types Packs/Day Years [...] on filedocumented in this encounter Care Teams Radio Interference Expert Relationship Specialty Start Date End Date Aleksandr Borrero MD [address] [place] [address] PCP - General Internal Medicine 11/20/20 documented as of this encounter Additional Source Comments The information contained in this document represents components of the legal health record. It is not the complete legal health record.[facility]
--- OUTSIDE RECORDS SUMMARY | 2025-07-17 19:56 | XMS_ITS | Patient Health Record ---
Author Organization [facility] Address [address] [place] [address] Care Team Providers Care Rippler Name Role Phone Aleksandr Borrero MD Primary Care Provider Olaf Gonzalez Jr Unavailable Reason For Referral No Information Medications Medication SIG (Take, Route, Frequency, Duration) Notes Start Date End Date Status traMADol HCl Active metFORMIN HCl Active Multi Vitamin/Minerals Active Colyte with Flavor Packs 240 GM Solution Reconstituted As directed Orally Over the specified time.; Duration: 1 day(s) 10/11/2018 Active Zantac 150 Maximum Strength Active Pantoprazole Sodium Active Lisinopril Active amLODIPine Besylate Active traZODone HCl Active Metoprolol Succinate ER Active tiZANidine HCl Activ e Immunizations Vaccine Route Administration Date Status Comme nts Influenza Unknown 10/11/2018 Refused Social History Tobacco Use: Social History Observation Description Date Details (start date - stop date) Former Smoker NA - NA Social History Tobacco Use: Social Info Question Answer Notes Tobacco Use/Smoking Patient is a former smoker How long has it been since you last smoked? > 10 years Additional Details Category Social Info Options Details Miscellaneous: Marital status: Occupation: unemployed Problems Problem Type SNOMED Code ICD Code Onset Dates Problem Status W/U Status Risk Notes Problem Colon cancer screening (081958771) Colon cancer screening (Z12.11) Active confirmed Problem Abnormal upper gastrointestinal barium series (R93.3) Active confirmed Plan Of Treatment Future Test Test Name Order Date COLONOSCOPY 01/27/2012 UPPER GI ENDOSCOPY 10/11/2018 COLONOSCOPY 10/11/2018 Insurance Providers Payer Name Payer Address Payer Phone Subscriber Number Group Number Insured Name Patient Relationship to Insured Coverage Start Date Coverage End Date [facility] [address] [place] [address] [id number] TALIA NAIK Self - patient is the insured MEDICAID OF [employer] [address] [place] [address] [phone] [id number] TALIA NAIK Self - patient is the insured Medical (General) History Medical History History ICD Code gerd degenerative joint disease asthma diabetes mellitus, benign bladder lesion hypertension Arthritis hx of diverticulitis migraine headaches urinary incontinence Bechets disease Surgical History Surgery Date(Month/Year) cholecystectomy bladder suspension hysterectomy right shoulder surgery benign breast biopsies cystoscopy
== END 2025-07-17 15:24 | disposition home or self-care (01) ==
PROVIDERS: PCP Internal Medicine; Visit Provider Nurse Practitioner Family
DX: M51.369 Other intervertebral disc degeneration, lumbar region without mention of lumbar back pain or lower extremity pain (principal)

== ENCOUNTER → 2025-07-17 14:32 | Outpatient (BNVA) | payer OTHER, SELFPAY | PROVIDERS: PCP Internal Medicine; Visit Provider Nurse Practitioner Family | DX: M51.360 Other intervertebral disc degeneration, lumbar region with discogenic back pain only (principal); G89.29 Other chronic pain | CPT/HCPCS: 99212 ==

== ENCOUNTER 2025-08-06 15:55 | Outpatient (AMB) | payer OTHER, SELFPAY ==
[2025-08-06 16:02] VITALS: BP 110/44; PULSE 65; TEMP 36.6; O2SAT 96; BMI 26.9
--- NOTE | 2025-08-06 16:02 | AM.OFFWIN_ITS ---
Intake Vital Signs 08/06/25 16:02 Height 5 ft 2 in Weight 147 lb BMI 26.9 BP 110/44 L Blood Pressure Location Lt brachial Position Sitting Pulse 65 Pulse Source Pulse Oximeter Temp 97.9 F Temp Source Oral Pulse Oximetry (%) 96 Oxygen Delivery Method Room Air Comment Low Diastolic BP: pt reports lots of knee pain. provider notified Intake Visit Reasons: EP Pain in left knee Intake Note: pt presents with LT knee pain and open wound after falling in a parking lot y Patient Tobacco Use Status: Former Tobacco user Allergies metformin Allergy (Severe, Verified 08/06/25 16:09) 1000 mg cause diarrhea Do you need a note to return to daycare/school/sports/work: No HPI HPI Comments History of Present Illness Details This is a 79-year-old female with a past medical history of diabetes, hyperlipidemia and hypertension presenting for evaluation of a left knee injury. Patient states she was walking in a parking lot yesterday when she fell forward onto her left knee causing an abrasion. Patient states that her had to help her get up off the ground. She has an abrasion on her left knee that she clean with soap and water and has been putting antibiotic ointment on. Patient took Advil for relief of her left knee pain this morning but states the pain persists. [facility] Medical History LFT elevation Bursitis Asthma On beta jesus at home Rash Diverticulosis Personal history of colonic polyps Colitis Acute gastroenteritis Other and unspecified hyperlipidemia Essential hypertension Type 2 diabetes mellitus with unspecified complications Left knee pain Visual hallucinations TSH elevation TSH elevation RUDDY (obstructive sleep apnea) Fungal dermatitis Invasive ductal carcinoma of right breast Breast mass Cough Shortness of breath Pulmonary hypertension Valvular heart disease Restrictive pattern present on pulmonary function testing Cough variant asthma Hypercholesterolemia Diverticulitis Tubular adenoma of colon Mitral valve regurgitation GERD (gastroesophageal reflux disease) Behcets syndrome Hypertension Type 2 diabetes mellitus with hyperglycemia Overweight (BMI 25.0-29.9) Surgical History History of lumpectomy of right breast Hx of colonoscopy Back pain with history of spinal surgery History of bilateral cataract extraction History of shoulder surgery History of hand surgery History of breast biopsy History of bladder surgery History of cholecystectomy History of total abdominal hysterectomy Family History Father Medical history unknown Mother Diabetes CVD (cardiovascular disease) Daughter Colon cancer Social History Household Members: Spouse Housing: Apartment Are you a primary career and transition teacher to a significant other at home: No Do you presently have visiting nurse or other home services: Yes ([employer]) Alcohol intake: former Patient Tobacco Use Status: Former Tobacco user Tobacco use type: Cigarette e-Cigarette/Vaping Use: Never Used Second Hand Smoke Exposure: No service: No Current occupational status: retired Cognitive needs: No Hearing needs: No Vision needs: Yes (reading glasses) Female Reproductive History Menstrual Age of Menarche: 10 Review of Systems Const All systems reviewed & are unremarkable except as noted in HPI and below Reports no additional complaints, Denies chills, Denies fever(s) and Denies headache(s) Eyes Reports no additional complaints and Denies blurry vision ENT Reports no additional complaints, Denies vertigo, Denies dizziness, Denies facial pain, Denies headache(s) and Denies neck pain Card Reports no additional complaints and Denies syncope Resp Reports no additional complaints GI Reports no additional complaints Reports no additional complaints Musc Reports arthralgias (left knee) and Denies neck pain Skin/Breast Reports erythema (left knee abrasion) Neuro Reports no additional complaints, Denies vertigo, Denies dizziness, Denies syncope and Denies headache(s) Psych Reports no additional complaints Endo Reports no additional complaints Shaun/Lymph Reports no additional complaints Physical Exam Vital Signs: Last Vital Signs Temp 97.9 F 08/06/25 16:02 Pulse 65 08/06/25 16:02 BP 110/44 L 08/06/25 16:02 Pulse Ox 96 08/06/25 16:02 Oxygen Delivery Method Room Air 08/06/25 16:02 BMI result Body Mass Index 26.9 Const General: cooperative, healthy appearing, comfortable, no acute distress, well developed, alert, awake and Physically active; No ill appearing or lethargic Nutritional Appearance: average body habitus Orientation/consciousness: patient oriented x3 and No lethargic Limitations: no limitations Skin Other: Abrasion left knee, no active bleeding, no underlying edema or ecchymosis Neuro General: patient oriented x3 Extrem Left lower extremity: normal to inspection, full ROM and knee (abrasion anterior left knee, no pain to palpation patella) Details: normal ROM and knee ligament exam normal; no swelling and no foreign bodies; no edema Psych Appearance: grossly normal Mental Status: mental status grossly normal Insight: Good insight present (Psych) Judgement: Good judgement present (Psych) Assessment & Plan Assessment & Plan (1) Contusion of left knee: Comment: Patient is cleansed with saline and chlorhexidine, antibiotic ointment is applied topically. Patient is given 325 mg of acetaminophen ([facility] [id number]), no clinical evidence of a bacterial cellulitis at this time. Code(s): S80.02XA - Contusion of left knee, initial encounter Qualifiers: Encounter type: initial encounter Qualified Code(s): S80.02XA - Contusion of left knee, initial encounter Plan: Tylenol and/or ibuprofen every 6 hours as needed for pain. Patient will keep the abrasions clean with soap and water and apply antibiotic ointment twice daily. Orders: Orders AMB Acetaminophen Adult Dose Today S80.02XA - Contusion of left knee, initial encounter Medications: New acetaminophen 325 mg PO ONCE 1 tab 0RF S80.02XA - Contusion of left knee, initial encounter Coding Level of Care Code Est Pt Level 3 (85401) Diagnoses Contusion of left knee, initial encounter S80.02XA Encounter type: initial encounter Time Spent (min) 20
--- OUTSIDE RECORDS SUMMARY | 2025-08-07 00:36 | XMS_ITS | Encounter Summary ---
Author Organization [facility] Address [address] [place] [address] Phone Care Team Providers Care Freight Hustler Name Role Phone Aleksandr Borrero MD Primary Care Provider [phone] Encounter Details Date Type Department Care Team (Late st Contact Info) Description 11/24/2020 Ancillary Orders [facility],Outside Imaging [address] [place] [address] System, Provider [place] In, [place] [address] Social History Tobacco Use Types Packs/Day Years [...] on filedocumented in this encounter Care Teams Freight Hustler Relationship Specialty Start Date End Date Aleksandr Borrero MD [address] [place] [address] PCP - General Internal Medicine 11/20/20 documented as of this encounter Additional Source Comments The information contained in this document represents components of the legal health record. It is not the complete legal health record.[facility]
--- OUTSIDE RECORDS SUMMARY | 2025-08-07 00:37 | XMS_ITS | Encounter Summary ---
Author Organization [facility] Address [address] [place] [address] Phone Care Team Providers Care Skylights Assembler Name Role Phone Aleksandr Borrero MD Primary Care Provider [phone] Encounter Details Date Type Department Care Team (Late st Contact Info) Description 11/24/2020 Ancillary Orders [facility],Outside Imaging [address] [place] [address] System, Provider [place] In, [place] [address] Social History Tobacco Use Types Packs/Day Years [...] on filedocumented in this encounter Care Teams Skylights Assembler Relationship Specialty Start Date End Date Aleksandr Borrero MD [address] [place] [address] PCP - General Internal Medicine 11/20/20 documented as of this encounter Additional Source Comments The information contained in this document represents components of the legal health record. It is not the complete legal health record.[facility]
--- OUTSIDE RECORDS SUMMARY | 2025-08-07 00:37 | XMS_ITS | Clinical Summary ---
Author Organization [email or web address] [facility] ity Address [address] [place] [address] Care Team Providers Care Health Program Director Name Role Phone Unavailable Primary Care Provider [...]
--- OUTSIDE RECORDS SUMMARY | 2025-08-07 00:37 | XMS_ITS | Patient Health Record ---
Author Organization [facility] Address [address] [place] [address] Care Team Providers Care Pharmacy Customer Care Specialist Name Role Phone Aleksandr Borrero MD Primary Care Provider Olaf Gonzalez Jr Unavailable [phone] Reason For Referral No Information Medications Medication [...] Status Risk Notes Problem Colon cancer screening (374774452) Colon cancer screening (Z12.11) Active confirmed Problem Abnormal upper gastrointestinal barium series (R93.3) Active confirmed Plan Of Treatment Future Test Test Name Order Date COLONOSCOPY 01/27/2012 UPPER GI ENDOSCOPY 10/11/2018 COLONOSCOPY 10/11/2018 Insurance Providers Payer Name Payer Address Payer Phone Subscriber Number Group Number Insured Name Patient Relationship to Insured Coverage Start Date Coverage End Date [facility] [address] [place] [address] [id number] TALIA NAIK Self - patient is the insured MEDICAID OF [employer] [address] [place] [address] [phone] [id number] TALIA NAIK Self - patient is the insured Medical (General) History Medical History History ICD Code gerd degenerative joint disease asthma diabetes mellitus, benign bladder lesion hypertension Arthritis hx of diverticulitis migraine headaches urinary incontinence Bechets disease Surgical History Surgery Date(Month/Year) cholecystectomy bladder suspension hysterectomy right shoulder surgery benign breast biopsies cystoscopy
--- OUTSIDE RECORDS SUMMARY | 2025-08-07 00:37 | XMS_ITS | Clinical Summary ---
Author Organization [facility] Address [address] [place] [address] Phone Care Team Providers Care Trimmer Sawyer Name Role Phone Aleksandr Borrero MD Primary Care Provider [phone] Allergies Active Allergy Reactions Criticality Noted Date [...] Medical Devices Not on file Insurance [facility] SCO MEDICARE REPLACEMENT MEDICARE REPLACEMENT MEDICARE REPLACEMENT nut [address] [place] [address] [place] [address] [place] [address] [place] [address] MEDICARE REPLACEMENT [facility] MEDICARE REPLACEMENT [facility] MEDICARE REPLACEMENT Care Teams Trimmer Sawyer Relationship Specialty Start Date End Date Aleksandr Borrero MD [address] [place] [address] PCP - General Internal Medicine 11/20/20 Additional Source Comments The information contained in this document represents components of the legal health record. It is not the complete legal health record.[facility]
--- OUTSIDE RECORDS SUMMARY | 2025-08-07 00:37 | XMS_ITS | Encounter Summary ---
Author Organization [facility] Address [address] [place] [address] Phone Care Team Providers Care Supply Analyst Name Role Phone Aleksandr Borrero MD Primary Care Provider [phone] Encounter Details Date Type Department Care Team (Late st Contact Info) Description 11/24/2020 Ancillary Orders [facility],Outside Imaging [address] [place] [address] System, Provider [place] In, [place] [address] Social History Tobacco Use Types Packs/Day Years [...] on filedocumented in this encounter Care Teams Supply Analyst Relationship Specialty Start Date End Date Aleksandr Borrero MD [address] [place] [address] PCP - General Internal Medicine 11/20/20 documented as of this encounter Additional Source Comments The information contained in this document represents components of the legal health record. It is not the complete legal health record.[facility]
--- OUTSIDE RECORDS SUMMARY | 2025-08-07 00:37 | XMS_ITS | Encounter Summary ---
Author Organization [facility] Address [address] [place] [address] Phone Care Team Providers Care Unpaid Intern Name Role Phone Aleksandr Borrero MD Primary Care Provider [phone] Encounter Details Date Type Department Care Team (Late st Contact Info) Description 11/24/2020 Ancillary Orders [facility],Outside Imaging [address] [place] [address] System, Provider [place] In, [place] [address] Social History Tobacco Use Types Packs/Day Years [...] on filedocumented in this encounter Care Teams Unpaid Intern Relationship Specialty Start Date End Date Aleksandr Borrero MD [address] [place] [address] PCP - General Internal Medicine 11/20/20 documented as of this encounter Additional Source Comments The information contained in this document represents components of the legal health record. It is not the complete legal health record.[facility]
--- OUTSIDE RECORDS SUMMARY | 2025-08-07 00:37 | XMS_ITS | Encounter Summary ---
Author Organization [facility] Address [address] [place] [address] Phone Care Team Providers Care [employer] Name Role Phone Aleksandr Borrero MD Primary Care Provider [phone] Encounter Details Date Type Department Care Team (Late st Contact Info) Description 11/24/2020 Ancillary Orders [facility],Outside Imaging [address] [place] [address] System, Provider Not In, [place] [address] Social History Tobacco Use Types Packs/Day Years [...] on filedocumented in this encounter Care Teams [employer] Relationship Specialty Start Date End Date Aleksandr Borrero MD [address] [place] [address] PCP - General Internal Medicine 11/20/20 documented as of this encounter Additional Source Comments The information contained in this document represents components of the legal health record. It is not the complete legal health record.[facility]
--- OUTSIDE RECORDS SUMMARY | 2025-08-07 00:37 | XMS_ITS | Encounter Summary ---
Author Organization [facility] Address [address] [place] [address] Phone Care Team Providers Care Aircraft [employer]ic [employer] Name Role Phone Aleksandr Borrero MD Primary Care Provider [phone] Encounter Details Date Type Department Care Team (Late st Contact Info) Description 11/24/2020 Ancillary Orders [facility],Outside Imaging [address] [place] [address] System, Provider Not In, [place] [address] Social History Tobacco Use Types Packs/Day Years [...] on filedocumented in this encounter Care Teams [employer] Relationship Specialty Start Date End Date Aleksandr Borrero MD [address] [place] [address] PCP - General Internal Medicine 11/20/20 documented as of this encounter Additional Source Comments The information contained in this document represents components of the legal health record. It is not the complete legal health record.[facility]
--- OUTSIDE RECORDS SUMMARY | 2025-08-07 00:37 | XMS_ITS | Encounter Summary ---
Author Organization [facility] Address [address] [place] [address] Phone Care Team Providers Care Informatics Physician Name Role Phone Aleksandr Borrero MD Primary Care Provider [phone] Encounter Details Date Type Department Care Team (Late st Contact Info) Description 11/24/2020 Ancillary Orders [facility],Outside Imaging [address] [place] [address] System, Provider [place] In, [place] [address] Social History Tobacco Use Types Packs/Day Years [...] on filedocumented in this encounter Care Teams Informatics Physician Relationship Specialty Start Date End Date Aleksandr Borrero MD [address] [place] [address] PCP - General Internal Medicine 11/20/20 documented as of this encounter Additional Source Comments The information contained in this document represents components of the legal health record. It is not the complete legal health record.[facility]
--- OUTSIDE RECORDS SUMMARY | 2025-08-07 00:37 | XMS_ITS | Encounter Summary ---
Author Organization [facility] Address [address] [place] [address] Phone Care Team Providers Care Thoracic Medicine Physician Name Role Phone Aleksandr Borrero MD Primary Care Provider [phone] Encounter Details Date Type Department Care Team (Late st Contact Info) Description 11/24/2020 Ancillary Orders [facility],Outside Imaging [address] [place] [address] System, Provider [place] In, [place] [address] Social History Tobacco Use Types Packs/Day Years [...] on filedocumented in this encounter Care Teams Thoracic Medicine Physician Relationship Specialty Start Date End Date Aleksandr Borrero MD [address] [place] [address] PCP - General Internal Medicine 11/20/20 documented as of this encounter Additional Source Comments The information contained in this document represents components of the legal health record. It is not the complete legal health record.[facility]
== END 2025-08-06 16:42 | disposition home or self-care (01) ==
PROVIDERS: PCP Internal Medicine; Visit Provider Physician Assistant
DX: S80.02XA Contusion of left knee, initial encounter (principal)

== ENCOUNTER → 2025-08-06 15:55 | Outpatient (BNVA) | payer OTHER, SELFPAY | PROVIDERS: PCP Internal Medicine; Visit Provider Physician Assistant | DX: S80.02XA Contusion of left knee, initial encounter (principal) | CPT/HCPCS: 99212 ==